=== PATIENT | female | born 1960 | race Caucasian/White ===

== ENCOUNTER 2020-07-17 10:53 | Outpatient (REF) | payer MEDICARE, SELFPAY ==
--- NOTE | 2020-07-17 10:56 | MR_ITS ---
MR LUMBAR SPINE WITHOUT IV CONTRAST CLINICAL INFORMATION: Spinal stenosis, lumbar region with neurogenic claudication. COMPARISON: Lumbar spine radiographs 06/05/2018. TECHNIQUE: MRI of the lumbar spine was obtained using routine sequences without contrast. FINDINGS: Straightening of the lumbar lordosis. Slight grade 1 anterolisthesis of L3 on L4. There are 5 nonrib-bearing lumbar-type vertebral bodies. The vertebral body heights are maintained. There is mild disc volume loss at L5-S1. There is disc desiccation at L3-L4, L4-L5, and L5-S1. There is no bone marrow edema. There are no acute fractures. Multilevel endplate osteophytes. Conus terminates at the L2 level. There are bilateral renal cysts. L1-L2: Small annular disc bulge and mild bilateral facet arthropathy. No central canal stenosis and no foraminal stenosis. L2-L3: Small annular disc bulge and mild bilateral facet arthropathy. No central canal stenosis and no foraminal stenosis. L3-L4: Slight grade 1 anterolisthesis. Moderate bilateral facet arthropathy and ligamentum flavum thickening. Mild narrowing of the central canal and mild bilateral foraminal encroachment. L4-L5: There is a diffuse annular disc bulge and there is moderate bilateral facet arthropathy. No central canal stenosis. Mild foraminal encroachment bilaterally. L5-S1: There is an inferiorly migrating right paracentral disc extrusion that contacts the traversing right S1 nerve root within the right S1 lateral recess and there are right greater than left lateral disc osteophyte protrusions, on the right side contacting the extraforaminal right L5 nerve root. Mild foraminal encroachment bilaterally. MR/MR lumbar spine wo con IMPRESSION: - At L5-S1, there is an inferiorly migrating right paracentral disc extrusion that contacts the traversing right S1 nerve root within the right S1 lateral recess and there are right greater than left lateral disc osteophyte protrusions, on the right side contacting the extraforaminal right L5 nerve root. - Additional degenerative findings as discussed above. There is no severe central canal stenosis and there is no severe foraminal stenosis within the lumbar spine. Slight grade 1 degenerative anterolisthesis of L3 on L4.
== END 2020-07-17 10:54 | disposition home or self-care (01) ==
LOC: HO.MRI 10:53
PROVIDERS: PCP Physician Assistant; Visit Provider Physician Assistant
DX: M48.062 Spinal stenosis, lumbar region with neurogenic claudication (principal)
CPT/HCPCS: 72148

== ENCOUNTER 2020-08-25 12:24 | Outpatient (REF) | payer MEDICARE, SELFPAY ==
--- NOTE | ~2020-08-25 | US_ITS ---
EXAMINATION: UPPER EXTREMITY DUPLEX DOPPLER ARTERIAL STUDY OF THE LEFT UPPER EXTREMITY. CLINICAL INFORMATION: Atherosclerotic disease COMPARISON: None TECHNIQUE: Real-time ultrasound and Doppler techniques (integrating B-mode 2D vascular images, Doppler spectral analysis and color flow Doppler imaging) were utilized to interrogate the left upper extremity arteries. FINDINGS: Left subclavian artery demonstrates a biphasic waveform with peak systolic velocity of 135 cm/s. The axillary artery has a biphasic waveform with peak systolic velocity of 118 cm/s. The brachial artery has a triphasic waveform with peak systolic velocity of 129 cm/s. The radial artery has a monophasic waveform with peak systolic velocity of 115 cm/s. The ulnar artery has a monophasic waveform with peak systolic velocity of 47 cm/s. US/US arterial duplex UE LT IMPRESSION: No hemodynamically significant stenosis down to the elbow but with monophasic waveforms distal to the brachial artery in both radial and ulnar arteries.
--- NOTE | ~2020-08-25 | XR_ITS ---
EXAMINATION: LEFT HAND CLINICAL INFORMATION: Pain COMPARISON: Left wrist study of December 13, 2017 TECHNIQUE: Three-view left hand FINDINGS: There is osteopenia visualized bones. No acute fracture or dislocation is evident. No erosive changes. Joint spaces are generally maintained. A tack is seen within the distal ulnar. XR/XR hand wrist LT IMPRESSION: Diffuse osteopenia. No acute fracture or dislocation.
--- NOTE | ~2020-08-25 | US_ITS ---
EXAMINATION: US VENOUS WITH DOPPLER UPPER EXTREMITY, LEFT CLINICAL INFORMATION: M79.89 - Other specified soft tissue disorders COMPARISON: None TECHNIQUE: Ultrasound of the upper extremity is performed using compression sonography and color and pulse Doppler flow with assessment of augmentation of flow. There is also imaging and Doppler assessment of the jugular and subclavian veins. Spectral analysis with color-flow imaging is performed. FINDINGS: Respiratory variation, normal compression, and augmented flow are noted throughout the upper extremity including the axillary, brachial, cubital, and radial and ulnar veins. There is normal flow in the internal jugular and subclavian veins. There is no visible deep or superficial thrombophlebitis. If the patient's symptoms progress, a followup ultrasound in 5 -7 days might be of value to exclude proximal propagation from a nonvisualized distal arm vein. US/US venous duplex UE LT IMPRESSION: No DVT demonstrated in the left upper extremity.
== END 2020-08-25 12:25 | disposition home or self-care (01) ==
LOC: HO.US 12:24
PROVIDERS: Visit Provider Physician Assistant
DX: M25.532 Pain in left wrist (principal); M79.89 Other specified soft tissue disorders
CPT/HCPCS: 73110; 73130; 93931; 93971

== ENCOUNTER 2021-01-23 19:14 | Emergency (ER) | payer MEDICARE, SELFPAY ==
--- NOTE | ~2021-01-23 | XR_ITS ---
EXAMINATION: XR LUMBAR SPINE XR HIP, LEFT CLINICAL INFORMATION: Back and left buttock pain. COMPARISON: Most recent lumbar spine MRI dated 07/17/2020. TECHNIQUE: AP, lateral, and cone-down views of the lumbar spine. AP and frog-leg lateral views of the left hip. FINDINGS: LUMBAR SPINE: Levocurvature of the lower lumbar spine. No acute fracture or subluxation. No loss of vertebral body height. Mild multilevel loss of intervertebral disc height with tiny anterior endplate osteophytes. Bilateral facet arthropathy at L5-S1. No lytic or blastic osseous lesion. Atherosclerotic calcifications. LEFT HIP: Mild joint space narrowing with tiny marginal osteophytes. No osseous erosion. No abnormal soft tissue calcification. XR/XR lumbar spine 2-3V IMPRESSION: Lumbar Spine: Mild multilevel degenerative disc disease, not significantly changed. Bilateral facet arthropathy at L5-S1. Left Hip: Minimal osteoarthritis.
--- NOTE | ~2021-01-23 | XR_ITS ---
EXAMINATION: XR LUMBAR SPINE XR HIP, LEFT CLINICAL INFORMATION: Back and left buttock pain. COMPARISON: Most recent lumbar spine MRI dated 07/17/2020. TECHNIQUE: AP, lateral, and cone-down views of the lumbar spine. AP and frog-leg lateral views of the left hip. FINDINGS: LUMBAR SPINE: Levocurvature of the lower lumbar spine. No acute fracture or subluxation. No loss of vertebral body height. Mild multilevel loss of intervertebral disc height with tiny anterior endplate osteophytes. Bilateral facet arthropathy at L5-S1. No lytic or blastic osseous lesion. Atherosclerotic calcifications. LEFT HIP: Mild joint space narrowing with tiny marginal osteophytes. No osseous erosion. No abnormal soft tissue calcification. XR/XR hip LT min 2V IMPRESSION: Lumbar Spine: Mild multilevel degenerative disc disease, not significantly changed. Bilateral facet arthropathy at L5-S1. Left Hip: Minimal osteoarthritis.
[2021-01-23 19:24] VITALS: BP 196/78; PULSE 92; RESP 16; TEMP 37.2; O2SAT 94; BMI 27.3
--- NOTE | 2021-01-23 19:39 | ED_ITS ---
HPI - Back Pain/Injury General Chief Complaint: Back Pain/Injury Stated Complaint: back pain Source: patient and EMS Mode of arrival: EMS Limitations: no limitations History of Present Illness HPI Narrative: Presents via EMS for lower back and left hip pain. Stated the pain started several days ago however she does have chronic pain and known arthritis. She states that has been difficult to walk for the past several days because to not report any fevers or chills, symptoms indicating cauda equina, chest pain or pressure, palpitations, shortness breath, abdominal pain, abdominal distention, dysuria, hematuria, nausea, vomiting, diarrhea, constipation, or any other concerning symptoms. She does not report any falls or trauma. She did not take any medications for pain management, she does not have Tylenol or Motrin at her home. MD elicited complaint: back pain Pertinent past history: prior back pain and arthritis Onset (ago): day(s) Timing: constant and progressively worsening Severity: severe Pain scale (0-10): 10 Similar Symptoms Previously: Yes Quality: aching and throbbing Location: lumbar spine Radiation: other (Left hip) Exacerbating factors: movement and walking Relieving factors: none Associated symptoms: denies other symptoms Work related injury: No Related Data Home Medications Medication Instructions Recorded Confirmed alcohol swabs pad TOPICAL 04/09/20 12/16/20 fluticasone propionate 50 1 inh INHALATION ONCE ea 04/09/20 12/16/20 mcg/actuation blister powder for inhalation lorazepam 1 mg tablet 1 mg PO TID PRN 04/09/20 12/16/20 venlafaxine 75 mg capsule,extended 75 mg PO DAILY cap 04/09/20 12/16/20 release 24 hr metformin 1,000 mg tablet 1,000 mg PO BID 06/03/20 12/16/20 Previous Rx's Medication Instructions Recorded walker #1 ea 04/28/20 lisinopril 40 mg tablet 40 mg PO DAILY #90 tab 07/07/20 diclofenac sodium 75 mg 75 mg PO BID PRN 30 Days #60 tab 08/25/20 tablet,delayed release atorvastatin 20 mg tablet 20 mg PO DAILY #90 tab 08/31/20 propranolol 20 mg tablet 20 mg PO BID #180 tab 10/29/20 levothyroxine 25 mcg tablet 25 mcg PO DAILY 90 Days #90 tab 11/25/20 omeprazole 20 mg capsule,delayed 20 mg PO DAILY 90 Days #90 cap 11/25/20 release lactulose 20 gram/30 mL oral 20 g PO ONCE PRN 15 Days #450 ml 12/14/20 solution magnesium citrate 150 ml PO DAILY 1 Days #296 ml 12/16/20 tramadol 50 mg tablet 50 mg PO DAILY 12 Days #12 tab 12/16/20 dulaglutide 0.75 mg/0.5 mL 0.75 mg SUBCUT QWEEK #2.5 ml 12/26/20 subcutaneous pen injector blood sugar diagnostic 1 strip MISCELLANEOUS BID 30 Days 01/11/21 #50 strip lancets 28 gauge 1 gauge MISCELLANEOUS BID 50 Days 01/11/21 #100 ea gabapentin 600 mg tablet 600 mg PO TID #90 tab 01/20/21 amoxicillin 875 mg-potassium 1 tab PO BID 7 Days #14 tab 01/21/21 clavulanate 125 mg tablet ibuprofen 600 mg PO Q6H PRN #60 tab 01/23/21 Allergies Allergy/AdvReac Type Severity Reaction Status Date / Time adhesive tape [ADHESIVE TAPE] Allergy Intermediate BLISTERS Verified 12/16/20 16:01 meloxicam AdvReac Unknown hallucinati Verified 12/16/20 16:01 ons talwin Allergy Unknown ineffective Uncoded 03/03/20 00:00 Review of Systems Review of Systems: Constitutional: No Fever, No Chills ENT/Mouth: No Ear Pain, No Hoarseness, No sore throat Eyes: No Eye Pain, No Swelling, No Redness, No Foreign Body Cardiovascular: No Chest Pain, No SOB Respiratory: No Cough, No Dyspnea Gastrointestinal: No Nausea, No Vomiting, No Diarrhea, No abdominal Pain Genitourinary: No Dysuria, No Hematuria Musculoskeletal: positive lower back and left pain, No Myalgias, No Joint Swelling Skin: No Skin lacerations, No rash Neuro: No Weakness, No Numbness, No Paresthesias, No Loss of Consciousness, No Dizziness, No Headache Psych: No Anxiety/Panic, No Depression Heme/Lymph: no easy bruising, no Lymphadenopathy Endocrine: No Polyuria, No Polydipsia Yes all other systems are reviewed and are negative [facility] Past Medical History Attestation statement: The following information was validated with the patient. Source: old records reviewed Surgical History History of cataract surgery History of ear surgery History of surgery on arm History of surgery on left wrist Family History Family History Father Hypertension CVD (cardiovascular disease) Mother Stroke Social History Social History Alcohol intake: former Patient Tobacco Use Status: Current everyday Tobacco user Cigarettes Per Day: 10 Second Hand Smoke Exposure: Yes Advance Directives: No Advance Directives Information Provided: Yes Patient : No Physical Exam Vital Signs: Vital Signs: Last Vital Signs Temp 98.9 F 01/23/21 19:24 Pulse 92 01/23/21 19:24 Resp 16 01/23/21 21:13 BP 196/78 H 01/23/21 19:24 Pulse Ox 94 01/23/21 19:24 Body Mass Index 27.3 Appearance: Alert. Oriented X3. No acute distress. Eyes: Pupils equal, round and reactive to light. ENT: Pharynx normal. Neck: Normal inspection. Neck supple. No vertebral tenderness. No step-offs. CVS: Normal heart rate and rhythm. Pulses normal. Respiratory: No respiratory distress. Breath sounds normal. Abdomen: Soft and nontender. No suprapubic tenderness. Skin: Skin warm and dry. Normal skin color. Normal skin turgor. Extremities: No lower extremity edema. Moves all extremities against resistance. Neuro: No motor deficit. No sensory deficit. Cranial nerves 2-12 intact. Course Course Course Narrative: 60-year-old female presents via EMS for chronic lower back pain and left hip pain. She has a significant history of degenerative disc disease and osteoarthritis. She does have full range of motion to all extremities, currently laying on her right side because of left-sided hip pain. Not report any trauma, has no bruising or abrasions noted to her body. Will order x-rays of the lumbar spine and left hip. No complaints of dysuria, negative CVA tenderness and abdominal pain to palpation. Nontoxic, afebrile. X-rays are negative for acute findings, shows degeneration and osteophytes. Will refer to pain management and to primary care. Patient verbalized understanding of and agrees to plan of care discharge home. MDM - Back Pain/Injury Differential Diagnosis Differential diagnosis: Likely lumbar radiculopathy and sciatica Medical Records Attestation: I reviewed the patient's medical records. Imaging Data Lumbar spine and hip x-ray: Attestation: I personally reviewed and interpreted this imaging study as follows: Radiologist's impression: COMPARISON: Most recent lumbar spine MRI dated 07/17/2020. TECHNIQUE: AP, lateral, and cone-down views of the lumbar spine. AP and frog-leg lateral views of the left hip. FINDINGS: LUMBAR SPINE: Levocurvature of the lower lumbar spine. No acute fracture or subluxation. No loss of vertebral body height. Mild multilevel loss of intervertebral disc height with tiny anterior endplate osteophytes. Bilateral facet arthropathy at L5-S1. No lytic or blastic osseous lesion. Atherosclerotic calcifications. LEFT HIP: Mild joint space narrowing with tiny marginal osteophytes. No osseous erosion. No abnormal soft tissue calcification. XR/XR lumbar spine 2-3V IMPRESSION: Lumbar Spine: Mild multilevel degenerative disc disease, not significantly changed. Bilateral facet arthropathy at L5-S1. Left Hip: Minimal osteoarthritis. Discharge Plan Discharge Clinical Impression: Arthritis, Degenerative disc disease Patient Disposition: Home, Self-Care Instructions: Degenerative Disc Disease (ED), Arthritis (ED) Additional Instructions: You were evaluated for lower back and hip pain. X-rays are negative for acute findings tension. She do have chronic findings of degenerative disc disease and arthritis. Please use Tylenol Motrin as needed for pain management. Follow-up with Dr. Austin for pain management. You may also consider follow-up primary care physician. Thank you for choosing this emergency department for evaluation. Please follow-up with primary care physician as needed. Return to the emergency department for any new, concerning, or worsening symptoms. Prescriptions: New ibuprofen 600 mg tablet 600 mg PO Q6H PRN (Reason: pain) Qty: 60 RF: 0 No Action (DME) Ultra-Light Rollator Misc See Rx Instructions .ROUTE .MEDSUPPLY Qty: 1 RF: 0 metformin 1,000 mg tablet 1,000 mg PO BID RF: 0 lisinopril 40 mg tablet 40 mg PO DAILY Qty: 90 RF: 2 atorvastatin 20 mg tablet 20 mg PO DAILY Qty: 90 RF: 2 propranolol 20 mg tablet 20 mg PO BID Qty: 180 RF: 2 omeprazole 20 mg capsule,delayed release(DR/EC) 20 mg PO DAILY 90 Days Qty: 90 RF: 1 levothyroxine 25 mcg tablet 25 mcg PO DAILY 90 Days Qty: 90 RF: 1 lactulose 20 gram/30 mL solution 20 g PO ONCE PRN (Reason: constipation) 15 Days Qty: 450 RF: 0 dulaglutide [Trulicity] 0.75 mg/0.5 mL pen injector 0.75 mg subcut QWEEK Qty: 2.5 RF: 3 FreeStyle Lite Strips Strip 1 strip miscellaneous BID 30 Days Qty: 50 RF: 6 lancets [Inject Ease Lancets] 28 gauge misc 1 gauge miscellaneous BID 50 Days Qty: 100 RF: 6 gabapentin 600 mg tablet 600 mg PO TID Qty: 90 RF: 1 amoxicillin-pot clavulanate [Augmentin] 875-125 mg tablet 1 tab PO BID 7 Days Qty: 14 RF: 0 alcohol swabs [Alcohol Prep Pads] Pads, Medicated topical RF: 0 lorazepam 1 mg tablet 1 mg PO TID PRNRF: 0 venlafaxine [Effexor XR] 75 mg capsule,extended release 24hr 75 mg PO DAILY RF: 0 fluticasone propionate 50 mcg/actuation blister with device 1 inh inhalation ONCE RF: 0 diclofenac sodium 75 mg tablet,delayed release (DR/EC) 75 mg PO BID PRN (Reason: pain) 30 Days Qty: 60 RF: 0 tramadol 50 mg tablet 50 mg PO DAILY 12 Days Qty: 12 RF: 0 magnesium citrate Solution 150 ml PO DAILY 1 Days Qty: 296 RF: 0 Referrals: William Austin MD [Physician] - 2 days (Arthritis, degenerative disc disease) Interventions: ED Discharge Assessment Last Done: 01/23/21 22:02 Discharge Date/Time: 01/23/21 21:45
[2021-01-23] MEDS: Ketorolac Tromethamine 15 MG/ML VIAL 30 MG IM (20:13)
[2021-01-23 21:13] VITALS: RESP 16
== END 2021-01-23 21:45 | disposition home or self-care (01) ==
PROVIDERS: Emergency Provider Internal Medicine
DX: M51.36 Other intervertebral disc degeneration, lumbar region (principal); M16.12 Unilateral primary osteoarthritis, left hip
CPT/HCPCS: 72100; 73502; 96372; 99284; J1885

== ENCOUNTER 2021-02-19 20:28 | Observation (INO) | payer MEDICARE, SELFPAY ==
--- NOTE | ~2021-02-19 | CT_ITS ---
EXAMINATION: CT HEAD WITHOUT CONTRAST CLINICAL INFORMATION: Multiple falls. COMPARISON: CT head April 29, 2018 TECHNIQUE: Contiguous axial imaging was performed from the skull base to vertex without intravenous administration of contrast. Coronal and sagittal reformatted images are performed at the CT scanner. [This CT examination was performed using dose optimization techniques as appropriate, variously including the following: *Automated exposure control *Adjustment of mA and/or kV according to patient size (this includes techniques or standardized protocols for targeted exams where dose is matched to indication/reason for exam; i.e. extremities or head) *Use of iterative reconstruction technique] DLP: 638 mGy-cm. FINDINGS: There is no evidence of acute intracranial hemorrhage or territorial infarction. No abnormal mass-effect or midline shift is seen. Guerra to white matter differentiation is well preserved. No extra-axial fluid collections are identified. The ventricles are normal in size. There is no abnormal attenuation within the brain parenchyma. There is no osseous abnormality. The mastoid air cells and visualized portions of the paranasal sinuses are well-aerated. CT/CT head/brain wo con IMPRESSION: No acute intracranial pathology.
--- NOTE | ~2021-02-19 | XR_ITS ---
EXAMINATION: XR LUMBOSACRAL SPINE CLINICAL INFORMATION: Low back pain status post multiple falls. COMPARISON: 01/23/2021 lumbar spine radiographs. MRI of the lumbar spine dated 07/17/2020 TECHNIQUE: Three views of the lumbosacral spine. FINDINGS: There is normal lumbar lordosis and spinal alignment. The vertebral bodies are intact. Mild mild to moderate multilevel disc space narrowing, most pronounced at L5-S1 is again seen without significant change. There is no acute fracture. The soft tissues are unremarkable. XR/XR lumbar spine 2-3V IMPRESSION: Mild to moderate multilevel degenerative disc disease most pronounced at L5-S1 without significant change. No definitive acute abnormality.
[2021-02-19 20:37] VITALS: BP 107/83; BP 136/62; PULSE 64; PULSE 71; RESP 15; TEMP 36.9; O2SAT 94; O2SAT 98; BMI 28.0
[2021-02-19 20:48] LABS: Glucose, Whole Blood > 600 mg/dL (60-115)
--- NOTE | 2021-02-19 21:47 | ECG_ITS ---
Test Reason : SYNCOPE Blood Pressure : / mmHG Vent. Rate : 063 BPM Atrial Rate : 063 BPM P-R Int : 154 ms QRS Dur : 084 ms QT Int : 436 ms P-R-T Axes : 054 039 079 degrees QTc Int : 446 ms Normal sinus rhythm Nonspecific ST and T wave abnormality Borderline ECG When compared with ECG of 29-APR-2018 10:26, No significant change was found Referred By: Allie Gonzales Electronically Signed By:SHY DILLON
[2021-02-19 21:48] VITALS: BP 132/58; PULSE 69; RESP 22; O2SAT 95
[2021-02-19 21:50] VITALS: PULSE 69; O2SAT 95
--- NOTE | 2021-02-19 21:56 | ED.GENADULT ---
HPI - General Adult General Chief complaint: Syncope Stated complaint: syncope high sugar Time Seen by Provider: 02/19/21 21:46 Source: patient and EMS Mode of arrival: EMS Limitations: no limitations History of Present Illness HPI narrative: Patient comes to the emergency room via EMS complaining of high blood sugar, multiple syncopal episodes within a week, she has had 3 syncopal episodes, the only thing that she remembers is waking up on the floor. Last syncopal episode was today. Patient went to take her trash out, ruled the trash into the end of the driveway, patient woke up in front of her house by the driveway. Patient states it took a lot of energy for her to get up but was able to do so. Patient states she checked her blood sugar, at home her glucometer read as ?high? patient takes Trulicity and metformin at home. Patient also complaining feeling very thirsty and drinking lots of fluids and increased urination in the last week. At this time patient denies chest pain, no shortness of breath, complaining of lumbar pain which started approximately 1 week ago. Patient states every time she has passed out, the pain keeps getting worse. Related Data Home Medications Medication Instructions Recorded Confirmed alcohol swabs (Alcohol Prep Pads) pad TOPICAL 04/09/20 02/09/21 fluticasone propionate 50 1 inh INHALATION ONCE ea 04/09/20 02/09/21 mcg/actuation blister powder for inhalation lorazepam 1 mg tablet 1 mg PO TID PRN 04/09/20 02/09/21 venlafaxine 75 mg capsule,extended 75 mg PO DAILY cap 04/09/20 02/09/21 release 24 hr (Effexor XR) metformin 1,000 mg tablet 1,000 mg PO BID 06/03/20 02/09/21 Previous Rx's Medication Instructions Recorded walker (Ultra-Light Rollator) #1 ea 04/28/20 lisinopril 40 mg tablet 40 mg PO DAILY #90 tab 07/07/20 diclofenac sodium 75 mg 75 mg PO BID PRN 30 Days #60 tab 08/25/20 tablet,delayed release atorvastatin 20 mg tablet 20 mg PO DAILY #90 tab 08/31/20 propranolol 20 mg tablet 20 mg PO BID #180 tab 10/29/20 levothyroxine 25 mcg tablet 25 mcg PO DAILY 90 Days #90 tab 11/25/20 omeprazole 20 mg capsule,delayed 20 mg PO DAILY 90 Days #90 cap 11/25/20 release lactulose 20 gram/30 mL oral 20 g PO ONCE PRN 15 Days #450 ml 12/14/20 solution magnesium citrate 150 ml PO DAILY 1 Days #296 ml 12/16/20 tramadol 50 mg tablet 50 mg PO DAILY 12 Days #12 tab 12/16/20 blood sugar diagnostic (FreeStyle 1 strip MISCELLANEOUS BID 30 Days 01/11/21 Lite Strips) #50 strip lancets 28 gauge (Inject Ease 1 gauge MISCELLANEOUS BID 50 Days 01/11/21 Lancets) #100 ea gabapentin 600 mg tablet 600 mg PO TID #90 tab 01/20/21 ibuprofen 600 mg tablet 600 mg PO Q6H PRN #60 tab 01/23/21 lidocaine 4 % topical patch 1 patch TOPICAL BID PRN 7 Days #15 01/25/21 ea blood-glucose meter (FreeStyle #1 ea 02/09/21 Lite Meter) oxybutynin chloride 10 mg 10 mg PO DAILY 30 Days #30 tab 02/09/21 tablet,extended release 24 hr Allergies Allergy/AdvReac Type Severity Reaction Status Date / Time adhesive tape [ADHESIVE TAPE] Allergy Intermediate BLISTERS Verified 02/09/21 10:55 meloxicam AdvReac Unknown hallucinati Verified 02/09/21 10:55 ons talwin Allergy Unknown ineffective Uncoded 03/03/20 00:00 Review of Systems Review of Systems: Constitutional : No Weight loss, No Fever, No Chills, No Night Sweats, No Fatigue, No Malaise ENT/Mouth : No Hearing loss, No Ear Pain, No Nasal Congestion, No Sinus Pain, No Hoarseness, No sore throat, No Rhinorrhea, No Swallowing Difficulty Eyes: No Eye Pain, No Swelling, No Redness, No Foreign Body, No Discharge, No Vision Changes Cardiovascular : No Chest Pain, No SOB, No Dyspnea on Exertion, No Orthopnea, No Edema, No Palpitations Respiratory : No Cough, No Sputum, No Wheezing, No Smoke Exposure, No Dyspnea Gastrointestinal : No Nausea, No Vomiting, No Diarrhea, No Constipation, No abdominal Pain, No Hematochezia, No Melena Genitourinary : no irregular bleeding, No Dysuria, No Urinary Frequency, No Hematuria, No Urinary Incontinence, No Urgency, No Flank Pain, No Urinary Flow Changes, No Hesitancy Musculoskeletal complaining of lumbar/sacral pain No Myalgias, No Joint Swelling Skin : No Skin Lesions, No rash Neuro : No Weakness, No Numbness, No Paresthesias, complaining of 3 episodes of loss of consciousness within the last week Psych : No Anxiety/Panic, No Depression, No SI/HI/AH/VH, No Social Issues, Heme/Lymph: No Bruising, No Bleeding,No Lymphadenopathy Endocrine : Complaining of polyuria polydipsia No Temperature Intolerance [facility] Past Medical History Surgical History History of cataract surgery History of ear surgery History of surgery on arm History of surgery on left wrist Family History Family History Father Hypertension CVD (cardiovascular disease) Mother Stroke Social History Social History Alcohol intake: never Patient Tobacco Use Status: Current everyday Tobacco user Cigarettes Per Day: 10 Smoked in Last 30 Days: Yes e-Cigarette/Vaping Use: Never Used Second Hand Smoke Exposure: Yes Use of substances other than those prescribed or required for medical reasons: No Advance Directives: No Advance Directives Information Provided: Yes Patient : No Physical Exam Vital Signs: Vital Signs: Last Vital Signs Temp 98.5 F 02/19/21 20:37 Pulse 63 02/20/21 00:22 Resp 16 02/20/21 00:22 BP 132/58 L 02/19/21 21:48 Pulse Ox 93 02/19/21 23:01 Body Mass Index 28.0 Const: Other: Appearance: Alert. Oriented X3. No acute distress. Eyes: Pupils equal, round and reactive to light. ENT: Pharynx normal. Neck: Normal inspection. Neck supple. No lymph nodes noted. No crepitus CVS: Normal heart rate and rhythm. Pulses normal. Normal S1 and S2 Respiratory: No respiratory distress. Breath sounds normal. No Wheezing. No rales Abdomen: Soft and nontender. No rigidity. No distention. Back: Pain to palpation over the lumbar area midline, negative straight leg raise test Skin: Skin warm and dry. Normal skin color. Normal skin turgor. No abrasions Extremities: No lower extremity edema. No lower extremity edema. No Lacerations. No Rash Neuro: Oriented X 3. No motor deficit. No sensory deficit. Moving all extermities. No slurred speech. Course Course Course Narrative: Patient's blood glucose dropped from 712 to gap is closed. Patient has acute kidney injury. I discussed with Dr. Thornton the patient has had 3 syncopal episodes in less than 1 week. Patient will be admitted for further evaluation and treatment. Medical Decision Making Lab Data Result diagrams: 02/19/21 22:04 02/19/21 22:04 Labs: Lab Results 02/19/21 02/19/21 02/19/21 Range/Units 20:44 22:04 22:04 WBC 9.3 (4.8-10.8) X10*3/uL RBC 4.26 (4.20-5.50) X10*6/uL Hgb 12.7 (12.0-16.0) g/dl Hct 35.1 L (37-47) % MCV 82.4 (80-98) fL MCH 29.8 (27.0-33.0) pg MCHC 36.2 H (31.0-35.0) g/dl RDW 12.3 (11.0-16.0) % Plt Count 212 (160-400) X10*3/uL MPV 11.1 (9.4-12.3) fL Immature Gran % (Auto) 0.4 (0.0-0.4) % Neut % (Auto) 76.5 H (45-73) % Lymph % (Auto) 15.6 L (20-40) % [place] % (Auto) 6.7 (2-11) % Eos % (Auto) 0.6 (0-4) % Baso % (Auto) 0.2 (0-2) % Lymph # (Auto) 1.4 (1.2-4.9) X10*3/uL [place] # (Auto) 0.6 (0.1-1.2) X10*3/uL Eos # (Auto) 0.1 (0.0-0.4) X10*3/uL Baso # (Auto) 0.0 (0.0-0.2) X10*3/uL Abs Immat Gran (auto) 0.04 H (0.00-0.03) X10*3/uL Absolute Neuts (auto) 7.1 (2.0-8.3) X10*3/uL Absolute Nucleated RBC 0.000 (0.0-0.012) X10*3/uL Nucleated RBC % (auto) 0.0 (0.0-0.2) /100WBC PT (9.9-13.0) SEC INR (0.9-1.1) D-Dimer NG/ML Sodium 121 L (135-145) mmol/L Potassium 5.3 H (3.3-5.1) mmol/L Chloride 88 L (96-108) mmol/L Carbon Dioxide 21 L (22-29) mmol/L Anion Gap 17 (12-20) BUN 44 H (9-16) mg/dL Creatinine 1.81 H (0.5-1.4) mg/dL Estim Creat Clear Calc 29.4 Estimated GFR 28 POC Glucose > 600 H* (60-115) mg/dL Random Glucose 712 H* (60-115) mg/dL Calcium 8.9 (8.4-10.2) mg/dL Magnesium 1.7 (1.6-2.6) mg/dL Total Bilirubin 0.8 (0.0-1.0) mg/dL Direct Bilirubin 0.3 (0.0-0.5) mg/dL AST 22 (5-31) U/L ALT 27 (0-31) U/L Alkaline Phosphatase 119 H (39-117) U/L Troponin I High Sens (<3.5-17.0) ng/L Total Protein 6.4 L (6.5-8.0) g/dL Albumin 3.7 (3.5-5.0) g/dL Urine Color Urine Appearance Urine pH (5.0-8.0) Ur Specific [place] (1.005-1.025) Urine Protein (NEG-TRACE) MG/DL Urine Glucose (UA) (NEG) MG/DL Urine Ketones (NEG) MG/DL Urine Blood (NEG) Urine Nitrite (NEG) Ur Leukocyte Esterase (NEG) Ethyl Alcohol mg/dL COVID-19 ([facility]) (Negative) COVID-19 Clin Com 02/19/21 02/19/21 02/19/21 Range/Units 22:04 22:04 22:04 WBC (4.8-10.8) X10*3/uL RBC (4.20-5.50) X10*6/uL Hgb (12.0-16.0) g/dl Hct (37-47) % MCV (80-98) fL MCH (27.0-33.0) pg MCHC (31.0-35.0) g/dl RDW (11.0-16.0) % Plt Count (160-400) X10*3/uL MPV (9.4-12.3) fL Immature Gran % (Auto) (0.0-0.4) % Neut % (Auto) (45-73) % Lymph % (Auto) (20-40) % [place] % (Auto) (2-11) % Eos % (Auto) (0-4) % Baso % (Auto) (0-2) % Lymph # (Auto) (1.2-4.9) X10*3/uL [place] # (Auto) (0.1-1.2) X10*3/uL Eos # (Auto) (0.0-0.4) X10*3/uL Baso # (Auto) (0.0-0.2) X10*3/uL Abs Immat Gran (auto) (0.00-0.03) X10*3/uL Absolute Neuts (auto) (2.0-8.3) X10*3/uL Absolute Nucleated RBC (0.0-0.012) X10*3/uL Nucleated RBC % (auto) (0.0-0.2) /100WBC PT 10.5 (9.9-13.0) SEC INR 0.9 (0.9-1.1) D-Dimer 211 NG/ML Sodium (135-145) mmol/L Potassium (3.3-5.1) mmol/L Chloride (96-108) mmol/L Carbon Dioxide (22-29) mmol/L Anion Gap (12-20) BUN (9-16) mg/dL Creatinine (0.5-1.4) mg/dL Estim Creat Clear Calc Estimated GFR POC Glucose (60-115) mg/dL Random Glucose (60-115) mg/dL Calcium (8.4-10.2) mg/dL Magnesium (1.6-2.6) mg/dL Total Bilirubin (0.0-1.0) mg/dL Direct Bilirubin (0.0-0.5) mg/dL AST (5-31) U/L ALT (0-31) U/L Alkaline Phosphatase (39-117) U/L Troponin I High Sens 11.0 (<3.5-17.0) ng/L Total Protein (6.5-8.0) g/dL Albumin (3.5-5.0) g/dL Urine Color Urine Appearance Urine pH (5.0-8.0) Ur Specific [place] (1.005-1.025) Urine Protein (NEG-TRACE) MG/DL Urine Glucose (UA) (NEG) MG/DL Urine Ketones (NEG) MG/DL Urine Blood (NEG) Urine Nitrite (NEG) Ur Leukocyte Esterase (NEG) Ethyl Alcohol < 10 mg/dL COVID-19 ([facility]) (Negative) COVID-19 Clin Com 02/19/21 02/19/21 02/20/21 Range/Units 22:04 22:49 00:22 WBC (4.8-10.8) X10*3/uL RBC (4.20-5.50) X10*6/uL Hgb (12.0-16.0) g/dl Hct (37-47) % MCV (80-98) fL MCH (27.0-33.0) pg MCHC (31.0-35.0) g/dl RDW (11.0-16.0) % Plt Count (160-400) X10*3/uL MPV (9.4-12.3) fL Immature Gran % (Auto) (0.0-0.4) % Neut % (Auto) (45-73) % Lymph % (Auto) (20-40) % [place] % (Auto) (2-11) % Eos % (Auto) (0-4) % Baso % (Auto) (0-2) % Lymph # (Auto) (1.2-4.9) X10*3/uL [place] # (Auto) (0.1-1.2) X10*3/uL Eos # (Auto) (0.0-0.4) X10*3/uL Baso # (Auto) (0.0-0.2) X10*3/uL Abs Immat Gran (auto) (0.00-0.03) X10*3/uL Absolute Neuts (auto) (2.0-8.3) X10*3/uL Absolute Nucleated RBC (0.0-0.012) X10*3/uL Nucleated RBC % (auto) (0.0-0.2) /100WBC PT (9.9-13.0) SEC INR (0.9-1.1) D-Dimer NG/ML Sodium (135-145) mmol/L Potassium (3.3-5.1) mmol/L Chloride (96-108) mmol/L Carbon Dioxide (22-29) mmol/L Anion Gap (12-20) BUN (9-16) mg/dL Creatinine (0.5-1.4) mg/dL Estim Creat Clear Calc Estimated GFR POC Glucose 479 H* 323 H (60-115) mg/dL Random Glucose (60-115) mg/dL Calcium (8.4-10.2) mg/dL Magnesium (1.6-2.6) mg/dL Total Bilirubin (0.0-1.0) mg/dL Direct Bilirubin (0.0-0.5) mg/dL AST (5-31) U/L ALT (0-31) U/L Alkaline Phosphatase (39-117) U/L Troponin I High Sens (<3.5-17.0) ng/L Total Protein (6.5-8.0) g/dL Albumin (3.5-5.0) g/dL Urine Color Urine Appearance Urine pH (5.0-8.0) Ur Specific [place] (1.005-1.025) Urine Protein (NEG-TRACE) MG/DL Urine Glucose (UA) (NEG) MG/DL Urine Ketones (NEG) MG/DL Urine Blood (NEG) Urine Nitrite (NEG) Ur Leukocyte Esterase (NEG) Ethyl Alcohol mg/dL COVID-19 ([facility]ARAH) Negative (Negative) COVID-19 Clin Com See Note 02/20/21 Range/Units 01:35 WBC (4.8-10.8) X10*3/uL RBC (4.20-5.50) X10*6/uL Hgb (12.0-16.0) g/dl Hct (37-47) % MCV (80-98) fL MCH (27.0-33.0) pg MCHC (31.0-35.0) g/dl RDW (11.0-16.0) % Plt Count (160-400) X10*3/uL MPV (9.4-12.3) fL Immature Gran % (Auto) (0.0-0.4) % Neut % (Auto) (45-73) % Lymph % (Auto) (20-40) % [place] % (Auto) (2-11) % Eos % (Auto) (0-4) % Baso % (Auto) (0-2) % Lymph # (Auto) (1.2-4.9) X10*3/uL [place] # (Auto) (0.1-1.2) X10*3/uL Eos # (Auto) (0.0-0.4) X10*3/uL Baso # (Auto) (0.0-0.2) X10*3/uL Abs Immat Gran (auto) (0.00-0.03) X10*3/uL Absolute Neuts (auto) (2.0-8.3) X10*3/uL Absolute Nucleated RBC (0.0-0.012) X10*3/uL Nucleated RBC % (auto) (0.0-0.2) /100WBC PT (9.9-13.0) SEC INR (0.9-1.1) D-Dimer NG/ML Sodium (135-145) mmol/L Potassium (3.3-5.1) mmol/L Chloride (96-108) mmol/L Carbon Dioxide (22-29) mmol/L Anion Gap (12-20) BUN (9-16) mg/dL Creatinine (0.5-1.4) mg/dL Estim Creat Clear Calc Estimated GFR POC Glucose (60-115) mg/dL Random Glucose (60-115) mg/dL Calcium (8.4-10.2) mg/dL Magnesium (1.6-2.6) mg/dL Total Bilirubin (0.0-1.0) mg/dL Direct Bilirubin (0.0-0.5) mg/dL AST (5-31) U/L ALT (0-31) U/L Alkaline Phosphatase (39-117) U/L Troponin I High Sens (<3.5-17.0) ng/L Total Protein (6.5-8.0) g/dL Albumin (3.5-5.0) g/dL Urine Color YELLOW Urine Appearance CLEAR Urine pH 5.5 (5.0-8.0) Ur Specific [place] 1.010 (1.005-1.025) Urine Protein NEG (NEG-TRACE) MG/DL Urine Glucose (UA) >=1000 H (NEG) MG/DL Urine Ketones NEG (NEG) MG/DL Urine Blood NEG (NEG) Urine Nitrite NEG (NEG) Ur Leukocyte Esterase 1+ H (NEG) Ethyl Alcohol mg/dL COVID-19 ([facility]) (Negative) COVID-19 Clin Com Imaging Data Lumbar x-ray: Radiologist's impression: There is normal lumbar lordosis and spinal alignment. The vertebral bodies are intact. Mild mild to moderate multilevel disc space narrowing, most pronounced at L5-S1 is again seen without significant change. There is no acute fracture. The soft tissues are unremarkable. XR/XR lumbar spine 2-3V IMPRESSION: Mild to moderate multilevel degenerative disc disease most pronounced at L5-S1 without significant change. No definitive acute abnormality. CT scan - head: Radiologist's impression: FINDINGS: There is no evidence of acute intracranial hemorrhage or territorial infarction. No abnormal mass-effect or midline shift is seen. Guerra to white matter differentiation is well preserved. No extra-axial fluid collections are identified. The ventricles are normal in size. There is no abnormal attenuation within the brain parenchyma. There is no osseous abnormality. The mastoid air cells and visualized portions of the paranasal sinuses are well-aerated. ? CT/CT head/brain wo con IMPRESSION: No acute intracranial pathology. Discharge Plan Discharge Clinical Impression: Syncope, Acute kidney injury, Acute hyperglycemia Patient Disposition: Admitted As Inpatient Prescriptions: No Action (DME) Ultra-Light Rollator Misc See Rx Instructions .ROUTE .MEDSUPPLY Qty: 1 RF: 0 metformin 1,000 mg tablet 1,000 mg PO BID RF: 0 lisinopril 40 mg tablet 40 mg PO DAILY Qty: 90 RF: 2 atorvastatin 20 mg tablet 20 mg PO DAILY Qty: 90 RF: 2 propranolol 20 mg tablet 20 mg PO BID Qty: 180 RF: 2 omeprazole 20 mg capsule,delayed release(DR/EC) 20 mg PO DAILY 90 Days Qty: 90 RF: 1 levothyroxine 25 mcg tablet 25 mcg PO DAILY 90 Days Qty: 90 RF: 1 lactulose 20 gram/30 mL solution 20 g PO ONCE PRN (Reason: constipation) 15 Days Qty: 450 RF: 0 FreeStyle Lite Strips Strip 1 strip miscellaneous BID 30 Days Qty: 50 RF: 6 lancets [Inject Ease Lancets] 28 gauge misc 1 gauge miscellaneous BID 50 Days Qty: 100 RF: 6 gabapentin 600 mg tablet 600 mg PO TID Qty: 90 RF: 1 lidocaine 4 % adhesive patch,medicated 1 patch topical BID PRN (Reason: pain) 7 Days Qty: 15 RF: 0 ibuprofen 600 mg tablet 600 mg PO Q6H PRN (Reason: pain) Qty: 60 RF: 0 alcohol swabs [Alcohol Prep Pads] Pads, Medicated topical RF: 0 lorazepam 1 mg tablet 1 mg PO TID PRNRF: 0 venlafaxine [Effexor XR] 75 mg capsule,extended release 24hr 75 mg PO DAILY RF: 0 fluticasone propionate 50 mcg/actuation blister with device 1 inh inhalation ONCE RF: 0 (DME) blood-glucose meter [FreeStyle Lite Meter] Kit See Rx Instructions .Route Qty: 1 RF: 0 oxybutynin chloride 10 mg tablet extended release 24hr 10 mg PO DAILY 30 Days Qty: 30 RF: 2 diclofenac sodium 75 mg tablet,delayed release (DR/EC) 75 mg PO BID PRN (Reason: pain) 30 Days Qty: 60 RF: 0 tramadol 50 mg tablet 50 mg PO DAILY 12 Days Qty: 12 RF: 0 magnesium citrate Solution 150 ml PO DAILY 1 Days Qty: 296 RF: 0
[2021-02-19] MEDS: Insulin Regular, Human 100 UNIT/ML 3 ML VIAL 10 UNIT IVPUSH (21:59)
[2021-02-19] MEDS: 0.9 % Sodium Chloride 1,000 ML 999 ML IVCONT (21:59)
[2021-02-19] MEDS: traMADoL HCL 50 MG TABLET PO (22:02)
[2021-02-19 22:11] LABS: MANUAL DIFF FLAG NO
[2021-02-19 22:12] LABS: Basophils Percent Auto 0.2 % (0-2); Eosinophils Absolute Auto 0.1 X10*3/uL (0.0-0.4); Eosinophils Percent Auto 0.6 % (0-4); Hematocrit 35.1 % (37-47); Hemoglobin 12.7 g/dl (12.0-16.0); Imm Gran Abs Auto 0.04 X10*3/uL (0.00-0.03); Imm Gran Pct Auto 0.4 % (0.0-0.4); Lymphocytes Absolute Auto 1.4 X10*3/uL (1.2-4.9); Lymphocytes Percent Auto 15.6 % (20-40); Mean Corpuscular HGB Conc 36.2 g/dl (31.0-35.0); Mean Corpuscular Hemoglobin 29.8 pg (27.0-33.0); Mean Corpuscular Volume 82.4 fL (80-98); Mean Platelet Volume 11.1 fL (9.4-12.3); Monocytes Absolute Auto 0.6 X10*3/uL (0.1-1.2); Monocytes Percent Auto 6.7 % (2-11); Neutrophils Absolute Auto 7.1 X10*3/uL (2.0-8.3); Neutrophils Percent Auto 76.5 % (45-73); Platelet Count 212 X10*3/uL (160-400); Red Blood Count 4.26 X10*6/uL (4.20-5.50); Red Cell Distribution Width 12.3 % (11.0-16.0); White Blood Count 9.3 X10*3/uL (4.8-10.8)
[2021-02-19 22:24] LABS: INTERNATIONAL NORM RATIO 0.9 (0.9-1.1); Prothrombin Time 10.5 SEC (9.9-13.0)
--- NOTE | 2021-02-19 22:24 | PC.NURSE ---
Pt daughter Ludwig
[2021-02-19 22:26] LABS: COVID-19 Test Negative (Negative)
[2021-02-19 22:27] LABS: D Dimer 211 NG/ML
[2021-02-19 22:41] LABS: Ethanol < 10 mg/dL
[2021-02-19 22:45] LABS: Alanine Aminotransferase 27 U/L (0-31); Albumin Level 3.7 g/dL (3.5-5.0); Alkaline Phosphatase 119 U/L (39-117); Aspartate Amino Transferase 22 U/L (5-31); Bilirubin Direct 0.3 mg/dL (0.0-0.5); Bilirubin Total 0.8 mg/dL (0.0-1.0); Blood Urea Nitrogen 44 mg/dL (9-16); Calcium 8.9 mg/dL (8.4-10.2); Creatinine Clr Calc Pharmacy 29.4; Estimated Glomerular Filt Rate 28; Magnesium 1.7 mg/dL (1.6-2.6); Total Protein 6.4 g/dL (6.5-8.0)
[2021-02-19 22:54] LABS: Glucose, Whole Blood 479 mg/dL (60-115)
[2021-02-19 22:55] LABS: Anion Gap 17 (12-20); Carbon Dioxide 21 mmol/L (22-29); Chloride 88 mmol/L (96-108); Potassium 5.3 mmol/L (3.3-5.1); Sodium 121 mmol/L (135-145)
[2021-02-19 23:01] VITALS: PULSE 67; RESP 17; O2SAT 93
[2021-02-19 23:05] LABS: Glucose Random 712 mg/dL (60-115)
[2021-02-20] VITALS (10 sets, daily range): BP systolic 89–159; BP diastolic 51–72; PULSE 57–82; RESP 15–20; TEMP 36.1–36.9; O2SAT 92–95; BMI 28.5
[2021-02-20 00:27] LABS: Glucose, Whole Blood 323 mg/dL (60-115)
[2021-02-20] MEDS: 0.9 % Sodium Chloride 1,000 ML 999 ML IVCONT (00:57)
[2021-02-20] MEDS: Insulin Regular, Human 100 UNIT/ML 3 ML VIAL 10 UNIT IVPUSH (01:14)
[2021-02-20 01:45] LABS: Glucose Urine UA >=1000 MG/DL (NEG); Leukocyte Esterase Urine 1+ (NEG); Nitrite Urine NEG (NEG); PH 5.5 (5.0-8.0); UACC Culture Trigger YES; Urine Blood NEG (NEG); Urine Ketones NEG (NEG); Urine Protein NEG (NEG-TRACE)
[2021-02-20 01:47] LABS: Appearance Urine CLEAR; Color Urine YELLOW
[2021-02-20 02:06] LABS: Bacteria Urine TRACE /LPF; Mucus Urine TRACE /LPF; RBC Urine 0 /HPF (0); Squamous Epithelial Cell Urine TRACE /LPF
[2021-02-20 02:44] LABS: Amphetamine Screen Urine Not Detected (Not Detect); Barbiturates, Urine Not Detected (Not Detect); Benzodiazepines Screen Urine Not Detected (Not Detect); Cannabinoid Screen Urine Not Detected (Not Detect); Cocaine Screen Urine Not Detected (Not Detect); Opiate Screen Urine Not Detected (Not Detect); Phencyclidine Screen Urine Not Detected (Not Detect)
[2021-02-20 02:48] LABS: Fentanyl, urine Not Detected (Not Detect)
[2021-02-20] MEDS: Gabapentin 600 MG TABLET PO ×4 (03:16→21:01)
[2021-02-20] MEDS: cefTRIAXone sodium 1 GM in 0.9 % Sodium Chloride 50 ML IV ×2 (03:18→21:01)
[2021-02-20] MEDS: 0.9 % Sodium Chloride 1,000 ML 80 ML IVCONT ×2 (04:17→17:32)
[2021-02-20] MEDS: Lactated Ringers 1,000 ML 999 ML IV (04:18)
--- NOTE | 2021-02-20 06:18 | P.HPHOSP_ITS ---
History of Present Illness Date of Service: 02/20/21 Chief Complaint: Syncope This is a 60-year-old female with past medical history of hypertension, GERD, hypothyroidism, diabetes who presents to the hospital with complaints of syncopal episodes. Patient reports that these episode occurred over the past last week. Every episode occurs spontaneously, she has no port removed postictal symptoms. Patient reports no dizziness prior, no chest pain, no shortness of breath. She reports that she is not confused when she came about. She does not know how long each episode lasts because she lives alone around her syncopal episodes are not witnessed. She is complaining of her tailbone pain as she fell on her butt on the last episode which occurred yesterday. She denies any abdominal pain, nausea or vomiting, no chest pain, no shortness of breath, no headache or change in vision, she does complain of urinary urgency, no frequency or dysuria, denies any lower extremity edema. On arrival vitals significant for temp of 98.5?, heart rate of 64, respiratory rate of 15, BP of 136/62, satting 90% on room air. Labs are significant WBC count of 9.3, sodium of 139 (corrected for hyperglycemia) potassium 5.3, BUN of 44, creatinine of 1.81, with a baseline around 0.78, glucose of 712, troponin of 11, UA that is positive for nitrites and WBC Orthostatic vitals ordered by me found to be positive specifically on standing her blood pressure drops from 131/65 to 89/51. Review of Systems Review of Systems: Yes all other systems are reviewed and are negative [facility] Medical History (Updated 02/20/21 @ 06:25 by Simone Thornton MD) Constipation DMII (diabetes mellitus, type 2) HTN (hypertension) Hypothyroidism Lumbar stenosis with neurogenic claudication Family History Father Hypertension CVD (cardiovascular disease) Mother Stroke Surgical History History of cataract surgery History of ear surgery History of surgery on arm History of surgery on left wrist Social History Alcohol intake: never Patient Tobacco Use Status: Current everyday Tobacco user Cigarettes Per Day: 10 Smoked in Last 30 Days: Yes e-Cigarette/Vaping Use: Never Used Second Hand Smoke Exposure: Yes Use of substances other than those prescribed or required for medical reasons: No Advance Directives: No Advance Directives Information Provided: Yes Patient : No Meds Allergies Allergy/AdvReac Type Severity Reaction Status Date / Time adhesive tape [ADHESIVE TAPE] Allergy Intermediate BLISTERS Verified 02/09/21 10:55 meloxicam AdvReac Unknown hallucinati Verified 02/09/21 10:55 ons talwin Allergy Unknown ineffective Uncoded 03/03/20 00:00 Active Medications: Current Medications Generic Name Dose Route Start Last Admin Trade Name Freq PRN Reason Stop Dose Admin Acetaminophen 650 mg 02/20/21 02:50 Acetaminophen 325 Mg Tablet PO Q6H PRN Pain, Mild (Pain Scale 1-3) Atorvastatin Calcium 20 mg 02/20/21 09:00 Atorvastatin Calcium 20 Mg Tablet PO DAILY [facility] Dextrose 25 gm 02/20/21 02:50 Dextrose 50 % 25 Gm/50 Ml Vial IVPUSH Q15M PRN per Hypoglycemia Standing Ord. Protocol Gabapentin 600 mg 02/20/21 02:50 02/20/21 03:16 Gabapentin 600 Mg Tablet PO 600 mg TID [facility]OLO Administration Glucose 15 gm 02/20/21 02:50 Glucose Gel 15 Gm Gel..Gram. PO Q15M PRN per Hypoglycemia Standing Ord. Protocol Sodium Chloride 1,000 mls @ 80 mls/hr 02/20/21 02:30 02/20/21 04:17 Ns IVCONT 80 mls/hr .[id number] [facility] Administration Ceftriaxone Sodium 1 gm/ 50 mls @ 100 mls/hr 02/20/21 22:00 Sodium Chloride IV Q24H [facility] Insulin Human Lispro 0 unit 02/20/21 07:30 Insulin Lispro 100 Unit/Ml 3 Ml Vial SUBCUT QIDACHS [facility] Protocol Levothyroxine Sodium 25 mcg 02/20/21 06:30 Levothyroxine Sodium 25 Mcg Tablet PO DAILY@0630 [facility] Lidocaine 1 patch 02/20/21 02:50 Lidocaine 4 % Patch Adh..Patch TRANSDERMA BID PRN pain Protocol Lisinopril 40 mg 02/20/21 09:00 Lisinopril 40 Mg Tablet PO DAILY [facility] Protocol Lorazepam 1 mg 02/20/21 02:50 Lorazepam 1 Mg Tablet PO TID PRN Anxiety Non-Formulary Medication 1 inhalation 02/20/21 02:50 Fluticasone Propionate INHALE ONCE [facility] Omeprazole 20 mg 02/20/21 06:30 Omeprazole 20 Mg Capsule. PO DAILY@0630 [facility] Ondansetron HCl 4 mg 02/20/21 02:50 Ondansetron Hcl 4 Mg/2 Ml Vial IVPUSH Q8H PRN Nausea and Vomiting Oxybutynin Chloride 10 mg 02/20/21 09:00 Oxybutynin Chloride Er 5 Mg Tab.Er.24 PO DAILY [facility] Propranolol HCl 20 mg 02/20/21 09:00 Propranolol Hcl 20 Mg Tablet PO BID [facility] Protocol Sodium Chloride 3 ml 02/20/21 08:00 0.9 % Sodium Chloride Flush 3 Ml Syringe IVFLUSH QSHIFT [facility] Venlafaxine HCl 75 mg 02/20/21 09:00 Venlafaxine Hcl Er 75 Mg Cap.Er.24h PO DAILY [facility] Home Medications Medication Instructions Recorded Confirmed Last Taken Type alcohol swabs (Alcohol Prep Pads) pad TOPICAL 04/09/20 02/09/21 Unknown History fluticasone propionate 50 1 inh INHALATION ONCE ea 04/09/20 02/20/21 Unknown History mcg/actuation blister powder for inhalation lorazepam 1 mg tablet 1 mg PO TID PRN 04/09/20 02/20/21 Unknown History venlafaxine 75 mg capsule,extended 75 mg PO DAILY cap 04/09/20 02/20/21 Unknown History release 24 hr (Effexor XR) metformin 1,000 mg tablet 1,000 mg PO BID 06/03/20 02/20/21 Unknown History Physical Exam Vital Signs and Narrative: Vital Signs: Last Vital Signs Temp 98.4 F 02/20/21 04:19 Pulse 70 02/20/21 04:19 Resp 15 02/20/21 04:19 BP 125/65 02/20/21 04:19 Pulse Ox 93 02/19/21 23:01 Body Mass Index 28.0 Const: General: cooperative and no acute distress Orientation/consciousness: patient oriented x3 Eyes: General: appearance normal, both eyes and all related structures Resp: Effort & Inspection: normal respiratory effort and able to speak in complete sentences Auscultation: clear to auscultation bilaterally Cardio: Rate: regular rate Rhythm: regular rhythm GI: Palpation (GI): Soft to palpation Auscultation: normal bowel sounds Skin: General skin exam: no rashes or lesions noted Neuro: Other: No Neurological deficits General: patient oriented x3 Cognition (Neuro): normal cognition Extrem: General: Yes normal to inspection and Yes no pedal edema Results Labs CBC and Chem 7: 02/19/21 22:04 02/19/21 22:04 Labs: Laboratory Results - last 24 hr 02/19/21 02/19/21 02/19/21 20:44 22:04 22:04 MCV 82.4 MCH 29.8 MCHC 36.2 H RDW 12.3 Plt Count 212 MPV 11.1 Immature Gran % (Auto) 0.4 Neut % (Auto) 76.5 H Lymph % (Auto) 15.6 L Woods % (Auto) 6.7 Eos % (Auto) 0.6 Baso % (Auto) 0.2 Lymph # (Auto) 1.4 Woods # (Auto) 0.6 Eos # (Auto) 0.1 Baso # (Auto) 0.0 Abs Immat Gran (auto) 0.04 H Absolute Neuts (auto) 7.1 Absolute Nucleated RBC 0.000 Nucleated RBC % (auto) 0.0 PT INR D-Dimer Anion Gap 17 Estim Creat Clear Calc 29.4 Estimated GFR 28 POC Glucose > 600 H* Random Glucose 712 H* Calcium 8.9 Magnesium 1.7 Total Bilirubin 0.8 Direct Bilirubin 0.3 AST 22 ALT 27 Alkaline Phosphatase 119 H Troponin I High Sens Total Protein 6.4 L Albumin 3.7 Urine Color Urine Appearance Urine pH Ur Specific [place] Urine Protein Urine Glucose (UA) Urine Ketones Urine Blood Urine Nitrite Ur Leukocyte Esterase Urine RBC Urine WBC Ur Squamous Epith Cells Urine Bacteria Urine Mucus Urine Opiates Screen Urine Fentanyl Screen Ur Barbiturates Screen Ur Phencyclidine Scrn Ur Amphetamines Screen U Benzodiazepines Scrn Urine Cocaine Screen U Marijuana (THC) Screen Ethyl Alcohol COVID-19 ([facility]) COVID-19 Clin Com 02/19/21 02/19/21 02/19/21 22:04 22:04 22:04 MCV MCH MCHC RDW Plt Count MPV Immature Gran % (Auto) Neut % (Auto) Lymph % (Auto) Woods % (Auto) Eos % (Auto) Baso % (Auto) Lymph # (Auto) Woods # (Auto) Eos # (Auto) Baso # (Auto) Abs Immat Gran (auto) Absolute Neuts (auto) Absolute Nucleated RBC Nucleated RBC % (auto) PT 10.5 INR 0.9 D-Dimer 211 Anion Gap Estim Creat Clear Calc Estimated GFR POC Glucose Random Glucose Calcium Magnesium Total Bilirubin Direct Bilirubin AST ALT Alkaline Phosphatase Troponin I High Sens 11.0 Total Protein Albumin Urine Color Urine Appearance Urine pH Ur Specific [place] Urine Protein Urine Glucose (UA) Urine Ketones Urine Blood Urine Nitrite Ur Leukocyte Esterase Urine RBC Urine WBC Ur Squamous Epith Cells Urine Bacteria Urine Mucus Urine Opiates Screen Urine Fentanyl Screen Ur Barbiturates Screen Ur Phencyclidine Scrn Ur Amphetamines Screen U Benzodiazepines Scrn Urine Cocaine Screen U Marijuana (THC) Screen Ethyl Alcohol < 10 COVID-19 ([facility]) COVID-19 Clin Com 02/19/21 02/19/21 02/20/21 22:04 22:49 00:22 MCV MCH MCHC RDW Plt Count MPV Immature Gran % (Auto) Neut % (Auto) Lymph % (Auto) Woods % (Auto) Eos % (Auto) Baso % (Auto) Lymph # (Auto) Woods # (Auto) Eos # (Auto) Baso # (Auto) Abs Immat Gran (auto) Absolute Neuts (auto) Absolute Nucleated RBC Nucleated RBC % (auto) PT INR D-Dimer Anion Gap Estim Creat Clear Calc Estimated GFR POC Glucose 479 H* 323 H Random Glucose Calcium Magnesium Total Bilirubin Direct Bilirubin AST ALT Alkaline Phosphatase Troponin I High Sens Total Protein Albumin Urine Color Urine Appearance Urine pH Ur Specific [place] Urine Protein Urine Glucose (UA) Urine Ketones Urine Blood Urine Nitrite Ur Leukocyte Esterase Urine RBC Urine WBC Ur Squamous Epith Cells Urine Bacteria Urine Mucus Urine Opiates Screen Urine Fentanyl Screen Ur Barbiturates Screen Ur Phencyclidine Scrn Ur Amphetamines Screen U Benzodiazepines Scrn Urine Cocaine Screen U Marijuana (THC) Screen Ethyl Alcohol COVID-19 ([facility]) Negative COVID-19 Clin Com See Note 02/20/21 02/20/21 01:35 01:35 MCV MCH MCHC RDW Plt Count MPV Immature Gran % (Auto) Neut % (Auto) Lymph % (Auto) Woods % (Auto) Eos % (Auto) Baso % (Auto) Lymph # (Auto) Woods # (Auto) Eos # (Auto) Baso # (Auto) Abs Immat Gran (auto) Absolute Neuts (auto) Absolute Nucleated RBC Nucleated RBC % (auto) PT INR D-Dimer Anion Gap Estim Creat Clear Calc Estimated GFR POC Glucose Random Glucose Calcium Magnesium Total Bilirubin Direct Bilirubin AST ALT Alkaline Phosphatase Troponin I High Sens Total Protein Albumin Urine Color YELLOW Urine Appearance CLEAR Urine pH 5.5 Ur Specific [place] 1.010 Urine Protein NEG Urine Glucose (UA) >=1000 H Urine Ketones NEG Urine Blood NEG Urine Nitrite NEG Ur Leukocyte Esterase 1+ H Urine RBC 0 Urine WBC 10-14 H Ur Squamous Epith Cells TRACE Urine Bacteria TRACE Urine Mucus TRACE Urine Opiates Screen Not Detected Urine Fentanyl Screen Not Detected Ur Barbiturates Screen Not Detected Ur Phencyclidine Scrn Not Detected Ur Amphetamines Screen Not Detected U Benzodiazepines Scrn Not Detected Urine Cocaine Screen Not Detected U Marijuana (THC) Screen Not Detected Ethyl Alcohol COVID-19 ([facility]) COVID-19 Clin Com Imaging Radiologist's Impressions: Impressions Lumbar Spine X-Ray 02/19/21 21:46 IMPRESSION: Mild to moderate multilevel degenerative disc disease most pronounced at L5-S1 without significant change. No definitive acute abnormality. Head CT 02/19/21 21:47 IMPRESSION: No acute intracranial pathology. Assessment and Plan (1) Syncope: Status: Acute (2) Acute kidney injury: Status: Acute (3) Acute hyperglycemia: Status: Acute (4) Orthostatic hypotension: Status: Acute This 60-year-old female with past medical history as mentioned above who presents the hospital with syncopal episode. # syncope - most likely secondary to orthostatic hypotension - but cannot rule out cardiac causes given her lack of prodromal symptoms - at this time patient repleted with 2 units of IV fluids, maintenance fluid - admit to telemetry - repeat orthostatic vitals today - echocardiogram # MARICARMEN - most likely secondary to dehydration/UGI - IV fluid - follow BMP # UTI - has urinary urgency - positive UA - started on IV antibiotics - follow cultures # hyperglycemia secondary to diabetes - not in DKA or HHS - treated with insulin - hold metformin - other this time will start her on low-dose sliding scale insulin - diabetic diet # hypothyroidism - continue levothyroxine # hypertension - stable - will hold lisinopril in the setting of MARICARMEN as well as orthostatic hypotension DVT prophylaxis: [employer] Quality Stroke Does the patient have a stroke diagnosis?: No VTE Prior VTE?: No VTE Risk Level:: Medical - low VTE Device Contraindication: Treatment Not Indicated VTE Drug Contraindication: Treatment Not Indicated
[2021-02-20 07:37] LABS: Glucose, Whole Blood 311 mg/dL (60-115)
[2021-02-20 07:39] LABS: MANUAL DIFF FLAG NO
[2021-02-20 07:43] LABS: Basophils Percent Auto 0.2 % (0-2); Eosinophils Absolute Auto 0.1 X10*3/uL (0.0-0.4); Eosinophils Percent Auto 1.1 % (0-4); Hematocrit 35.5 % (37-47); Hemoglobin 12.7 g/dl (12.0-16.0); Imm Gran Abs Auto 0.04 X10*3/uL (0.00-0.03); Imm Gran Pct Auto 0.4 % (0.0-0.4); Lymphocytes Absolute Auto 1.6 X10*3/uL (1.2-4.9); Lymphocytes Percent Auto 15.8 % (20-40); Mean Corpuscular HGB Conc 35.8 g/dl (31.0-35.0); Mean Corpuscular Hemoglobin 30.1 pg (27.0-33.0); Mean Corpuscular Volume 84.1 fL (80-98); Monocytes Absolute Auto 0.5 X10*3/uL (0.1-1.2); Monocytes Percent Auto 5.1 % (2-11); Neutrophils Absolute Auto 7.8 X10*3/uL (2.0-8.3); Neutrophils Percent Auto 77.4 % (45-73); Platelet Count 216 X10*3/uL (160-400); Red Blood Count 4.22 X10*6/uL (4.20-5.50); Red Cell Distribution Width 12.6 % (11.0-16.0)
[2021-02-20] MEDS: Insulin Lispro 100 UNIT/ML 3 ML VIAL SUBCUT ×4 (08:10→20:59)
[2021-02-20] MEDS: ondansetron HCL 4 MG/2 ML VIAL IVPUSH (08:10)
[2021-02-20] MEDS: Levothyroxine Sodium 25 MCG TABLET PO (08:11)
[2021-02-20] MEDS: 0.9 % Sodium Chloride Flush 3 ML SYRINGE IVFLUSH ×2 (08:11→17:33)
[2021-02-20] MEDS: Omeprazole 20 MG CAPSULE.DR PO (08:11)
[2021-02-20] MEDS: Enoxaparin Sodium 30 MG/0.3 ML SYRINGE SUBCUT (08:11)
[2021-02-20 08:15] LABS: Osmolality, Serum 292 mosm/kg (281-305)
--- NOTE | 2021-02-20 09:45 | MHC.CM.PN ---
CM met with Patient at bedside and addressed ETIENNE with her, providing her with the original and placing a copy on the chart. Patient lives alone in an apartment but her Daughter/HCP/Niecy visits daily. Patient is active with [facility] 3 hours/week and [facility] RN visits 5 times/week and her goal is to return home and resume these services. CM has initiated and will follow for dc planning. PCP is Dr. Vicente Tang. Patient states that she uses no DME around the apartment bur was recently approved for a scooter.
[2021-02-20 09:46] LABS: Anion Gap 14 (12-20); Blood Urea Nitrogen 34 mg/dL (9-16); Calcium 8.1 mg/dL (8.4-10.2); Carbon Dioxide 19 mmol/L (22-29); Chloride 101 mmol/L (96-108); Creatinine Clr Calc Pharmacy 47.9; Estimated Glomerular Filt Rate 50; Glucose Random 297 mg/dL (60-115); Potassium 4.4 mmol/L (3.3-5.1); Sodium 130 mmol/L (135-145)
[2021-02-20 11:02] LABS: Estimated Average Glucose 349 mg/dL; Hemoglobin A1c % 13.8 %
[2021-02-20] MEDS: Metoclopramide HCl 10 MG/2 ML VIAL 5 MG IVPUSH (11:25)
[2021-02-20 11:42] LABS: Glucose, Whole Blood 255 mg/dL (60-115)
[2021-02-20] MEDS: Atorvastatin Calcium 20 MG TABLET PO (12:46)
[2021-02-20] MEDS: Insulin Glargine,Hum.rec.anlog 100 UNIT/ML 10 ML VIAL SUBCUT (12:47)
[2021-02-20] MEDS: Venlafaxine HCl ER 75 MG CAP.ER.24H PO ×2 (12:47→21:01)
[2021-02-20] MEDS: Propranolol HCL 20 MG TABLET PO (12:47)
--- NOTE | 2021-02-20 14:37 | HO.PM.IMPN ---
Subjective Subjective Date of Service: 02/20/21 Interval History: No further lightheadness/dizziness. Telemetry no arrhythmias. Pt states she was diagnosed with DM2 a few years ago and is on MTF + Trulicity. She says her BGs over the last few months have generally been in the 100s, never above 300, though A1c of 13.8 argues against this. Review of Systems Review of Systems: Yes all other systems are reviewed and are negative Physical Exam Vital Signs: Vital Signs: Last Vital Signs Temp 98.2 F 02/20/21 12:00 Pulse 79 02/20/21 12:47 Resp 20 02/20/21 12:00 BP 133/63 02/20/21 12:47 Pulse Ox 93 02/20/21 12:00 Body Mass Index 28.5 Gen: in no acute distress HEENT: sclera anicteric, moist mucus membranes Neck: supple Lungs: clear to auscultation bilaterally Heart: regular rate and rhythm, no murmurs Abd: soft, non-tender, non-distended Ext: no edema Skin: warm/well-perfused Neuro: alert and oriented x3, no focal findings Psych: appropriate affect Objective Data Current Medications Generic Name Dose Route Start Last Admin Trade Name Freq PRN Reason Stop Dose Admin Acetaminophen 650 mg 02/20/21 02:50 Acetaminophen 325 Mg Tablet PO Q6H PRN Pain, Mild (Pain Scale 1-3) Atorvastatin Calcium 20 mg 02/20/21 09:00 02/20/21 12:46 Atorvastatin Calcium 20 Mg Tablet PO 20 mg DAILY [facility] Administration Dextrose 25 gm 02/20/21 02:50 Dextrose 50 % 25 Gm/50 Ml Vial IVPUSH Q15M PRN per Hypoglycemia Standing Ord. Protocol Enoxaparin Sodium 30 mg 02/20/21 07:00 02/20/21 08:11 Enoxaparin Sodium 30 Mg/0.3 Ml Syringe SUBCUT 30 mg Q24H [facility] Administration Fluticasone Propionate 1 spray 02/20/21 09:00 02/20/21 13:22 Fluticasone Propionate Nasal 16 Gm [place] NOSTRIL-B Not Given DAILY [facility] Gabapentin 600 mg 02/20/21 02:50 02/20/21 12:47 Gabapentin 600 Mg Tablet PO 600 mg TID [facility] Administration Glucose 15 gm 02/20/21 02:50 Glucose Gel 15 Gm Gel..Gram. PO Q15M PRN per Hypoglycemia Standing Ord. Protocol Sodium Chloride 1,000 mls @ 80 mls/hr 02/20/21 02:30 02/20/21 04:17 Ns IVCONT 80 mls/hr .[id number] [facility] Administration Ceftriaxone Sodium 1 gm/ 50 mls @ 100 mls/hr 02/20/21 22:00 Sodium Chloride IV Q24H [facility] Insulin Glargine 5 unit 02/20/21 09:30 02/20/21 12:47 Insulin Glargine,Hum.Rec.Anlog 100 Unit/Ml 10 Ml Vial SUBCUT 5 unit DAILY [facility] Administration Insulin Human Lispro 0 unit 02/20/21 07:30 02/20/21 12:47 Insulin Lispro 100 Unit/Ml 3 Ml Vial SUBCUT 6 unit QIDACHS [facility] Administration Protocol Levothyroxine Sodium 25 mcg 02/20/21 06:30 02/20/21 08:11 Levothyroxine Sodium 25 Mcg Tablet PO 25 mcg DAILY@0630 [facility] Administration Lidocaine 1 patch 02/20/21 02:50 Lidocaine 4 % Patch Adh..Patch TRANSDERMA BID PRN pain Protocol Lorazepam 1 mg 02/20/21 02:50 Lorazepam 1 Mg Tablet PO TID PRN Anxiety Metoclopramide HCl 5 mg 02/20/21 10:26 02/20/21 11:25 Metoclopramide Hcl 10 Mg/2 Ml Vial IVPUSH 5 mg Q6H PRN Administration nausea unrelived by Zofran Omeprazole 20 mg 02/20/21 06:30 02/20/21 08:11 Omeprazole 20 Mg Capsule.Dr PO 20 mg DAILY@0630 [facility] Administration Ondansetron HCl 4 mg 02/20/21 02:50 02/20/21 08:10 Ondansetron Hcl 4 Mg/2 Ml Vial IVPUSH 4 mg Q8H PRN Administration Nausea and Vomiting Oxybutynin Chloride 10 mg 02/20/21 09:00 02/20/21 12:48 Oxybutynin Chloride Er 5 Mg Tab.Er.24 PO 10 mg DAILY [facility] Administration Propranolol HCl 20 mg 02/20/21 09:00 02/20/21 12:47 Propranolol Hcl 20 Mg Tablet PO 20 mg BID [facility] Administration Protocol Sodium Chloride 3 ml 02/20/21 08:00 02/20/21 08:11 0.9 % Sodium Chloride Flush 3 Ml Syringe IVFLUSH 3 ml QSHIFT [facility] Administration Venlafaxine HCl 75 mg 02/20/21 09:00 02/20/21 12:47 Venlafaxine Hcl Er 75 Mg Cap.Er.24h PO 75 mg BID [facility] Administration Labs CBC & Chem 7: 02/20/21 07:23 02/20/21 07:23 Labs: Laboratory Results - last 24 hr 02/19/21 02/19/21 02/19/21 20:44 22:04 22:04 MCV 82.4 MCH 29.8 MCHC 36.2 H RDW 12.3 Plt Count 212 MPV 11.1 Immature Gran % (Auto) 0.4 Neut % (Auto) 76.5 H Lymph % (Auto) 15.6 L [place] % (Auto) 6.7 Eos % (Auto) 0.6 Baso % (Auto) 0.2 Lymph # (Auto) 1.4 [place] # (Auto) 0.6 Eos # (Auto) 0.1 Baso # (Auto) 0.0 Abs Immat Gran (auto) 0.04 H Absolute Neuts (auto) 7.1 Absolute Nucleated RBC 0.000 Nucleated RBC % (auto) 0.0 PT INR D-Dimer Anion Gap 17 Estim Creat Clear Calc 29.4 Estimated GFR 28 POC Glucose > 600 H* Random Glucose 712 H* Estimat Average Glucose Hemoglobin A1c % Osmolality Calcium 8.9 Magnesium 1.7 Total Bilirubin 0.8 Direct Bilirubin 0.3 AST 22 ALT 27 Alkaline Phosphatase 119 H Troponin I High Sens Total Protein 6.4 L Albumin 3.7 Urine Color Urine Appearance Urine pH Ur Specific [place] Urine Protein Urine Glucose (UA) Urine Ketones Urine Blood Urine Nitrite Ur Leukocyte Esterase Urine RBC Urine WBC Ur Squamous Epith Cells Urine Bacteria Urine Mucus Urine Opiates Screen Urine Fentanyl Screen Ur Barbiturates Screen Ur Phencyclidine Scrn Ur Amphetamines Screen U Benzodiazepines Scrn Urine Cocaine Screen U Marijuana (THC) Screen Ethyl Alcohol COVID-19 ([facility]) COVID-19 Clin Com 02/19/21 02/19/21 02/19/21 22:04 22:04 22:04 MCV MCH MCHC RDW Plt Count MPV Immature Gran % (Auto) Neut % (Auto) Lymph % (Auto) [place] % (Auto) Eos % (Auto) Baso % (Auto) Lymph # (Auto) [place] # (Auto) Eos # (Auto) Baso # (Auto) Abs Immat Gran (auto) Absolute Neuts (auto) Absolute Nucleated RBC Nucleated RBC % (auto) PT 10.5 INR 0.9 D-Dimer 211 Anion Gap Estim Creat Clear Calc Estimated GFR POC Glucose Random Glucose Estimat Average Glucose Hemoglobin A1c % Osmolality Calcium Magnesium Total Bilirubin Direct Bilirubin AST ALT Alkaline Phosphatase Troponin I High Sens 11.0 Total Protein Albumin Urine Color Urine Appearance Urine pH Ur Specific [place] Urine Protein Urine Glucose (UA) Urine Ketones Urine Blood Urine Nitrite Ur Leukocyte Esterase Urine RBC Urine WBC Ur Squamous Epith Cells Urine Bacteria Urine Mucus Urine Opiates Screen Urine Fentanyl Screen Ur Barbiturates Screen Ur Phencyclidine Scrn Ur Amphetamines Screen U Benzodiazepines Scrn Urine Cocaine Screen U Marijuana (THC) Screen Ethyl Alcohol < 10 COVID-19 ([facility]) COVID-19 Cyprotex Com 02/19/21 02/19/21 02/20/21 22:04 22:49 00:22 MCV MCH MCHC RDW Plt Count MPV Immature Gran % (Auto) Neut % (Auto) Lymph % (Auto) [place] % (Auto) Eos % (Auto) Baso % (Auto) Lymph # (Auto) [place] # (Auto) Eos # (Auto) Baso # (Auto) Abs Immat Gran (auto) Absolute Neuts (auto) Absolute Nucleated RBC Nucleated RBC % (auto) PT INR D-Dimer Anion Gap Estim Creat Clear Calc Estimated GFR POC Glucose 479 H* 323 H Random Glucose Estimat Average Glucose Hemoglobin A1c % Osmolality Calcium Magnesium Total Bilirubin Direct Bilirubin AST ALT Alkaline Phosphatase Troponin I High Sens Total Protein Albumin Urine Color Urine Appearance Urine pH Ur Specific [place] Urine Protein Urine Glucose (UA) Urine Ketones Urine Blood Urine Nitrite Ur Leukocyte Esterase Urine RBC Urine WBC Ur Squamous Epith Cells Urine Bacteria Urine Mucus Urine Opiates Screen Urine Fentanyl Screen Ur Barbiturates Screen Ur Phencyclidine Scrn Ur Amphetamines Screen U Benzodiazepines Scrn Urine Cocaine Screen U Marijuana (THC) Screen Ethyl Alcohol COVID-19 ([facility]) Negative COVID-19 Cyprotex Com See Note 02/20/21 02/20/21 02/20/21 01:35 01:35 07:23 MCV MCH MCHC RDW Plt Count MPV Immature Gran % (Auto) Neut % (Auto) Lymph % (Auto) [place] % (Auto) Eos % (Auto) Baso % (Auto) Lymph # (Auto) [place] # (Auto) Eos # (Auto) Baso # (Auto) Abs Immat Gran (auto) Absolute Neuts (auto) Absolute Nucleated RBC Nucleated RBC % (auto) PT INR D-Dimer Anion Gap Estim Creat Clear Calc Estimated GFR POC Glucose Random Glucose Estimat Average Glucose Hemoglobin A1c % Osmolality 292 Calcium Magnesium Total Bilirubin Direct Bilirubin AST ALT Alkaline Phosphatase Troponin I High Sens Total Protein Albumin Urine Color YELLOW Urine Appearance CLEAR Urine pH 5.5 Ur Specific [place] 1.010 Urine Protein NEG Urine Glucose (UA) >=1000 H Urine Ketones NEG Urine Blood NEG Urine Nitrite NEG Ur Leukocyte Esterase 1+ H Urine RBC 0 Urine WBC 10-14 H Ur Squamous Epith Cells TRACE Urine Bacteria TRACE Urine Mucus TRACE Urine Opiates Screen Not Detected Urine Fentanyl Screen Not Detected Ur Barbiturates Screen Not Detected Ur Phencyclidine Scrn Not Detected Ur Amphetamines Screen Not Detected U Benzodiazepines Scrn Not Detected Urine Cocaine Screen Not Detected U Marijuana (THC) Screen Not Detected Ethyl Alcohol COVID-19 ([facility]) COVID-19 Clin Com 02/20/21 02/20/21 02/20/21 07:23 07:23 07:23 MCV 84.1 MCH 30.1 MCHC 35.8 H RDW 12.6 Plt Count 216 MPV 11.0 Immature Gran % (Auto) 0.4 Neut % (Auto) 77.4 H Lymph % (Auto) 15.8 L [place] % (Auto) 5.1 Eos % (Auto) 1.1 Baso % (Auto) 0.2 Lymph # (Auto) 1.6 [place] # (Auto) 0.5 Eos # (Auto) 0.1 Baso # (Auto) 0.0 Abs Immat Gran (auto) 0.04 H Absolute Neuts (auto) 7.8 Absolute Nucleated RBC 0.000 Nucleated RBC % (auto) 0.0 PT INR D-Dimer Anion Gap 14 Estim Creat Clear Calc 47.9 Estimated GFR 50 POC Glucose Random Glucose 297 H D Estimat Average Glucose 349 Hemoglobin A1c % 13.8 Osmolality Calcium 8.1 L D Magnesium Total Bilirubin Direct Bilirubin AST ALT Alkaline Phosphatase Troponin I High Sens Total Protein Albumin Urine Color Urine Appearance Urine pH Ur Specific [place] Urine Protein Urine Glucose (UA) Urine Ketones Urine Blood Urine Nitrite Ur Leukocyte Esterase Urine RBC Urine WBC Ur Squamous Epith Cells Urine Bacteria Urine Mucus Urine Opiates Screen Urine Fentanyl Screen Ur Barbiturates Screen Ur Phencyclidine Scrn Ur Amphetamines Screen U Benzodiazepines Scrn Urine Cocaine Screen U Marijuana (THC) Screen Ethyl Alcohol COVID-19 ([facility]) COVID-19 Cyprotex Com 02/20/21 02/20/21 07:33 11:38 MCV MCH MCHC RDW Plt Count MPV Immature Gran % (Auto) Neut % (Auto) Lymph % (Auto) [place] % (Auto) Eos % (Auto) Baso % (Auto) Lymph # (Auto) [place] # (Auto) Eos # (Auto) Baso # (Auto) Abs Immat Gran (auto) Absolute Neuts (auto) Absolute Nucleated RBC Nucleated RBC % (auto) PT INR D-Dimer Anion Gap Estim Creat Clear Calc Estimated GFR POC Glucose 311 H 255 H Random Glucose Estimat Average Glucose Hemoglobin A1c % Osmolality Calcium Magnesium Total Bilirubin Direct Bilirubin AST ALT Alkaline Phosphatase Troponin I High Sens Total Protein Albumin Urine Color Urine Appearance Urine pH Ur Specific [place] Urine Protein Urine Glucose (UA) Urine Ketones Urine Blood Urine Nitrite Ur Leukocyte Esterase Urine RBC Urine WBC Ur Squamous Epith Cells Urine Bacteria Urine Mucus Urine Opiates Screen Urine Fentanyl Screen Ur Barbiturates Screen Ur Phencyclidine Scrn Ur Amphetamines Screen U Benzodiazepines Scrn Urine Cocaine Screen U Marijuana (THC) Screen Ethyl Alcohol COVID-19 ([facility]) COVID-19 Clin Com Assessment and Plan (1) Orthostatic hypotension: Status: Acute (2) Syncope: Status: Acute (3) Uncontrolled type 2 diabetes mellitus: Status: Acute Assessment and Plan: hospital d#1 60yo F with uncontrolled DM2 admitted for recurrent syncope with orthostatic hypotension # syncope - likely orthostatic hypotension, exacerbated by uncontrolled hyperglycemia resulting in glycosuria and MARICARMEN but monitor on telemetry and checking TTE - replete IV fluid and recheck orthostatics # MARICARMEN - likely prerenal, hydrate IV and recheck BMP- improving - hold lisinopril # DM2, A1c 13.8 - uncontrolled. start low-dose basal insulin in addition to correction-dose lispro # UTI - on ceftriaxone d#1, follow UCx # hypothyroidism - continue levothyroxine # HTN - holding lisinopril as above, continue propranolol # VTE ppx - LMWH Quality Stroke Does the patient have a stroke diagnosis?: No VTE Prior VTE?: No VTE Risk Level:: Medical - low VTE Device Contraindication: Treatment Not Indicated VTE Drug Contraindication: Treatment Not Indicated
[2021-02-20 16:40] LABS: Glucose, Whole Blood 347 mg/dL (60-115)
[2021-02-20] MEDS: Nicotine 14 MG PATCH.TD24 TRANSDERMA (17:59)
[2021-02-20] MEDS: Acetaminophen 325 MG TABLET 650 MG PO (17:59)
[2021-02-20 20:30] LABS: Glucose, Whole Blood 272 mg/dL (60-115)
[2021-02-20 22:22] LABS: Osmolality Urine 349 mosm/kg (373-1093)
[2021-02-21] VITALS (10 sets, daily range): BP systolic 113–151; BP diastolic 56–96; PULSE 64–73; RESP 15–20; TEMP 36.4–36.6; O2SAT 94–96
[2021-02-21 06:25] LABS: Anion Gap 12 (12-20); Blood Urea Nitrogen 19 mg/dL (9-16); Calcium 7.6 mg/dL (8.4-10.2); Carbon Dioxide 20 mmol/L (22-29); Chloride 108 mmol/L (96-108); Creatinine Clr Calc Pharmacy 65.5; Estimated Glomerular Filt Rate > 60; Glucose Random 396 mg/dL (60-115); Potassium 4.3 mmol/L (3.3-5.1); Sodium 136 mmol/L (135-145)
[2021-02-21] MEDS: 0.9 % Sodium Chloride 1,000 ML 80 ML IVCONT ×2 (06:29→21:16)
[2021-02-21] MEDS: Levothyroxine Sodium 25 MCG TABLET PO (06:29)
[2021-02-21] MEDS: Omeprazole 20 MG CAPSULE.DR PO (06:29)
[2021-02-21] MEDS: Insulin Lispro 100 UNIT/ML 3 ML VIAL SUBCUT ×5 (06:29→21:19)
[2021-02-21 07:39] LABS: Glucose, Whole Blood 383 mg/dL (60-115)
--- NOTE | 2021-02-21 08:35 | P.PNIM_ITS ---
Subjective Subjective Date of Service: 02/21/21 Interval History: F/u on dizziness, hyperglycemia, No further lightheadness/dizziness. Blood surgars remain high, 396 this morning. iagnosed with DM2 a few years ago and is on MTF + Trulicity.? She says her BGs over the last few months have generally been in the 100s, never above 300, though A1c of 13.8 argues against this. Review of Systems No fever no dizziness no chest pain/sob Physical Exam Vital Signs: Vital Signs: Last Vital Signs Temp 97.9 F 02/21/21 07:42 Pulse 70 02/21/21 07:42 Resp 20 02/21/21 07:42 BP 151/70 H 02/21/21 07:42 Pulse Ox 94 02/21/21 07:42 Body Mass Index 28.5 Gen: in no acute distress HEENT: sclera anicteric, moist mucus membranes Neck: supple Lungs: clear to auscultation bilaterally Heart: regular rate and rhythm, no murmurs Abd: soft, non-tender, non-distended Ext: no edema Skin: warm/well-perfused Neuro: alert and oriented x3, no focal findings Psych: appropriate affect Objective Data Current Medications Generic Name Dose Route Start Last Admin Trade Name Freq PRN Reason Stop Dose Admin Acetaminophen 650 mg 02/20/21 02:50 02/20/21 17:59 Acetaminophen 325 Mg Tablet PO 650 mg Q6H PRN Administration Pain, Mild (Pain Scale 1-3) Atorvastatin Calcium 20 mg 02/20/21 09:00 02/20/21 12:46 Atorvastatin Calcium 20 Mg Tablet PO 20 mg DAILY [facility] Administration Dextrose 25 gm 02/20/21 02:50 Dextrose 50 % 25 Gm/50 Ml Vial IVPUSH Q15M PRN per Hypoglycemia Standing Ord. Protocol Enoxaparin Sodium 30 mg 02/20/21 07:00 02/20/21 08:11 Enoxaparin Sodium 30 Mg/0.3 Ml Syringe SUBCUT 30 mg Q24H [facility] Administration Fluticasone Propionate 1 spray 02/20/21 09:00 02/20/21 13:22 Fluticasone Propionate Nasal 16 Gm [place] NOSTRIL-B Not Given DAILY [facility] Gabapentin 600 mg 02/20/21 02:50 02/20/21 21:01 Gabapentin 600 Mg Tablet PO 600 mg TID [facility] Administration Glucose 15 gm 02/20/21 02:50 Glucose Gel 15 Gm Gel..Gram. PO Q15M PRN per Hypoglycemia Standing Ord. Protocol Sodium Chloride 1,000 mls @ 80 mls/hr 02/20/21 02:30 02/21/21 06:29 Ns IVCONT 80 mls/hr .[id number] [facility] Administration Ceftriaxone Sodium 1 gm/ 50 mls @ 100 mls/hr 02/20/21 22:00 02/20/21 21:38 Sodium Chloride IV Infused Q24H [facility] Infusion Insulin Glargine 15 unit 02/21/21 09:00 Insulin Glargine,Hum.Rec.Anlog 100 Unit/Ml 10 Ml Vial SUBCUT DAILY [facility] Insulin Human Lispro 0 unit 02/20/21 07:30 02/21/21 06:29 Insulin Lispro 100 Unit/Ml 3 Ml Vial SUBCUT 10 unit QIDACHS [facility] Administration Protocol Levothyroxine Sodium 25 mcg 02/20/21 06:30 02/21/21 06:29 Levothyroxine Sodium 25 Mcg Tablet PO 25 mcg DAILY@0630 [facility] Administration Lidocaine 1 patch 02/20/21 02:50 Lidocaine 4 % Patch Adh..Patch TRANSDERMA BID PRN pain Protocol Lorazepam 1 mg 02/20/21 02:50 Lorazepam 1 Mg Tablet PO TID PRN Anxiety Metoclopramide HCl 5 mg 02/20/21 10:26 02/20/21 11:25 Metoclopramide Hcl 10 Mg/2 Ml Vial IVPUSH 5 mg Q6H PRN Administration nausea unrelived by Zofran Nicotine 14 mg 02/20/21 17:45 02/20/21 17:59 Nicotine 14 Mg Patch.Td24 TRANSDERMA 14 mg DAILY [facility] Administration Omeprazole 20 mg 02/20/21 06:30 02/21/21 06:29 Omeprazole 20 Mg Capsule.Dr PO 20 mg DAILY@0630 [facility] Administration Ondansetron HCl 4 mg 02/20/21 02:50 02/20/21 08:10 Ondansetron Hcl 4 Mg/2 Ml Vial IVPUSH 4 mg Q8H PRN Administration Nausea and Vomiting Oxybutynin Chloride 10 mg 02/20/21 09:00 02/20/21 12:48 Oxybutynin Chloride Er 5 Mg Tab.Er.24 PO 10 mg DAILY [facility] Administration Propranolol HCl 20 mg 02/20/21 09:00 02/20/21 21:02 Propranolol Hcl 20 Mg Tablet PO Not Given BID [facility] Protocol Sodium Chloride 3 ml 02/20/21 08:00 02/20/21 23:50 0.9 % Sodium Chloride Flush 3 Ml Syringe IVFLUSH Not Given QSHIFT [facility] Venlafaxine HCl 75 mg 02/20/21 09:00 02/20/21 21:01 Venlafaxine Hcl Er 75 Mg Cap.Er.24h PO 75 mg BID [facility] Administration Labs CBC & Chem 7: 02/20/21 07:23 02/21/21 04:53 Labs: Laboratory Results - last 24 hr 02/20/21 02/20/21 02/20/21 07:23 07:23 11:38 Anion Gap 14 Estim Creat Clear Calc 47.9 Estimated GFR 50 POC Glucose 255 H Random Glucose 297 H D Estimat Average Glucose 349 Hemoglobin A1c % 13.8 Calcium 8.1 L D Urine Osmolality Ur Random Sodium 02/20/21 02/20/21 02/20/21 16:35 20:23 21:21 Anion Gap Estim Creat Clear Calc Estimated GFR POC Glucose 347 H 272 H Random Glucose Estimat Average Glucose Hemoglobin A1c % Calcium Urine Osmolality 349 L Ur Random Sodium 02/20/21 02/21/21 02/21/21 21:21 04:53 07:22 Anion Gap 12 Estim Creat Clear Calc 65.5 Estimated GFR > 60 POC Glucose 383 H* Random Glucose 396 H* Estimat Average Glucose Hemoglobin A1c % Calcium 7.6 L D Urine Osmolality Ur Random Sodium 38.0 Assessment and Plan (1) Orthostatic hypotension: Status: Acute (2) Syncope: Status: Acute (3) Uncontrolled type 2 diabetes mellitus: Status: Acute Assessment and Plan: hospital d#2 60yo F with uncontrolled DM2 admitted for recurrent syncope with orthostatic hypotension # syncope - likely orthostatic hypotension, exacerbated by uncontrolled hyperglycemia resulting in glycosuria and MARICARMEN, no arrythmia on telemetry -TTE tomorrow - repleted with IVF, recheck orthos # MARICARMEN, pre- renal resolved. Lisinopril has been on hold but restart # DM2, A1c 13.8 - uncontrolled. -Increase Lantus to 12 -restart Metformin at 500 bid # UTI - on ceftriaxone d#2, follow UCx # hypothyroidism - continue levothyroxine # HTN - resume lisinopril at 1/2 dose 20s, continue propranolol # VTE ppx - LMWH Quality Stroke Does the patient have a stroke diagnosis?: No VTE Prior VTE?: No VTE Risk Level:: Medical - low VTE Device Contraindication: Treatment Not Indicated VTE Drug Contraindication: Treatment Not Indicated
[2021-02-21] MEDS: Insulin Glargine,Hum.rec.anlog 100 UNIT/ML 10 ML VIAL 12 UNIT SUBCUT (09:12)
[2021-02-21] MEDS: Nicotine 14 MG PATCH.TD24 TRANSDERMA (09:12)
[2021-02-21] MEDS: Enoxaparin Sodium 30 MG/0.3 ML SYRINGE SUBCUT (09:13)
[2021-02-21] MEDS: metFORMIN HCl 500 MG TABLET PO ×2 (09:13→17:44)
[2021-02-21] MEDS: Venlafaxine HCl ER 75 MG CAP.ER.24H PO ×2 (09:13→21:20)
[2021-02-21] MEDS: Propranolol HCL 20 MG TABLET PO ×2 (09:13→21:20)
[2021-02-21] MEDS: 0.9 % Sodium Chloride Flush 3 ML SYRINGE IVFLUSH ×2 (09:13→23:16)
[2021-02-21] MEDS: Gabapentin 600 MG TABLET PO ×3 (09:13→21:20)
[2021-02-21] MEDS: Atorvastatin Calcium 20 MG TABLET PO (09:14)
[2021-02-21] MEDS: lisinopriL 20 MG TABLET PO (09:15)
[2021-02-21] MEDS: Fluticasone Propionate Nasal 16 GM SPRAY 1 SPRAY NOSTRIL-B (09:21)
[2021-02-21 11:24] LABS: Glucose, Whole Blood 199 mg/dL (60-115)
[2021-02-21] MEDS: LORazepam 1 MG TABLET PO ×2 (13:53→21:25)
--- NOTE | 2021-02-21 16:15 | PC.NURSE ---
Pt reported occasional flashing lights in her vision, mild headache, and brain fog. This nurse reported these symptoms to Dr. England, since the patient also reported hitting her head during a fall at home, which may be related to her current s/s. Dr. England recommended to monitor for now.
[2021-02-21 16:20] LABS: Glucose, Whole Blood 265 mg/dL (60-115)
[2021-02-21 20:42] LABS: Glucose, Whole Blood 282 mg/dL (60-115)
[2021-02-21] MEDS: cefTRIAXone sodium 1 GM in 0.9 % Sodium Chloride 50 ML IV (21:15)
[2021-02-22] VITALS (9 sets, daily range): BP systolic 141–201; BP diastolic 60–94; PULSE 65–74; RESP 15–20; TEMP 36.3–36.7; O2SAT 69–98
--- NOTE | 2021-02-22 02:50 | CA_ITS ---
Transthoracic Echocardiogram Patient (Last, First, Middle): Gloria Garland A Gender: Female Date of : 1960 Age: 60 Procedure Date: 02/22/2021 Procedure Type: Transthoracic Echocardiogram Location: [facility] Height: 157.48 cm Weight: 70.76 kg BSA: 1.72 m2 Heart Rate: bpm BP: 175 / 81 mmHg Bundles Hanger: Referring MD: Simone Thornton MD Symptoms: syncope Study Quality: Fair ECG Rhythm: Sinus Conclusions: - The left ventricular systolic function is normal. The visually estimated ejection fraction is between 65-70%. - The basal inferior, basal inferoseptal, and basal inferolateral segments are akinetic. - No obvious valvular pathology seen on this study. Findings Left Ventricle Normal left ventricular cavity size. There is normal left ventricular wall thickness. The left ventricular systolic function is normal. The visually estimated ejection fraction is between 65-70%. There is no evidence of regional wall motion abnormalities. E/E prime ratio is between 8 and 15 consistent with indeterminate filling pressures. Evidence suggests grade I (mild) diastolic dysfunction. Wall Motion Rest Echo Findings The basal inferior, basal inferoseptal, and basal inferolateral segments are akinetic. Right Ventricle Normal right ventricular cavity size. Low normal RV systolic function. Atria Both atria are normal in size. Aortic Valve There is a normal trileaflet aortic valve. There is no aortic valve stenosis. There is no aortic valve regurgitation. Mitral Valve The mitral valve appears normal. There is mild mitral valve regurgitation. There is no mitral valve stenosis. Pulmonic Valve The pulmonic valve was not well visualized. Tricuspid Valve Normal tricuspid valve structure. There is trace tricuspid valve regurgitation. The pulmonary artery systolic pressure is normal. Great Vessels The aortic annulus, sinuses of valsalva, and asc aorta are normal in size. Venous The inferior vena cava is normal in size and collapses greater than 50% with inspiration. Pericardium/Pleural There is no evidence of pericardial effusion. Prior Study Comparison Changes noted compared to prior study dated: 11/15/2013. Wall motion abnormalities not previously described. Recommendations, Care & Conclusions No obvious valvular pathology seen on this study. Measurements 2D Linear Measurements RVIDd: 2.83 RVIDd Index: 1.65 IVSd: 0.93 0.6-0.9/0.6-1.0 cm LVIDd: 4.43 3.9-5.3/4.2-5.9 cm LVIDd Index: 2.58 2.4-3.2/2.2-3.1 cm/m2 LVIDs: 2.95 2.0-3.6 cm LVPWd: 1.15 0.7-1.1 cm Ao Root: 3.20 2.1-3.5 cm LA Diam: 3.50 2.7-3.8/3.0-4.0 cm LAIDs Index: 2.03 1.5-2.3 cm/m2 LV Mass: 196.65 67-162/88-224 g LV Mass Index: 114.33 43-95/49-115 g/m2 LVOT Diam: 2.10 3.0+(-)1.3 cm 2D Systolic Function EF 4C: 52.20 >55% EF 2C: 63.70 >55% EF BiP: 57.90 >55% Mitral Valve MV Pk E: 0.66 MV PK A: 0.86 MV Decel Time: 337.00 E/A: 0.80 E'Lateral: 5.87 E'Medial: 6.31 E/E' Med: 10.50 E/E' Lat: 11.20 MR Vol - PW Dopp: 14.84 MR VTI: 2.12 MR ERO: 7.00 MR Alias Onofre: 0.37 MR RAD: 0.40 Aortic Valve AoV Pk Onofre: 1.32 AoV Mn Onofre: 0.96 AoV VTI: 0.26 AoV Pk Grad: 7.00 Aov Mn Grad: 4.00 KONSTANTIN Cont.VTI: 2.74 LVOT LVOT Pk Onofre: 0.96 LVOT Mn Onofre: 0.55 LVOT VTI: 0.21 LVOT Pk Grad: 4.00 LVOT Mn Grad: 1.00 LVOT Diam: 2.10 LVOT Area: 3.46 Diastolic Function MV Pk E: 0.66 MV Pk A: 0.86 E/A: 0.80 E'Medial: 6.31 E/E' Med: 10.50 E' Laterial: 5.87 E/E' Lat: 11.20 Right Ventricle TAPSE (mm): 18.00 TVS' Onofre: 12.30 Tricuspid Valve TR Pk Onofre: 2.35 TR Pk Grad: 22.00 RA Press: 3.00 RVSP: 25.00 Great Vessels Aorta Ao Root-2D: 3.20 2.0-3.7 cm Ao Asc: 3.50 2.1-3.4 cm Ao Arch: 2.40 Updated in Other Vendor System with Status of Final Jose Corado MD electronically signed on 02/22/2021 3:45:23 PM with status of Final
--- NOTE | 2021-02-22 04:31 | PC.NURSE ---
Assumed care of pt at 1900. Pt A&O x3. Denies pain or complaints. vital signs stable. No syncope noted. Receiving continuous IV of NS at 80 ml/hr. OOb to bathroom with 1 stand by assist. gait is steady. Received HS snack. POC at HS was 282. INsulin given per sliding scale. taking po well.
[2021-02-22] MEDS: Levothyroxine Sodium 25 MCG TABLET PO (05:37)
[2021-02-22] MEDS: Omeprazole 20 MG CAPSULE.DR PO (05:37)
[2021-02-22 07:27] LABS: Glucose, Whole Blood 274 mg/dL (60-115)
[2021-02-22] MEDS: Enoxaparin Sodium 30 MG/0.3 ML SYRINGE SUBCUT (08:12)
[2021-02-22] MEDS: Insulin Lispro 100 UNIT/ML 3 ML VIAL SUBCUT ×2 (08:13→12:50)
[2021-02-22] MEDS: lisinopriL 20 MG TABLET PO (08:14)
[2021-02-22] MEDS: Insulin Glargine,Hum.rec.anlog 100 UNIT/ML 10 ML VIAL 12 UNIT SUBCUT (08:14)
[2021-02-22] MEDS: Atorvastatin Calcium 20 MG TABLET PO (08:15)
[2021-02-22] MEDS: Venlafaxine HCl ER 75 MG CAP.ER.24H PO (08:15)
[2021-02-22] MEDS: metFORMIN HCl 500 MG TABLET PO (08:15)
[2021-02-22] MEDS: Propranolol HCL 20 MG TABLET PO (08:16)
[2021-02-22] MEDS: Gabapentin 600 MG TABLET PO ×2 (08:16→14:00)
[2021-02-22] MEDS: Nicotine 14 MG PATCH.TD24 TRANSDERMA ×2 (08:18→08:28)
[2021-02-22] MEDS: 0.9 % Sodium Chloride Flush 3 ML SYRINGE IVFLUSH (08:18)
[2021-02-22] MEDS: Fluticasone Propionate Nasal 16 GM SPRAY 1 SPRAY NOSTRIL-B ×2 (08:25→08:27)
[2021-02-22] MEDS: LORazepam 1 MG TABLET PO (11:25)
[2021-02-22 11:26] LABS: Glucose, Whole Blood 237 mg/dL (60-115)
--- NOTE | 2021-02-22 11:49 | PC.NURSE ---
Patient was calm and cooperative this morning. 1115 very abruptly stated that if she does not get her psych meds and Ativan her other personality will come out and she is not nice! Within 10 minutes, patient was yelling ans swearing. Dr. Back at bedside. Ativan ordered. Within minutes of giving patient Ativan, she was very apologetic and teary. Put camera in room for safety
--- NOTE | 2021-02-22 11:52 | PC.NURSE ---
Patient calm and cooperative at this time. Patient sent to cardiology for an ECHO
--- NOTE | 2021-02-22 15:34 | PC.NURSE ---
Patient adamant about leaving to catch the shuttle. The doctor told me that I was going home today. I am leaving. I attempted to convince patient to wait for discharge paperwork, etc and she refused. I wanted to confirm that patient was competent to draw up insulin and inject properly prior to leaving. She did indeed draw up the 10units accurately of saline in the insulin syringe and inject in her abdomen using sterile technique. She gave me her phone number and address if needed in addition to her pharmacy to have her scripts sent. Dr jeter made aware. was not pleased with patients decision to leave before discharge order was placed. considered AMA per .
--- NOTE | 2021-02-22 15:37 | MHC.CM.PN ---
pt left ama
[2021-02-22 16:41] LABS: Urea, Random Urine 426 mg/dL
--- NOTE | 2021-02-22 17:43 | P.DS_ITS ---
DS: Providers Provider Date of Service: 02/22/21 Date of admission: 02/20/21 01:46 Primary care physician: Vicente Tang PA-C DS: Diagnosis Discharge Diagnosis (1) Orthostatic hypotension: Status: Acute (2) Syncope: Status: Acute (3) Uncontrolled type 2 diabetes mellitus: Status: Acute DS: Medications Discharge Medications Home Medications: Home Medications Medication Instructions Recorded Confirmed alcohol swabs (Alcohol Prep Pads) pad TOPICAL 04/09/20 02/09/21 fluticasone propionate 50 1 inh INHALATION ONCE ea 04/09/20 02/20/21 mcg/actuation blister powder for inhalation lorazepam 1 mg tablet 1 mg PO TID PRN 04/09/20 02/20/21 venlafaxine 75 mg capsule,extended 75 mg PO BID cap 04/09/20 02/20/21 release 24 hr (Effexor XR) metformin 1,000 mg tablet 1,000 mg PO BID 06/03/20 02/20/21 Previous Rx's Medication Instructions Recorded walker (Ultra-Light Rollator) #1 ea 04/28/20 lisinopril 40 mg tablet 40 mg PO DAILY #90 tab 07/07/20 atorvastatin 20 mg tablet 20 mg PO DAILY #90 tab 08/31/20 propranolol 20 mg tablet 20 mg PO BID #180 tab 10/29/20 levothyroxine 25 mcg tablet 25 mcg PO DAILY 90 Days #90 tab 11/25/20 omeprazole 20 mg capsule,delayed 20 mg PO DAILY 90 Days #90 cap 11/25/20 release blood sugar diagnostic (FreeStyle 1 strip MISCELLANEOUS BID 30 Days 01/11/21 Lite Strips) #50 strip lancets 28 gauge (Inject Ease 1 gauge MISCELLANEOUS BID 50 Days 01/11/21 Lancets) #100 ea gabapentin 600 mg tablet 600 mg PO TID #90 tab 01/20/21 lidocaine 4 % topical patch 1 patch TOPICAL BID PRN 7 Days #15 01/25/21 ea blood-glucose meter (FreeStyle #1 ea 02/09/21 Lite Meter) oxybutynin chloride 10 mg 10 mg PO DAILY 30 Days #30 tab 02/09/21 tablet,extended release 24 hr pen needle, diabetic 32 gauge x #100 ea 02/22/21 5/32 (BD Natali 2nd Gen Pen Needle) DS: Summary Hospital Course Hospital Course: Chief Complaint: Syncope This is a 60-year-old female with past medical history of hypertension, GERD, hypothyroidism, diabetes who presents to the hospital with complaints of syncopal episodes.? Patient reports that these episode occurred over the past last week.? Every episode occurs spontaneously, she has no port removed postictal symptoms.? Patient reports no dizziness prior, no chest pain, no shortness of breath.? She reports that she is not confused when she came about.? She does not know how long each episode lasts because she lives alone around her syncopal episodes are not witnessed.? She is complaining of her tailbone pain as she fell on her butt on the last episode which occurred yesterday. She denies any abdominal pain, nausea or vomiting, no chest pain, no shortness of breath, no headache or change in vision, she does complain of urinary urgency, no frequency or dysuria, denies any lower extremity edema. On arrival vitals significant for temp of 98.5?, heart rate of 64, respiratory rate of 15, BP of 136/62, satting 90% on room air. Labs are significant WBC count of 9.3, sodium of 139 (corrected for hyperglycemia) potassium 5.3, BUN of 44, creatinine of 1.81, with a baseline around 0.78, glucose of 712, troponin of 11, UA that is positive for nitrites and WBC Orthostatic vitals ordered by me found to be positive specifically on standing her blood pressure drops from 131/65 to 89/51. Hospital course: # syncope - likely orthostatic hypotension, exacerbated by uncontrolled hyperglycemia resulting in glycosuria and MARICARMEN, no arrythmia on? telemetry. [facility] on 02/22 showed ormal left ventricular cavity size.? There is normal left ventricular wall thickness.? The left ventricular systolic function is normal.? The visually estimated ejection fraction is between 65-70%.? There is no evidence of regional wall motion abnormalities.? E/E prime ratio is between 8 and 15 consistent with indeterminate filling pressures.? Evidence suggests grade I (mild) diastolic dysfunction. Pt was aggresively hydrated. She was to have orthostatic repeated but left against advise # MARICARMEN, pre- renal likely due to Hypotension, and resolved with iVF # DM2, A1c 13.8--She says that she was compliant with Metformin, however given such high A1C, she needed insulin as well. Once renal failure resolved, I r estarted Metformin. Also we have started her on Lantus in the hospital and she is familiar with insulin, correct dosing and was able demonstrate how to inject and administer. She also says that she's is family with pen type of insulin, and will to take that. I told her she will need to see her PCP and have insulin adjusted further # UTI - on ceftriaxone d#3, culture negative and assymptomatic so no further Abx # hypothyroidism - continue levothyroxine # HTN--BP has come up and therefore advised to continue meds. Please Note that I had plan to go and talk to patient to unsure that she und erstood all instruction and what to do after discharge, and was suppose to have repeat ortostatic before leaving I was informed that patient has dressed and left stating that she didn't want to go miss the shuttle and that the nurse can mail her instruction when done. I called the patient later and went over instruction and she assured me of being familiar with insulin use, including pen. I made her know that I will send insulin to the pharmacy, and that she needs to make a follow up appointment with her Doctor for further medical adjustment and she understand she left against medical advise. Time Spent with Patient Time attestation: Total time spent providing and/or coordinating discharge services: Discharge coordination time: Greater than 30 minutes Quality: Stroke Does the patient have a stroke diagnosis?: No Physical Exam Vital Signs: Vital Signs: Last Vital Signs Temp 98 F 02/22/21 15:01 Pulse 72 02/22/21 15:05 Resp 15 02/22/21 15:01 BP 148/60 H 02/22/21 15:05 Pulse Ox 97 02/22/21 15:01 Body Mass Index 28.5 DS: Data Data Completed and Pending Labs on day of discharge: Laboratory Results - last 24 hr 02/20/21 02/21/21 02/22/21 21:21 20:34 07:14 POC Glucose 282 H 274 H Ur Random Urea 426 02/22/21 11:01 POC Glucose 237 H Ur Random Urea Discharge Plan Discharge Anticipated Discharge Date/Time: 02/22/21 17:06 Patient Disposition: Left Against Medical Advice Discharge Diagnosis: Orthostatic hypOtension, uncontrolled diabetes Referrals: Vicente Tang PA-C [Primary Care Provider] - 1 Week Discharge Medications: New (DME) pen needle, diabetic [BD Natali 2nd Gen Pen Needle] 32 gauge x 5/32 needle See Rx Instructions .ROUTE .MEDSUPPLY Qty: 100 RF: 0 Lantus Solostar U-100 Insulin 100 unit/mL (3 mL) insulin pen 10 unit subcut QAM MDD 15 30 Days Qty: 3 RF: 0 insulin lispro [Humalog KwikPen Insulin] 100 unit/mL insulin pen See Protocol unit subcut TID MDD 30 Qty: 15 RF: 0 Continued (DME) Ultra-Light Rollator Misc See Rx Instructions .ROUTE .MEDSUPPLY Qty: 1 RF: 0 metformin 1,000 mg tablet 1,000 mg PO BID RF: 0 lisinopril 40 mg tablet 40 mg PO DAILY Qty: 90 RF: 2 atorvastatin 20 mg tablet 20 mg PO DAILY Qty: 90 RF: 2 propranolol 20 mg tablet 20 mg PO BID Qty: 180 RF: 2 omeprazole 20 mg capsule,delayed release(DR/EC) 20 mg PO DAILY 90 Days Qty: 90 RF: 1 levothyroxine 25 mcg tablet 25 mcg PO DAILY 90 Days Qty: 90 RF: 1 FreeStyle Lite Strips Strip 1 strip miscellaneous BID 30 Days Qty: 50 RF: 6 lancets [Inject Ease Lancets] 28 gauge misc 1 gauge miscellaneous BID 50 Days Qty: 100 RF: 6 gabapentin 600 mg tablet 600 mg PO TID Qty: 90 RF: 1 lidocaine 4 % adhesive patch,medicated 1 patch topical BID PRN (Reason: pain) 7 Days Qty: 15 RF: 0 alcohol swabs [Alcohol Prep Pads] Pads, Medicated topical RF: 0 lorazepam 1 mg tablet 1 mg PO TID PRN (Reason: Anxiety) RF: 0 venlafaxine [Effexor XR] 75 mg capsule,extended release 24hr 75 mg PO BID RF: 0 fluticasone propionate 50 mcg/actuation blister with device 1 inh inhalation ONCE RF: 0 (DME) blood-glucose meter [FreeStyle Lite Meter] Kit See Rx Instructions .Route Qty: 1 RF: 0 oxybutynin chloride 10 mg tablet extended release 24hr 10 mg PO DAILY 30 Days Qty: 30 RF: 2 Discharge Orders: Discharge Order (Routine); Ordered 02/22/21 Ordered By: Alvarado England Diet: advance to usual diet and diabetic diet Activity on Discharge: As tolerated Care Plan Goals: To controll diabetes Health Concerns: uncontrolled diabetes Plan of Treatment: Take insuluin as recommended and call your Doctor and arrange for follow up nikki ointment You understand that you left without instructions Assessment: uncontrolled diabetes
== END 2021-02-22 15:35 | disposition left against medical advice (07) ==
LOC: HO.ED 02-20 01:52 → HO.EDOVER 02-20 04:22 → HO.IMC 02-20 04:56
PROVIDERS: Family Medicine; Admitting Provider Internal Medicine; Emergency Provider Emergency Medicine; PCP Physician Assistant; Visit Provider Internal Medicine
DX: R55 Syncope and collapse (principal); E11.65 Type 2 diabetes mellitus with hyperglycemia; N17.9 Acute kidney failure, unspecified; R81 Glycosuria; K21.9 Gastro-esophageal reflux disease without esophagitis; E03.9 Hypothyroidism, unspecified; Z91.81 History of falling; Z79.84 Long term (current) use of oral hypoglycemic drugs; Z79.899 Other long term (current) drug therapy; Z53.29 Procedure and treatment not carried out because of patient's decision for other reasons
CPT/HCPCS: 36415; 70450; 72100; 80048; 80076; 80307; 81001; 82077; 82947; 83036; 83735; 83930; 83935; 84300; 84484; 84540; 85025; 85027; 85379; 85610; 87086; 87635; 93005; 93306; 96361; 96365; 96366; 96372; 96375; 96376; 99219; 99285; J0696; J1650; J2405; J2765

== ENCOUNTER → 2021-04-13 08:37 | Outpatient (BNVA) | payer MEDICARE, SELFPAY | PROVIDERS: PCP Physician Assistant; Referring Provider Physician Assistant; Visit Provider Internal Medicine | DX: I21.09 ST elevation (STEMI) myocardial infarction involving other coronary artery of anterior wall (principal); I10 Essential (primary) hypertension; E11.8 Type 2 diabetes mellitus with unspecified complications | CPT/HCPCS: 99202 ==

== ENCOUNTER 2021-04-23 09:18 | Outpatient (REF) | payer MEDICARE, SELFPAY ==
[2021-04-23 10:03] LABS: Hematocrit 34.1 % (37-47); Hemoglobin 11.3 g/dl (12.0-16.0); Mean Corpuscular HGB Conc 33.1 g/dl (31.0-35.0); Mean Corpuscular Hemoglobin 30.2 pg (27.0-33.0); Mean Corpuscular Volume 91.2 fL (80-98); Mean Platelet Volume 10.9 fL (9.4-12.3); Platelet Count 254 X10*3/uL (160-400); Red Blood Count 3.74 X10*6/uL (4.20-5.50); White Blood Count 8.4 X10*3/uL (4.8-10.8)
[2021-04-23 10:25] LABS: Estimated Average Glucose 171 mg/dL; Hemoglobin A1c % 7.6 %
[2021-04-23 10:36] LABS: Alanine Aminotransferase 56 U/L (0-31); Albumin Level 4.1 g/dL (3.5-5.0); Alkaline Phosphatase 91 U/L (39-117); Aspartate Amino Transferase 53 U/L (5-31); Bilirubin Direct 0.2 mg/dL (0.0-0.5); Bilirubin Total 0.5 mg/dL (0.0-1.0); Blood Urea Nitrogen 34 mg/dL (9-16); Calcium 9.6 mg/dL (8.4-10.2); Cholesterol 131 mg/dL; Estimated Glomerular Filt Rate > 60; Glucose Fasting 172 mg/dL (60-99); HDL Cholesterol 43 mg/dL; LDL Cholesterol Calculated 70 mg/dl; Total Protein 7.2 g/dL (6.5-8.0); Triglycerides 92 mg/dL
[2021-04-23 10:51] LABS: Anion Gap 13 (12-20); Carbon Dioxide 22 mmol/L (22-29); Chloride 109 mmol/L (96-108); Potassium 5.6 mmol/L (3.3-5.1); Sodium 138 mmol/L (135-145)
[2021-04-23 11:15] LABS: TSH reflex Free T4 1.95 uIU/mL (0.32-4.0)
[2021-04-23 12:27] LABS: Creatinine Urine 89.58 mg/dL; Microalbum/Creatinine Ratio Ur 11.1 ug/mg cr
== END 2021-04-23 09:19 | disposition home or self-care (01) ==
LOC: HO.LAB 09:18
PROVIDERS: PCP Physician Assistant; Visit Provider Internal Medicine
DX: I10 Essential (primary) hypertension (principal); E11.9 Type 2 diabetes mellitus without complications; I21.09 ST elevation (STEMI) myocardial infarction involving other coronary artery of anterior wall; I25.10 Atherosclerotic heart disease of native coronary artery without angina pectoris
CPT/HCPCS: 36415; 80053; 80061; 80076; 82043; 82248; 83036; 84443; 85027

== ENCOUNTER → 2021-05-13 12:58 | Outpatient (REF) | payer MEDICARE, SELFPAY ==
--- NOTE | 2021-05-13 13:01 | CA_ITS ---
Transthoracic Echocardiogram Patient (Last, First, Middle): Gloria Garland A Gender: Female Date of : 1960 Age: 61 Procedure Date: 05/13/2021 Procedure Type: Transthoracic Echocardiogram Location: OP Height: 157.48 cm Weight: 67.13 kg BSA: 1.68 m2 Heart Rate: bpm BP: 160 / 72 mmHg Paid Internship: [facility] Referring MD: Jose Corado MD Regional Coordinator: Manish Jensen MD Symptoms: I21.09 - ST elevation (STEMI) myocardial infarction invol... Study Quality: Fair ECG Rhythm: Sinus Conclusions: - 1. Normal LV systolic function with mild LVH with grade 1 diastolic dysfunction 2. Normal cardiac valvular Doppler 3. Normal RV systolic pressure 4. No pericardial effusion Findings Left Ventricle Normal left ventricular size and systolic function. There is mildly increased left ventricular wall thickness. The visually estimated ejection fraction is between 60-65%. Spectral Doppler is indicative of an impaired relaxation filling pattern. E/E prime ratio is <8, consistent with normal filling pressures. Evidence suggests grade I (mild) diastolic dysfunction. Wall Motion Rest Echo Findings The basal inferior segment is akinetic. All other scored wall segments showed normal motion. Right Ventricle Normal right ventricular cavity size and systolic function. Atria Both atria are normal in size. Interatrial shunt cannot be excluded. Aortic Valve The aortic valve was not well visualized. There is no aortic valve stenosis. There is no aortic valve regurgitation. Mitral Valve There is mild anterior and posterior mitral leaflet thickening. There is trace mitral valve regurgitation. There is no mitral valve stenosis. Pulmonic Valve The pulmonic valve was not well visualized. Tricuspid Valve Likely normal tricuspid valve structure and function. There is trace tricuspid valve regurgitation. The right ventricular systolic pressure is normal. The right ventricular systolic pressure is 20 mmHg. Normal right atrial pressure. There is no evidence of pulmonary hypertension. Great Vessels All visible segments of the aorta are normal in size. The pulmonary artery was not well visualized. Venous The inferior vena cava is normal in size and collapses greater than 50% with inspiration. Pericardium/Pleural There is no evidence of pericardial effusion. Prior Study Comparison No significant change compared to prior study dated: 02/12/2021. Measurements 2D Linear Measurements IVSd: 1.30 0.6-0.9/0.6-1.0 cm LVIDd: 3.30 3.9-5.3/4.2-5.9 cm LVIDd Index: 1.96 2.4-3.2/2.2-3.1 cm/m2 LVIDs: 2.21 2.0-3.6 cm LVPWd: 1.28 0.7-1.1 cm Ao Root: 3.00 2.1-3.5 cm LA Diam: 2.80 2.7-3.8/3.0-4.0 cm LAIDs Index: 1.67 1.5-2.3 cm/m2 LV Mass: 174.05 67-162/88-224 g LV Mass Index: 103.60 43-95/49-115 g/m2 LVOT Diam: 1.90 3.0+(-)1.3 cm 2D Systolic Function EF 4C: 64.30 >55% EF 2C: 69.30 >55% EF BiP: 66.70 >55% Mitral Valve MV Pk E: 0.63 MV PK A: 0.81 MV Decel Time: 253.00 E/A: 0.80 E'Lateral: 7.51 E'Medial: 7.51 E/E' Med: 8.40 E/E' Lat: 8.40 PHT: 74.00 MVA PHT: 2.97 Decel Erath: 2.49 Aortic Valve AoV Pk Onofre: 1.32 AoV Pk Grad: 7.00 LVOT LVOT Pk Onofre: 1.31 LVOT Mn Onofre: 0.85 LVOT VTI: 0.21 LVOT Pk Grad: 7.00 LVOT Mn Grad: 3.00 LVOT Diam: 1.90 LVOT Area: 2.84 Diastolic Function MV Pk E: 0.63 MV Pk A: 0.81 E/A: 0.80 E'Medial: 7.51 E/E' Med: 8.40 E' Laterial: 7.51 E/E' Lat: 8.40 Right Ventricle TAPSE (mm): 1.81 Tricuspid Valve TR Pk Onofre: 2.04 TR Pk Grad: 17.00 RA Press: 3.00 RVSP: 20.00 Great Vessels Aorta Ao Root-2D: 3.00 2.0-3.7 cm Updated in Other Vendor System with Status of Final Manish Jensen MD electronically signed on 05/14/2021 3:47:53 PM with status of Final
== END ==
LOC: HO.CARD 12:58
PROVIDERS: Visit Provider Internal Medicine
DX: I21.09 ST elevation (STEMI) myocardial infarction involving other coronary artery of anterior wall (principal)
CPT/HCPCS: 93306

== ENCOUNTER → 2021-07-14 10:57 | Outpatient (BNVA) | payer MEDICARE, SELFPAY | PROVIDERS: PCP Physician Assistant; Referring Provider Physician Assistant; Visit Provider Internal Medicine | DX: I21.09 ST elevation (STEMI) myocardial infarction involving other coronary artery of anterior wall (principal); I10 Essential (primary) hypertension; E11.8 Type 2 diabetes mellitus with unspecified complications; F17.210 Nicotine dependence, cigarettes, uncomplicated | CPT/HCPCS: 99212 ==

== ENCOUNTER 2021-11-16 12:14 | Outpatient (REF) | payer OTHER, SELFPAY ==
[2021-11-16 12:40] LABS: MANUAL DIFF FLAG NO
[2021-11-16 12:59] LABS: Basophils Percent Auto 0.3 % (0-2); Eosinophils Absolute Auto 0.2 X10*3/uL (0.0-0.4); Hematocrit 29.2 % (37.0-47.0); Hemoglobin 8.9 g/dl (12.0-16.0); Imm Gran Abs Auto 0.08 X10*3/uL (0.00-0.03); Imm Gran Pct Auto 0.8 % (0.0-0.4); Lymphocytes Absolute Auto 1.6 X10*3/uL (1.2-4.9); Lymphocytes Percent Auto 16.4 % (20-40); Mean Corpuscular HGB Conc 30.5 g/dl (31.0-35.0); Mean Corpuscular Hemoglobin 22.4 pg (27.0-33.0); Mean Corpuscular Volume 73.4 fL (80.0-98.0); Mean Platelet Volume 10.5 fL (9.4-12.3); Monocytes Absolute Auto 0.8 X10*3/uL (0.1-1.2); Neutrophils Absolute Auto 7.1 x10*3/uL (2.0-8.3); Neutrophils Percent Auto 72.5 % (45-73); Platelet Count 303 X10*3/uL (160-400); Red Blood Count 3.98 X10*6/uL (4.20-5.50); Red Cell Distribution Width 26.9 % (11.0-16.0); White Blood Count 9.7 X10*3/uL (4.8-10.8)
[2021-11-16 13:37] LABS: Alanine Aminotransferase 31 U/L (0-31); Albumin Level 3.6 g/dL (3.5-5.0); Alkaline Phosphatase 142 U/L (39-117); Anion Gap 16 (12-20); Aspartate Amino Transferase 35 U/L (5-31); Bilirubin Total 0.2 mg/dL (0.0-1.0); Blood Urea Nitrogen 19 mg/dL (9-16); Calcium 9.2 mg/dL (8.4-10.2); Carbon Dioxide 23 mmol/L (22-29); Chloride 103 mmol/L (96-108); Cholesterol 132 mg/dL; Estimated Glomerular Filt Rate > 60; Glucose Fasting 197 mg/dL (60-99); HDL Cholesterol 56 mg/dL; LDL Cholesterol Calculated 64 mg/dl; Potassium 5.6 mmol/L (3.3-5.1); Sodium 136 mmol/L (135-145); Total Protein 6.6 g/dL (6.5-8.0); Triglycerides 60 mg/dL
[2021-11-16 13:58] LABS: TSH reflex Free T4 1.98 uIU/mL (0.32-4.0)
[2021-11-21 03:51] LABS: Lamotrigine Lamictal 4.6 mcg/mL (4.0-18.0)
== END 2021-11-16 12:15 | disposition home or self-care (01) ==
LOC: HO.LAB 12:14
PROVIDERS: PCP Nurse Practitioner Family; Visit Provider Nurse Practitioner Family
DX: E11.8 Type 2 diabetes mellitus with unspecified complications (principal); E78.00 Pure hypercholesterolemia, unspecified; F31.9 Bipolar disorder, unspecified; I10 Essential (primary) hypertension; E03.9 Hypothyroidism, unspecified; Z79.899 Other long term (current) drug therapy
CPT/HCPCS: 36415; 80053; 80061; 80175; 82043; 84443; 85025

== ENCOUNTER 2021-11-26 10:07 | Day surgery (SDC) | payer OTHER, SELFPAY ==
[2021-11-22 13:14] VITALS: BMI 27.0
--- NOTE | 2021-11-25 08:53 | HO.ANESPROP2 ---
Documented by User: Norma Moreno NP 11/25/21 09:34 HPI - Anesthesia Eval Consult details Narrative: 61yo F for Colonoscopy 03/2021 STEMI and LAD stenting (LON) Per cardiology Patient needs colonoscopy for ongoing anemia and identify any GI sources. Hence, can hold Brilinta for 5 days prior to procedure and resume when safe post procedure. Do not interrupt aspirin. Elevated K 5.6 11/16/21. Repeat DOS PMFSH Active Problems Active Problems: All Active Problems (Updated 11/16/21 @ 11:51 by YONIS España) Stool guaiac positive (Acute) Anemia (Acute) Allergic rhinitis (Acute) Bipolar disorder (Acute) Physical exam (Acute ~06/07/21) Hyperkalemia (Acute) CAD (coronary artery disease) (Acute) Essential hypertension (Acute) Type 2 diabetes mellitus with unspecified complications (Acute) ST elevation myocardial infarction (STEMI) of anterior wall (Acute) COPD (chronic obstructive pulmonary disease) (Acute) Cardiac akinesia (Acute) Spondylolisthesis at L5-S1 level (Acute) Left arm swelling (Acute) Left wrist pain (Acute) GERD (gastroesophageal reflux disease) (Acute) Coccyx pain (Acute) Otitis media (Acute) Neurogenic bladder (Acute) Smoker (Acute) Uncontrolled type 2 diabetes mellitus (Acute) Lumbar stenosis with neurogenic claudication (Acute) HTN (hypertension) (Acute) Constipation (Acute) Hypothyroidism (Acute) DMII (diabetes mellitus, type 2) (Acute) Past Medical History Medical History (Updated 11/16/21 @ 11:51 by YONIS España) Cardiac akinesia Constipation COPD (chronic obstructive pulmonary disease) Depression DMII (diabetes mellitus, type 2) GERD (gastroesophageal reflux disease) History of gastrostomy tube placement History of laryngeal cancer HTN (hypertension) Hx of substance abuse Hypothyroidism Lumbar stenosis with neurogenic claudication Sleep apnea Family History Family History Father Hypertension CVD (cardiovascular disease) Mother Stroke Surgical History Surgical History (Updated 11/16/21 @ 11:36 by DARLENE Luna) H/O colonoscopy History of cardiac catheterization (~03/16/21) History of cataract surgery History of ear surgery History of endoscopy History of esophagogastroduodenoscopy (EGD) History of removal of Port-a-Cath History of surgery on arm History of surgery on left wrist Social History Social History Housing: Apartment Alcohol intake: never Patient Tobacco Use Status: Current everyday Tobacco user Tobacco use type: Cigarette Cigarette Packs Per Day: 1 Cigarettes Per Day: 20 Years Smoked: 48 e-Cigarette/Vaping Use: Never Used Second Hand Smoke Exposure: Yes Advance Directives: No Advance Directives Information Provided: Yes service: No Current occupational status: disabled Cognitive needs: Yes (scooter) Hearing needs: No Vision needs: No Meds Allergies Allergy/AdvReac Type Severity Reaction Status Date / Time adhesive tape [ADHESIVE TAPE] Allergy Intermediate BLISTERS Verified 11/16/21 11:28 meloxicam AdvReac Unknown hallucinati Verified 11/16/21 11:28 ons talwin Allergy Unknown ineffective Uncoded 11/16/21 11:28 Home Medications Medication Instructions Recorded Confirmed Last Taken Type alcohol swabs (Alcohol Prep Pads) pad TOPICAL 04/09/20 09/07/21 Unknown History venlafaxine 75 mg capsule,extended 75 mg PO BID cap 04/09/20 11/22/21 Unknown History release 24 hr (Effexor XR) lamotrigine 25 mg tablet 100 mg PO BEDTIME tab 09/07/21 11/22/21 Unknown History lorazepam 1 mg tablet 4 mg PO TID PRN tab 09/07/21 11/22/21 Unknown History Exam Exam Date and Time: November 25, 2021 0853 Height,Weight and Vital Signs: Height 5 ft 1 in Weight 64.864 kg Narrative Narrative: ECHO 05/2021 Conclusions: - 1. Normal LV systolic function with mild LVH with grade 1? ? ? diastolic dysfunction? 2. Normal cardiac valvular Doppler ? 3. Normal RV systolic pressure ? 4. No pericardial effusion ? ? EKG 10/2021 (Per [facility]) NSR @ 73 Assessment and Plan Assessment Anesthesia Assessment: Chart Reviewed Documented by User: Yajaira Watts MD 11/26/21 10:43 [facility] Past Medical History Medical History (Updated 11/16/21 @ 11:51 by YONIS España) Cardiac akinesia Constipation COPD (chronic obstructive pulmonary disease) Depression DMII (diabetes mellitus, type 2) GERD (gastroesophageal reflux disease) History of gastrostomy tube placement History of laryngeal cancer HTN (hypertension) Hx of substance abuse Hypothyroidism Lumbar stenosis with neurogenic claudication Sleep apnea Family History Family History Father Hypertension CVD (cardiovascular disease) Mother Stroke Family history of problems with anesthesia: No Surgical History Surgical History (Updated 11/16/21 @ 11:36 by DARLENE Luna) H/O colonoscopy History of cardiac catheterization (~03/16/21) History of cataract surgery History of ear surgery History of endoscopy History of esophagogastroduodenoscopy (EGD) History of removal of Port-a-Cath History of surgery on arm History of surgery on left wrist History of Problems with Anesthesia: No Social History Social History Housing: Apartment Alcohol intake: never Patient Tobacco Use Status: Current everyday Tobacco user Tobacco use type: Cigarette Cigarette Packs Per Day: 1 Cigarettes Per Day: 20 Years Smoked: 48 e-Cigarette/Vaping Use: Never Used Second Hand Smoke Exposure: Yes Advance Directives: No Advance Directives Information Provided: Yes service: No Current occupational status: disabled Cognitive needs: Yes (scooter) Hearing needs: No Vision needs: No Meds Allergies Allergy/AdvReac Type Severity Reaction Status Date / Time adhesive tape [ADHESIVE TAPE] Allergy Intermediate BLISTERS Verified 11/16/21 11:28 meloxicam AdvReac Unknown hallucinati Verified 11/16/21 11:28 ons talwin Allergy Unknown ineffective Uncoded 11/16/21 11:28 Home Medications Medication Instructions Recorded Confirmed Last Taken Type alcohol swabs (Alcohol Prep Pads) pad TOPICAL 04/09/20 09/07/21 Unknown History venlafaxine 75 mg capsule,extended 75 mg PO BID cap 04/09/20 11/22/21 Unknown History release 24 hr (Effexor XR) lamotrigine 25 mg tablet 100 mg PO BEDTIME tab 09/07/21 11/22/21 Unknown History lorazepam 1 mg tablet 4 mg PO TID PRN tab 09/07/21 11/22/21 Unknown History Exam Airway Mallampati Class: II (Edentulous) TM Dist: >3cm Neck ROM: Full Heart: rrr Lungs: cta Assessment and Plan Assessment Anesthesia Assessment: Anesthesia Plan Discussed and Chart Reviewed Final Anesthetic Review Family History of Problems with Anesthesia: No History of Problems with Anesthesia: No NPO: Yes ASA Class: III Final Preanesthetic Review: No Changes in Pt Med Stat, Meds/Allgs Chart Reviewed and Consent Obtained/Reviewed Patient Risk: Intermediate Procedure Risk: Intermediate Anesthetic Plan Anesthetic Plan: MAC: Disposition: Standard PACU
[2021-11-26 10:39] VITALS: BP 112/58; PULSE 80; RESP 18; TEMP 36.5; O2SAT 96
[2021-11-26 10:55] LABS: Anion Gap 17 (12-20); Carbon Dioxide 23 mmol/L (22-29); Chloride 106 mmol/L (96-108); Potassium 4.5 mmol/L (3.3-5.1); Sodium 141 mmol/L (135-145)
[2021-11-26] MEDS: Lactated Ringers 1,000 ML 100 ML IVCONT (10:58)
--- NOTE | 2021-11-26 11:21 | MHC.SHP ---
Pre-Procedural Eval Section A Date of Service: 11/26/21 Section B Chief Complaint: Anemia, unspecified Details of Present Illness: see h&p no changes Relevant Family History (Specify if Yes): No Relevant Social History: None Present Medications: see Short Stay Collaborative assessment Medical History: No relevant PMH History of Previous Operations: No relevant previous surgery Allergies: Allergies Allergy/AdvReac Type Severity Reaction Status Date / Time adhesive tape [ADHESIVE TAPE] Allergy Intermediate BLISTERS Verified 11/26/21 10:47 meloxicam AdvReac Unknown hallucinati Verified 11/26/21 10:47 ons talwin Allergy Unknown ineffective Uncoded 11/16/21 11:28 Review of Systems Sugical H&P ROS: Negative: Constitution, Cardiovascular, Respiratory, Neurological, Psychiatric, Hem-Onc, Allergic/Immunologic, Gastrointestinal, Genitourinary, Musculoskeletal, Integumentary, Endocrine and Eyes/Ears/Nose/Throat Exam Surgical H&P Exam: Normal: HEENT, Normal: Heart, Normal: Lungs, Normal: Extremities, Normal: Abdomen, Normal: Skin and Normal: Neurological Plan Diagnosis/Plan: Unchanged I have reviewed the history and physical and performed a pertinent physical examination on my patient. No changes have occurred unless specified.
[2021-11-26 11:27] LABS: Glucose, Whole Blood 199 mg/dL (60-115)
[2021-11-26 12:12] VITALS: BP 85/41; PULSE 57; RESP 16; TEMP 36.7; O2SAT 98
--- NOTE | 2021-11-26 12:21 | PM.OP ---
Brief Operative Note Date of Service: 11/26/21 Pre-op diagnosis: anemia,change in bowels Post-op diagnosis: same Procedure: colonoscopy Surgeon: Quintin Barlow Anesthesia: MAC Was an Socially Responsible Investment Adviser used for this Procedure?: No Estimated blood loss (mL): 5 Pathology: other Condition: stable Disposition: PACU
[2021-11-26 12:26] VITALS: BP 122/52; PULSE 65; RESP 18; TEMP 36.9; O2SAT 98
[2021-11-26 12:31] VITALS: BP 123/51; PULSE 66; RESP 18; O2SAT 97
--- NOTE | 2021-11-26 12:58 | OP_ITS ---
SURGEON: Quintin Barlow MD INDICATIONS: Change in bowel habits and anemia. PREOPERATIVE DIAGNOSIS: POSTOPERATIVE DIAGNOSIS: PROCEDURE PERFORMED: Colonoscopy to the cecum with snare polypectomy. ESTIMATED BLOOD LOSS: COMPLICATIONS: ANESTHESIA: ASSISTANTS: SPECIMENS: MEDICATIONS: Monitored anesthesia care. DESCRIPTION OF PROCEDURE: History and physical were performed. The risks and benefits of the procedure were explained to the patient. Informed consent was obtained. The patient was placed in the left lateral decubitus position. A digital rectal exam was performed and was found to be normal. The Olympus pediatric video colonoscope was introduced into the rectum and advanced to the cecum without difficulty. The cecum was identified by transillumination, palpation, and identification of ileocecal valve. Examination was performed and the scope was removed. She tolerated the procedure well and was taken to recovery area in stable condition. FINDINGS: The terminal ileum was not examined. The visualized colonic mucosa was normal. There was some liquid stool coating the mucosa mainly in the splenic flexure and sigmoid. This was washed and suctioned as best possible. At the ileocecal valve was an 8 mm polyp, which was removed with a hot snare. At 20 cm were 2 polyps measuring less than 10 mm, which were removed with a cold snare. There was sigmoid diverticulosis. Retroflexed examination showed small internal hemorrhoids. IMPRESSION: Colon polyps. RECOMMENDATION: Follow up the biopsy results. MD JOSE M Chino/GIDEON / [id number]
== END 2021-11-26 13:00 | disposition home or self-care (01) ==
PROVIDERS: Nurse Practitioner; PCP Nurse Practitioner Family; Visit Provider Internal Medicine Gastroenterology
PROC: 0DJD8ZZ Inspection of Lower Intestinal Tract, Via Natural or Artificial Opening Endoscopic (ICD-10-PCS; CPT 45378; principal; 2021-11-26 12:20)
DX: D64.9 Anemia, unspecified (principal); R19.4 Change in bowel habit; Z86.010 Personal history of colon polyps; D12.0 Benign neoplasm of cecum; K63.5 Polyp of colon; K57.30 Diverticulosis of large intestine without perforation or abscess without bleeding; K64.8 Other hemorrhoids; K21.9 Gastro-esophageal reflux disease without esophagitis; I10 Essential (primary) hypertension; G47.33 Obstructive sleep apnea (adult) (pediatric); J44.9 Chronic obstructive pulmonary disease, unspecified; E11.9 Type 2 diabetes mellitus without complications; Z79.82 Long term (current) use of aspirin; Z79.51 Long term (current) use of inhaled steroids; Z79.899 Other long term (current) drug therapy; Z88.8 Allergy status to other drugs, medicaments and biological substances; Z85.21 Personal history of malignant neoplasm of larynx; Z92.21 Personal history of antineoplastic chemotherapy; Z92.3 Personal history of irradiation; F19.11 Other psychoactive substance abuse, in remission; F17.210 Nicotine dependence, cigarettes, uncomplicated; Z20.5 Contact with and (suspected) exposure to viral hepatitis
CPT/HCPCS: 45385; 36415; 80051; 82947; 88305

== ENCOUNTER → 2021-12-01 09:50 | Outpatient (BNVA) | payer OTHER, SELFPAY | PROVIDERS: PCP Nurse Practitioner Family; Visit Provider Internal Medicine | DX: E11.9 Type 2 diabetes mellitus without complications (principal); E55.9 Vitamin D deficiency, unspecified; E78.5 Hyperlipidemia, unspecified; I10 Essential (primary) hypertension | CPT/HCPCS: Q3014 ==

== ENCOUNTER → 2022-03-01 13:58 | Outpatient (BNVA) | payer OTHER, SELFPAY | PROVIDERS: PCP Physician Assistant; Referring Provider Physician Assistant; Visit Provider Internal Medicine | DX: I25.2 Old myocardial infarction (principal); I10 Essential (primary) hypertension; E11.8 Type 2 diabetes mellitus with unspecified complications; F17.210 Nicotine dependence, cigarettes, uncomplicated | CPT/HCPCS: 93005; 99212 ==

== ENCOUNTER 2022-03-10 10:24 | Outpatient (REF) | payer OTHER, SELFPAY ==
--- NOTE | ~2022-03-10 | US_ITS ---
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 COMPARISON: CT soft tissue neck 03/14/2018. TECHNIQUE: Linear transducer grayscale and color Doppler examination with attention to the region of the thyroid. FINDINGS: SIZE: Measurements of the thyroid lobes and nodules are given in sagittal, anteroposterior and transverse dimensions respectively. Right Thyroid Lobe: 4.7 x 1.1 x 1.1 cm, volume 3.1 mL. Parenchyma: The gland echotexture is homogeneous. Thyroid vascularity is increased. Left Thyroid Lobe: 3.7 x 1.2 x 0.9 cm, volume 2.1 mL. Parenchyma: The gland echotexture is homogeneous. Thyroid vascularity is increased. Isthmus: 0.16 cm in maximum AP dimension. No focal thyroid nodule is seen. NODES: No lymphadenopathy is seen in the tissue surrounding the thyroid gland. US/US thyroid IMPRESSION: No thyroid nodules identified. No abnormal lymphadenopathy about the thyroid is identified. ACR TI-RADS RECOMMENDATION REFERENCE: Ultrasound-guided fine-needle aspiration, followup ultrasound, no further follow up. * TR1 (0 point) and TR 2 (2 points): No FNA or follow up * TR3 (3 points): FNA if more than or equal to 2.5 cm in maximum dimension, followup ultrasound in 1, 3 and 5 years if 1.5 to 2.4 cm in maximum dimension. * TR4 (4-6 points): FNA if more than or equal to 1.5 cm in maximum dimension, followup ultrasound in 1, 2, 3 and 5 years if 1 to 1.4 cm in maximum dimension. * TR5 (more than or equal to 7 points): FNA if more than or equal to 1 cm in maximum dimension, followup ultrasound every year for 5 years if 0.5 to 0.9 cm in maximum dimension. * TR3, TR4 or TR5 nodules that are below the size threshold for follow up receive no follow up.
--- NOTE | ~2022-03-10 | US_ITS ---
EXAMINATION: US EXTRACRANIAL CAROTID DUPLEX, BILATERAL CLINICAL INFORMATION: Carotid stenosis COMPARISON: None TECHNIQUE: Real-time ultrasound and Doppler techniques (integrating B-mode 2-D vascular images, Doppler spectral analysis and color-flow Doppler imaging) were utilized to interrogate the extracranial carotid arteries, the vertebral arteries and proximal subclavian arteries bilaterally. The degree of stenosis is determined by criteria similar to NASCET. FINDINGS: Right Side: 1. There is mild atherosclerotic plaque seen in the bifurcation/proximal ICA region. 2. The common carotid artery PSV proximally is 59 cm/s and distally 55 cm/s. 3. The proximal internal carotid artery velocities are 73 cm/s systolic and 24 cm/s diastolic. 4. The proximal external carotid artery PSV is 170 cm/s. 5. The vertebral artery shows antegrade flow. 6. The subclavian artery velocity is elevated at 244 cm/s. Left Side: 1. There is mild atherosclerotic plaque seen in the bifurcation/proximal ICA region. 2. The common carotid artery PSV proximally is 74 cm/s and distally 61 cm/s. 3. The proximal internal carotid artery velocities are 64 cm/s systolic and 15 cm/s diastolic. 4. The proximal external carotid artery PSV is 130 cm/s. 5. The vertebral artery shows antegrade flow. 6. The subclavian artery velocity is not significantly elevated at 165 cm/s. US/US carotid duplex BI IMPRESSION: 1. RIGHT: Minimal, non-hemodynamically significant stenosis of the proximal right internal carotid artery corresponding to a 0-49% stenosis by velocity criteria. 2. LEFT: Minimal, non-hemodynamically significant stenosis of the proximal left internal carotid artery corresponding to a 0-49% stenosis by velocity criteria.
== END 2022-03-10 10:25 | disposition home or self-care (01) ==
LOC: HO.US 10:24
PROVIDERS: Visit Provider Internal Medicine
DX: I65.23 Occlusion and stenosis of bilateral carotid arteries (principal); E04.9 Nontoxic goiter, unspecified
CPT/HCPCS: 76536; 93880

== ENCOUNTER 2022-07-19 23:59 | Emergency (ER) | payer OTHER, SELFPAY ==
--- NOTE | ~2022-07-19 | CT_ITS ---
EXAMINATION: CT HEAD WITHOUT CONTRAST CLINICAL INFORMATION: Acute mental status change COMPARISON: Head CT 02/19/2021 TECHNIQUE: Imaging was performed from the skull base to vertex without intravenous administration of contrast. This CT examination was performed using dose optimization techniques as appropriate, variously including the following: *Automated exposure control *Adjustment of mA and/or kV according to patient size (this includes techniques or standardized protocols for targeted exams where dose is matched to indication/reason for exam; i.e. extremities or head) *Use of iterative reconstruction technique Total exam dose length product: 992 mGy-cm FINDINGS: No intra or extra-axial fluid collection, hemorrhage, or mass. No ventriculomegaly. No midline shift or herniation. Basal cisterns are patent. Guerra-white matter differentiation is maintained. No territorial encephalomalacia. No significant volume loss. There is no abnormal attenuation within the brain parenchyma. No calvarial fracture or soft tissue abnormality. Status post right mastoidectomy. Paranasal sinuses and left mastoid air cells normally aerated. CT/CT head/brain wo IV con IMPRESSION: No acute intracranial pathology.
--- NOTE | 2022-07-20 | ECG_ITS ---
Test Reason : OVERDOSE Blood Pressure : / mmHG Vent. Rate : 077 BPM Atrial Rate : 077 BPM P-R Int : 176 ms QRS Dur : 088 ms QT Int : 424 ms P-R-T Axes : 052 015 065 degrees QTc Int : 479 ms Normal sinus rhythm Possible Left atrial enlargement Borderline ECG When compared with ECG of 19-FEB-2021 20:55, No significant change was found Referred By: Generic ED Physician Electronically Signed By:Masood Martinez
[2022-07-20 00:05] VITALS: BP 155/80; BP 184/78; PULSE 90; RESP 22; TEMP 36.6; O2SAT 93; O2SAT 94; BMI 22.6
--- NOTE | 2022-07-20 00:40 | PC.NURSE ---
PT A&Ox3, states taking eight Lamotrigine pills because my daughter does not help, I just want her to help me . PT denies SI/HI. PT tearful. Changed over to hospital attire, valuables secured. 1:1 observer at bedside.
--- NOTE | 2022-07-20 00:51 | PC.NURSE ---
[facility] Anjelica [phone].
--- OUTSIDE RECORDS SUMMARY | 2022-07-20 00:54 | XMS_ITS | Continuity of Care Document ---
:1960 Author Organization [facility] Address [address] [place] [address]- Care Team Providers Name Role Phone Vicente Navarrete Primary Care Physician [place] [facility] [place]16/21 - 03/18/[address] [address]- Encounter Diagnosis ACS (acute coronary syndrome) (Final) - 03/16/21 Discharge Disposition: A-Transfer A/Home Health Attending Physician: Thuan Esteves MD Admitting Physician: Ehsan Griggs MD Referring Physician: Not on Staff, Referring MD Allergies, Adverse Reactions, Alerts Substance Reaction Severity Status NKA Active Medications aspirin 81 mg oral delayed release tablet = 81 mg, By Mouth, Daily, # 90 tablet, 0 Refills, Maintenance, 03/18/21 15:14:00 EDT, EC Tablet, [facility], Partial fill upon patient request if the prescription is for a schedule II opioid drug., 158, cm, 03/18/21 13:39:00 EDT, Height,... Start Date: 03/18/21 Status: Orderedatorvastatin 80 mg oral tablet 1 tablet = 80 mg, By Mouth, Daily in AM, # 30 tablet, 0 Refills, Maintenance, 03/18/21 17:27:00 EDT,Tablet, [facility], Partial fill upon patient request if the prescription is for a schedule II opioid drug., 158, cm, 03/18/21 17:01:00... Start Date: 03/18/21 Status: Orderedgabapentin 300 mg oral capsule 600 mg, Capsule, By Mouth, 03/18/21 9:00:00 EDT Start Date: 03/18/21 Stop Date: 03/18/21 Status: Completedgabapentin 300 mg oral capsule 600 mg, Capsule, By Mouth, 03/18/21 15:00:00 EDT Start Date: 03/18/21 Stop Date: 03/18/21 Status: Completedgabapentin 600 mg oral tablet 1 tablet = 600 mg, By Mouth, 3 times a day, # 270 tablet, 0 Refills, Maintenance, 03/16/21 23:35:00 EDT, Tablet, Partial fill upon patient request if the prescription is for a schedule II opioid drug. Start Date: 03/16/21 Status: Orderedlamotrigine 25 mg oral tablet 75 mg, 3, tablet, By Mouth, Daily at bedtime, Refills 0, Maintenance, 03/16/21 23:35:00 EDT, Partialfill upon patient request if the prescription is for a schedule II opioid drug. Start Date: 03/16/21 Status: OrderedLantus Solostar Pen 100 units/mL subcutaneous solution = 10 units, Subcutaneous Injection, Daily in AM, # 10 mL, 0 Refills, Maintenance, 03/16/21 23:32:00 EDT, Solution, Partial fill upon patient request if the prescription is for a schedule II opioid drug. Start Date: 03/16/21 Status: Orderedlevothyroxine 0.025 mg oral tablet 1 tablet = 25 mcg, By Mouth, Daily, # 30 tablet, 0 Refills, Maintenance, 03/16/21 23:31:00 EDT, Tablet, Partial fill upon patient request if the prescription is for a schedule II opioid drug. Start Date: 03/16/21 Status: Orderedlisinopril 20 mg oral tablet 20 mg, 1, tablet, By Mouth, Daily in AM, # 30 tablet, Refills 0, Tot. Refills 0, Maintenance, 03/18/21 15:56:00 EDT, Route to Pharmacy Electronically, [facility], Partial fill upon patient request if the prescription is for a schedule II... Start Date: 03/18/21 Status: OrderedLORazepam 1 mg oral tablet 1 tablet = 1 mg, By Mouth, 4 times a day, 0 Refills, Maintenance, 04/30/18 23:43:40 EDT, Tablet Start Date: 04/30/18 Status: OrderedMelatonin 5 mg oral tablet 1 tablet = 5 mg, By Mouth, Daily at bedtime, PRN for insomnia, # 60 tablet, 0 Refills, Maintenance, 03/16/21 23:30:00 EDT, Tablet, Partial fill upon patient request if the prescription is for a schedule II opioid drug. Start Date: 03/16/21 Status: OrderedmetFORMIN 1000 mg oral tablet 1 tablet = 1,000 mg, By Mouth, 2 times a day, # 180 tablet, 0 Refills, Maintenance, 03/16/21 23:38:00 EDT, Tablet, Partial fill upon patient request if the prescription is for a schedule II opioid drug. Start Date: 03/16/21 Status: Orderedmetoprolol 25 mg oral tablet, extended release 12.5 mg, 0.5, tablet, By Mouth, Daily, # 90 tablet, Refills 0, Tot. Refills 0, Maintenance, 03/18/2115:14:00 EDT, Route to Pharmacy Electronically, [facility], Partial fill upon patient request if the prescription is for a schedule II o... Start Date: 03/18/21 Status: OrderedNovoLOG FlexPen 100 units/mL injectable solution INJECT SUBCUTANEOUSLY 3 (THREE) TIMES A DAY VIA SLIDING SCALE (<150 0U; 151-200 2U; 201-250 4U; 251-300 6U; 301-350 8U; >350 10U AND CALL MD) Start Date: 03/16/21 Status: Orderedomeprazole 20 mg oral enteric coated capsule 1 capsule = 20 mg, By Mouth, Daily, # 30 capsule, 0 Refills, Maintenance, 03/16/21 23:31:00 EDT, EC Capsule, Partial fill upon patient request if the prescription is for a schedule II opioid drug. Start Date: 03/16/21 Status: Orderedoxybutynin 10 mg/24 hr oral tablet, extended release 1 tablet = 10 mg, By Mouth, Daily, # 30 tablet, 0 Refills, Maintenance, 03/16/21 23:30:00 EDT, ER Tablet, Partial fill upon patient request if the prescription is for a schedule II opioid drug. Start Date: 03/16/21 Status: Orderedticagrelor 90 mg oral tablet 1 tablet = 90 mg, By Mouth, 2 times a day, # 60 tablet, 0 Refills, Maintenance, 03/18/21 15:15:00 EDT, Tablet, [facility], Partial fill upon patient request if the prescription is for a schedule II opioid drug., 158, cm, 03/18/21 13:39:0... 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 LUNGS AND PLEURA: Clear lungs. Normal pulmonary vascularity. No pleural effusion. No pneumothorax. HEART, MEDIASTINUM AND OMID: Heart is normal in size. Aorta is mildly calcified. BONES AND SOFT TISSUES: No acute abnormality. IMPRESSION: No evidence of acute abnormality. WSN: [id number] Ordering Physician: Shayla Walters Dictated By: Kirill Maddox MD Dictated Date/Time: 03/17/21 2:06 pm Reviewed By: Kirill Maddox MD Signed By: Kirill Maddox MD Signed Date/Time: 03/17/21 2:06 pm Transcribed By: SOL Transcribed Date/Time: 03/17/21 2:05 pm Exam Date Time Procedure Performing Provider Status 03/16/21 11:18 PM Chest Portable Chelsie Joseph; Auth (Verified) Notes:(Chest Portable) Reason For Exam: Chest Pain;Other:RESULT: Chest Portable Chest Portable, AP upright at 11:05 PM. Reason: Other:; Chest Pain; Clinical Question(s): CHF COMPARISON: 04/30/2018 and 11/27/2013. FINDINGS: LINES AND TUBES: None. LUNGS AND PLEURA: Clear lungs. Normal pulmonary vascularity. No pleural effusion. No pneumothorax. HEART, MEDIASTINUM AND OMID: Heart is normal in size. Atherosclerosis of the thoracic aorta. BONES AND SOFT TISSUES: No acute abnormality. IMPRESSION: No acute abnormality. I have personally reviewed the images and I agree with this report. WSN: [id number] Ordering Physician: Kendrick Luke Dictated By: Bethel Dennis DO Dictated Date/Time: 03/16/21 11:29 p Reviewed By: Adarsh Tobar MD Signed By: Adarsh Tobar MD Signed Date/Time: 03/16/21 11:34 pm Transcribed By: SOL Transcribed Date/Time: 03/16/21 11:27 pm Vital Signs Most recent to oldest [Reference 1 2 3 Range]: Height 158 cm 158 cm 158 cm (03/18/21 5:01 PM) (03/18/21 1:39 PM) (03/18/21 8:28 A M) Weight 69.3 kg 68.7 kg (03/18/21 3:00 AM) (03/16/21 9:42 PM) Oxygen Saturation [94-100 %] 98 % 99 % 94 % (03/18/21 1:39 PM) (03/18/21 8:25 AM) (03/18/21 3:00 A M) Pulse Rate [55-90 bpm] 79 bpm 84 bpm 76 bpm (03/18/21 5:01 PM) (03/18/21 1:39 PM) (03/18/21 8:25 A M) Body Mass Index [18.5-24.99] 27.52 *H* (03/16/21 9:42 PM) Blood Pressure [90-138/55-84 mm 105/55 mm Hg 95/44 mm Hg 88/45 mm Hg Hg] (03/18/21 5:01 PM) (03/18/21 1:39 PM) *L* (03/18/21 8:28 AM) Respiratory Rate [16-30 br/min] 18 br/min 18 br/min 18 br/min (03/18/21 5:01 PM) (03/18/21 1:39 PM) (03/18/21 9:46 A M) Temperature [96.8-100.4 DegF] 97.6 DegF 97.0 DegF 97 .3 DegF (03/18/21 1:39 PM) (03/18/21 8:25 AM) (03/18/21 3:00 A M) Liters per Minute 2 L/min 2 L/min 2 L/min (03/17/21 11:00 AM) (03/17/21 10:00 AM) (03/17/21 9:00 AM) Mode of Delivery (Oxygen) Room air Room air Room a ir (03/18/21 1:39 PM) (03/18/21 8:25 AM) (03/18/21 3:00 A M) Blood pressure sites Arm, right Arm, left Arm, right (03/18/21 1:39 PM) (03/18/21 8:28 AM) (03/18/21 8:25 A M) Temperature Route Temporal Temporal Temporal (03/18/21 1:39 PM) (03/18/21 8:25 AM) (03/18/21 3:00 A M) Dry Weight 68.7 kg (03/16/21 9:42 PM) Weight Obtained Via Bed scale (03/18/21 3:00 AM) Social History Social History Type Response Smoking Status 10 or more cigarettes (1/2 p ack or more)/day in last 30 days; Patient wants NRT during admission Yes; Type: Cigarettes entered on: 03/16/21 Sex
--- OUTSIDE RECORDS SUMMARY | 2022-07-20 00:54 | XMS_ITS ---
:1960 Author Organization [facility] Address [address] [place] [address] Care Team Providers Name Role Phone Quintin Barlow Jr Unavailable Unavailable PROBLEMS Type Condition ICD9-CM [id number] Onset Condition SNOMED Cod e Code Code Dates Status Problem Colon cancer Z12.11 Active 5079082 04 screening Problem Change in bowel R19.4 Active 8811 1009 habit Problem Gastroesophageal K21.9 Active 266 950710 reflux disease without esophagitis ALLERGIES Substance Reaction Event Type Date Status Talwin Unknown Non Drug Allergy Feb, Active ENCOUNTERS Encounter Location Date Diagnosis [place] [address] November, [facility] [address] [place] [address] [facility] [address] [place] [address] November, Anemia D64.9 an d Colon polyp [place] [id number] K63.[address] [place] [address] November, [facility] [address] [place] [address] [place] [address] November, [facility] [address] [place] [address] [place] [address] Oct, [facility] [address] [place] [address] [facility] [address] Oct, [facility] [address] [place] [address] [facility] [address] Aug, [facility] [address] [place] [address] [facility] [address] Feb, [facility] [address] [place] [address] [facility] [address] Feb, Change i n bowel habit R19.4 [facility] [address] [place] and Gastro esophageal reflux [address] disease without esophagitis K21.9 [facility] [address] Dec, [facility] [address] [place] [address] [facility] [address] Feb, [place] [phone] [facility] [address] Jan, [facility] [address] [place] [address] [facility] [address] November, Gastroes ophageal reflux [facility] [address] [place] disease wi thout esophagitis [address] K21.9 and Colon cancer screening Z12.11 [facility] [address] Aug, [place] [id number] [facility] [address] Aug, Dysphagi a [address] [facility] [address] [place] [address] [facility] [address] Aug, [facility] [address] [place] [address] [facility] [address] Oct, Dysphagi a 787[address] [facility] [address] [place] [address] [facility] [address] Jan, [place] [id number] [facility] [address] Oct, [place] [id number] IMMUNIZATIONS No Known Immunizations SOCIAL HISTORY Qualifiers Date Current Smoker REASON FOR REFERRAL FUNCTIONAL STATUS PLAN OF CARE Activity Details Pending Test XR BARIUM SWALLOW-ESOPHAGUS Future/Pending Procedure COLONOSCOPY 20210211 Future/Pending Procedure COLONOSCOPY 20161207 Future/Pending Procedure UPPER GI ENDOSCOPY 20130905 VITAL SIGNS Weight 153 lbs 2021-02-11 Weight 174 lbs 2016-12-07 Weight 192 lbs 2013-09-04 Height 62 in 2021-02-11 Height 62 in 2016-12-07 Height 62 in 2013-09-04 BMI 27.98 kg/m2 2021-02-11 BMI 31.82 kg/m2 2016-12-07 BMI 35.11 kg/m2 2013-09-04 Heart Rate 62 /min 2013-09-04 Temperature 96.9 degrees Fahrenheit 2021-02-11 Blood pressure systolic 000 mm Hg 2021-02-11 Blood pressure diastolic 00 mm Hg 2021-02-11 MEDICATIONS Medication Instructions Dosage Frequency Start End Duration Statu s Date Date MiraLax (colon orally begin at mixed with Feb, 1 day Active prep) 8.3 ounce 5:00 p.m. the Gatorade or 2020 ((238) grams day before the Crystal procedure Light metFORMIN HCl Orally twice a 1/2 tablet 12h November, day(s ) Active 1000 MG day 2021 Venlafaxine HCl Active ER amLODIPine Orally Once a 1 tablet 24h November, day(s) Acti ve Besylate 5 MG day 2021 Metoprolol Orally Once a 1 capsule 24h November, day(s) Act arun Succinate 25 MG day 2021 Levothyroxine Active Sodium Lisinopril 5 MG Orally Once a 1 tablet 24h A ctive day lamoTRIgine ER 25 1 tablet November, day(s) Act arun MG 2021 Propranolol HCl Orally Twice a 1 tablet 12h Active 10 MG day Aspirin 81 81 MG Orally Once a 1 tablet 24h November, day(s ) Active day 2021 Fluoxetine 20 MG Orally Once a 1 capsule 24h Active day in the morning MiraLax (colon Orally as mixed with Oct, 1 day Acti ve prep) 17 GM/SCOOP diirected Gatorade or 2021 Crystal Light Omeprazole 20 MG Orally Once a 1 capsule 24h November, day( s) Active day 30 minutes 2021 before morning meal Metformin & Diet Orally twice a 1 tablet 12h Active Manage Prod 500 day MG Gabapentin 900 Orally 900 mg 1 capsule A ctive at hs and 100 mg in am Omeprazole 20 MG Orally Once a 1 capsule 24h Active day Ticagrelor 90 MG Orally Twice a 1 tablet 12h November, day( s) Active day 2021 Lisinopril 40 MG Orally Once a 1 tablet 24h November, day(s ) Active day 2021 Dulcolax (colon Orally two take at Oct, 1 day Activ e prep) 5 MG tablets twice a 3:00 p.m 2021 day for one day and 7:00p.m. Venlafaxine HCl Orally Twice a 1 tablet 12h November, day(s ) Active 75 MG day with food 2021 Ativan 4 MG/ML Orally four as directed A ctive times a day Atorvastatin Orally Once a 1 tablet 24h November, day(s) Ac tive Calcium 80 MG day 2021 LORazepam 1 MG Orally Once a 1 tablet at 24h 23 November, day bedtime as 2021 needed PROCEDURES Procedure Date Ordered Result Body Site BMI >=30 CALCUATE W/FOLLOWUP December 07, 2016 DOC MEDS VERIFIED W/PT OR RE Feb 11, 2021 Pt recv tbco cess interv Feb 11, 2021 COLORECTAL CA SCREEN DOC REV December 07, 2016 FLU IMMUNIZE ORDER/ADMIN December 07, 2016 COLORECTAL CA SCREEN DOC REV Feb 11, 2021 BP SCR PRFRM RCMDD DEFIND SCR INTVL December 07, 2016 PATIENT NOT ELIG D/T ACTIVE DX HTN Feb 11, 2021 PT TOBACCO SCREEN RCVD TLK December 07, 2016 LESION REMOVAL COLONOSCOPY November 26, 2021 Pt scrn tbco and id as user Feb 11, 2021 RESULTS Name Result Date Reference Range Electrolytes 2021-11-26 Sodium 141 135-145 Potassium 4.5 3.3-5.1 Chloride 106 96-108 Carbon Dioxide 23 22-29 Anion Gap 17 12-20 Glucose, Whole Blood 2021-11-26 Glucose, Whole Blood 199 60-115 Pathology 2021-11-26 GI BIOPSY 2017-02-24 G.I. BIOPSY CBC with MANUAL DIFFERENTIAL 2013-11-15 RBC 3.57 4.20-5.50 HEMOGLOBIN 10.2 12.0-16.0 HEMATOCRIT 28.8 37-47 MCV 80.6 80-98 MCH 28.6 27.0-33.0 MCHC 35.5 31.0-35.0 RDW 13.3 11.0-16.0 SEGS 6 45-73 LYMPHOCYTES 72 20-40 MONOCYTES 22 2-11 PLATELET ESTIMATE DECREASED NORMAL PLATELET MORPHOLOGY NORMAL NORMAL RBC MORPHOLOGY 1+ HYPO NORMAL RBC MORPHOLOGY [place]AUX NORMAL WBC 0.2 4.8-10.8 ABSOLUTE NEUTROPHIL COUNT 0.0 2.2-7. 9 PLATELET COUNT 18 160-400 PROTHROMBIN TIME (PT, INR) 2013-11-15 INTERNATIONAL NORM. RATIO 3.0 SEE NO TE PROTHROMBIN TIME 34.4 10.1-13.1 GLUCOSE,WHOLE BLOOD 2013-09-06 GLUCOSE,WHOLE BLOOD 140 60-115 CREATININE 2013-09-06 CREATININE 0.63 0.5-1.4 ESTIMATED GFR > 60 ESTIMATED CrCl Test not performed REASON FOR VISIT screening colonoscopy, pathology, anemia, patient , colonoscopy, colonoscopy, r/s 01/26/22, future cardiac clearance, change in bowels, FYI, Patent presents today for being unable to move bowels, not able to move bowels, screening colonoscopy, Change procedure time, PATIENT PRESENTS TODAY FOR consultation, dysphagia, dysphagia, ca of epiglottis , soon appt. Insurance Providers [facility], [facility] Member Patient Patient Patient Patient Patient Subscriber Subscriber Subscriber Group Insurance Plan Plan Plan Plan ID Relationship Address Phone Name Date of ID Name Date of No Type Insurance Insurance Insurance Coverage to Subscriber Address Phone Name Dates MEDICAID [phone] MEDICAID self [place] [id number] [facility] [id number] [facility] [place] [address] MEDICARE [phone] MEDICARE self [place] [id number] [place] [address] [address] [place] [facility] [address] COMMONWEAL [address] [id number] COMMONWEAL self [place] [id number] [facility] [address] [facility] [place] [facility] E [address]
--- OUTSIDE RECORDS SUMMARY | 2022-07-20 00:54 | XMS_ITS | Continuity of Care Document ---
:1960 Author Organization [facility] Address [address] [place] [address]- Care Team Providers Name Role Phone Vicente Navarrete Primary Care Physician [place] [facility] [place] [facility] [address] [place] [address]- Allergies, Adverse Reactions, Alerts No Known Allergies Medications aspirin 81 mg oral delayed release tablet = 81 mg, By Mouth, Daily, # 90 tablet, 0 Refills, Maintenance, 03/18/21 15:14:00 EDT, EC Tablet, [facility], Partial fill upon patient request if the prescription is for a schedule II opioid drug., 158, cm, 03/18/21 13:39:00 EDT, Height,... Start Date: 03/18/21 Status: Orderedatorvastatin 80 mg oral tablet 1 tablet = 80 mg, By Mouth, Daily in AM, # 30 tablet, 0 Refills, Maintenance, 03/18/21 17:27:00 EDT,Tablet, [facility], Partial fill upon patient request if the prescription is for a schedule II opioid drug., 158, cm, 03/18/21 17:01:00... Start Date: 03/18/21 Status: Orderedgabapentin 800 mg oral tablet 1 tablet = 800 mg, By Mouth, 3 times a day, # 270 tablet, 0 Refills, Maintenance, 10/25/21 22:19:00 EDT, Tablet, Partial fill upon patient request if the prescription is for a schedule II opioid drug. Start Date: 10/25/21 Status: Orderedlamotrigine 25 mg oral tablet 100 mg, 4, tablet, By Mouth, Daily at bedtime, Refills 0, Maintenance, 03/16/21 23:35:00 EDT, Partial fill upon patient request if the [...] 03/18/21 15:56:00 EDT, Route to Pharmacy Electronically, [facility], Partial fill upon patient request if [...] Maintenance, 03/18/2115:14:00 EDT, Route to Pharmacy Electronically, [facility], Partial fill upon patient [...] 0 Refills, Maintenance, 03/18/21 15:15:00 EDT, Tablet, [facility], Partial fill upon patient request if the prescription is for a schedule II opioid drug., 158, cm, 03/18/21 13:39:0... 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
--- OUTSIDE RECORDS SUMMARY | 2022-07-20 00:54 | XMS_ITS | Continuity of Care Document ---
:1960 Author Organization [facility] Address [address] [place] [id number] Care Team Providers Name Role Phone Vicente Navarrete Primary Care Physician Encounter [facility] [place] [facility] Date(s): 10/25/21 - 10/30/[address] [address]- Encounter Diagnosis Anemia requiring transfusions (Final) - 10/25/21 Chest pain (Final) - 10/25/21 Discharge Disposition: A-Transfer A/Home Health Attending Physician: Kenny Soto MD, Quan Abdul Admitting Physician: Rachel Norman MD Referring Physician: Not on Staff, Referring MD Allergies, Adverse Reactions, Alerts No Known Allergies Medications aspirin 81 mg oral delayed release tablet = 81 mg, By Mouth, Daily, # 90 tablet, 0 Refills, Maintenance, 03/18/21 15:14:00 EDT, EC Tablet, [facility], Partial fill upon patient request if the prescription is for a schedule II opioid drug., 158, cm, 03/18/21 13:39:00 EDT, Height,... Start Date: 03/18/21 Status: Orderedatorvastatin 80 mg oral tablet 1 tablet = 80 mg, By Mouth, Daily in AM, # 30 tablet, 0 Refills, Maintenance, 03/18/21 17:27:00 EDT,Tablet, [facility], Partial fill upon patient request if the prescription is for a schedule II opioid drug., 158, cm, 03/18/21 17:01:00... Start Date: 03/18/21 Status: Orderedgabapentin 400 mg oral capsule 600 mg, Capsule, By Mouth, 10/30/21 9:00:00 EDT Start Date: 10/30/21 Stop Date: 10/30/21 Status: Completedgabapentin 400 mg oral capsule 600 mg, Capsule, By Mouth, 10/30/21 15:00:00 EDT Start Date: 10/30/21 Stop Date: 10/30/21 Status: Completedgabapentin 800 mg oral tablet 1 tablet = [...] 03/18/21 15:56:00 EDT, Route to Pharmacy Electronically, [facility], Partial fill upon patient [...] Maintenance, 03/18/2115:14:00 EDT, [facility] fill upon patient request if [...] 0 Refills, Maintenance, 03/18/21 15:15:00 EDT, Tablet, [facility], Partial fill upon patient [...] Exam Date Time Procedure Performing Provider Status 10/25/21 6:15 PM Chest 2 Views Frontal and Lat Manjit Cohen [facility] (Verified) Notes:(Chest 2 Views Frontal and Lat) Reason For Exam: Shortness of Breath RESULT: Chest 2 Views Frontal and Lat PROCEDURE: Chest 2 Views Frontal and Lat INDICATION: 61 years old Female with Hx of Present Illness: Pt states she has been having and off again chest pain for approx. 3 days.; Reason: Shortness of Breath; Clinical Question(s): CHF. COMPARISON: Chest radiographs 2013 through March 17, 2021. FINDINGS: PA and lateral upright views of the chest obtained. Lines and tubes:None. Lungs and pleura: Moderate hyperinflation of the lungs again seen consistent with emphysema. Mild linear scarring lateral RIGHT midlung. Lungs otherwise clear.. No pleural effusions.No evidence of pneumothorax. Heart, mediastinum and calixto: Mild unchanged tortuosity and calcification of the thoracic aorta noted. No cardiomegaly or pulmonary venous hypertension. Bones and soft tissues: Moderate osteopenia. Mild degenerative changes in the thoracic spine and mild dextroscoliosis unchanged. Mild unchanged degenerative changes LEFT AC joint. IMPRESSION: 1. Hyperinflation of the lungs consistent with emphysema. No evidence of acute cardiopulmonary disease. Thank you for allowing me to participate in the care of this patient. WSN: [id number] Ordering Physician: Kieran Koehler Dictated By: Ramón Bear MD Dictated Date/Time: 10/25/21 6:23 pm Reviewed By: Ramón Bear MD Signed By: Ramón Bear MD Signed Date/Time: 10/25/21 6:23 pm Transcribed By: SOL Transcribed Date/Time: 10/25/21 6:22 pm Vital Signs Most recent to oldest 1 2 3 [Reference Range]: Height 157.4 cm 157.4 cm 157.4 cm (10/30/21 8:12 AM) (10/30/21 12:30 AM) (10/29/21 8: 21 PM) Weight 66.8 kg 66.8 kg 66.8 kg (10/29/21 7:10 AM) (10/26/21 5:16 AM) (10/26/21 5:0 7 AM) Oxygen Saturation [94-100 %] 93 % 95 % 98 % *L* (10/30/21 12:30 AM) (10/29/21 8:21 PM) (10/30/21 8:12 AM) Pulse Rate [55-90 bpm] 86 bpm 61 bpm 83 bpm (10/30/21 8:12 AM) (10/30/21 12:30 AM) (10/29/21 8: 21 PM) Body Mass Index [18.5-24.99] 26.96 26.96 *H* *H* (10/29/21 7:10 AM) (10/26/21 5:16 AM) Blood Pressure [90-138/55-84 139/63 mm Hg 113/55 mm Hg 130 /56 mm Hg mm Hg] *H* (10/30/21 12:30 AM) (10/29/21 8:21 PM) (10/30/21 8:12 AM) Respiratory Rate [16-30 18 br/min 18 br/min 18 br/mi n br/min] (10/30/21 2:19 PM) (10/30/21 9:32 AM) (10/30/21 8:3 2 AM) Temperature [96.8-100.4 DegF] 97.5 DegF 98.1 DegF 98 .1 DegF (10/30/21 12:30 AM) (10/29/21 8:21 PM) (10/29/21 3: 12 PM) Mode of Delivery (Oxygen) Room air Room air Room a ir (10/30/21 12:30 AM) (10/29/21 8:21 PM) (10/29/21 3: 12 PM) Blood pressure sites Arm, right Arm, right Arm, right (10/30/21 12:30 AM) (10/29/21 8:21 PM) (10/29/21 3: 12 PM) Temperature Route Oral Oral Oral (10/30/21 12:30 AM) (10/29/21 8:21 PM) (10/29/21 3: 12 PM) Dry Weight 66.8 kg (10/26/21 5:16 AM) Social History Social History Type Response Smoking Status 10 or more cigarettes (1/2 p ack or more)/day in last 30 days; Patient wants NRT during admission Yes; Type: Cigarettes entered on: 03/16/21 Sex
--- NOTE | 2022-07-20 01:13 | ED.PSYCH ---
HPI - Psych General Chief Complaint: Psychiatric Symptoms Stated Complaint: overdose SI Time Seen by Provider: 07/20/22 00:59 Source: patient and EMS Mode of arrival: EMS Limitations: other (No teeth, difficult to speak and understand) History of Present Illness HPI Narrative: Patient comes to the emergency room after taking 8 tablets of lamotrigine. Patient states that she did not intend committing suicide. Patient states that the only thing she wanted to do is get her daughter's attention. Patient denies homicidal ideation. Patient denies nausea vomiting diarrhea. Patient states that she needs psychiatric help. Related Data Home Medications Medication Instructions Recorded Confirmed amlodipine 5 mg tablet 1 tab PO DAILY 07/20/22 07/20/22 aspirin 81 mg tablet,delayed 1 tab PO DAILY 07/20/22 07/20/22 release atorvastatin 80 mg tablet 1 tab PO DAILY 07/20/22 07/20/22 insulin glargine 100 unit/mL (3 10 unit subcut DAILY 07/20/22 07/20/22 mL) subcutaneous pen (Lantus Solostar U-100 Insulin) lamotrigine 200 mg tablet 1 tab PO DAILY 07/20/22 07/20/22 levothyroxine 25 mcg tablet 1 tab PO DAILY 07/20/22 07/20/22 lisinopril 20 mg tablet 1 tab PO BID 07/20/22 07/20/22 lorazepam 1 mg tablet 1 tab PO QID 07/20/22 07/20/22 melatonin 5 mg tablet 1 tab PO QPM 07/20/22 07/20/22 metformin 1,000 mg tablet 1 tab PO BID 07/20/22 07/20/22 metoprolol succinate 25 mg 0.5 tab PO DAILY 07/20/22 07/20/22 tablet,extended release 24 hr mirtazapine 7.5 mg tablet 1 tab PO BEDTIME 07/20/22 07/20/22 omeprazole 20 mg capsule,delayed 1 cap PO DAILY 07/20/22 07/20/22 release venlafaxine 150 mg 1 cap PO BID 07/20/22 07/20/22 capsule,extended release 24 hr Previous Rx's Medication Instructions Recorded fluticasone propionate 50 1 inh inhalation DAILY #60 ea 06/07/21 mcg/actuation blister powder for inhalation albuterol sulfate 90 mcg/actuation 1 puff inhalation QID #8.5 grams 12/10/21 aerosol inhaler pyridoxine (vitamin B6) 50 mg 50 mg PO DAILY #90 tabs 04/19/22 tablet insulin aspart U-100 100 unit/mL 10 unit (0.1 mL) subcut TID 30 04/23/22 (3 mL) subcutaneous pen (Novo days #15 mL FlexPen U-100 Insulin aspart) gabapentin 800 mg tablet 800 mg PO TID 30 days #90 tabs 05/19/22 Allergies Allergy/AdvReac Type Severity Reaction Status Date / Time adhesive tape [ADHESIVE TAPE] Allergy Intermediate BLISTERS Verified 03/01/22 14:02 meloxicam AdvReac Unknown hallucinati Verified 03/01/22 14:02 ons talwin Allergy Unknown ineffective Uncoded 03/01/22 14:02 Review of Systems Review of Systems: Constitutional : No Weight loss, No Fever, No Chills, No Night Sweats, No Fatigue, No Malaise ENT/Mouth : No Hearing loss, No Ear Pain, No Nasal Congestion, No Sinus Pain, No Hoarseness, No sore throat, No Rhinorrhea, No Swallowing Difficulty Eyes: No Eye Pain, No Swelling, No Redness, No Foreign Body, No Discharge, No Vision Changes Cardiovascular : No Chest Pain, No SOB, No Dyspnea on Exertion, No Orthopnea, No Edema, No Palpitations Respiratory : No Cough, No Sputum, No Wheezing, No Smoke Exposure, No Dyspnea Gastrointestinal : No Nausea, No Vomiting, No Diarrhea, No Constipation, No abdominal Pain, No Hematochezia, No Melena Genitourinary : no irregular bleeding, No Dysuria, No Urinary Frequency, No Hematuria, No Urinary Incontinence, No Urgency, No Flank Pain, No Urinary Flow Changes, No Hesitancy Musculoskeletal : No joint pain, No Myalgias, No Joint Swelling Skin : No Skin Lesions, No rash Neuro : No Weakness, No Numbness, No Paresthesias, No Loss of Consciousness, No Dizziness, No Headache Psych : Complaining of anxiety, depression, denies SI or HI Heme/Lymph: No Bruising, No Bleeding,No Lymphadenopathy Endocrine : No Polyuria, No Polydipsia, No Temperature Intolerance PMFSH Past Medical History Medical History Cardiac akinesia Constipation COPD (chronic obstructive pulmonary disease) Depression DMII (diabetes mellitus, type 2) GERD (gastroesophageal reflux disease) Goiter History of gastrostomy tube placement History of laryngeal cancer HTN (hypertension) Hx of substance abuse Hyperlipidemia Hypothyroidism Lumbar stenosis with neurogenic claudication Sleep apnea T2DM (type 2 diabetes mellitus) Vitamin D deficiency Surgical History H/O colonoscopy History of cardiac catheterization (~03/16/21) History of cataract surgery History of ear surgery History of endoscopy History of esophagogastroduodenoscopy (EGD) History of removal of Port-a-Cath History of surgery on arm History of surgery on left wrist Family History Family History Father Hypertension CVD (cardiovascular disease) Mother Stroke Social History Social History Housing: Apartment Alcohol intake: never Patient Tobacco Use Status: Current everyday Tobacco user Tobacco use type: Cigarette Cigarette Packs Per Day: 1 Cigarettes Per Day: 10 Years Smoked: 48 Smoked in Last 30 Days: Yes e-Cigarette/Vaping Use: Never Used Second Hand Smoke Exposure: Yes Use of substances other than those prescribed or required for medical reasons: No Advance Directives: No Advance Directives Information Provided: Yes Patient : No service: No Current occupational status: disabled Cognitive needs: Yes (scooter) Hearing needs: No Vision needs: Yes (reading glasses ) Physical Exam Vital Signs: Vital Signs: Last Vital Signs Temp 97.9 F 07/20/22 00:05 Pulse 90 07/20/22 00:05 Resp 22 H 07/20/22 00:05 BP 184/78 H 07/20/22 00:05 Pulse Ox 94 07/20/22 00:05 O2 Del Method 07/20/22 00:05 BMI result Body Mass Index 22.6 Const: Other: Appearance: Alert. Oriented X3. Crying Eyes: Pupils equal, round and reactive to light. ENT: Pharynx normal. Neck: Normal inspection. Neck supple. No lymph nodes noted. No crepitus CVS: Normal heart rate and rhythm. Pulses normal. Normal S1 and S2 Respiratory: No respiratory distress. Breath sounds normal. No Wheezing. No rales Abdomen: Soft and nontender. No rigidity. No distention. Skin: Skin warm and dry. Normal skin color. Normal skin turgor. Extremities: No lower extremity edema. No Lacerations. No Rash Neuro: Oriented X 3. No motor deficit. No sensory deficit. Moving all extremities. No slurred speech. CN 2 through 12 grossly intact Psych: calm, cooperative, crying Course Course Course Narrative: All of patient's labs are pending. Care team consult pending. Patient states that in the morning she will call her therapist as well Poison Control has been contacted, recommendations: Labs that we already ordered an EKG q.2 hours for 3 times Patient keeps yelling that she wants to go home and finish things, states she has no one in her life except her therapist. However, patient states she has an appointment in the morning, but she does not know what day is today. Patient making passive SI statements but denies being suicidal but the same time states that she wants to go home and finish things. At this time, it would be unsafe to discharge the patient. Patient just consumed 8 tablets of lamotrigine. Patient is not alert and oriented x3 at the moment Patient told her nurse that patient is the bigest bullshiter I will say what she has to to get out. Patient screaming i want my mommy Patient is on a Section 12. Care team consult pending for the morning Physician observation started at 02:20 After 2 EKGs and reviewing the labs, poison Control advised that the patient no longer needs any further labs, treatment or EKGs. Medications Administered Discontinued Medications Generic Name Dose Route Start Last Admin Trade Name Kenney PRN Reason Stop Dose Admin Lorazepam 2 mg 07/20/22 02:22 07/20/22 02:27 Lorazepam 1 Mg Tablet PO 07/20/22 02:23 2 mg ONCE ONE Administration Olanzapine 10 mg 07/20/22 02:22 07/20/22 02:26 Olanzapine 10 Mg Tablet PO 07/20/22 02:23 10 mg ONCE ONE Administration Medical Decision Making Medical Decision Making MDM Narrative: Patient making vague suicidal statements, patient on a Section 12. Patient combative. Patient being given p.o. lorazepam and olanzapine Differential Diagnosis Differential Diagnoses: The differential diagnosis associated with the presentation includes (Anxiety, depression, suicidal ideation) Admission/Observation Consideration of admission/observation: Escalation of care including admission/observation considered (Patient is not alert and oriented x3, patient very agitated, belligerent. Patient making vague SI statements. Patient on a Section 12, waiting to receive a [facility]/care team) Lab Data 07/20/22 01:27 07/20/22 01:27 Labs: Lab Results 07/20/22 07/20/22 07/20/22 Range/Units 01: 01:27 01:27 WBC 9.4 (4.8-10.8) X10*3/uL RBC 4.42 (4.20-5.50) X10*6/uL Hgb 13.2 D (12.0-16.0) g/dl Hct 39.1 D (37.0-47.0) % MCV 88.5 (80.0-98.0) fL MCH 29.9 (27.0-33.0) pg MCHC 33.8 (31.0-35.0) g/dl RDW 13.5 (11.0-16.0) % Plt Count 200 D (160-400) X10*3/uL MPV 9.8 (9.4-12.3) fL Immature Gran % (Auto) 0.4 (0.0-0.4) % Neut % (Auto) 87.5 H (45-73) % Lymph % (Auto) 7.4 L (20-40) % [place] % (Auto) 4.1 (2-11) % Eos % (Auto) 0.3 (0-4) % Baso % (Auto) 0.3 (0-2) % Lymph # (Auto) 0.7 L (1.2-4.9) X10*3/uL [place] # (Auto) 0.4 (0.1-1.2) X10*3/uL Eos # (Auto) 0.0 (0.0-0.4) X10*3/uL Baso # (Auto) 0.0 (0.0-0.2) X10*3/uL Abs Immat Gran (auto) 0.04 H (0.00-0.03) X10*3/uL Absolute Neuts (auto) 8.2 (2.0-8.3) x10*3/uL Absolute Nucleated RBC 0.000 (0.0-0.012) X10*3/uL Nucleated RBC % (auto) 0.0 (0.0-0.2) /100WBC PT 10.5 (10.0-13.1) SEC INR 0.9 (0.9-1.1) Sodium 141 (135-145) mmol/L Potassium 4.7 (3.3-5.1) mmol/L Chloride 105 (96-108) mmol/L Carbon Dioxide 26 (22-29) mmol/L Anion Gap 15 (12-20) BUN 18 H (9-16) mg/dL Creatinine 0.85 (0.5-1.4) mg/dL Estim Creat Clear Calc 50.4 Estimated GFR > 60 Random Glucose 233 H (60-115) mg/dL Calcium 9.5 (8.4-10.2) mg/dL Magnesium 1.7 (1.6-2.6) mg/dL Total Bilirubin 0.5 (0.0-1.0) mg/dL Direct Bilirubin 0.2 (0.0-0.5) mg/dL AST 30 (5-31) U/L ALT 27 (0-31) U/L Alkaline Phosphatase 100 (39-117) U/L Troponin I High Sens (<3.5-17.0) ng/L Total Protein 7.1 (6.5-8.0) g/dL Albumin 4.0 (3.5-5.0) g/dL Urine Color Urine Appearance Urine pH (5.0-9.0) Ur Specific [place] (1.005-1.025) Urine Protein (Neg-Trace) mg/dL Urine Glucose (UA) (Negative) mg/dL Urine Ketones (Negative) mg/dL Urine Blood (Negative) Urine Nitrite (Negative) Ur Leukocyte Esterase (Negative) Urine RBC (0-2) /HPF Urine WBC (0-5) /HPF Ur Squamous Epith Cells (0-2) /HPF Urine Bacteria (None Seen) Hyaline Casts (0-2) /LPF Salicylates < 5.0 L (15-30) mg/dL Urine Opiates Screen (Not Detect) Urine Fentanyl Screen (Not Detect) Acetaminophen < 17 (<30) mcg/mL Ur Barbiturates Screen (Not Detect) Ur Phencyclidine Scrn (Not Detect) Ur Amphetamines Screen (Not Detect) U Benzodiazepines Scrn (Not Detect) Urine Cocaine Screen (Not Detect) U Marijuana (THC) Screen (Not Detect) Ethyl Alcohol < 10 mg/dL COVID-19 ([facility]) (Negative) COVID-19 Clin Com 07/20/22 07/20/22 07/20/22 Range/Units 01:27 01:27 04:18 WBC (4.8-10.8) X10*3/uL RBC (4.20-5.50) X10*6/uL Hgb (12.0-16.0) g/dl Hct (37.0-47.0) % MCV (80.0-98.0) fL MCH (27.0-33.0) pg MCHC (31.0-35.0) g/dl RDW (11.0-16.0) % Plt Count (160-400) X10*3/uL MPV (9.4-12.3) fL Immature Gran % (Auto) (0.0-0.4) % Neut % (Auto) (45-73) % Lymph % (Auto) (20-40) % [place] % (Auto) (2-11) % Eos % (Auto) (0-4) % Baso % (Auto) (0-2) % Lymph # (Auto) (1.2-4.9) X10*3/uL [place] # (Auto) (0.1-1.2) X10*3/uL Eos # (Auto) (0.0-0.4) X10*3/uL Baso # (Auto) (0.0-0.2) X10*3/uL Abs Immat Gran (auto) (0.00-0.03) X10*3/uL Absolute Neuts (auto) (2.0-8.3) x10*3/uL Absolute Nucleated RBC (0.0-0.012) X10*3/uL Nucleated RBC % (auto) (0.0-0.2) /100WBC PT (10.0-13.1) SEC INR (0.9-1.1) Sodium (135-145) mmol/L Potassium (3.3-5.1) mmol/L Chloride (96-108) mmol/L Carbon Dioxide (22-29) mmol/L Anion Gap (12-20) BUN (9-16) mg/dL Creatinine (0.5-1.4) mg/dL Estim Creat Clear Calc Estimated GFR Random Glucose (60-115) mg/dL Calcium (8.4-10.2) mg/dL Magnesium (1.6-2.6) mg/dL Total Bilirubin (0.0-1.0) mg/dL Direct Bilirubin (0.0-0.5) mg/dL AST (5-31) U/L ALT (0-31) U/L Alkaline Phosphatase (39-117) U/L Troponin I High Sens 6.1 (<3.5-17.0) ng/L Total Protein (6.5-8.0) g/dL Albumin (3.5-5.0) g/dL Urine Color Yellow Urine Appearance Clear Urine pH 7.0 (5.0-9.0) Ur Specific [place] 1.020 (1.005-1.025) Urine Protein Trace (Neg-Trace) mg/dL Urine Glucose (UA) Negative (Negative) mg/dL Urine Ketones Negative (Negative) mg/dL Urine Blood Negative (Negative) Urine Nitrite Negative (Negative) Ur Leukocyte Esterase Small (1+) H (Negative) Urine RBC 0-2 (0-2) /HPF Urine WBC 0-5 (0-5) /HPF Ur Squamous Epith Cells 0-2 (0-2) /HPF Urine Bacteria None Seen (None Seen) Hyaline Casts 0-2 (0-2) /LPF Salicylates (15-30) mg/dL Urine Opiates Screen (Not Detect) Urine Fentanyl Screen (Not Detect) Acetaminophen (<30) mcg/mL Ur Barbiturates Screen (Not Detect) Ur Phencyclidine Scrn (Not Detect) Ur Amphetamines Screen (Not Detect) U Benzodiazepines Scrn (Not Detect) Urine Cocaine Screen (Not Detect) U Marijuana (THC) Screen (Not Detect) Ethyl Alcohol mg/dL COVID-19 ([facility]) Negative (Negative) COVID-19 Clin Com See Note 07/20/22 Range/Units 04:18 WBC (4.8-10.8) X10*3/uL RBC (4.20-5.50) X10*6/uL Hgb (12.0-16.0) g/dl Hct (37.0-47.0) % MCV (80.0-98.0) fL MCH (27.0-33.0) pg MCHC (31.0-35.0) g/dl RDW (11.0-16.0) % Plt Count (160-400) X10*3/uL MPV (9.4-12.3) fL Immature Gran % (Auto) (0.0-0.4) % Neut % (Auto) (45-73) % Lymph % (Auto) (20-40) % [place] % (Auto) (2-11) % Eos % (Auto) (0-4) % Baso % (Auto) (0-2) % Lymph # (Auto) (1.2-4.9) X10*3/uL [place] # (Auto) (0.1-1.2) X10*3/uL Eos # (Auto) (0.0-0.4) X10*3/uL Baso # (Auto) (0.0-0.2) X10*3/uL Abs Immat Gran (auto) (0.00-0.03) X10*3/uL Absolute Neuts (auto) (2.0-8.3) x10*3/uL Absolute Nucleated RBC (0.0-0.012) X10*3/uL Nucleated RBC % (auto) (0.0-0.2) /100WBC PT (10.0-13.1) SEC INR (0.9-1.1) Sodium (135-145) mmol/L Potassium (3.3-5.1) mmol/L Chloride (96-108) mmol/L Carbon Dioxide (22-29) mmol/L Anion Gap (12-20) BUN (9-16) mg/dL Creatinine (0.5-1.4) mg/dL Estim Creat Clear Calc Estimated GFR Random Glucose (60-115) mg/dL Calcium (8.4-10.2) mg/dL Magnesium (1.6-2.6) mg/dL Total Bilirubin (0.0-1.0) mg/dL Direct Bilirubin (0.0-0.5) mg/dL AST (5-31) U/L ALT (0-31) U/L Alkaline Phosphatase (39-117) U/L Troponin I High Sens (<3.5-17.0) ng/L Total Protein (6.5-8.0) g/dL Albumin (3.5-5.0) g/dL Urine Color Urine Appearance Urine pH (5.0-9.0) Ur Specific [place] (1.005-1.025) Urine Protein (Neg-Trace) mg/dL Urine Glucose (UA) (Negative) mg/dL Urine Ketones (Negative) mg/dL Urine Blood (Negative) Urine Nitrite (Negative) Ur Leukocyte Esterase (Negative) Urine RBC (0-2) /HPF Urine WBC (0-5) /HPF Ur Squamous Epith Cells (0-2) /HPF Urine Bacteria (None Seen) Hyaline Casts (0-2) /LPF Salicylates (15-30) mg/dL Urine Opiates Screen Not Detected (Not Detect) Urine Fentanyl Screen Not Detected (Not Detect) Acetaminophen (<30) mcg/mL Ur Barbiturates Screen Not Detected (Not Detect) Ur Phencyclidine Scrn Not Detected (Not Detect) Ur Amphetamines Screen Not Detected (Not Detect) U Benzodiazepines Scrn Not Detected (Not Detect) Urine Cocaine Screen Not Detected (Not Detect) U Marijuana (THC) Screen Not Detected (Not Detect) Ethyl Alcohol mg/dL COVID-19 ([facility]) (Negative) COVID-19 Clin Com Discharge Plan Discharge Clinical Impression: Intentional overdose Patient Disposition: Still a Patient Prescriptions: No Action albuterol sulfate 90 mcg/actuation HFA aerosol inhaler 1 puff inhalation QID Qty: 8.5 3RF pyridoxine (vitamin B6) 50 mg tablet 50 mg PO DAILY Qty: 90 2RF insulin aspart U-100 [Novolog FlexPen U-100 Insulin] 100 unit/mL (3 mL) insulin pen 10 unit subcut TID 30 Days Qty: 15 1RF Rx Instructions: *Less than or equal to 110 --- Give (units):0 *111 to 150 --- Give (units):0 *151 to 200 --- Give (units): 2 *201 to 250 -------Give (units):4 *251 to 300 --Give (units):6 *301 to 350 --- Give (units): 8 *Greater than 350 ---Give (units):10 *Call MD if Blood Glucose > :350 gabapentin 800 mg tablet 800 mg PO TID 30 Days Qty: 90 1RF atorvastatin 80 mg tablet 1 tab PO DAILY lamotrigine 200 mg tablet 1 tab PO DAILY lisinopril 20 mg tablet 1 tab PO BID venlafaxine 150 mg capsule,extended release 24hr 1 cap PO BID amlodipine 5 mg tablet 1 tab PO DAILY aspirin 81 mg tablet,delayed release (DR/EC) 1 tab PO DAILY levothyroxine 25 mcg tablet 1 tab PO DAILY metformin 1,000 mg tablet 1 tab PO BID omeprazole 20 mg capsule,delayed release(DR/EC) 1 cap PO DAILY metoprolol succinate 25 mg tablet extended release 24 hr 0.5 tab PO DAILY lorazepam 1 mg tablet 1 tab PO QID mirtazapine 7.5 mg tablet 1 tab PO BEDTIME insulin glargine [Lantus Solostar U-100 Insulin] 100 unit/mL (3 mL) insulin pen 10 unit subcut DAILY melatonin 5 mg tablet 1 tab PO QPM fluticasone propionate 50 mcg/actuation blister with device 1 inh inhalation DAILY Qty: 60 0RF Interventions: [place]-Suicide Risk Severity Scale Last Done: 07/20/22 00:30
--- NOTE | 2022-07-20 01:24 | PC.NURSE ---
Poison control contacted. Provider notified. New orders in. EKG q2h x 3.
[2022-07-20 01:32] LABS: MANUAL DIFF FLAG NO
[2022-07-20 01:36] LABS: Basophils Percent Auto 0.3 % (0-2); Eosinophils Percent Auto 0.3 % (0-4); Hematocrit 39.1 % (37.0-47.0); Hemoglobin 13.2 g/dl (12.0-16.0); Imm Gran Abs Auto 0.04 X10*3/uL (0.00-0.03); Imm Gran Pct Auto 0.4 % (0.0-0.4); Lymphocytes Absolute Auto 0.7 X10*3/uL (1.2-4.9); Lymphocytes Percent Auto 7.4 % (20-40); Mean Corpuscular HGB Conc 33.8 g/dl (31.0-35.0); Mean Corpuscular Hemoglobin 29.9 pg (27.0-33.0); Mean Corpuscular Volume 88.5 fL (80.0-98.0); Mean Platelet Volume 9.8 fL (9.4-12.3); Monocytes Absolute Auto 0.4 X10*3/uL (0.1-1.2); Monocytes Percent Auto 4.1 % (2-11); Neutrophils Absolute Auto 8.2 x10*3/uL (2.0-8.3); Neutrophils Percent Auto 87.5 % (45-73); Platelet Count 200 X10*3/uL (160-400); Red Blood Count 4.42 X10*6/uL (4.20-5.50); Red Cell Distribution Width 13.5 % (11.0-16.0); White Blood Count 9.4 X10*3/uL (4.8-10.8)
[2022-07-20 01:51] LABS: COVID-19 Test Negative (Negative); IDNOW Serial# 6674DD1D
[2022-07-20 02:04] LABS: Acetaminophen LAB < 17 mcg/mL (<30); Alanine Aminotransferase 27 U/L (0-31); Alkaline Phosphatase 100 U/L (39-117); Anion Gap 15 (12-20); Aspartate Amino Transferase 30 U/L (5-31); Bilirubin Direct 0.2 mg/dL (0.0-0.5); Bilirubin Total 0.5 mg/dL (0.0-1.0); Blood Urea Nitrogen 18 mg/dL (9-16); Calcium 9.5 mg/dL (8.4-10.2); Carbon Dioxide 26 mmol/L (22-29); Chloride 105 mmol/L (96-108); Creatinine Clr Calc Pharmacy 50.4; Estimated Glomerular Filt Rate > 60; Ethanol < 10 mg/dL; Glucose Random 233 mg/dL (60-115); Magnesium 1.7 mg/dL (1.6-2.6); Potassium 4.7 mmol/L (3.3-5.1); Salicylate < 5.0 mg/dL (15-30); Sodium 141 mmol/L (135-145); Total Protein 7.1 g/dL (6.5-8.0)
[2022-07-20 02:07] LABS: Troponin-I High Sensitivity 6.1 ng/L (<3.5-17.0)
[2022-07-20 02:14] LABS: INTERNATIONAL NORM RATIO 0.9 (0.9-1.1); Prothrombin Time 10.5 SEC (10.0-13.1)
[2022-07-20] MEDS: OLANZapine 10 MG TABLET PO (02:26)
[2022-07-20] MEDS: LORazepam 1 MG TABLET 2 MG PO (02:27)
--- NOTE | 2022-07-20 02:30 | ECG_ITS ---
Test Reason : MED CLEARANCE Blood Pressure : / mmHG Vent. Rate : 074 BPM Atrial Rate : 074 BPM P-R Int : 170 ms QRS Dur : 088 ms QT Int : 440 ms P-R-T Axes : 068 012 065 degrees QTc Int : 488 ms Normal sinus rhythm Normal ECG When compared with ECG of 20-JUL-2022 00:34, No significant change was found Referred By: Allie Gonzales Electronically Signed By:Masood Martinez
--- NOTE | 2022-07-20 02:51 | PC.NURSE ---
Patient just got transferred from main ED, gait unsteady/high fall risk, patient is agitated/verbally abusive towards staff member, provider notified/ordered Ativan 2 mg PO and Olanzapine 10 mg PO administered as ordered/pending effect, EKG done/patient compliant/unremarkable, Med rec completed/pending provider's approval, VSS, will continue to monitor.
--- NOTE | 2022-07-20 03:43 | PC.NURSE ---
Poison control called, labs and EKG updated, poison control cleared the patient, provider made aware. will continue to monitor.
--- NOTE | 2022-07-20 03:49 | PC.NURSE ---
Patient is unsteady, restless risk of falling off the bed, provider notified/ordered 1:1 observation, staff made aware, will continue to monitor,
--- NOTE | 2022-07-20 04:00 | PC.NURSE ---
POC of 233; provider notified
--- NOTE | 2022-07-20 04:11 | PC.NURSE ---
pt high fall risk and brought back to the main ed. pt is cleared by poison controll via sarah jay.
[2022-07-20 04:24] LABS: Appearance Urine Clear; Color Urine Yellow; Glucose Urine UA Negative (Negative); Leukocyte Esterase Urine Small (1+) (Negative); Nitrite Urine Negative (Negative); UMIC TRIGGER UACC YES; Urine Blood Negative (Negative); Urine Ketones Negative (Negative); Urine Protein Trace mg/dL (Neg-Trace)
[2022-07-20 04:34] LABS: Amphetamine Screen Urine Not Detected (Not Detect); Barbiturates, Urine Not Detected (Not Detect); Benzodiazepines Screen Urine Not Detected (Not Detect); Cannabinoid Screen Urine Not Detected (Not Detect); Cocaine Screen Urine Not Detected (Not Detect); Fentanyl, urine Not Detected (Not Detect); Opiate Screen Urine Not Detected (Not Detect); Phencyclidine Screen Urine Not Detected (Not Detect)
[2022-07-20 04:43] LABS: Bacteria Urine None Seen (None Seen); Hyaline Casts Urine 0-2 /LPF (0-2); RBC Urine 0-2 /HPF (0-2); Squamous Epithelial Cell Urine 0-2 /HPF (0-2); UACC Culture Trigger YES; WBC Urine 0-5 /HPF (0-5)
[2022-07-20 07:41] VITALS: BP 176/69; PULSE 69; RESP 12; TEMP 36.5; O2SAT 93
[2022-07-20] MEDS: Nicotine 21 MG PATCH.TD24 TRANSDERMA (10:02)
[2022-07-20 13:19] LABS: Glucose, Whole Blood 208 mg/dL (60-115)
[2022-07-20 14:04] VITALS: BP 198/73; PULSE 74; RESP 18; O2SAT 95
--- NOTE | 2022-07-20 14:40 | PC.NURSE ---
Pt seen for individual intervention on this date. Pt participated in [facility] screen, scored 10/30, indicative of moderate cognitive impairment. SIGNAL TOWER DIRECTOR and care team aware.
--- NOTE | 2022-07-20 15:03 | PHA.MEDREC ---
Pharmacy Consult ? Medication Reconciliation Pharmacy has completed the medication reconciliation. Called patient's daughter and pharmacy to confirm medications.
[2022-07-20] MEDS: LORazepam 1 MG TABLET PO (15:34)
--- NOTE | 2022-07-20 15:34 | MHC.CM.ED ---
Received case management consult from Danette GOMEZ. Patient came to the ER due to overdose of medication. Patient found not to be inpatient psych appropriate. Physical therapy eval completed. Short term rehab or increased supervision is recommended. Patient is active with [facility] [place]. Per Katia at [facility], patient is active with [facility]. T/W spoke with patient's daughter, Niecy, in regards to discharge planning. Niecy would prefer patient returned home. Niecy will attempt to administer patient her medication and will reach out to patient's [facility] healthcare administrator for additional resources at home. Franki UGALDE booked. Med [facility] with chart. Patient, Kathryn FAYE and Danette GOMEZ aware. Continue to monitor for d/c needs.
--- NOTE | 2022-07-20 16:28 | PC.NURSE ---
Pt declined all medication besides her ativan. EMS given report. Pts daughter denied Short term Rehab and agreed to more supervision at home.
--- NOTE | 2022-07-25 16:14 | MHC.CARE ---
[facility] reaches out regarding pt's d/c plan. Pt's therapist is Bakari Vegas from [facility] ext. [phone]
== END 2022-07-20 16:32 | disposition home or self-care (01) ==
PROVIDERS: Emergency Provider Emergency Medicine
DX: T42.6X2A Poisoning by other antiepileptic and sedative-hypnotic drugs, intentional self-harm, initial encounter (principal); Y92.9 Unspecified place or not applicable; R45.851 Suicidal ideations; R51.9 Headache, unspecified; R26.81 Unsteadiness on feet; F17.210 Nicotine dependence, cigarettes, uncomplicated; Z20.822 Contact with and (suspected) exposure to COVID-19; Z20.828 Contact with and (suspected) exposure to other viral communicable diseases; Z79.899 Other long term (current) drug therapy; Z71.9 Counseling, unspecified
CPT/HCPCS: 70450; 80048; 80076; 80143; 80179; 80307; 81001; 82077; 82947; 83735; 84484; 85025; 85610; 87086; 87635; 93005; 97162; 99285; S9485

== ENCOUNTER 2022-09-19 11:26 | Inpatient (IN) | payer OTHER, SELFPAY ==
[2022-09-19] VITALS (10 sets, daily range): BP systolic 80–190; BP diastolic 28–97; PULSE 57–95; RESP 8–22; TEMP 36.6; O2SAT 90–96; BMI 30.4
--- NOTE | ~2022-09-19 | CT_ITS ---
EXAMINATION: CT HEAD WITHOUT CONTRAST (STROKE PROTOCOL) CLINICAL INFORMATION: Stroke protocol. Altered mental status. COMPARISON: CT had noncontrast 07/20/2022 TECHNIQUE: Contiguous axial imaging was performed from the skull base to vertex without intravenous administration of contrast. Additional 2-D coronal and sagittal reformatted images are generated on the CT workstation and uploaded to PACS. This CT examination was performed using dose optimization techniques as appropriate, variously including the following: *Automated exposure control *Adjustment of mA and/or kV according to patient size (this includes techniques or standardized protocols for targeted exams where dose is matched to indication/reason for exam; i.e. extremities or head) *Use of iterative reconstruction technique DLP: 630 mGy-cm FINDINGS: There is no intracranial hemorrhage, hematoma, or extra-axial fluid collection. The ventricles are normal in size. There is no hydrocephalus, edema, or mass effect. The obando-white matter differentiation appears well preserved . There is some scattered periventricular white matter gliosis similar to previous exam. Orbits stable, likely prior postsurgical change. There is no visible acute territorial infarct or mass lesion. No acute bony abnormality. Prior right mastoidectomy. Sinuses and middle ears and left mastoid appear clear. No air-fluid levels. Results called to JASON Rankin in the emergency department at [address]/CT head for stroke IMPRESSION: No acute intracranial abnormality.
--- NOTE | ~2022-09-19 | XR_ITS ---
EXAMINATION: XR CHEST CLINICAL INFORMATION: Question pneumonia COMPARISON: 04/29/2018 TECHNIQUE: Frontal view of the chest was obtained. FINDINGS: The lungs are well expanded. There is no focal consolidation, edema, or effusion. No pneumothorax. The cardiomediastinal silhouette is within normal limits of size with a calcified aorta. No acute osseous abnormality. XR/XR chest 1V IMPRESSION: No acute pulmonary disease.
--- NOTE | ~2022-09-19 | CT_ITS ---
EXAMINATION: CT angio head neck stroke CLINICAL INFORMATION: Altered mental status. COMPARISON: CT head 09/19/2022. TECHNIQUE: Clinical Dietician images were obtained. A CT angiogram of the head and neck was performed in the arterial phase after the intravenous administration of 50 mL Omnipaque 350. Delayed postcontrast images of the head were also obtained. MIP reconstructions were generated in multiple orientations at the acquisition workstation. Multiple three-dimensional surface rendered images and maximum intensity projection images were generated on a dedicated 3-D lab workstation. Arterial stenoses are measured in accordance with NASCET criteria or similar method if applicable. This CT examination was performed using dose optimization techniques as appropriate, including one or more of the following: Automated exposure control, iterative reconstruction, and adjustment of technique factors (mA and/or kVp) according to patient size (this includes techniques or standardized protocols for targeted exams where dose is matched to indication/reason for exam). Fleischner Society criteria for the followup of incidental pulmonary nodules was implemented if appropriate. Total exam dose-length product 1390 mGy-cm FINDINGS: Head: There are a few tiny age indeterminant infarcts within the right cerebellar hemisphere. Guerra-white matter differentiation is otherwise preserved and there is no evidence of acute territorial infarct. Postcontrast images reveal no abnormal intradural mass or enhancement. There is no intracranial mass effect midline shift. No hydrocephalus. The calvarium and skull base are intact. There chronic changes of a right canal wall down mastoidectomy. No active paranasal sinus disease. CT angiogram neck: Heavily calcified atheromatous plaque involves the aortic arch apex and there is 50% stenosis at the origin of the left subclavian artery. The brachiocephalic artery and left common carotid arteries are widely patent. Common carotid arteries are patent. Eccentric partially calcified atheromatous plaque involves both carotid bifurcations. No stenosis of the extracranial internal carotid arteries. The left vertebral artery is occluded at its origin. Atheromatous plaque causes possible focal narrowing at the origin of the dominant right vertebral artery which otherwise opacifies normally. Image quality of the thoracic outlet is limited by patient motion and streak artifact due to high density material within the right subclavian vein. CT angiogram head: Atheromatous calcification involves the cavernous segments of both internal carotid arteries. Intracranial internal carotid arteries are otherwise unremarkable. Intradural vertebral artery segments and basilar artery are normal. Anterior, middle, and posterior cerebral complexes are normal. No intracranial large vessel occlusion. The timing of the contrast injection provides adequate opacification of the dural venous sinuses which are patent. Other: Soft tissues of the neck are unremarkable. No pathologically enlarged cervical lymph nodes. No mediastinal or axillary adenopathy is visualized within the [id number] of this examination. Centrilobular emphysema and mild pleural-parenchymal scarring is visualized at the apices of both lungs. CT/CT angio head neck stroke IMPRESSION: There are a few tiny age indeterminant infarcts within the right cerebellar hemisphere. Otherwise no evidence of acute territorial infarct or hemorrhage. No abnormal intracranial mass or enhancement. Heavily calcified atheromatous plaque involves the aortic arch apex and there is 50% stenosis at the origin of the left subclavian artery. The left vertebral artery is occluded at its origin and there is reconstitution of contrast filling the left vertebral artery at its V3 segment. Atheromatous plaque causes possible focal narrowing at the origin of the dominant right vertebral artery which otherwise opacifies normally. No intracranial large vessel occlusion. This critical result was discussed with Nick Conklin MD at 12:03 PM on 09/19/2022 and it was ascertained that the content and urgency of the report was understood at the time of direct communication.
--- NOTE | 2022-09-19 11:35 | ECG_ITS ---
Test Reason : AMS Blood Pressure : / mmHG Vent. Rate : 079 BPM Atrial Rate : 079 BPM P-R Int : 164 ms QRS Dur : 078 ms QT Int : 420 ms P-R-T Axes : 080 062 078 degrees QTc Int : 481 ms Normal sinus rhythm Normal ECG When compared with ECG of 20-JUL-2022 02:54, No significant change was found Referred By: Nick Conklin Electronically Signed By:Masood Martinez
--- NOTE | 2022-09-19 11:39 | ED_ITS ---
HPI - General Adult General Chief complaint: Stroke <ALVERTO Hutchins - Last Filed: 09/19/22 18:13> Stated complaint: STROKE ALERT,LKWT 630PM,FOUND UNRESP INBED, <ALVERTO Hutchins - Last Filed: 09/19/22 18:13> Time Seen by Provider: 09/19/22 11:30 <ALVERTO Hutchins - Last Filed: 09/19/22 18:13> Source: patient <ALVERTO Hutchins - Last Filed: 09/19/22 18:13> Mode of arrival: ambulatory <ALVERTO Hutchins - Last Filed: 09/19/22 18:13> Limitations: no limitations <ALVERTO Hutchins - Last Filed: 09/19/22 18:13> History of Present Illness HPI narrative: 62-year-old female history of stroke in the past ischemic with no deficits last seen well at 18:30 yesterday brought in for altered mental status. As per EMS daughter found patient on bed altered. As per EMS patient states to shift to the right. Right assessed patient and patient was altered not making sense. Patient sent immediately to CT scan rule out stroke although out the window for tPA. <ALVERTO Hutchins - Last Filed: 09/19/22 18:13> Related Data Home medications: Home Medications Medication Instructions Recorded Confirmed aspirin 81 mg tablet,delayed 1 tab PO DAILY 07/20/22 09/20/22 release insulin glargine 100 unit/mL (3 10 unit subcut DAILY 07/20/22 09/20/22 mL) subcutaneous pen (Lantus Solostar U-100 Insulin) lamotrigine 200 mg tablet 1 tab PO DAILY 07/20/22 09/20/22 levothyroxine 25 mcg tablet 1 tab PO DAILY 07/20/22 09/20/22 lorazepam 1 mg tablet 1 tab PO QID 07/20/22 09/20/22 melatonin 5 mg tablet 1 tab PO QPM 07/20/22 09/20/22 metformin 1,000 mg tablet 1 tab PO BID 07/20/22 09/20/22 metoprolol succinate 25 mg 0.5 tab PO DAILY 07/20/22 09/20/22 tablet,extended release 24 hr mirtazapine 7.5 mg tablet 1 tab PO BEDTIME 07/20/22 09/20/22 omeprazole 20 mg capsule,delayed 1 cap PO DAILY 07/20/22 09/20/22 release venlafaxine 150 mg 1 cap PO BID 07/20/22 09/20/22 capsule,extended release 24 hr albuterol sulfate 90 mcg/actuation 1 puff inhalation QID PRN Wheezing 09/20/22 09/20/22 aerosol inhaler insulin aspart U-100 100 unit/mL See Rx Instructions .Route .COMPLEX 09/20/22 09/20/22 (3 mL) subcutaneous pen (Novolog FlexPen U-100 Insulin aspart) Previous Rx's Medication Instructions Recorded pyridoxine (vitamin B6) 50 mg 50 mg PO DAILY #90 tabs 04/19/22 tablet gabapentin 800 mg tablet 800 mg PO TID 30 days #90 tabs 07/24/22 diclofenac sodium 1 % topical gel 2 g topical QID PRN pain #100 grams 08/25/22 (Arthritis Pain (diclofenac)) lisinopril 20 mg tablet 40 mg PO DAILY #180 tabs 09/07/22 amlodipine 5 mg tablet 5 mg PO DAILY #90 tabs 09/14/22 atorvastatin 80 mg tablet 80 mg PO DAILY #90 tabs 09/15/22 <ALVERTO Hutchins - Last Filed: 09/19/22 18:13> Allergies/adverse reactions: Allergies Allergy/AdvReac Type Severity Reaction Status Date / Time adhesive tape [ADHESIVE TAPE] Allergy Intermediate BLISTERS Verified 08/25/22 11:27 meloxicam AdvReac Unknown hallucinati Verified 08/25/22 11:27 ons talwin Allergy Unknown ineffective Uncoded 08/25/22 11:27 <ALVERTO Hutchins - Last Filed: 09/19/22 18:13> Review of Systems Neurologic: Reports confusion <ALVERTO Hutchins - Last Filed: 09/19/22 18:13> Psychiatric: Psychiatric: Reports confusion <ALVERTO Hutchins - Last Filed: 09/19/22 18:13> [facility] Past Medical History Medical History: Medical History Cardiac akinesia Constipation COPD (chronic obstructive pulmonary disease) Depression DMII (diabetes mellitus, type 2) GERD (gastroesophageal reflux disease) Goiter History of gastrostomy tube placement History of laryngeal cancer HTN (hypertension) Hx of substance abuse Hyperlipidemia Hypothyroidism Lumbar stenosis with neurogenic claudication Sleep apnea T2DM (type 2 diabetes mellitus) Vitamin D deficiency <ALVERTO Hutchins - Last Filed: 09/19/22 18:13> Surgical History: Surgical History H/O colonoscopy History of cardiac catheterization (~03/16/21) History of cataract surgery History of ear surgery History of endoscopy History of esophagogastroduodenoscopy (EGD) History of removal of Port-a-Cath History of surgery on arm History of surgery on left wrist <ALVERTO Hutchins - Last Filed: 09/19/22 18:13> Family History Family History: Family History Father Hypertension CVD (cardiovascular disease) Mother Stroke <ALVERTO Hutchins - Last Filed: 09/19/22 18:13> Social History Social History: Social History Housing: Apartment Alcohol intake: never Patient Tobacco Use Status: Current everyday Tobacco user Tobacco use type: Cigarette Cigarette Packs Per Day: 1 Cigarettes Per Day: 10 Years Smoked: 48 Smoked in Last 30 Days: No e-Cigarette/Vaping Use: Never Used Second Hand Smoke Exposure: Yes Use of substances other than those prescribed or required for medical reasons: No Advance Directives: Yes Advance Directives on File: Yes Advance Directives Date on File: 07/20/22 Healthcare Proxy: Yes Guardian: No service: No Current occupational status: disabled Cognitive needs: Yes (scooter) Hearing needs: No Vision needs: Yes (reading glasses ) <ALVETRO Hutchins - Last Filed: 09/19/22 18:13> Physical Exam ED Vital Signs: Vital Signs - 24 hr 09/21/22 08:59 09/21/22 10:20 09/21/22 10:33 Temperature Pulse Rate 78 68 73 Respiratory Rate 18 12 21 H Blood Pressure 116/92 H 93/61 56/27 L Pulse Oximetry 92 92 93 Oxygen Delivery Method Room Air Nasal Cannula Room Air Nasal Cannula Room Air Nasal Cannula Oxygen Flow Rate 2 2 2 09/21/22 10:42 09/21/22 11:02 09/21/22 11:21 Temperature Pulse Rate 68 59 59 Respiratory Rate 21 H 24 H 22 H Blood Pressure 80/29 L 99/45 L 135/59 L Pulse Oximetry 96 96 98 Oxygen Delivery Method Room Air Nasal Cannula Room Air Room Air Nasal Cannula Oxygen Flow Rate 2 2 2 09/21/22 11:40 09/21/22 10:54 09/21/22 10:58 Temperature Pulse Rate 59 66 60 Respiratory Rate 22 H 16 17 Blood Pressure 146/67 H 102/50 L 106/40 L Pulse Oximetry 98 91 L 96 Oxygen Delivery Method Room Air Nasal Cannula Room Air Nasal Cannula Oxygen Flow Rate 2 3 09/21/22 09:24 09/21/22 09:49 09/21/22 10:09 Temperature Pulse Rate 77 66 68 Respiratory Rate 17 16 20 Blood Pressure 125/62 96/35 L 93/61 Pulse Oximetry 96 97 94 Oxygen Delivery Method Room Air Room Air Oxygen Flow Rate 09/21/22 15:19 09/21/22 19:37 09/21/22 23:21 Temperature 97.9 F Pulse Rate 66 61 57 Respiratory Rate 18 23 H 20 Blood Pressure 141/55 H 118/42 L 111/42 L Pulse Oximetry 96 95 Oxygen Delivery Method Nasal Cannula Room Air Oxygen Flow Rate 2 09/22/22 01:39 09/22/22 06:08 Temperature 97.8 F Pulse Rate 67 63 Respiratory Rate 20 15 Blood Pressure 118/43 L 174/83 H Pulse Oximetry 95 91 L Oxygen Delivery Method Room Air Room Air Oxygen Flow Rate BMI result Body Mass Index 30.4 <ALVERTO Hutchins - Last Filed: 09/19/22 18:13> Vital Signs - 24 hr 09/21/22 08:59 09/21/22 10:20 09/21/22 10:33 Temperature Pulse Rate 78 68 73 Respiratory Rate 18 12 21 H Blood Pressure 116/92 H 93/61 56/27 L Pulse Oximetry 92 92 93 Oxygen Delivery Method Room Air Nasal Cannula Room Air Nasal Cannula Room Air Nasal Cannula Oxygen Flow Rate 2 2 2 09/21/22 10:42 09/21/22 11:02 09/21/22 11:21 Temperature Pulse Rate 68 59 59 Respiratory Rate 21 H 24 H 22 H Blood Pressure 80/29 L 99/45 L 135/59 L Pulse Oximetry 96 96 98 Oxygen Delivery Method Room Air Nasal Cannula Room Air Room Air Nasal Cannula Oxygen Flow Rate 2 2 2 09/21/22 11:40 09/21/22 10:54 09/21/22 10:58 Temperature Pulse Rate 59 66 60 Respiratory Rate 22 H 16 17 Blood Pressure 146/67 H 102/50 L 106/40 L Pulse Oximetry 98 91 L 96 Oxygen Delivery Method Room Air Nasal Cannula Room Air Nasal Cannula Oxygen Flow Rate 2 3 09/21/22 09:24 09/21/22 09:49 09/21/22 10:09 Temperature Pulse Rate 77 66 68 Respiratory Rate 17 16 20 Blood Pressure 125/62 96/35 L 93/61 Pulse Oximetry 96 97 94 Oxygen Delivery Method Room Air Room Air Oxygen Flow Rate 09/21/22 15:19 09/21/22 19:37 09/21/22 23:21 Temperature 97.9 F Pulse Rate 66 61 57 Respiratory Rate 18 23 H 20 Blood Pressure 141/55 H 118/42 L 111/42 L Pulse Oximetry 96 95 Oxygen Delivery Method Nasal Cannula Room Air Oxygen Flow Rate 2 09/22/22 01:39 09/22/22 06:08 Temperature 97.8 F Pulse Rate 67 63 Respiratory Rate 20 15 Blood Pressure 118/43 L 174/83 H Pulse Oximetry 95 91 L Oxygen Delivery Method Room Air Room Air Oxygen Flow Rate BMI result Body Mass Index 30.4 <ALVERTO Villalta - Last Filed: 09/20/22 00:48> Vital Signs - 24 hr 09/21/22 08:59 09/21/22 10:20 09/21/22 10:33 Temperature Pulse Rate 78 68 73 Respiratory Rate 18 12 21 H Blood Pressure 116/92 H 93/61 56/27 L Pulse Oximetry 92 92 93 Oxygen Delivery Method Room Air Nasal Cannula Room Air Nasal Cannula Room Air Nasal Cannula Oxygen Flow Rate 2 2 2 09/21/22 10:42 09/21/22 11:02 09/21/22 11:21 Temperature Pulse Rate 68 59 59 Respiratory Rate 21 H 24 H 22 H Blood Pressure 80/29 L 99/45 L 135/59 L Pulse Oximetry 96 96 98 Oxygen Delivery Method Room Air Nasal Cannula Room Air Room Air Nasal Cannula Oxygen Flow Rate 2 2 2 09/21/22 11:40 09/21/22 10:54 09/21/22 10:58 Temperature Pulse Rate 59 66 60 Respiratory Rate 22 H 16 17 Blood Pressure 146/67 H 102/50 L 106/40 L Pulse Oximetry 98 91 L 96 Oxygen Delivery Method Room Air Nasal Cannula Room Air Nasal Cannula Oxygen Flow Rate 2 3 09/21/22 09:24 09/21/22 09:49 09/21/22 10:09 Temperature Pulse Rate 77 66 68 Respiratory Rate 17 16 20 Blood Pressure 125/62 96/35 L 93/61 Pulse Oximetry 96 97 94 Oxygen Delivery Method Room Air Room Air Oxygen Flow Rate 09/21/22 15:19 09/21/22 19:37 09/21/22 23:21 Temperature 97.9 F Pulse Rate 66 61 57 Respiratory Rate 18 23 H 20 Blood Pressure 141/55 H 118/42 L 111/42 L Pulse Oximetry 96 95 Oxygen Delivery Method Nasal Cannula Room Air Oxygen Flow Rate 2 09/22/22 01:39 09/22/22 06:08 Temperature 97.8 F Pulse Rate 67 63 Respiratory Rate 20 15 Blood Pressure 118/43 L 174/83 H Pulse Oximetry 95 91 L Oxygen Delivery Method Room Air Room Air Oxygen Flow Rate BMI result Body Mass Index 30.4 <ALVERTO Mcginnis Last Filed: 09/21/22 08:46> Const Other: Patient significantly altered <ALVERTO Hutchins Last Filed: 09/19/22 18 :13> General: confusion <ALVERTO Hutchins Last Filed: 09/19/22 18:13> Orientation/consciousness: confusion <ALVERTO Hutchins Last Filed: 09/19/22 18:13> HENMA Head: Yes normal to inspection, Yes No palpable skull fracture present, Yes normocephalic and Yes atraumatic <ALVERTO Hutchins Last Filed: 09/19/22 18:13> Eyes General: appearance normal, both eyes and all related structures <ALVERTO Hutchins Last Filed: 09/19/22 18:13> Neck Neck: Yes normal visual inspection, Yes full ROM, Yes no lymphadenopathy, Yes no meningeal signs, Yes trachea midline, Yes supple, No anterior neck swelling and No tender <ALVERTO Hutchins Last Filed: 09/19/22 18:13> Chest Chest palpation & inspection: normal inspection of the chest and normal palpation of entire chest wall <ALVERTO Hutchins Last Filed: 09/19/22 18:13> Resp Other: Altered <Nick Rubin, PA - Last Filed: 09/19/22 18:13> Effort & Inspection: normal respiratory effort <ALVERTO Hutchins - Last Filed: 09/19/22 18:13> Auscultation: clear to auscultation bilaterally <ALVERTO Hutchins - Last Filed: 09/19/22 18:13> GI Inspection: Yes normal to inspection and No abdominal wall ecchymosis <ALVERTO Hutchins - Last Filed: 09/19/22 18:13> Palpation (GI): Soft to palpation, not firm, nontender, no guarding and not rigid <ALVERTO Hutchins - Last Filed: 09/19/22 18:13> General: No CVA tenderness and Yes no CVA tenderness <ALVERTO Hutchins - Last Filed: 09/19/22 18:13> Back/Spine/Pelvis Back: no CVA tenderness, No CVA tenderness and No back tenderness <ALVERTO Hutchins - Last Filed: 09/19/22 18:13> Skin General skin exam: no rashes or lesions noted and elasticity normal <ALVERTO Hutchins - Last Filed: 09/19/22 18:13> Neuro Other: not able to assess neuro exam. Patient totally altered and making noises is incoherent. <ALVERTO Hutchins - Last Filed: 09/19/22 18:13> General: no meningeal signs and confusion <ALVERTO Hutchins - Last Filed: 09/19/22 18:13> Extrem General: Yes normal to inspection <ALVERTO Hutchins - Last Filed: 09/19/22 18:13> Psych Other: Altered mentla status <ALVERTO Hutchins - Last Filed: 09/19/22 18:13> Course Reevaluation(s) Reevaluation #1: radiologist called informed patient does not have a stroke on dry head CT. no bleed. <ALVERTO Hutchins - Last Filed: 09/19/22 18:13> Time: 11:49 <ALVERTO Hutchins - Last Filed: 09/19/22 18:13> Reevaluation #2: Radiologsit called and states Head/neck CTA is negative. <ALVERTO Hutchins - Last Filed: 09/19/22 18:13> Time: 12:00 <ALVERTO Hutchins - Last Filed: 09/19/22 18:13> Reevaluation #3: patient now back to baseline. Patient knows her name, place, and year. Patient A0x3 Patient now has complete range of motion of extremities. patient able to follow commands. Head CT head CTA negative. Chest x-ray negative for pneumonia. Patient has history of COPD. <ALVERTO Hutchins - Last Filed: 09/19/22 18:13> Time: 12:55 <ALVERTO Hutchins - Last Filed: 09/19/22 18:13> Additional Reevaluation(s): At 14:00 patient admitted that she overdosed on 9 pills of 200 mg of Lamictal and 4 pills of Ativan 1 mg each. She states overdose was intentional. Will order Tylenol facility late level and alcohol level. Will call poison Control. at 3:16pm Spoke with poison Control she was informed of patient's history, physical exam, vitals and diagnostics. Recommend observing patient for least 6 hours and given them fluids. Recommend he repeat EKG 4 hours. 5:47pm: Blood pressure on monitor is 125/50 AND 120/48. rEPEAT LABS ORDERED. sIGN OUT TO alverto García. PATIENT ALERT ORIENTED X3. NEGATIVE NEURO DEFICITS. NIH SCORE 0 Nasim Brar [phone]. PENDING CARE TEAM <ALVERTO Hutchins - Last Filed: 09/19/22 18:13> At 14:00 patient admitted that she overdosed on 9 pills of 200 mg of Lamictal and 4 pills of Ativan 1 mg each. She states overdose was intentional. Will order Tylenol facility late level and alcohol level. Will call poison Control. at 3:16pm Spoke with poison Control she was informed of patient's history, physical exam, vitals and diagnostics. Recommend observing patient for least 6 hours and given them fluids. Recommend he repeat EKG 4 hours. 5:47pm: Blood pressure on monitor is 125/50 AND 120/48. rEPEAT LABS ORDERED. sIGN OUT TO alverto García. PATIENT ALERT ORIENTED X3. NEGATIVE NEURO DEFICITS. NIH SCORE 0 Nasim Brar [phone]. PENDING CARE TEAM I received report from ALVERTO Conklin, 163 his current pressure, nursing has not updated patient's vitals in the computer. Patient hemodynamically stable. Pending repeat labs in care Team evaluation. Also waiting for call back from poison Control. Patient extremely agitated, ordered Haldol, Benadryl, patient's pressure is stable. I tending at the bedside as well. Placed on a Section 12 for intentional overdose with suicidal ideation. 2299 Patient did have a brief episode where her O2 sat went down to mid 70s, patient was placed on nasal cannula by this PAKekeC with Dr. Gonzales at the bedside. patient's CBC likely with anemia secondary to hemodilution. No new updates from poison Control no new recommendations. Patient on a Section 12. Chemistry with hyperglycemia insulin ordered. Salicilates, acetaminophen negative and ethanol negative. Patient stable. No further recommendations from poison control per nusing, patient will be placed in observation for evaluation by care team. VSS hemodynamically stable. Will continue to monitor . <ALVERTO Villalta - Last Filed: 09/20/22 00:48> At 14:00 patient admitted that she overdosed on 9 pills of 200 mg of Lamictal and 4 pills of Ativan 1 mg each. She states overdose was intentional. Will order Tylenol facility late level and alcohol level. Will call poison Control. at 3:16pm Spoke with poison Control she was informed of patient's history, physical exam, vitals and diagnostics. Recommend observing patient for least 6 hours and given them fluids. Recommend he repeat EKG 4 hours. 5:47pm: Blood pressure on monitor is 125/50 AND 120/48. rEPEAT LABS ORDERED. sIGN OUT TO alverto García. PATIENT ALERT ORIENTED X3. NEGATIVE NEURO DEFICITS. NIH SCORE 0 dAUGHTER Jenny Brar [phone]. PENDING CARE TEAM I received report from ALVERTO Conklin, 163 his current pressure, nursing has not updated patient's vitals in the computer. Patient hemodynamically stable. Pending repeat labs in care Team evaluation. Also waiting for call back from poison Control. Patient extremely agitated, ordered Haldol, Benadryl, patient's pressure is stable. I tending at the bedside as well. Placed on a Section 12 for intentional overdose with suicidal ideation. 2300 Patient did have a brief episode where her O2 sat went down to mid 70s, patient was placed on nasal cannula by this PA-C with Dr. Gonzales at the bedside. patient's CBC likely with anemia secondary to hemodilution. No new updates from poison Control no new recommendations. Patient on a Section 12. Chemistry with hyperglycemia insulin ordered. Salicilates, acetaminophen negative and ethanol negative. Patient stable. No further recommendations from poison control per dedra, patient will be placed in observation for evaluation by care team. VSS hemodynamically stable. Will continue to monitor 09/20/22 10 am - overnight patient required intramuscular Haldol, Ativan. this morning she is awake, alert, oriented and calm. pending CARE team evaluation. VS remain stable. passed for PO diet. Pharmacy consulted for home med rec. will continue to monitor. 09/20/22 12 pm - care team evaluated the patient and is recommending inpatient level of care <ALVERTO Mcginnis - Last Filed: 09/21/22 08:46> Medications Administered Generic Name Dose Route Start Last Admin Trade Name Freq PRN Reason Stop Dose Admin Amlodipine Besylate 5 mg 09/21/22 09:00 09/21/22 10:28 Amlodipine Besylate 5 Mg Tablet PO Not Given DAILY [facility] Protocol Aspirin 81 mg 09/21/22 09:00 09/21/22 10:29 Aspirin Enteric Coated 81 Mg Tablet.Dr PO Not Given DAILY [facility] Atorvastatin Calcium 80 mg 09/21/22 09:00 09/21/22 10:29 Atorvastatin Calcium 80 Mg Tablet PO Not Given DAILY [facility] Gabapentin 800 mg 09/20/22 21:00 09/21/22 20:57 Gabapentin 400 Mg Capsule PO 800 mg TID [facility] Administration Insulin Glargine 10 unit 09/21/22 09:00 09/21/22 10:29 Insulin Glargine,Hum.Rec.Anlog 100 Unit/Ml 10 Ml Vial SUBCUT Not Given DAILY [facility] Insulin Human Lispro 0 unit 09/20/22 21:00 09/21/22 21:05 Insulin Lispro 100 Unit/Ml 3 Ml Vial SUBCUT 2 unit QIDACHS [facility] Administration Protocol Lamotrigine 200 mg 09/21/22 09:00 09/21/22 10:29 Lamotrigine 100 Mg Tablet PO Not Given DAILY [facility] Levothyroxine Sodium 25 mcg 09/21/22 06:00 09/22/22 05:55 Levothyroxine Sodium 25 Mcg Tablet PO 25 mcg DAILY@0600 [facility] Administration Lisinopril 40 mg 09/21/22 09:00 09/21/22 10:29 Lisinopril 40 Mg Tablet PO Not Given DAILY [facility] Protocol Lorazepam 1 mg 09/20/22 21:00 09/21/22 20:56 Lorazepam 1 Mg Tablet PO 1 mg QID [facility] Administration Melatonin 6 mg 09/20/22 21:00 09/21/22 20:56 Melatonin 3 Mg Tablet PO 6 mg BEDTIME [facility] Administration Metformin HCl 1,000 mg 09/21/22 08:00 09/21/22 18:13 Metformin Hcl 1,000 Mg Tablet PO 1,000 mg BIDWM [facility] Administration Metoprolol Succinate 12.5 mg 09/21/22 09:00 09/21/22 10:29 Metoprolol Succinate Er 12.5 Mg Halftab.Er.24h PO Not Given DAILY [facility] Protocol Mirtazapine 7.5 mg 09/20/22 21:00 09/21/22 20:56 Mirtazapine 7.5 Mg Tablet PO 7.5 mg BEDTIME [facility] Administration Omeprazole 20 mg 09/21/22 06:30 09/22/22 05:55 Omeprazole 20 Mg Capsule.Dr PO 20 mg DAILY@0630 [facility] Administration Pyridoxine HCl 50 mg 09/21/22 09:00 09/21/22 10:29 Pyridoxine Hcl (Vitamin B6) 50 Mg Tablet PO Not Given DAILY [facility] Venlafaxine HCl 150 mg 09/20/22 21:00 09/21/22 20:56 Venlafaxine Hcl Er 150 Mg Cap.Er.24h PO 150 mg BID [facility] Administration Discontinued Medications Generic Name Dose Route Start Last Admin Trade Name Freq PRN Reason Stop Dose Admin Diphenhydramine HCl 50 mg 09/19/22 19:44 09/19/22 19:48 Diphenhydramine Hcl 50 Mg/Ml Vial IM 09/19/22 19:45 50 mg ONCE ONE Administration Haloperidol Lactate 5 mg 09/19/22 19:44 09/19/22 19:48 Haloperidol Lactate 5 Mg/Ml Vial IM 09/19/22 19:45 5 mg ONCE ONE Administration Haloperidol Lactate 5 mg 09/19/22 20:06 09/19/22 20:09 Haloperidol Lactate 5 Mg/Ml Vial IM 09/19/22 20:07 5 mg ONCE ONE Administration Sodium Chloride 1,000 mls @ 999 mls/hr 09/19/22 14:00 09/19/22 16:36 Ns IV 09/19/22 15:00 Infused .Q1H1M STA Infusion Sodium Chloride 1,000 mls @ 999 mls/hr 09/19/22 14:01 09/19/22 16:37 Ns IV 09/19/22 15:01 Infused .Q1H1M STA Infusion Sodium Chloride 1,000 mls @ 999 mls/hr 09/19/22 15:07 09/19/22 16:37 Ns IV 09/19/22 16:07 Infused .Q1H1M STA Infusion Sodium Chloride 1,000 mls @ 999 mls/hr 09/20/22 00:45 09/20/22 01:15 Ns IV 09/20/22 01:45 Not Given .Q1H1M [facility] Sodium Chloride 1,000 mls @ 999 mls/hr 09/21/22 10:45 09/21/22 12:08 Ns IVCONT 09/21/22 11:45 Infused .Q1H1M [facility] Infusion Insulin Human Regular 10 unit 09/20/22 00:42 09/20/22 01:15 Insulin Regular, Human 100 Unit/Ml 3 Ml Vial IVPUSH 09/20/22 00:43 Not Given ONCE ONE Iohexol 100 ml 09/19/22 11:51 09/19/22 11:51 Iohexol 350 Mg/Ml 100 Ml Infus..Btl IV 09/19/22 11:52 70 ml ONCE ONE Administration Lorazepam 2 mg 09/19/22 19:44 09/19/22 19:51 Lorazepam 2 Mg/Ml Vial IM 09/19/22 19:45 2 mg STAT STA Administration Lorazepam 2 mg 09/21/22 08:43 09/21/22 08:54 Lorazepam 2 Mg/Ml Vial IM 09/21/22 08:44 2 mg ONCE ONE Administration Olanzapine 5 mg 09/21/22 08:30 09/21/22 10:26 Olanzapine Odt 10 Mg Tab.Rapdis TRANSLINGU 09/21/22 08:31 Not Given ONCE ONE Olanzapine 5 mg 09/21/22 08:43 09/21/22 08:54 Olanzapine 10 Mg Vial IM 09/21/22 08:44 5 mg ONCE ONE Administration Ondansetron HCl 4 mg 09/19/22 12:29 09/19/22 13:22 Ondansetron Hcl 4 Mg/2 Ml Vial IVPUSH 09/19/22 12:30 4 mg ONCE ONE Administration Ondansetron HCl 4 mg 09/20/22 11:35 09/20/22 11:43 Ondansetron Hcl 4 Mg/2 Ml Vial IVPUSH 09/20/22 11:36 Not Given ONCE ONE Ondansetron HCl 4 mg 09/20/22 11:44 09/20/22 11:47 Ondansetron Odt 4 Mg Tab.Rapdis TRANSLINGU 09/20/22 11:45 4 mg ONCE ONE Administration <ALVERTO Hutchins - Last Filed: 09/19/22 18:13> Medications Administered Generic Name Dose Route Start Last Admin Trade Name Freq PRN Reason Stop Dose Admin Amlodipine Besylate 5 mg 09/21/22 09:00 09/21/22 10:28 Amlodipine Besylate 5 Mg Tablet PO Not Given DAILY [facility] Protocol Aspirin 81 mg 09/21/22 09:00 09/21/22 10:29 Aspirin Enteric Coated 81 Mg Tablet.Dr PO Not Given DAILY [facility] Atorvastatin Calcium 80 mg 09/21/22 09:00 09/21/22 10:29 Atorvastatin Calcium 80 Mg Tablet PO Not Given DAILY [facility] Gabapentin 800 mg 09/20/22 21:00 09/21/22 20:57 Gabapentin 400 Mg Capsule PO 800 mg TID [facility] Administration Insulin Glargine 10 unit 09/21/22 09:00 09/21/22 10:29 Insulin Glargine,Hum.Rec.Anlog 100 Unit/Ml 10 Ml Vial SUBCUT Not Given DAILY [facility] Insulin Human Lispro 0 unit 09/20/22 21:00 09/21/22 21:05 Insulin Lispro 100 Unit/Ml 3 Ml Vial SUBCUT 2 unit QIDACHS [facility] Administration Protocol Lamotrigine 200 mg 09/21/22 09:00 09/21/22 10:29 Lamotrigine 100 Mg Tablet PO Not Given DAILY [facility] Levothyroxine Sodium 25 mcg 09/21/22 06:00 09/22/22 05:55 Levothyroxine Sodium 25 Mcg Tablet PO 25 mcg DAILY@0600 [facility] Administration Lisinopril 40 mg 09/21/22 09:00 09/21/22 10:29 Lisinopril 40 Mg Tablet PO Not Given DAILY [facility] Protocol Lorazepam 1 mg 09/20/22 21:00 09/21/22 20:56 Lorazepam 1 Mg Tablet PO 1 mg QID [facility] Administration Melatonin 6 mg 09/20/22 21:00 09/21/22 20:56 Melatonin 3 Mg Tablet PO 6 mg BEDTIME [facility] Administration Metformin HCl 1,000 mg 09/21/22 08:00 09/21/22 18:13 Metformin Hcl 1,000 Mg Tablet PO 1,000 mg BIDWM [facility] Administration Metoprolol Succinate 12.5 mg 09/21/22 09:00 09/21/22 10:29 Metoprolol Succinate Er 12.5 Mg Halftab.Er.24h PO Not Given DAILY [facility] Protocol Mirtazapine 7.5 mg 09/20/22 21:00 09/21/22 20:56 Mirtazapine 7.5 Mg Tablet PO 7.5 mg BEDTIME [facility] Administration Omeprazole 20 mg 09/21/22 06:30 09/22/22 05:55 Omeprazole 20 Mg Capsule.Dr PO 20 mg DAILY@0630 [facility] Administration Pyridoxine HCl 50 mg 09/21/22 09:00 09/21/22 10:29 Pyridoxine Hcl (Vitamin B6) 50 Mg Tablet PO Not Given DAILY [facility] Venlafaxine HCl 150 mg 09/20/22 21:00 09/21/22 20:56 Venlafaxine Hcl Er 150 Mg Cap.Er.24h PO 150 mg BID [facility] Administration Discontinued Medications Generic Name Dose Route Start Last Admin Trade Name Shaunq PRN Reason Stop Dose Admin Diphenhydramine HCl 50 mg 09/19/22 19:44 09/19/22 19:48 Diphenhydramine Hcl 50 Mg/Ml Vial IM 09/19/22 19:45 50 mg ONCE ONE Administration Haloperidol Lactate 5 mg 09/19/22 19:44 09/19/22 19:48 Haloperidol Lactate 5 Mg/Ml Vial IM 09/19/22 19:45 5 mg ONCE ONE Administration Haloperidol Lactate 5 mg 09/19/22 20:06 09/19/22 20:09 Haloperidol Lactate 5 Mg/Ml Vial IM 09/19/22 20:07 5 mg ONCE ONE Administration Sodium Chloride 1,000 mls @ 999 mls/hr 09/19/22 14:00 09/19/22 16:36 Ns IV 09/19/22 15:00 Infused .Q1H1M STA Infusion Sodium Chloride 1,000 mls @ 999 mls/hr 09/19/22 14:01 09/19/22 16:37 Ns IV 09/19/22 15:01 Infused .Q1H1M STA Infusion Sodium Chloride 1,000 mls @ 999 mls/hr 09/19/22 15:07 09/19/22 16:37 Ns IV 09/19/22 16:07 Infused .Q1H1M STA Infusion Sodium Chloride 1,000 mls @ 999 mls/hr 09/20/22 00:45 09/20/22 01:15 Ns IV 09/20/22 01:45 Not Given .Q1H1M [facility] Sodium Chloride 1,000 mls @ 999 mls/hr 09/21/22 10:45 09/21/22 12:08 Ns IVCONT 09/21/22 11:45 Infused .Q1H1M [facility] Infusion Insulin Human Regular 10 unit 09/20/22 00:42 09/20/22 01:15 Insulin Regular, Human 100 Unit/Ml 3 Ml Vial IVPUSH 09/20/22 00:43 Not Given ONCE ONE Iohexol 100 ml 09/19/22 11:51 09/19/22 11:51 Iohexol 350 Mg/Ml 100 Ml Infus..Btl IV 09/19/22 11:52 70 ml ONCE ONE Administration Lorazepam 2 mg 09/19/22 19:44 09/19/22 19:51 Lorazepam 2 Mg/Ml Vial IM 09/19/22 19:45 2 mg STAT STA Administration Lorazepam 2 mg 09/21/22 08:43 09/21/22 08:54 Lorazepam 2 Mg/Ml Vial IM 09/21/22 08:44 2 mg ONCE ONE Administration Olanzapine 5 mg 09/21/22 08:30 09/21/22 10:26 Olanzapine Odt 10 Mg Tab.Rapdis TRANSLINGU 09/21/22 08:31 Not Given ONCE ONE Olanzapine 5 mg 09/21/22 08:43 09/21/22 08:54 Olanzapine 10 Mg Vial IM 09/21/22 08:44 5 mg ONCE ONE Administration Ondansetron HCl 4 mg 09/19/22 12:29 09/19/22 13:22 Ondansetron Hcl 4 Mg/2 Ml Vial IVPUSH 09/19/22 12:30 4 mg ONCE ONE Administration Ondansetron HCl 4 mg 09/20/22 11:35 09/20/22 11:43 Ondansetron Hcl 4 Mg/2 Ml Vial IVPUSH 09/20/22 11:36 Not Given ONCE ONE Ondansetron HCl 4 mg 09/20/22 11:44 09/20/22 11:47 Ondansetron Odt 4 Mg Tab.Rapdis TRANSLINGU 09/20/22 11:45 4 mg ONCE ONE Administration <ALVERTO Villalta - Last Filed: 09/20/22 00:48> Medications Administered Generic Name Dose Route Start Last Admin Trade Name Freq PRN Reason Stop Dose Admin Amlodipine Besylate 5 mg 09/21/22 09:00 09/21/22 10:28 Amlodipine Besylate 5 Mg Tablet PO Not Given DAILY [facility] Protocol Aspirin 81 mg 09/21/22 09:00 09/21/22 10:29 Aspirin Enteric Coated 81 Mg Tablet.Dr PO Not Given DAILY [facility] Atorvastatin Calcium 80 mg 09/21/22 09:00 09/21/22 10:29 Atorvastatin Calcium 80 Mg Tablet PO Not Given DAILY [facility] Gabapentin 800 mg 09/20/22 21:00 09/21/22 20:57 Gabapentin 400 Mg Capsule PO 800 mg TID [facility] Administration Insulin Glargine 10 unit 09/21/22 09:00 09/21/22 10:29 Insulin Glargine,Hum.Rec.Anlog 100 Unit/Ml 10 Ml Vial SUBCUT Not Given DAILY [facility] Insulin Human Lispro 0 unit 09/20/22 21:00 09/21/22 21:05 Insulin Lispro 100 Unit/Ml 3 Ml Vial SUBCUT 2 unit QIDACHS [facility] Administration Protocol Lamotrigine 200 mg 09/21/22 09:00 09/21/22 10:29 Lamotrigine 100 Mg Tablet PO Not Given DAILY [facility] Levothyroxine Sodium 25 mcg 09/21/22 06:00 09/22/22 05:55 Levothyroxine Sodium 25 Mcg Tablet PO 25 mcg DAILY@0600 [facility] Administration Lisinopril 40 mg 09/21/22 09:00 09/21/22 10:29 Lisinopril 40 Mg Tablet PO Not Given DAILY [facility] Protocol Lorazepam 1 mg 09/20/22 21:00 09/21/22 20:56 Lorazepam 1 Mg Tablet PO 1 mg QID [facility] Administration Melatonin 6 mg 09/20/22 21:00 09/21/22 20:56 Melatonin 3 Mg Tablet PO 6 mg BEDTIME [facility] Administration Metformin HCl 1,000 mg 09/21/22 08:00 09/21/22 18:13 Metformin Hcl 1,000 Mg Tablet PO 1,000 mg BIDWM [facility] Administration Metoprolol Succinate 12.5 mg 09/21/22 09:00 09/21/22 10:29 Metoprolol Succinate Er 12.5 Mg Halftab.Er.24h PO Not Given DAILY [facility] Protocol Mirtazapine 7.5 mg 09/20/22 21:00 09/21/22 20:56 Mirtazapine 7.5 Mg Tablet PO 7.5 mg BEDTIME [facility] Administration Omeprazole 20 mg 09/21/22 06:30 09/22/22 05:55 Omeprazole 20 Mg Capsule.Dr PO 20 mg DAILY@0630 [facility] Administration Pyridoxine HCl 50 mg 09/21/22 09:00 09/21/22 10:29 Pyridoxine Hcl (Vitamin B6) 50 Mg Tablet PO Not Given DAILY [facility] Venlafaxine HCl 150 mg 09/20/22 21:00 09/21/22 20:56 Venlafaxine Hcl Er 150 Mg Cap.Er.24h PO 150 mg BID [facility] Administration Discontinued Medications Generic Name Dose Route Start Last Admin Trade Name Freq PRN Reason Stop Dose Admin Diphenhydramine HCl 50 mg 09/19/22 19:44 09/19/22 19:48 Diphenhydramine Hcl 50 Mg/Ml Vial IM 09/19/22 19:45 50 mg ONCE ONE Administration Haloperidol Lactate 5 mg 09/19/22 19:44 09/19/22 19:48 Haloperidol Lactate 5 Mg/Ml Vial IM 09/19/22 19:45 5 mg ONCE ONE Administration Haloperidol Lactate 5 mg 09/19/22 20:06 09/19/22 20:09 Haloperidol Lactate 5 Mg/Ml Vial IM 09/19/22 20:07 5 mg ONCE ONE Administration Sodium Chloride 1,000 mls @ 999 mls/hr 09/19/22 14:00 09/19/22 16:36 Ns IV 09/19/22 15:00 Infused .Q1H1M STA Infusion Sodium Chloride 1,000 mls @ 999 mls/hr 09/19/22 14:01 09/19/22 16:37 Ns IV 09/19/22 15:01 Infused .Q1H1M STA Infusion Sodium Chloride 1,000 mls @ 999 mls/hr 09/19/22 15:07 09/19/22 16:37 Ns IV 09/19/22 16:07 Infused .Q1H1M STA Infusion Sodium Chloride 1,000 mls @ 999 mls/hr 09/20/22 00:45 09/20/22 01:15 Ns IV 09/20/22 01:45 Not Given .Q1H1M [facility] Sodium Chloride 1,000 mls @ 999 mls/hr 09/21/22 10:45 09/21/22 12:08 Ns IVCONT 09/21/22 11:45 Infused .Q1H1M [facility] Infusion Insulin Human Regular 10 unit 09/20/22 00:42 09/20/22 01:15 Insulin Regular, Human 100 Unit/Ml 3 Ml Vial IVPUSH 09/20/22 00:43 Not Given ONCE ONE Iohexol 100 ml 09/19/22 11:51 09/19/22 11:51 Iohexol 350 Mg/Ml 100 Ml Infus..Btl IV 09/19/22 11:52 70 ml ONCE ONE Administration Lorazepam 2 mg 09/19/22 19:44 09/19/22 19:51 Lorazepam 2 Mg/Ml Vial IM 09/19/22 19:45 2 mg STAT STA Administration Lorazepam 2 mg 09/21/22 08:43 09/21/22 08:54 Lorazepam 2 Mg/Ml Vial IM 09/21/22 08:44 2 mg ONCE ONE Administration Olanzapine 5 mg 09/21/22 08:30 09/21/22 10:26 Olanzapine Odt 10 Mg Tab.Rapdis TRANSLINGU 09/21/22 08:31 Not Given ONCE ONE Olanzapine 5 mg 09/21/22 08:43 09/21/22 08:54 Olanzapine 10 Mg Vial IM 09/21/22 08:44 5 mg ONCE ONE Administration Ondansetron HCl 4 mg 09/19/22 12:29 09/19/22 13:22 Ondansetron Hcl 4 Mg/2 Ml Vial IVPUSH 09/19/22 12:30 4 mg ONCE ONE Administration Ondansetron HCl 4 mg 09/20/22 11:35 09/20/22 11:43 Ondansetron Hcl 4 Mg/2 Ml Vial IVPUSH 09/20/22 11:36 Not Given ONCE ONE Ondansetron HCl 4 mg 09/20/22 11:44 09/20/22 11:47 Ondansetron Odt 4 Mg Tab.Martha TRANSLINGU 09/20/22 11:45 4 mg ONCE ONE Administration <ALVERTO Mcginnis - Last Filed: 09/21/22 08:46> Medical Decision Making Medical Decision Making MDM Narrative: 62-YEAR-OLD FEMALE PRESENTS TO ED ALTERED MENTAL STATUS AND NOT RESPONDING TO COMMANDS. PATIENT RETURN TO HER BASELINE NORMAL ALERT ORIENTED X3. PATIENT ADMITS TO INTENTIONAL OVERDOSE OF LAMICTAL AND ATIVAN <ALVERTO Hutchins - Last Filed: 09/19/22 18:13> Differential Diagnosis Differential Diagnoses: The differential diagnosis associated with the presentation includes ( STROKE, MYOCARDIAL INFARCTION, UTI, CHEST X-RAY,) <ALVERTO Hutchins - Last Filed: 09/19/22 18:13> Admission/Observation Consideration of admission/observation: Escalation of care including admission/observation considered <ALVERTO Hutchins - Last Filed: 09/19/22 18:13> Consult Healthcare Provider Management of the patient was discussed with: [employer] (Chuy AMATO) <ALVERTO Hutchins - Last Filed: 09/19/22 18:13> Lab Data [facility] Lab Attestation statement: I reviewed the patient's lab results. <ALVERTO Hutchins - Last Filed: 09/19/22 18:13> Result Diagrams: 09/19/22 12:32 09/19/22 12:32 <ALVERTO Hutchins - Last Filed: 09/19/22 18:13> Labs: Lab Results 09/19/22 09/19/22 09/19/22 Range/Units 12:05 12:32 12:32 WBC 7.9 (4.8-10.8) X10*3/uL RBC 4.65 (4.20-5.50) X10*6/uL Hgb 13.9 (12.0-16.0) g/dl Hct 40.8 (37.0-47.0) % MCV 87.7 (80.0-98.0) fL MCH 29.9 (27.0-33.0) pg MCHC 34.1 (31.0-35.0) g/dl RDW 13.2 (11.0-16.0) % Plt Count 144 L D (160-400) X10*3/uL MPV Not Reportable Immature Gran % (Auto) 0.4 (0.0-0.4) % Neut % (Auto) 70.7 (45-73) % Lymph % (Auto) 19.8 L (20-40) % [place]gs % (Auto) 7.0 (2-11) % Eos % (Auto) 1.5 (0-4) % Baso % (Auto) 0.6 (0-2) % Lymph # (Auto) 1.6 (1.2-4.9) X10*3/uL [place] # (Auto) 0.6 (0.1-1.2) X10*3/uL Eos # (Auto) 0.1 (0.0-0.4) X10*3/uL Baso # (Auto) 0.1 (0.0-0.2) X10*3/uL Abs Immat Gran (auto) 0.03 (0.00-0.03) X10*3/uL Absolute Neuts (auto) 5.6 (2.0-8.3) x10*3/uL Absolute Nucleated RBC 0.020 H (0.0-0.012) X10*3/uL Nucleated RBC % (auto) 0.3 H (0.0-0.2) /100WBC Smear Tech's Comments VERIFIED PT 10.4 (10.0-13.1) SEC INR 0.9 (0.9-1.1) APTT 22.8 L (26.0-36.4) SEC Sodium (135-145) mmol/L Potassium (3.3-5.1) mmol/L Chloride (96-108) mmol/L Carbon Dioxide (22-29) mmol/L Anion Gap (12-20) BUN (9-16) mg/dL Creatinine (0.5-1.4) mg/dL Estim Creat Clear Calc Estimated GFR POC Glucose 241 H (60-115) mg/dL Random Glucose (60-115) mg/dL Lactic Acid (0.5-2.0) mmol/L Calcium (8.4-10.2) mg/dL Magnesium (1.6-2.6) mg/dL Total Bilirubin (0.0-1.0) mg/dL AST (5-31) U/L ALT (0-31) U/L Alkaline Phosphatase (39-117) U/L Ammonia (13-55) umol/L Troponin I High Sens (<3.5-17.0) ng/L B-Natriuretic Peptide (<100) pg/mL Total Protein (6.5-8.0) g/dL Albumin (3.5-5.0) g/dL Urine Color Urine Appearance Urine pH (5.0-9.0) Ur Specific [place] (1.005-1.025) Urine Protein (Neg-Trace) mg/dL Urine Glucose (UA) (Negative) mg/dL Urine Ketones (Negative) mg/dL Urine Blood (Negative) Urine Nitrite (Negative) Ur Leukocyte Esterase (Negative) Salicylates (15-30) mg/dL Urine Opiates Screen (Not Detect) Urine Fentanyl Screen (Not Detect) Acetaminophen (<30) mcg/mL Ur Barbiturates Screen (Not Detect) Ur Phencyclidine Scrn (Not Detect) Ur Amphetamines Screen (Not Detect) U Benzodiazepines Scrn (Not Detect) Urine Cocaine Screen (Not Detect) U Marijuana (THC) Screen (Not Detect) Ethyl Alcohol mg/dL Influenza Type A (PCR) (Negative) Influenza Type B (PCR) (Negative) RSV RNA Qual (PCR) (Negative) SARS-CoV-2 RNA (RT-PCR) (Negative) 09/19/22 09/19/22 09/19/22 Range/Units 12:32 12:32 12:32 WBC (4.8-10.8) X10*3/uL RBC (4.20-5.50) X10*6/uL Hgb (12.0-16.0) g/dl Hct (37.0-47.0) % MCV (80.0-98.0) fL MCH (27.0-33.0) pg MCHC (31.0-35.0) g/dl RDW (11.0-16.0) % Plt Count (160-400) X10*3/uL MPV Immature Gran % (Auto) (0.0-0.4) % Neut % (Auto) (45-73) % Lymph % (Auto) (20-40) % Griggs % (Auto) (2-11) % Eos % (Auto) (0-4) % Baso % (Auto) (0-2) % Lymph # (Auto) (1.2-4.9) X10*3/uL [place] # (Auto) (0.1-1.2) X10*3/uL Eos # (Auto) (0.0-0.4) X10*3/uL Baso # (Auto) (0.0-0.2) X10*3/uL Abs Immat Gran (auto) (0.00-0.03) X10*3/uL Absolute Neuts (auto) (2.0-8.3) x10*3/uL Absolute Nucleated RBC (0.0-0.012) X10*3/uL Nucleated RBC % (auto) (0.0-0.2) /100WBC Smear Tech's Comments PT (10.0-13.1) SEC INR (0.9-1.1) APTT (26.0-36.4) SEC Sodium 140 (135-145) mmol/L Potassium 3.9 (3.3-5.1) mmol/L Chloride 101 (96-108) mmol/L Carbon Dioxide 27 (22-29) mmol/L Anion Gap 16 (12-20) BUN 17 H (9-16) mg/dL Creatinine 0.78 (0.5-1.4) mg/dL Estim Creat Clear Calc 69.4 Estimated GFR > 60 POC Glucose (60-115) mg/dL Random Glucose 276 H (60-115) mg/dL Lactic Acid (0.5-2.0) mmol/L Calcium 8.9 D (8.4-10.2) mg/dL Magnesium (1.6-2.6) mg/dL Total Bilirubin 0.4 (0.0-1.0) mg/dL AST 44 H (5-31) U/L ALT 43 H (0-31) U/L Alkaline Phosphatase 129 H (39-117) U/L Ammonia 20 (13-55) umol/L Troponin I High Sens 7.2 (<3.5-17.0) ng/L B-Natriuretic Peptide (<100) pg/mL Total Protein 6.3 L (6.5-8.0) g/dL Albumin 3.6 (3.5-5.0) g/dL Urine Color Urine Appearance Urine pH (5.0-9.0) Ur Specific [place] (1.005-1.025) Urine Protein (Neg-Trace) mg/dL Urine Glucose (UA) (Negative) mg/dL Urine Ketones (Negative) mg/dL Urine Blood (Negative) Urine Nitrite (Negative) Ur Leukocyte Esterase (Negative) Salicylates (15-30) mg/dL Urine Opiates Screen (Not Detect) Urine Fentanyl Screen (Not Detect) Acetaminophen (<30) mcg/mL Ur Barbiturates Screen (Not Detect) Ur Phencyclidine Scrn (Not Detect) Ur Amphetamines Screen (Not Detect) U Benzodiazepines Scrn (Not Detect) Urine Cocaine Screen (Not Detect) U Marijuana (THC) Screen (Not Detect) Ethyl Alcohol mg/dL Influenza Type A (PCR) (Negative) Influenza Type B (PCR) (Negative) RSV RNA Qual (PCR) (Negative) SARS-CoV-2 RNA (RT-PCR) (Negative) 09/19/22 09/19/22 09/19/22 Range/Units 12:32 12:32 13:58 WBC (4.8-10.8) X10*3/uL RBC (4.20-5.50) X10*6/uL Hgb (12.0-16.0) g/dl Hct (37.0-47.0) % MCV (80.0-98.0) fL MCH (27.0-33.0) pg MCHC (31.0-35.0) g/dl RDW (11.0-16.0) % Plt Count (160-400) X10*3/uL MPV Immature Gran % (Auto) (0.0-0.4) % Neut % (Auto) (45-73) % Lymph % (Auto) (20-40) % [place]gs % (Auto) (2-11) % Eos % (Auto) (0-4) % Baso % (Auto) (0-2) % Lymph # (Auto) (1.2-4.9) X10*3/uL [place] # (Auto) (0.1-1.2) X10*3/uL Eos # (Auto) (0.0-0.4) X10*3/uL Baso # (Auto) (0.0-0.2) X10*3/uL Abs Immat Gran (auto) (0.00-0.03) X10*3/uL Absolute Neuts (auto) (2.0-8.3) x10*3/uL Absolute Nucleated RBC (0.0-0.012) X10*3/uL Nucleated RBC % (auto) (0.0-0.2) /100WBC Smear Tech's Comments PT (10.0-13.1) SEC INR (0.9-1.1) APTT (26.0-36.4) SEC Sodium (135-145) mmol/L Potassium (3.3-5.1) mmol/L Chloride (96-108) mmol/L Carbon Dioxide (22-29) mmol/L Anion Gap (12-20) BUN (9-16) mg/dL Creatinine (0.5-1.4) mg/dL Estim Creat Clear Calc Estimated GFR POC Glucose (60-115) mg/dL Random Glucose (60-115) mg/dL Lactic Acid 1.0 Cancelled (0.5-2.0) mmol/L Calcium (8.4-10.2) mg/dL Magnesium (1.6-2.6) mg/dL Total Bilirubin (0.0-1.0) mg/dL AST (5-31) U/L ALT (0-31) U/L Alkaline Phosphatase (39-117) U/L Ammonia (13-55) umol/L Troponin I High Sens (<3.5-17.0) ng/L B-Natriuretic Peptide (<100) pg/mL Total Protein (6.5-8.0) g/dL Albumin (3.5-5.0) g/dL Urine Color Urine Appearance Urine pH (5.0-9.0) Ur Specific [place] (1.005-1.025) Urine Protein (Neg-Trace) mg/dL Urine Glucose (UA) (Negative) mg/dL Urine Ketones (Negative) mg/dL Urine Blood (Negative) Urine Nitrite (Negative) Ur Leukocyte Esterase (Negative) Salicylates (15-30) mg/dL Urine Opiates Screen (Not Detect) Urine Fentanyl Screen (Not Detect) Acetaminophen (<30) mcg/mL Ur Barbiturates Screen (Not Detect) Ur Phencyclidine Scrn (Not Detect) Ur Amphetamines Screen (Not Detect) U Benzodiazepines Scrn (Not Detect) Urine Cocaine Screen (Not Detect) U Marijuana (THC) Screen (Not Detect) Ethyl Alcohol mg/dL Influenza Type A (PCR) NEGATIVE (Negative) Influenza Type B (PCR) NEGATIVE (Negative) RSV RNA Qual (PCR) NEGATIVE (Negative) SARS-CoV-2 RNA (RT-PCR) NEGATIVE (Negative) 09/19/22 09/19/22 09/19/22 Range/Units 14:18 14:18 14:29 WBC (4.8-10.8) X10*3/uL RBC (4.20-5.50) X10*6/uL Hgb (12.0-16.0) g/dl Hct (37.0-47.0) % MCV (80.0-98.0) fL MCH (27.0-33.0) pg MCHC (31.0-35.0) g/dl RDW (11.0-16.0) % Plt Count (160-400) X10*3/uL MPV Immature Gran % (Auto) (0.0-0.4) % Neut % (Auto) (45-73) % Lymph % (Auto) (20-40) % [place] % (Auto) (2-11) % Eos % (Auto) (0-4) % Baso % (Auto) (0-2) % Lymph # (Auto) (1.2-4.9) X10*3/uL [place] # (Auto) (0.1-1.2) X10*3/uL Eos # (Auto) (0.0-0.4) X10*3/uL Baso # (Auto) (0.0-0.2) X10*3/uL Abs Immat Gran (auto) (0.00-0.03) X10*3/uL Absolute Neuts (auto) (2.0-8.3) x10*3/uL Absolute Nucleated RBC (0.0-0.012) X10*3/uL Nucleated RBC % (auto) (0.0-0.2) /100WBC Smear Tech's Comments PT (10.0-13.1) SEC INR (0.9-1.1) APTT (26.0-36.4) SEC Sodium (135-145) mmol/L Potassium (3.3-5.1) mmol/L Chloride (96-108) mmol/L Carbon Dioxide (22-29) mmol/L Anion Gap (12-20) BUN (9-16) mg/dL Creatinine (0.5-1.4) mg/dL Estim Creat Clear Calc Estimated GFR POC Glucose (60-115) mg/dL Random Glucose (60-115) mg/dL Lactic Acid (0.5-2.0) mmol/L Calcium (8.4-10.2) mg/dL Magnesium 1.5 L (1.6-2.6) mg/dL Total Bilirubin (0.0-1.0) mg/dL AST (5-31) U/L ALT (0-31) U/L Alkaline Phosphatase (39-117) U/L Ammonia (13-55) umol/L Troponin I High Sens (<3.5-17.0) ng/L B-Natriuretic Peptide (<100) pg/mL Total Protein (6.5-8.0) g/dL Albumin (3.5-5.0) g/dL Urine Color Yellow Urine Appearance Clear Urine pH 7.5 (5.0-9.0) Ur Specific [place] >= 1.030 H (1.005-1.025) Urine Protein Negative (Neg-Trace) mg/dL Urine Glucose (UA) 500 H (Negative) mg/dL Urine Ketones Negative (Negative) mg/dL Urine Blood Negative (Negative) Urine Nitrite Negative (Negative) Ur Leukocyte Esterase Negative (Negative) Salicylates < 5.0 L (15-30) mg/dL Urine Opiates Screen Not Detected (Not Detect) Urine Fentanyl Screen Not Detected (Not Detect) Acetaminophen < 17 (<30) mcg/mL Ur Barbiturates Screen Not Detected (Not Detect) Ur Phencyclidine Scrn Not Detected (Not Detect) Ur Amphetamines Screen Not Detected (Not Detect) U Benzodiazepines Scrn Not Detected (Not Detect) Urine Cocaine Screen Not Detected (Not Detect) U Marijuana (THC) Screen Not Detected (Not Detect) Ethyl Alcohol < 10 mg/dL Influenza Type A (PCR) (Negative) Influenza Type B (PCR) (Negative) RSV RNA Qual (PCR) (Negative) SARS-CoV-2 RNA (RT-PCR) (Negative) 09/19/22 09/19/22 09/19/22 Range/Units 14:35 21:51 21:51 WBC 5.5 (4.8-10.8) X10*3/uL RBC 3.62 L D (4.20-5.50) X10*6/uL Hgb 10.8 L D (12.0-16.0) g/dl Hct 32.3 L D (37.0-47.0) % MCV 89.2 (80.0-98.0) fL MCH 29.8 (27.0-33.0) pg MCHC 33.4 (31.0-35.0) g/dl RDW 13.2 (11.0-16.0) % Plt Count 139 L (160-400) X10*3/uL MPV 10.3 Immature Gran % (Auto) 0.4 (0.0-0.4) % Neut % (Auto) 76.9 H (45-73) % Lymph % (Auto) 15.2 L (20-40) % [place] % (Auto) 7.1 (2-11) % Eos % (Auto) 0.2 (0-4) % Baso % (Auto) 0.2 (0-2) % Lymph # (Auto) 0.8 L (1.2-4.9) X10*3/uL [place] # (Auto) 0.4 (0.1-1.2) X10*3/uL Eos # (Auto) 0.0 (0.0-0.4) X10*3/uL Baso # (Auto) 0.0 (0.0-0.2) X10*3/uL Abs Immat Gran (auto) 0.02 (0.00-0.03) X10*3/uL Absolute Neuts (auto) 4.2 (2.0-8.3) x10*3/uL Absolute Nucleated RBC 0.000 (0.0-0.012) X10*3/uL Nucleated RBC % (auto) 0.0 (0.0-0.2) /100WBC Smear Tech's Comments PT 11.6 (10.0-13.1) SEC INR 1.0 (0.9-1.1) APTT 28.3 D (26.0-36.4) SEC Sodium (135-145) mmol/L Potassium (3.3-5.1) mmol/L Chloride (96-108) mmol/L Carbon Dioxide (22-29) mmol/L Anion Gap (12-20) BUN (9-16) mg/dL Creatinine (0.5-1.4) mg/dL Estim Creat Clear Calc Estimated GFR POC Glucose (60-115) mg/dL Random Glucose (60-115) mg/dL Lactic Acid (0.5-2.0) mmol/L Calcium (8.4-10.2) mg/dL Magnesium (1.6-2.6) mg/dL Total Bilirubin (0.0-1.0) mg/dL AST (5-31) U/L ALT (0-31) U/L Alkaline Phosphatase (39-117) U/L Ammonia (13-55) umol/L Troponin I High Sens (<3.5-17.0) ng/L B-Natriuretic Peptide 20 (<100) pg/mL Total Protein (6.5-8.0) g/dL Albumin (3.5-5.0) g/dL Urine Color Urine Appearance Urine pH (5.0-9.0) Ur Specific [place] (1.005-1.025) Urine Protein (Neg-Trace) mg/dL Urine Glucose (UA) (Negative) mg/dL Urine Ketones (Negative) mg/dL Urine Blood (Negative) Urine Nitrite (Negative) Ur Leukocyte Esterase (Negative) Salicylates (15-30) mg/dL Urine Opiates Screen (Not Detect) Urine Fentanyl Screen (Not Detect) Acetaminophen (<30) mcg/mL Ur Barbiturates Screen (Not Detect) Ur Phencyclidine Scrn (Not Detect) Ur Amphetamines Screen (Not Detect) U Benzodiazepines Scrn (Not Detect) Urine Cocaine Screen (Not Detect) U Marijuana (THC) Screen (Not Detect) Ethyl Alcohol mg/dL Influenza Type A (PCR) (Negative) Influenza Type B (PCR) (Negative) RSV RNA Qual (PCR) (Negative) SARS-CoV-2 RNA (RT-PCR) (Negative) 09/19/22 09/19/22 09/20/22 Range/Units 21:51 21:51 10:02 WBC (4.8-10.8) X10*3/uL RBC (4.20-5.50) X10*6/uL Hgb (12.0-16.0) g/dl Hct (37.0-47.0) % MCV (80.0-98.0) fL MCH (27.0-33.0) pg MCHC (31.0-35.0) g/dl RDW (11.0-16.0) % Plt Count (160-400) X10*3/uL MPV Immature Gran % (Auto) (0.0-0.4) % Neut % (Auto) (45-73) % Lymph % (Auto) (20-40) % [place] % (Auto) (2-11) % Eos % (Auto) (0-4) % Baso % (Auto) (0-2) % Lymph # (Auto) (1.2-4.9) X10*3/uL [place] # (Auto) (0.1-1.2) X10*3/uL Eos # (Auto) (0.0-0.4) X10*3/uL Baso # (Auto) (0.0-0.2) X10*3/uL Abs Immat Gran (auto) (0.00-0.03) X10*3/uL Absolute Neuts (auto) (2.0-8.3) x10*3/uL Absolute Nucleated RBC (0.0-0.012) X10*3/uL Nucleated RBC % (auto) (0.0-0.2) /100WBC Smear Tech's Comments PT (10.0-13.1) SEC INR (0.9-1.1) APTT (26.0-36.4) SEC Sodium 141 (135-145) mmol/L Potassium 4.5 (3.3-5.1) mmol/L Chloride 107 (96-108) mmol/L Carbon Dioxide 27 (22-29) mmol/L Anion Gap 12 (12-20) BUN 17 H (9-16) mg/dL Creatinine 1.06 (0.5-1.4) mg/dL Estim Creat Clear Calc 51.0 Estimated GFR 52 POC Glucose 192 H (60-115) mg/dL Random Glucose 383 H* (60-115) mg/dL Lactic Acid (0.5-2.0) mmol/L Calcium 8.2 L D (8.4-10.2) mg/dL Magnesium (1.6-2.6) mg/dL Total Bilirubin 0.3 (0.0-1.0) mg/dL AST 32 H (5-31) U/L ALT 35 H (0-31) U/L Alkaline Phosphatase 95 (39-117) U/L Ammonia (13-55) umol/L Troponin I High Sens 11.0 D (<3.5-17.0) ng/L B-Natriuretic Peptide (<100) pg/mL Total Protein 5.3 L (6.5-8.0) g/dL Albumin 3.0 L (3.5-5.0) g/dL Urine Color Urine Appearance Urine pH (5.0-9.0) Ur Specific [place] (1.005-1.025) Urine Protein (Neg-Trace) mg/dL Urine Glucose (UA) (Negative) mg/dL Urine Ketones (Negative) mg/dL Urine Blood (Negative) Urine Nitrite (Negative) Ur Leukocyte Esterase (Negative) Salicylates < 5.0 L (15-30) mg/dL Urine Opiates Screen (Not Detect) Urine Fentanyl Screen (Not Detect) Acetaminophen < 17 (<30) mcg/mL Ur Barbiturates Screen (Not Detect) Ur Phencyclidine Scrn (Not Detect) Ur Amphetamines Screen (Not Detect) U Benzodiazepines Scrn (Not Detect) Urine Cocaine Screen (Not Detect) U Marijuana (THC) Screen (Not Detect) Ethyl Alcohol < 10 mg/dL Influenza Type A (PCR) (Negative) Influenza Type B (PCR) (Negative) RSV RNA Qual (PCR) (Negative) SARS-CoV-2 RNA (RT-PCR) (Negative) 09/20/22 09/21/22 09/21/22 Range/Units 20:09 07:10 13:21 WBC (4.8-10.8) X10*3/uL RBC (4.20-5.50) X10*6/uL Hgb (12.0-16.0) g/dl Hct (37.0-47.0) % MCV (80.0-98.0) fL MCH (27.0-33.0) pg MCHC (31.0-35.0) g/dl RDW (11.0-16.0) % Plt Count (160-400) X10*3/uL MPV Immature Gran % (Auto) (0.0-0.4) % Neut % (Auto) (45-73) % Lymph % (Auto) (20-40) % [place] % (Auto) (2-11) % Eos % (Auto) (0-4) % Baso % (Auto) (0-2) % Lymph # (Auto) (1.2-4.9) X10*3/uL [place] # (Auto) (0.1-1.2) X10*3/uL Eos # (Auto) (0.0-0.4) X10*3/uL Baso # (Auto) (0.0-0.2) X10*3/uL Abs Immat Gran (auto) (0.00-0.03) X10*3/uL Absolute Neuts (auto) (2.0-8.3) x10*3/uL Absolute Nucleated RBC (0.0-0.012) X10*3/uL Nucleated RBC % (auto) (0.0-0.2) /100WBC Smear Tech's Comments PT (10.0-13.1) SEC INR (0.9-1.1) APTT (26.0-36.4) SEC Sodium (135-145) mmol/L Potassium (3.3-5.1) mmol/L Chloride (96-108) mmol/L Carbon Dioxide (22-29) mmol/L Anion Gap (12-20) BUN (9-16) mg/dL Creatinine (0.5-1.4) mg/dL Estim Creat Clear Calc Estimated GFR POC Glucose 299 H 184 H 183 H (60-115) mg/dL Random Glucose (60-115) mg/dL Lactic Acid (0.5-2.0) mmol/L Calcium (8.4-10.2) mg/dL Magnesium (1.6-2.6) mg/dL Total Bilirubin (0.0-1.0) mg/dL AST (5-31) U/L ALT (0-31) U/L Alkaline Phosphatase (39-117) U/L Ammonia (13-55) umol/L Troponin I High Sens (<3.5-17.0) ng/L B-Natriuretic Peptide (<100) pg/mL Total Protein (6.5-8.0) g/dL Albumin (3.5-5.0) g/dL Urine Color Urine Appearance Urine pH (5.0-9.0) Ur Specific [place] (1.005-1.025) Urine Protein (Neg-Trace) mg/dL Urine Glucose (UA) (Negative) mg/dL Urine Ketones (Negative) mg/dL Urine Blood (Negative) Urine Nitrite (Negative) Ur Leukocyte Esterase (Negative) Salicylates (15-30) mg/dL Urine Opiates Screen (Not Detect) Urine Fentanyl Screen (Not Detect) Acetaminophen (<30) mcg/mL Ur Barbiturates Screen (Not Detect) Ur Phencyclidine Scrn (Not Detect) Ur Amphetamines Screen (Not Detect) U Benzodiazepines Scrn (Not Detect) Urine Cocaine Screen (Not Detect) U Marijuana (THC) Screen (Not Detect) Ethyl Alcohol mg/dL Influenza Type A (PCR) (Negative) Influenza Type B (PCR) (Negative) RSV RNA Qual (PCR) (Negative) SARS-CoV-2 RNA (RT-PCR) (Negative) 09/21/22 09/21/22 Range/Units 18:04 21:01 WBC (4.8-10.8) X10*3/uL RBC (4.20-5.50) X10*6/uL Hgb (12.0-16.0) g/dl Hct (37.0-47.0) % MCV (80.0-98.0) fL MCH (27.0-33.0) pg MCHC (31.0-35.0) g/dl RDW (11.0-16.0) % Plt Count (160-400) X10*3/uL MPV Immature Gran % (Auto) (0.0-0.4) % Neut % (Auto) (45-73) % Lymph % (Auto) (20-40) % [place] % (Auto) (2-11) % Eos % (Auto) (0-4) % Baso % (Auto) (0-2) % Lymph # (Auto) (1.2-4.9) X10*3/uL [place] # (Auto) (0.1-1.2) X10*3/uL Eos # (Auto) (0.0-0.4) X10*3/uL Baso # (Auto) (0.0-0.2) X10*3/uL Abs Immat Gran (auto) (0.00-0.03) X10*3/uL Absolute Neuts (auto) (2.0-8.3) x10*3/uL Absolute Nucleated RBC (0.0-0.012) X10*3/uL Nucleated RBC % (auto) (0.0-0.2) /100WBC Smear Tech's Comments PT (10.0-13.1) SEC INR (0.9-1.1) APTT (26.0-36.4) SEC Sodium (135-145) mmol/L Potassium (3.3-5.1) mmol/L Chloride (96-108) mmol/L Carbon Dioxide (22-29) mmol/L Anion Gap (12-20) BUN (9-16) mg/dL Creatinine (0.5-1.4) mg/dL Estim Creat Clear Calc Estimated GFR POC Glucose 158 H 162 H (60-115) mg/dL Random Glucose (60-115) mg/dL Lactic Acid (0.5-2.0) mmol/L Calcium (8.4-10.2) mg/dL Magnesium (1.6-2.6) mg/dL Total Bilirubin (0.0-1.0) mg/dL AST (5-31) U/L ALT (0-31) U/L Alkaline Phosphatase (39-117) U/L Ammonia (13-55) umol/L Troponin I High Sens (<3.5-17.0) ng/L B-Natriuretic Peptide (<100) pg/mL Total Protein (6.5-8.0) g/dL Albumin (3.5-5.0) g/dL Urine Color Urine Appearance Urine pH (5.0-9.0) Ur Specific [place] (1.005-1.025) Urine Protein (Neg-Trace) mg/dL Urine Glucose (UA) (Negative) mg/dL Urine Ketones (Negative) mg/dL Urine Blood (Negative) Urine Nitrite (Negative) Ur Leukocyte Esterase (Negative) Salicylates (15-30) mg/dL Urine Opiates Screen (Not Detect) Urine Fentanyl Screen (Not Detect) Acetaminophen (<30) mcg/mL Ur Barbiturates Screen (Not Detect) Ur Phencyclidine Scrn (Not Detect) Ur Amphetamines Screen (Not Detect) U Benzodiazepines Scrn (Not Detect) Urine Cocaine Screen (Not Detect) U Marijuana (THC) Screen (Not Detect) Ethyl Alcohol mg/dL Influenza Type A (PCR) (Negative) Influenza Type B (PCR) (Negative) RSV RNA Qual (PCR) (Negative) SARS-CoV-2 RNA (RT-PCR) (Negative) <ALVERTO Hutchins - Last Filed: 09/19/22 18:13> Lab Results 09/19/22 09/19/22 09/19/22 Range/Units 12:05 12:32 12:32 WBC 7.9 (4.8-10.8) X10*3/uL RBC 4.65 (4.20-5.50) X10*6/uL Hgb 13.9 (12.0-16.0) g/dl Hct 40.8 (37.0-47.0) % MCV 87.7 (80.0-98.0) fL MCH 29.9 (27.0-33.0) pg MCHC 34.1 (31.0-35.0) g/dl RDW 13.2 (11.0-16.0) % Plt Count 144 L D (160-400) X10*3/uL MPV Not Reportable Immature Gran % (Auto) 0.4 (0.0-0.4) % Neut % (Auto) 70.7 (45-73) % Lymph % (Auto) 19.8 L (20-40) % [place] % (Auto) 7.0 (2-11) % Eos % (Auto) 1.5 (0-4) % Baso % (Auto) 0.6 (0-2) % Lymph # (Auto) 1.6 (1.2-4.9) X10*3/uL [place] # (Auto) 0.6 (0.1-1.2) X10*3/uL Eos # (Auto) 0.1 (0.0-0.4) X10*3/uL Baso # (Auto) 0.1 (0.0-0.2) X10*3/uL Abs Immat Gran (auto) 0.03 (0.00-0.03) X10*3/uL Absolute Neuts (auto) 5.6 (2.0-8.3) x10*3/uL Absolute Nucleated RBC 0.020 H (0.0-0.012) X10*3/uL Nucleated RBC % (auto) 0.3 H (0.0-0.2) /100WBC Smear Tech's Comments VERIFIED PT 10.4 (10.0-13.1) SEC INR 0.9 (0.9-1.1) APTT 22.8 L (26.0-36.4) SEC Sodium (135-145) mmol/L Potassium (3.3-5.1) mmol/L Chloride (96-108) mmol/L Carbon Dioxide (22-29) mmol/L Anion Gap (12-20) BUN (9-16) mg/dL Creatinine (0.5-1.4) mg/dL Estim Creat Clear Calc Estimated GFR POC Glucose 241 H (60-115) mg/dL Random Glucose (60-115) mg/dL Lactic Acid (0.5-2.0) mmol/L Calcium (8.4-10.2) mg/dL Magnesium (1.6-2.6) mg/dL Total Bilirubin (0.0-1.0) mg/dL AST (5-31) U/L ALT (0-31) U/L Alkaline Phosphatase (39-117) U/L Ammonia (13-55) umol/L Troponin I High Sens (<3.5-17.0) ng/L B-Natriuretic Peptide (<100) pg/mL Total Protein (6.5-8.0) g/dL Albumin (3.5-5.0) g/dL Urine Color Urine Appearance Urine pH (5.0-9.0) Ur Specific [place] (1.005-1.025) Urine Protein (Neg-Trace) mg/dL Urine Glucose (UA) (Negative) mg/dL Urine Ketones (Negative) mg/dL Urine Blood (Negative) Urine Nitrite (Negative) Ur Leukocyte Esterase (Negative) Salicylates (15-30) mg/dL Urine Opiates Screen (Not Detect) Urine Fentanyl Screen (Not Detect) Acetaminophen (<30) mcg/mL Ur Barbiturates Screen (Not Detect) Ur Phencyclidine Scrn (Not Detect) Ur Amphetamines Screen (Not Detect) U Benzodiazepines Scrn (Not Detect) Urine Cocaine Screen (Not Detect) U Marijuana (THC) Screen (Not Detect) Ethyl Alcohol mg/dL Influenza Type A (PCR) (Negative) Influenza Type B (PCR) (Negative) RSV RNA Qual (PCR) (Negative) SARS-CoV-2 RNA (RT-PCR) (Negative) 09/19/22 09/19/22 09/19/22 Range/Units 12:32 12:32 12:32 WBC (4.8-10.8) X10*3/uL RBC (4.20-5.50) X10*6/uL Hgb (12.0-16.0) g/dl Hct (37.0-47.0) % MCV (80.0-98.0) fL MCH (27.0-33.0) pg MCHC (31.0-35.0) g/dl RDW (11.0-16.0) % Plt Count (160-400) X10*3/uL MPV Immature Gran % (Auto) (0.0-0.4) % Neut % (Auto) (45-73) % Lymph % (Auto) (20-40) % [place] % (Auto) (2-11) % Eos % (Auto) (0-4) % Baso % (Auto) (0-2) % Lymph # (Auto) (1.2-4.9) X10*3/uL [place] # (Auto) (0.1-1.2) X10*3/uL Eos # (Auto) (0.0-0.4) X10*3/uL Baso # (Auto) (0.0-0.2) X10*3/uL Abs Immat Gran (auto) (0.00-0.03) X10*3/uL Absolute Neuts (auto) (2.0-8.3) x10*3/uL Absolute Nucleated RBC (0.0-0.012) X10*3/uL Nucleated RBC % (auto) (0.0-0.2) /100WBC Smear Tech's Comments PT (10.0-13.1) SEC INR (0.9-1.1) APTT (26.0-36.4) SEC Sodium 140 (135-145) mmol/L Potassium 3.9 (3.3-5.1) mmol/L Chloride 101 (96-108) mmol/L Carbon Dioxide 27 (22-29) mmol/L Anion Gap 16 (12-20) BUN 17 H (9-16) mg/dL Creatinine 0.78 (0.5-1.4) mg/dL Estim Creat Clear Calc 69.4 Estimated GFR > 60 POC Glucose (60-115) mg/dL Random Glucose 276 H (60-115) mg/dL Lactic Acid (0.5-2.0) mmol/L Calcium 8.9 D (8.4-10.2) mg/dL Magnesium (1.6-2.6) mg/dL Total Bilirubin 0.4 (0.0-1.0) mg/dL AST 44 H (5-31) U/L ALT 43 H (0-31) U/L Alkaline Phosphatase 129 H (39-117) U/L Ammonia 20 (13-55) umol/L Troponin I High Sens 7.2 (<3.5-17.0) ng/L B-Natriuretic Peptide (<100) pg/mL Total Protein 6.3 L (6.5-8.0) g/dL Albumin 3.6 (3.5-5.0) g/dL Urine Color Urine Appearance Urine pH (5.0-9.0) Ur Specific [place] (1.005-1.025) Urine Protein (Neg-Trace) mg/dL Urine Glucose (UA) (Negative) mg/dL Urine Ketones (Negative) mg/dL Urine Blood (Negative) Urine Nitrite (Negative) Ur Leukocyte Esterase (Negative) Salicylates (15-30) mg/dL Urine Opiates Screen (Not Detect) Urine Fentanyl Screen (Not Detect) Acetaminophen (<30) mcg/mL Ur Barbiturates Screen (Not Detect) Ur Phencyclidine Scrn (Not Detect) Ur Amphetamines Screen (Not Detect) U Benzodiazepines Scrn (Not Detect) Urine Cocaine Screen (Not Detect) U Marijuana (THC) Screen (Not Detect) Ethyl Alcohol mg/dL Influenza Type A (PCR) (Negative) Influenza Type B (PCR) (Negative) RSV RNA Qual (PCR) (Negative) SARS-CoV-2 RNA (RT-PCR) (Negative) 09/19/22 09/19/22 09/19/22 Range/Units 12:32 12:32 13:58 WBC (4.8-10.8) X10*3/uL RBC (4.20-5.50) X10*6/uL Hgb (12.0-16.0) g/dl Hct (37.0-47.0) % MCV (80.0-98.0) fL MCH (27.0-33.0) pg MCHC (31.0-35.0) g/dl RDW (11.0-16.0) % Plt Count (160-400) X10*3/uL MPV Immature Gran % (Auto) (0.0-0.4) % Neut % (Auto) (45-73) % Lymph % (Auto) (20-40) % [place] % (Auto) (2-11) % Eos % (Auto) (0-4) % Baso % (Auto) (0-2) % Lymph # (Auto) (1.2-4.9) X10*3/uL [place] # (Auto) (0.1-1.2) X10*3/uL Eos # (Auto) (0.0-0.4) X10*3/uL Baso # (Auto) (0.0-0.2) X10*3/uL Abs Immat Gran (auto) (0.00-0.03) X10*3/uL Absolute Neuts (auto) (2.0-8.3) x10*3/uL Absolute Nucleated RBC (0.0-0.012) X10*3/uL Nucleated RBC % (auto) (0.0-0.2) /100WBC Smear Tech's Comments PT (10.0-13.1) SEC INR (0.9-1.1) APTT (26.0-36.4) SEC Sodium (135-145) mmol/L Potassium (3.3-5.1) mmol/L Chloride (96-108) mmol/L Carbon Dioxide (22-29) mmol/L Anion Gap (12-20) BUN (9-16) mg/dL Creatinine (0.5-1.4) mg/dL Estim Creat Clear Calc Estimated GFR POC Glucose (60-115) mg/dL Random Glucose (60-115) mg/dL Lactic Acid 1.0 Cancelled (0.5-2.0) mmol/L Calcium (8.4-10.2) mg/dL Magnesium (1.6-2.6) mg/dL Total Bilirubin (0.0-1.0) mg/dL AST (5-31) U/L ALT (0-31) U/L Alkaline Phosphatase (39-117) U/L Ammonia (13-55) umol/L Troponin I High Sens (<3.5-17.0) ng/L B-Natriuretic Peptide (<100) pg/mL Total Protein (6.5-8.0) g/dL Albumin (3.5-5.0) g/dL Urine Color Urine Appearance Urine pH (5.0-9.0) Ur Specific [place] (1.005-1.025) Urine Protein (Neg-Trace) mg/dL Urine Glucose (UA) (Negative) mg/dL Urine Ketones (Negative) mg/dL Urine Blood (Negative) Urine Nitrite (Negative) Ur Leukocyte Esterase (Negative) Salicylates (15-30) mg/dL Urine Opiates Screen (Not Detect) Urine Fentanyl Screen (Not Detect) Acetaminophen (<30) mcg/mL Ur Barbiturates Screen (Not Detect) Ur Phencyclidine Scrn (Not Detect) Ur Amphetamines Screen (Not Detect) U Benzodiazepines Scrn (Not Detect) Urine Cocaine Screen (Not Detect) U Marijuana (THC) Screen (Not Detect) Ethyl Alcohol mg/dL Influenza Type A (PCR) NEGATIVE (Negative) Influenza Type B (PCR) NEGATIVE (Negative) RSV RNA Qual (PCR) NEGATIVE (Negative) SARS-CoV-2 RNA (RT-PCR) NEGATIVE (Negative) 09/19/22 09/19/22 09/19/22 Range/Units 14:18 14:18 14:29 WBC (4.8-10.8) X10*3/uL RBC (4.20-5.50) X10*6/uL Hgb (12.0-16.0) g/dl Hct (37.0-47.0) % MCV (80.0-98.0) fL MCH (27.0-33.0) pg MCHC (31.0-35.0) g/dl RDW (11.0-16.0) % Plt Count (160-400) X10*3/uL MPV Immature Gran % (Auto) (0.0-0.4) % Neut % (Auto) (45-73) % Lymph % (Auto) (20-40) % [place] % (Auto) (2-11) % Eos % (Auto) (0-4) % Baso % (Auto) (0-2) % Lymph # (Auto) (1.2-4.9) X10*3/uL [place] # (Auto) (0.1-1.2) X10*3/uL Eos # (Auto) (0.0-0.4) X10*3/uL Baso # (Auto) (0.0-0.2) X10*3/uL Abs Immat Gran (auto) (0.00-0.03) X10*3/uL Absolute Neuts (auto) (2.0-8.3) x10*3/uL Absolute Nucleated RBC (0.0-0.012) X10*3/uL Nucleated RBC % (auto) (0.0-0.2) /100WBC Smear Tech's Comments PT (10.0-13.1) SEC INR (0.9-1.1) APTT (26.0-36.4) SEC Sodium (135-145) mmol/L Potassium (3.3-5.1) mmol/L Chloride (96-108) mmol/L Carbon Dioxide (22-29) mmol/L Anion Gap (12-20) BUN (9-16) mg/dL Creatinine (0.5-1.4) mg/dL Estim Creat Clear Calc Estimated GFR POC Glucose (60-115) mg/dL Random Glucose (60-115) mg/dL Lactic Acid (0.5-2.0) mmol/L Calcium (8.4-10.2) mg/dL Magnesium 1.5 L (1.6-2.6) mg/dL Total Bilirubin (0.0-1.0) mg/dL AST (5-31) U/L ALT (0-31) U/L Alkaline Phosphatase (39-117) U/L Ammonia (13-55) umol/L Troponin I High Sens (<3.5-17.0) ng/L B-Natriuretic Peptide (<100) pg/mL Total Protein (6.5-8.0) g/dL Albumin (3.5-5.0) g/dL Urine Color Yellow Urine Appearance Clear Urine pH 7.5 (5.0-9.0) Ur Specific [place] >= 1.030 H (1.005-1.025) Urine Protein Negative (Neg-Trace) mg/dL Urine Glucose (UA) 500 H (Negative) mg/dL Urine Ketones Negative (Negative) mg/dL Urine Blood Negative (Negative) Urine Nitrite Negative (Negative) Ur Leukocyte Esterase Negative (Negative) Salicylates < 5.0 L (15-30) mg/dL Urine Opiates Screen Not Detected (Not Detect) Urine Fentanyl Screen Not Detected (Not Detect) Acetaminophen < 17 (<30) mcg/mL Ur Barbiturates Screen Not Detected (Not Detect) Ur Phencyclidine Scrn Not Detected (Not Detect) Ur Amphetamines Screen Not Detected (Not Detect) U Benzodiazepines Scrn Not Detected (Not Detect) Urine Cocaine Screen Not Detected (Not Detect) U Marijuana (THC) Screen Not Detected (Not Detect) Ethyl Alcohol < 10 mg/dL Influenza Type A (PCR) (Negative) Influenza Type B (PCR) (Negative) RSV RNA Qual (PCR) (Negative) SARS-CoV-2 RNA (RT-PCR) (Negative) 09/19/22 09/19/22 09/19/22 Range/Units 14:35 21:51 21:51 WBC 5.5 (4.8-10.8) X10*3/uL RBC 3.62 L D (4.20-5.50) X10*6/uL Hgb 10.8 L D (12.0-16.0) g/dl Hct 32.3 L D (37.0-47.0) % MCV 89.2 (80.0-98.0) fL MCH 29.8 (27.0-33.0) pg MCHC 33.4 (31.0-35.0) g/dl RDW 13.2 (11.0-16.0) % Plt Count 139 L (160-400) X10*3/uL MPV 10.3 Immature Gran % (Auto) 0.4 (0.0-0.4) % Neut % (Auto) 76.9 H (45-73) % Lymph % (Auto) 15.2 L (20-40) % [place] % (Auto) 7.1 (2-11) % Eos % (Auto) 0.2 (0-4) % Baso % (Auto) 0.2 (0-2) % Lymph # (Auto) 0.8 L (1.2-4.9) X10*3/uL [place] # (Auto) 0.4 (0.1-1.2) X10*3/uL Eos # (Auto) 0.0 (0.0-0.4) X10*3/uL Baso # (Auto) 0.0 (0.0-0.2) X10*3/uL Abs Immat Gran (auto) 0.02 (0.00-0.03) X10*3/uL Absolute Neuts (auto) 4.2 (2.0-8.3) x10*3/uL Absolute Nucleated RBC 0.000 (0.0-0.012) X10*3/uL Nucleated RBC % (auto) 0.0 (0.0-0.2) /100WBC Smear Tech's Comments PT 11.6 (10.0-13.1) SEC INR 1.0 (0.9-1.1) APTT 28.3 D (26.0-36.4) SEC Sodium (135-145) mmol/L Potassium (3.3-5.1) mmol/L Chloride (96-108) mmol/L Carbon Dioxide (22-29) mmol/L Anion Gap (12-20) BUN (9-16) mg/dL Creatinine (0.5-1.4) mg/dL Estim Creat Clear Calc Estimated GFR POC Glucose (60-115) mg/dL Random Glucose (60-115) mg/dL Lactic Acid (0.5-2.0) mmol/L Calcium (8.4-10.2) mg/dL Magnesium (1.6-2.6) mg/dL Total Bilirubin (0.0-1.0) mg/dL AST (5-31) U/L ALT (0-31) U/L Alkaline Phosphatase (39-117) U/L Ammonia (13-55) umol/L Troponin I High Sens (<3.5-17.0) ng/L B-Natriuretic Peptide 20 (<100) pg/mL Total Protein (6.5-8.0) g/dL Albumin (3.5-5.0) g/dL Urine Color Urine Appearance Urine pH (5.0-9.0) Ur Specific [place] (1.005-1.025) Urine Protein (Neg-Trace) mg/dL Urine Glucose (UA) (Negative) mg/dL Urine Ketones (Negative) mg/dL Urine Blood (Negative) Urine Nitrite (Negative) Ur Leukocyte Esterase (Negative) Salicylates (15-30) mg/dL Urine Opiates Screen (Not Detect) Urine Fentanyl Screen (Not Detect) Acetaminophen (<30) mcg/mL Ur Barbiturates Screen (Not Detect) Ur Phencyclidine Scrn (Not Detect) Ur Amphetamines Screen (Not Detect) U Benzodiazepines Scrn (Not Detect) Urine Cocaine Screen (Not Detect) U Marijuana (THC) Screen (Not Detect) Ethyl Alcohol mg/dL Influenza Type A (PCR) (Negative) Influenza Type B (PCR) (Negative) RSV RNA Qual (PCR) (Negative) SARS-CoV-2 RNA (RT-PCR) (Negative) 09/19/22 09/19/22 09/20/22 Range/Units 21:51 21:51 10:02 WBC (4.8-10.8) X10*3/uL RBC (4.20-5.50) X10*6/uL Hgb (12.0-16.0) g/dl Hct (37.0-47.0) % MCV (80.0-98.0) fL MCH (27.0-33.0) pg MCHC (31.0-35.0) g/dl RDW (11.0-16.0) % Plt Count (160-400) X10*3/uL MPV Immature Gran % (Auto) (0.0-0.4) % Neut % (Auto) (45-73) % Lymph % (Auto) (20-40) % [place] % (Auto) (2-11) % Eos % (Auto) (0-4) % Baso % (Auto) (0-2) % Lymph # (Auto) (1.2-4.9) X10*3/uL [place] # (Auto) (0.1-1.2) X10*3/uL Eos # (Auto) (0.0-0.4) X10*3/uL Baso # (Auto) (0.0-0.2) X10*3/uL Abs Immat Gran (auto) (0.00-0.03) X10*3/uL Absolute Neuts (auto) (2.0-8.3) x10*3/uL Absolute Nucleated RBC (0.0-0.012) X10*3/uL Nucleated RBC % (auto) (0.0-0.2) /100WBC Smear Tech's Comments PT (10.0-13.1) SEC INR (0.9-1.1) APTT (26.0-36.4) SEC Sodium 141 (135-145) mmol/L Potassium 4.5 (3.3-5.1) mmol/L Chloride 107 (96-108) mmol/L Carbon Dioxide 27 (22-29) mmol/L Anion Gap 12 (12-20) BUN 17 H (9-16) mg/dL Creatinine 1.06 (0.5-1.4) mg/dL Estim Creat Clear Calc 51.0 Estimated GFR 52 POC Glucose 192 H (60-115) mg/dL Random Glucose 383 H* (60-115) mg/dL Lactic Acid (0.5-2.0) mmol/L Calcium 8.2 L D (8.4-10.2) mg/dL Magnesium (1.6-2.6) mg/dL Total Bilirubin 0.3 (0.0-1.0) mg/dL AST 32 H (5-31) U/L ALT 35 H (0-31) U/L Alkaline Phosphatase 95 (39-117) U/L Ammonia (13-55) umol/L Troponin I High Sens 11.0 D (<3.5-17.0) ng/L B-Natriuretic Peptide (<100) pg/mL Total Protein 5.3 L (6.5-8.0) g/dL Albumin 3.0 L (3.5-5.0) g/dL Urine Color Urine Appearance Urine pH (5.0-9.0) Ur Specific [place] (1.005-1.025) Urine Protein (Neg-Trace) mg/dL Urine Glucose (UA) (Negative) mg/dL Urine Ketones (Negative) mg/dL Urine Blood (Negative) Urine Nitrite (Negative) Ur Leukocyte Esterase (Negative) Salicylates < 5.0 L (15-30) mg/dL Urine Opiates Screen (Not Detect) Urine Fentanyl Screen (Not Detect) Acetaminophen < 17 (<30) mcg/mL Ur Barbiturates Screen (Not Detect) Ur Phencyclidine Scrn (Not Detect) Ur Amphetamines Screen (Not Detect) U Benzodiazepines Scrn (Not Detect) Urine Cocaine Screen (Not Detect) U Marijuana (THC) Screen (Not Detect) Ethyl Alcohol < 10 mg/dL Influenza Type A (PCR) (Negative) Influenza Type B (PCR) (Negative) RSV RNA Qual (PCR) (Negative) SARS-CoV-2 RNA (RT-PCR) (Negative) 09/20/22 09/21/22 09/21/22 Range/Units 20:09 07:10 13:21 WBC (4.8-10.8) X10*3/uL RBC (4.20-5.50) X10*6/uL Hgb (12.0-16.0) g/dl Hct (37.0-47.0) % MCV (80.0-98.0) fL MCH (27.0-33.0) pg MCHC (31.0-35.0) g/dl RDW (11.0-16.0) % Plt Count (160-400) X10*3/uL MPV Immature Gran % (Auto) (0.0-0.4) % Neut % (Auto) (45-73) % Lymph % (Auto) (20-40) % [place] % (Auto) (2-11) % Eos % (Auto) (0-4) % Baso % (Auto) (0-2) % Lymph # (Auto) (1.2-4.9) X10*3/uL [place] # (Auto) (0.1-1.2) X10*3/uL Eos # (Auto) (0.0-0.4) X10*3/uL Baso # (Auto) (0.0-0.2) X10*3/uL Abs Immat Gran (auto) (0.00-0.03) X10*3/uL Absolute Neuts (auto) (2.0-8.3) x10*3/uL Absolute Nucleated RBC (0.0-0.012) X10*3/uL Nucleated RBC % (auto) (0.0-0.2) /100WBC Smear Tech's Comments PT (10.0-13.1) SEC INR (0.9-1.1) APTT (26.0-36.4) SEC Sodium (135-145) mmol/L Potassium (3.3-5.1) mmol/L Chloride (96-108) mmol/L Carbon Dioxide (22-29) mmol/L Anion Gap (12-20) BUN (9-16) mg/dL Creatinine (0.5-1.4) mg/dL Estim Creat Clear Calc Estimated GFR POC Glucose 299 H 184 H 183 H (60-115) mg/dL Random Glucose (60-115) mg/dL Lactic Acid (0.5-2.0) mmol/L Calcium (8.4-10.2) mg/dL Magnesium (1.6-2.6) mg/dL Total Bilirubin (0.0-1.0) mg/dL AST (5-31) U/L ALT (0-31) U/L Alkaline Phosphatase (39-117) U/L Ammonia (13-55) umol/L Troponin I High Sens (<3.5-17.0) ng/L B-Natriuretic Peptide (<100) pg/mL Total Protein (6.5-8.0) g/dL Albumin (3.5-5.0) g/dL Urine Color Urine Appearance Urine pH (5.0-9.0) Ur Specific [place] (1.005-1.025) Urine Protein (Neg-Trace) mg/dL Urine Glucose (UA) (Negative) mg/dL Urine Ketones (Negative) mg/dL Urine Blood (Negative) Urine Nitrite (Negative) Ur Leukocyte Esterase (Negative) Salicylates (15-30) mg/dL Urine Opiates Screen (Not Detect) Urine Fentanyl Screen (Not Detect) Acetaminophen (<30) mcg/mL Ur Barbiturates Screen (Not Detect) Ur Phencyclidine Scrn (Not Detect) Ur Amphetamines Screen (Not Detect) U Benzodiazepines Scrn (Not Detect) Urine Cocaine Screen (Not Detect) U Marijuana (THC) Screen (Not Detect) Ethyl Alcohol mg/dL Influenza Type A (PCR) (Negative) Influenza Type B (PCR) (Negative) RSV RNA Qual (PCR) (Negative) SARS-CoV-2 RNA (RT-PCR) (Negative) 09/21/22 09/21/22 Range/Units 18:04 21:01 WBC (4.8-10.8) X10*3/uL RBC (4.20-5.50) X10*6/uL Hgb (12.0-16.0) g/dl Hct (37.0-47.0) % MCV (80.0-98.0) fL MCH (27.0-33.0) pg MCHC (31.0-35.0) g/dl RDW (11.0-16.0) % Plt Count (160-400) X10*3/uL MPV Immature Gran % (Auto) (0.0-0.4) % Neut % (Auto) (45-73) % Lymph % (Auto) (20-40) % [place] % (Auto) (2-11) % Eos % (Auto) (0-4) % Baso % (Auto) (0-2) % Lymph # (Auto) (1.2-4.9) X10*3/uL [place] # (Auto) (0.1-1.2) X10*3/uL Eos # (Auto) (0.0-0.4) X10*3/uL Baso # (Auto) (0.0-0.2) X10*3/uL Abs Immat Gran (auto) (0.00-0.03) X10*3/uL Absolute Neuts (auto) (2.0-8.3) x10*3/uL Absolute Nucleated RBC (0.0-0.012) X10*3/uL Nucleated RBC % (auto) (0.0-0.2) /100WBC Smear Tech's Comments PT (10.0-13.1) SEC INR (0.9-1.1) APTT (26.0-36.4) SEC Sodium (135-145) mmol/L Potassium (3.3-5.1) mmol/L Chloride (96-108) mmol/L Carbon Dioxide (22-29) mmol/L Anion Gap (12-20) BUN (9-16) mg/dL Creatinine (0.5-1.4) mg/dL Estim Creat Clear Calc Estimated GFR POC Glucose 158 H 162 H (60-115) mg/dL Random Glucose (60-115) mg/dL Lactic Acid (0.5-2.0) mmol/L Calcium (8.4-10.2) mg/dL Magnesium (1.6-2.6) mg/dL Total Bilirubin (0.0-1.0) mg/dL AST (5-31) U/L ALT (0-31) U/L Alkaline Phosphatase (39-117) U/L Ammonia (13-55) umol/L Troponin I High Sens (<3.5-17.0) ng/L B-Natriuretic Peptide (<100) pg/mL Total Protein (6.5-8.0) g/dL Albumin (3.5-5.0) g/dL Urine Color Urine Appearance Urine pH (5.0-9.0) Ur Specific [place] (1.005-1.025) Urine Protein (Neg-Trace) mg/dL Urine Glucose (UA) (Negative) mg/dL Urine Ketones (Negative) mg/dL Urine Blood (Negative) Urine Nitrite (Negative) Ur Leukocyte Esterase (Negative) Salicylates (15-30) mg/dL Urine Opiates Screen (Not Detect) Urine Fentanyl Screen (Not Detect) Acetaminophen (<30) mcg/mL Ur Barbiturates Screen (Not Detect) Ur Phencyclidine Scrn (Not Detect) Ur Amphetamines Screen (Not Detect) U Benzodiazepines Scrn (Not Detect) Urine Cocaine Screen (Not Detect) U Marijuana (THC) Screen (Not Detect) Ethyl Alcohol mg/dL Influenza Type A (PCR) (Negative) Influenza Type B (PCR) (Negative) RSV RNA Qual (PCR) (Negative) SARS-CoV-2 RNA (RT-PCR) (Negative) <ALVERTO Villalta - Last Filed: 09/20/22 00:48> Lab Results 09/19/22 09/19/22 09/19/22 Range/Units 12:05 12:32 12:32 WBC 7.9 (4.8-10.8) X10*3/uL RBC 4.65 (4.20-5.50) X10*6/uL Hgb 13.9 (12.0-16.0) g/dl Hct 40.8 (37.0-47.0) % MCV 87.7 (80.0-98.0) fL MCH 29.9 (27.0-33.0) pg MCHC 34.1 (31.0-35.0) g/dl RDW 13.2 (11.0-16.0) % Plt Count 144 L D (160-400) X10*3/uL MPV Not Reportable Immature Gran % (Auto) 0.4 (0.0-0.4) % Neut % (Auto) 70.7 (45-73) % Lymph % (Auto) 19.8 L (20-40) % [place] % (Auto) 7.0 (2-11) % Eos % (Auto) 1.5 (0-4) % Baso % (Auto) 0.6 (0-2) % Lymph # (Auto) 1.6 (1.2-4.9) X10*3/uL [place] # (Auto) 0.6 (0.1-1.2) X10*3/uL Eos # (Auto) 0.1 (0.0-0.4) X10*3/uL Baso # (Auto) 0.1 (0.0-0.2) X10*3/uL Abs Immat Gran (auto) 0.03 (0.00-0.03) X10*3/uL Absolute Neuts (auto) 5.6 (2.0-8.3) x10*3/uL Absolute Nucleated RBC 0.020 H (0.0-0.012) X10*3/uL Nucleated RBC % (auto) 0.3 H (0.0-0.2) /100WBC Smear Tech's Comments VERIFIED PT 10.4 (10.0-13.1) SEC INR 0.9 (0.9-1.1) APTT 22.8 L (26.0-36.4) SEC Sodium (135-145) mmol/L Potassium (3.3-5.1) mmol/L Chloride (96-108) mmol/L Carbon Dioxide (22-29) mmol/L Anion Gap (12-20) BUN (9-16) mg/dL Creatinine (0.5-1.4) mg/dL Estim Creat Clear Calc Estimated GFR POC Glucose 241 H (60-115) mg/dL Random Glucose (60-115) mg/dL Lactic Acid (0.5-2.0) mmol/L Calcium (8.4-10.2) mg/dL Magnesium (1.6-2.6) mg/dL Total Bilirubin (0.0-1.0) mg/dL AST (5-31) U/L ALT (0-31) U/L Alkaline Phosphatase (39-117) U/L Ammonia (13-55) umol/L Troponin I High Sens (<3.5-17.0) ng/L B-Natriuretic Peptide (<100) pg/mL Total Protein (6.5-8.0) g/dL Albumin (3.5-5.0) g/dL Urine Color Urine Appearance Urine pH (5.0-9.0) Ur Specific [place] (1.005-1.025) Urine Protein (Neg-Trace) mg/dL Urine Glucose (UA) (Negative) mg/dL Urine Ketones (Negative) mg/dL Urine Blood (Negative) Urine Nitrite (Negative) Ur Leukocyte Esterase (Negative) Salicylates (15-30) mg/dL Urine Opiates Screen (Not Detect) Urine Fentanyl Screen (Not Detect) Acetaminophen (<30) mcg/mL Ur Barbiturates Screen (Not Detect) Ur Phencyclidine Scrn (Not Detect) Ur Amphetamines Screen (Not Detect) U Benzodiazepines Scrn (Not Detect) Urine Cocaine Screen (Not Detect) U Marijuana (THC) Screen (Not Detect) Ethyl Alcohol mg/dL Influenza Type A (PCR) (Negative) Influenza Type B (PCR) (Negative) RSV RNA Qual (PCR) (Negative) SARS-CoV-2 RNA (RT-PCR) (Negative) 09/19/22 09/19/22 09/19/22 Range/Units 12:32 12:32 12:32 WBC (4.8-10.8) X10*3/uL RBC (4.20-5.50) X10*6/uL Hgb (12.0-16.0) g/dl Hct (37.0-47.0) % MCV (80.0-98.0) fL MCH (27.0-33.0) pg MCHC (31.0-35.0) g/dl RDW (11.0-16.0) % Plt Count (160-400) X10*3/uL MPV Immature Gran % (Auto) (0.0-0.4) % Neut % (Auto) (45-73) % Lymph % (Auto) (20-40) % [place] % (Auto) (2-11) % Eos % (Auto) (0-4) % Baso % (Auto) (0-2) % Lymph # (Auto) (1.2-4.9) X10*3/uL [place] # (Auto) (0.1-1.2) X10*3/uL Eos # (Auto) (0.0-0.4) X10*3/uL Baso # (Auto) (0.0-0.2) X10*3/uL Abs Immat Gran (auto) (0.00-0.03) X10*3/uL Absolute Neuts (auto) (2.0-8.3) x10*3/uL Absolute Nucleated RBC (0.0-0.012) X10*3/uL Nucleated RBC % (auto) (0.0-0.2) /100WBC Smear Tech's Comments PT (10.0-13.1) SEC INR (0.9-1.1) APTT (26.0-36.4) SEC Sodium 140 (135-145) mmol/L Potassium 3.9 (3.3-5.1) mmol/L Chloride 101 (96-108) mmol/L Carbon Dioxide 27 (22-29) mmol/L Anion Gap 16 (12-20) BUN 17 H (9-16) mg/dL Creatinine 0.78 (0.5-1.4) mg/dL Estim Creat Clear Calc 69.4 Estimated GFR > 60 POC Glucose (60-115) mg/dL Random Glucose 276 H (60-115) mg/dL Lactic Acid (0.5-2.0) mmol/L Calcium 8.9 D (8.4-10.2) mg/dL Magnesium (1.6-2.6) mg/dL Total Bilirubin 0.4 (0.0-1.0) mg/dL AST 44 H (5-31) U/L ALT 43 H (0-31) U/L Alkaline Phosphatase 129 H (39-117) U/L Ammonia 20 (13-55) umol/L Troponin I High Sens 7.2 (<3.5-17.0) ng/L B-Natriuretic Peptide (<100) pg/mL Total Protein 6.3 L (6.5-8.0) g/dL Albumin 3.6 (3.5-5.0) g/dL Urine Color Urine Appearance Urine pH (5.0-9.0) Ur Specific [place] (1.005-1.025) Urine Protein (Neg-Trace) mg/dL Urine Glucose (UA) (Negative) mg/dL Urine Ketones (Negative) mg/dL Urine Blood (Negative) Urine Nitrite (Negative) Ur Leukocyte Esterase (Negative) Salicylates (15-30) mg/dL Urine Opiates Screen (Not Detect) Urine Fentanyl Screen (Not Detect) Acetaminophen (<30) mcg/mL Ur Barbiturates Screen (Not Detect) Ur Phencyclidine Scrn (Not Detect) Ur Amphetamines Screen (Not Detect) U Benzodiazepines Scrn (Not Detect) Urine Cocaine Screen (Not Detect) U Marijuana (THC) Screen (Not Detect) Ethyl Alcohol mg/dL Influenza Type A (PCR) (Negative) Influenza Type B (PCR) (Negative) RSV RNA Qual (PCR) (Negative) SARS-CoV-2 RNA (RT-PCR) (Negative) 09/19/22 09/19/22 09/19/22 Range/Units 12:32 12:32 13:58 WBC (4.8-10.8) X10*3/uL RBC (4.20-5.50) X10*6/uL Hgb (12.0-16.0) g/dl Hct (37.0-47.0) % MCV (80.0-98.0) fL MCH (27.0-33.0) pg MCHC (31.0-35.0) g/dl RDW (11.0-16.0) % Plt Count (160-400) X10*3/uL MPV Immature Gran % (Auto) (0.0-0.4) % Neut % (Auto) (45-73) % Lymph % (Auto) (20-40) % [place] % (Auto) (2-11) % Eos % (Auto) (0-4) % Baso % (Auto) (0-2) % Lymph # (Auto) (1.2-4.9) X10*3/uL [place] # (Auto) (0.1-1.2) X10*3/uL Eos # (Auto) (0.0-0.4) X10*3/uL Baso # (Auto) (0.0-0.2) X10*3/uL Abs Immat Gran (auto) (0.00-0.03) X10*3/uL Absolute Neuts (auto) (2.0-8.3) x10*3/uL Absolute Nucleated RBC (0.0-0.012) X10*3/uL Nucleated RBC % (auto) (0.0-0.2) /100WBC Smear Tech's Comments PT (10.0-13.1) SEC INR (0.9-1.1) APTT (26.0-36.4) SEC Sodium (135-145) mmol/L Potassium (3.3-5.1) mmol/L Chloride (96-108) mmol/L Carbon Dioxide (22-29) mmol/L Anion Gap (12-20) BUN (9-16) mg/dL Creatinine (0.5-1.4) mg/dL Estim Creat Clear Calc Estimated GFR POC Glucose (60-115) mg/dL Random Glucose (60-115) mg/dL Lactic Acid 1.0 Cancelled (0.5-2.0) mmol/L Calcium (8.4-10.2) mg/dL Magnesium (1.6-2.6) mg/dL Total Bilirubin (0.0-1.0) mg/dL AST (5-31) U/L ALT (0-31) U/L Alkaline Phosphatase (39-117) U/L Ammonia (13-55) umol/L Troponin I High Sens (<3.5-17.0) ng/L B-Natriuretic Peptide (<100) pg/mL Total Protein (6.5-8.0) g/dL Albumin (3.5-5.0) g/dL Urine Color Urine Appearance Urine pH (5.0-9.0) Ur Specific [place] (1.005-1.025) Urine Protein (Neg-Trace) mg/dL Urine Glucose (UA) (Negative) mg/dL Urine Ketones (Negative) mg/dL Urine Blood (Negative) Urine Nitrite (Negative) Ur Leukocyte Esterase (Negative) Salicylates (15-30) mg/dL Urine Opiates Screen (Not Detect) Urine Fentanyl Screen (Not Detect) Acetaminophen (<30) mcg/mL Ur Barbiturates Screen (Not Detect) Ur Phencyclidine Scrn (Not Detect) Ur Amphetamines Screen (Not Detect) U Benzodiazepines Scrn (Not Detect) Urine Cocaine Screen (Not Detect) U Marijuana (THC) Screen (Not Detect) Ethyl Alcohol mg/dL Influenza Type A (PCR) NEGATIVE (Negative) Influenza Type B (PCR) NEGATIVE (Negative) RSV RNA Qual (PCR) NEGATIVE (Negative) SARS-CoV-2 RNA (RT-PCR) NEGATIVE (Negative) 09/19/22 09/19/22 09/19/22 Range/Units 14:18 14:18 14:29 WBC (4.8-10.8) X10*3/uL RBC (4.20-5.50) X10*6/uL Hgb (12.0-16.0) g/dl Hct (37.0-47.0) % MCV (80.0-98.0) fL MCH (27.0-33.0) pg MCHC (31.0-35.0) g/dl RDW (11.0-16.0) % Plt Count (160-400) X10*3/uL MPV Immature Gran % (Auto) (0.0-0.4) % Neut % (Auto) (45-73) % Lymph % (Auto) (20-40) % [place] % (Auto) (2-11) % Eos % (Auto) (0-4) % Baso % (Auto) (0-2) % Lymph # (Auto) (1.2-4.9) X10*3/uL [place] # (Auto) (0.1-1.2) X10*3/uL Eos # (Auto) (0.0-0.4) X10*3/uL Baso # (Auto) (0.0-0.2) X10*3/uL Abs Immat Gran (auto) (0.00-0.03) X10*3/uL Absolute Neuts (auto) (2.0-8.3) x10*3/uL Absolute Nucleated RBC (0.0-0.012) X10*3/uL Nucleated RBC % (auto) (0.0-0.2) /100WBC Smear Tech's Comments PT (10.0-13.1) SEC INR (0.9-1.1) APTT (26.0-36.4) SEC Sodium (135-145) mmol/L Potassium (3.3-5.1) mmol/L Chloride (96-108) mmol/L Carbon Dioxide (22-29) mmol/L Anion Gap (12-20) BUN (9-16) mg/dL Creatinine (0.5-1.4) mg/dL Estim Creat Clear Calc Estimated GFR POC Glucose (60-115) mg/dL Random Glucose (60-115) mg/dL Lactic Acid (0.5-2.0) mmol/L Calcium (8.4-10.2) mg/dL Magnesium 1.5 L (1.6-2.6) mg/dL Total Bilirubin (0.0-1.0) mg/dL AST (5-31) U/L ALT (0-31) U/L Alkaline Phosphatase (39-117) U/L Ammonia (13-55) umol/L Troponin I High Sens (<3.5-17.0) ng/L B-Natriuretic Peptide (<100) pg/mL Total Protein (6.5-8.0) g/dL Albumin (3.5-5.0) g/dL Urine Color Yellow Urine Appearance Clear Urine pH 7.5 (5.0-9.0) Ur Specific [place] >= 1.030 H (1.005-1.025) Urine Protein Negative (Neg-Trace) mg/dL Urine Glucose (UA) 500 H (Negative) mg/dL Urine Ketones Negative (Negative) mg/dL Urine Blood Negative (Negative) Urine Nitrite Negative (Negative) Ur Leukocyte Esterase Negative (Negative) Salicylates < 5.0 L (15-30) mg/dL Urine Opiates Screen Not Detected (Not Detect) Urine Fentanyl Screen Not Detected (Not Detect) Acetaminophen < 17 (<30) mcg/mL Ur Barbiturates Screen Not Detected (Not Detect) Ur Phencyclidine Scrn Not Detected (Not Detect) Ur Amphetamines Screen Not Detected (Not Detect) U Benzodiazepines Scrn Not Detected (Not Detect) Urine Cocaine Screen Not Detected (Not Detect) U Marijuana (THC) Screen Not Detected (Not Detect) Ethyl Alcohol < 10 mg/dL Influenza Type A (PCR) (Negative) Influenza Type B (PCR) (Negative) RSV RNA Qual (PCR) (Negative) SARS-CoV-2 RNA (RT-PCR) (Negative) 09/19/22 09/19/22 09/19/22 Range/Units 14:35 21:51 21:51 WBC 5.5 (4.8-10.8) X10*3/uL RBC 3.62 L D (4.20-5.50) X10*6/uL Hgb 10.8 L D (12.0-16.0) g/dl Hct 32.3 L D (37.0-47.0) % MCV 89.2 (80.0-98.0) fL MCH 29.8 (27.0-33.0) pg MCHC 33.4 (31.0-35.0) g/dl RDW 13.2 (11.0-16.0) % Plt Count 139 L (160-400) X10*3/uL MPV 10.3 Immature Gran % (Auto) 0.4 (0.0-0.4) % Neut % (Auto) 76.9 H (45-73) % Lymph % (Auto) 15.2 L (20-40) % [place] % (Auto) 7.1 (2-11) % Eos % (Auto) 0.2 (0-4) % Baso % (Auto) 0.2 (0-2) % Lymph # (Auto) 0.8 L (1.2-4.9) X10*3/uL [place] # (Auto) 0.4 (0.1-1.2) X10*3/uL Eos # (Auto) 0.0 (0.0-0.4) X10*3/uL Baso # (Auto) 0.0 (0.0-0.2) X10*3/uL Abs Immat Gran (auto) 0.02 (0.00-0.03) X10*3/uL Absolute Neuts (auto) 4.2 (2.0-8.3) x10*3/uL Absolute Nucleated RBC 0.000 (0.0-0.012) X10*3/uL Nucleated RBC % (auto) 0.0 (0.0-0.2) /100WBC Smear Tech's Comments PT 11.6 (10.0-13.1) SEC INR 1.0 (0.9-1.1) APTT 28.3 D (26.0-36.4) SEC Sodium (135-145) mmol/L Potassium (3.3-5.1) mmol/L Chloride (96-108) mmol/L Carbon Dioxide (22-29) mmol/L Anion Gap (12-20) BUN (9-16) mg/dL Creatinine (0.5-1.4) mg/dL Estim Creat Clear Calc Estimated GFR POC Glucose (60-115) mg/dL Random Glucose (60-115) mg/dL Lactic Acid (0.5-2.0) mmol/L Calcium (8.4-10.2) mg/dL Magnesium (1.6-2.6) mg/dL Total Bilirubin (0.0-1.0) mg/dL AST (5-31) U/L ALT (0-31) U/L Alkaline Phosphatase (39-117) U/L Ammonia (13-55) umol/L Troponin I High Sens (<3.5-17.0) ng/L B-Natriuretic Peptide 20 (<100) pg/mL Total Protein (6.5-8.0) g/dL Albumin (3.5-5.0) g/dL Urine Color Urine Appearance Urine pH (5.0-9.0) Ur Specific [place] (1.005-1.025) Urine Protein (Neg-Trace) mg/dL Urine Glucose (UA) (Negative) mg/dL Urine Ketones (Negative) mg/dL Urine Blood (Negative) Urine Nitrite (Negative) Ur Leukocyte Esterase (Negative) Salicylates (15-30) mg/dL Urine Opiates Screen (Not Detect) Urine Fentanyl Screen (Not Detect) Acetaminophen (<30) mcg/mL Ur Barbiturates Screen (Not Detect) Ur Phencyclidine Scrn (Not Detect) Ur Amphetamines Screen (Not Detect) U Benzodiazepines Scrn (Not Detect) Urine Cocaine Screen (Not Detect) U Marijuana (THC) Screen (Not Detect) Ethyl Alcohol mg/dL Influenza Type A (PCR) (Negative) Influenza Type B (PCR) (Negative) RSV RNA Qual (PCR) (Negative) SARS-CoV-2 RNA (RT-PCR) (Negative) 09/19/22 09/19/22 09/20/22 Range/Units 21:51 21:51 10:02 WBC (4.8-10.8) X10*3/uL RBC (4.20-5.50) X10*6/uL Hgb (12.0-16.0) g/dl Hct (37.0-47.0) % MCV (80.0-98.0) fL MCH (27.0-33.0) pg MCHC (31.0-35.0) g/dl RDW (11.0-16.0) % Plt Count (160-400) X10*3/uL MPV Immature Gran % (Auto) (0.0-0.4) % Neut % (Auto) (45-73) % Lymph % (Auto) (20-40) % [place] % (Auto) (2-11) % Eos % (Auto) (0-4) % Baso % (Auto) (0-2) % Lymph # (Auto) (1.2-4.9) X10*3/uL [place] # (Auto) (0.1-1.2) X10*3/uL Eos # (Auto) (0.0-0.4) X10*3/uL Baso # (Auto) (0.0-0.2) X10*3/uL Abs Immat Gran (auto) (0.00-0.03) X10*3/uL Absolute Neuts (auto) (2.0-8.3) x10*3/uL Absolute Nucleated RBC (0.0-0.012) X10*3/uL Nucleated RBC % (auto) (0.0-0.2) /100WBC Smear Tech's Comments PT (10.0-13.1) SEC INR (0.9-1.1) APTT (26.0-36.4) SEC Sodium 141 (135-145) mmol/L Potassium 4.5 (3.3-5.1) mmol/L Chloride 107 (96-108) mmol/L Carbon Dioxide 27 (22-29) mmol/L Anion Gap 12 (12-20) BUN 17 H (9-16) mg/dL Creatinine 1.06 (0.5-1.4) mg/dL Estim Creat Clear Calc 51.0 Estimated GFR 52 POC Glucose 192 H (60-115) mg/dL Random Glucose 383 H* (60-115) mg/dL Lactic Acid (0.5-2.0) mmol/L Calcium 8.2 L D (8.4-10.2) mg/dL Magnesium (1.6-2.6) mg/dL Total Bilirubin 0.3 (0.0-1.0) mg/dL AST 32 H (5-31) U/L ALT 35 H (0-31) U/L Alkaline Phosphatase 95 (39-117) U/L Ammonia (13-55) umol/L Troponin I High Sens 11.0 D (<3.5-17.0) ng/L B-Natriuretic Peptide (<100) pg/mL Total Protein 5.3 L (6.5-8.0) g/dL Albumin 3.0 L (3.5-5.0) g/dL Urine Color Urine Appearance Urine pH (5.0-9.0) Ur Specific [place] (1.005-1.025) Urine Protein (Neg-Trace) mg/dL Urine Glucose (UA) (Negative) mg/dL Urine Ketones (Negative) mg/dL Urine Blood (Negative) Urine Nitrite (Negative) Ur Leukocyte Esterase (Negative) Salicylates < 5.0 L (15-30) mg/dL Urine Opiates Screen (Not Detect) Urine Fentanyl Screen (Not Detect) Acetaminophen < 17 (<30) mcg/mL Ur Barbiturates Screen (Not Detect) Ur Phencyclidine Scrn (Not Detect) Ur Amphetamines Screen (Not Detect) U Benzodiazepines Scrn (Not Detect) Urine Cocaine Screen (Not Detect) U Marijuana (THC) Screen (Not Detect) Ethyl Alcohol < 10 mg/dL Influenza Type A (PCR) (Negative) Influenza Type B (PCR) (Negative) RSV RNA Qual (PCR) (Negative) SARS-CoV-2 RNA (RT-PCR) (Negative) 09/20/22 09/21/22 09/21/22 Range/Units 20:09 07:10 13:21 WBC (4.8-10.8) X10*3/uL RBC (4.20-5.50) X10*6/uL Hgb (12.0-16.0) g/dl Hct (37.0-47.0) % MCV (80.0-98.0) fL MCH (27.0-33.0) pg MCHC (31.0-35.0) g/dl RDW (11.0-16.0) % Plt Count (160-400) X10*3/uL MPV Immature Gran % (Auto) (0.0-0.4) % Neut % (Auto) (45-73) % Lymph % (Auto) (20-40) % [place] % (Auto) (2-11) % Eos % (Auto) (0-4) % Baso % (Auto) (0-2) % Lymph # (Auto) (1.2-4.9) X10*3/uL [place] # (Auto) (0.1-1.2) X10*3/uL Eos # (Auto) (0.0-0.4) X10*3/uL Baso # (Auto) (0.0-0.2) X10*3/uL Abs Immat Gran (auto) (0.00-0.03) X10*3/uL Absolute Neuts (auto) (2.0-8.3) x10*3/uL Absolute Nucleated RBC (0.0-0.012) X10*3/uL Nucleated RBC % (auto) (0.0-0.2) /100WBC Smear Tech's Comments PT (10.0-13.1) SEC INR (0.9-1.1) APTT (26.0-36.4) SEC Sodium (135-145) mmol/L Potassium (3.3-5.1) mmol/L Chloride (96-108) mmol/L Carbon Dioxide (22-29) mmol/L Anion Gap (12-20) BUN (9-16) mg/dL Creatinine (0.5-1.4) mg/dL Estim Creat Clear Calc Estimated GFR POC Glucose 299 H 184 H 183 H (60-115) mg/dL Random Glucose (60-115) mg/dL Lactic Acid (0.5-2.0) mmol/L Calcium (8.4-10.2) mg/dL Magnesium (1.6-2.6) mg/dL Total Bilirubin (0.0-1.0) mg/dL AST (5-31) U/L ALT (0-31) U/L Alkaline Phosphatase (39-117) U/L Ammonia (13-55) umol/L Troponin I High Sens (<3.5-17.0) ng/L B-Natriuretic Peptide (<100) pg/mL Total Protein (6.5-8.0) g/dL Albumin (3.5-5.0) g/dL Urine Color Urine Appearance Urine pH (5.0-9.0) Ur Specific [place] (1.005-1.025) Urine Protein (Neg-Trace) mg/dL Urine Glucose (UA) (Negative) mg/dL Urine Ketones (Negative) mg/dL Urine Blood (Negative) Urine Nitrite (Negative) Ur Leukocyte Esterase (Negative) Salicylates (15-30) mg/dL Urine Opiates Screen (Not Detect) Urine Fentanyl Screen (Not Detect) Acetaminophen (<30) mcg/mL Ur Barbiturates Screen (Not Detect) Ur Phencyclidine Scrn (Not Detect) Ur Amphetamines Screen (Not Detect) U Benzodiazepines Scrn (Not Detect) Urine Cocaine Screen (Not Detect) U Marijuana (THC) Screen (Not Detect) Ethyl Alcohol mg/dL Influenza Type A (PCR) (Negative) Influenza Type B (PCR) (Negative) RSV RNA Qual (PCR) (Negative) SARS-CoV-2 RNA (RT-PCR) (Negative) 09/21/22 09/21/22 Range/Units 18:04 21:01 WBC (4.8-10.8) X10*3/uL RBC (4.20-5.50) X10*6/uL Hgb (12.0-16.0) g/dl Hct (37.0-47.0) % MCV (80.0-98.0) fL MCH (27.0-33.0) pg MCHC (31.0-35.0) g/dl RDW (11.0-16.0) % Plt Count (160-400) X10*3/uL MPV Immature Gran % (Auto) (0.0-0.4) % Neut % (Auto) (45-73) % Lymph % (Auto) (20-40) % [place] % (Auto) (2-11) % Eos % (Auto) (0-4) % Baso % (Auto) (0-2) % Lymph # (Auto) (1.2-4.9) X10*3/uL [place] # (Auto) (0.1-1.2) X10*3/uL Eos # (Auto) (0.0-0.4) X10*3/uL Baso # (Auto) (0.0-0.2) X10*3/uL Abs Immat Gran (auto) (0.00-0.03) X10*3/uL Absolute Neuts (auto) (2.0-8.3) x10*3/uL Absolute Nucleated RBC (0.0-0.012) X10*3/uL Nucleated RBC % (auto) (0.0-0.2) /100WBC Smear Tech's Comments PT (10.0-13.1) SEC INR (0.9-1.1) APTT (26.0-36.4) SEC Sodium (135-145) mmol/L Potassium (3.3-5.1) mmol/L Chloride (96-108) mmol/L Carbon Dioxide (22-29) mmol/L Anion Gap (12-20) BUN (9-16) mg/dL Creatinine (0.5-1.4) mg/dL Estim Creat Clear Calc Estimated GFR POC Glucose 158 H 162 H (60-115) mg/dL Random Glucose (60-115) mg/dL Lactic Acid (0.5-2.0) mmol/L Calcium (8.4-10.2) mg/dL Magnesium (1.6-2.6) mg/dL Total Bilirubin (0.0-1.0) mg/dL AST (5-31) U/L ALT (0-31) U/L Alkaline Phosphatase (39-117) U/L Ammonia (13-55) umol/L Troponin I High Sens (<3.5-17.0) ng/L B-Natriuretic Peptide (<100) pg/mL Total Protein (6.5-8.0) g/dL Albumin (3.5-5.0) g/dL Urine Color Urine Appearance Urine pH (5.0-9.0) Ur Specific [place] (1.005-1.025) Urine Protein (Neg-Trace) mg/dL Urine Glucose (UA) (Negative) mg/dL Urine Ketones (Negative) mg/dL Urine Blood (Negative) Urine Nitrite (Negative) Ur Leukocyte Esterase (Negative) Salicylates (15-30) mg/dL Urine Opiates Screen (Not Detect) Urine Fentanyl Screen (Not Detect) Acetaminophen (<30) mcg/mL Ur Barbiturates Screen (Not Detect) Ur Phencyclidine Scrn (Not Detect) Ur Amphetamines Screen (Not Detect) U Benzodiazepines Scrn (Not Detect) Urine Cocaine Screen (Not Detect) U Marijuana (THC) Screen (Not Detect) Ethyl Alcohol mg/dL Influenza Type A (PCR) (Negative) Influenza Type B (PCR) (Negative) RSV RNA Qual (PCR) (Negative) SARS-CoV-2 RNA (RT-PCR) (Negative) <ALVERTO Mcginnis - Last Filed: 09/21/22 08:46> Independent Interpretation I performed an independent interpretation of an: EKG ( NORMAL SINUS RHYTHM VENTRICULAR RATE 79. PEER INTERVAL 164. QRS 78. QTC 481. NEGATIVE STEMI) <ALVERTO Hutchins Last Filed: 09/19/22 18:13> Interpretation: EKG 2. NORMAL SINUS RHYTHM. VENTRICULAR RATE 62. OK INTERVAL 174. QRS 92. QTC 487. NEGATIVE STEMI <ALVERTO Hutchins Last Filed: 09/19/22 18:13> Radiology Impression Discussion of test interpretation with radiology: I have reviewed the radiologist's reading. <ALVERTO Hutchins Last Filed: 09/19/22 18:13> Critical Care Time Critical Care Time Critical Care Time: Yes <ALVERTO Villalta Last Filed: 09/20/22 00:48> Total Critical Care Time: 35 <ALVERTO Villalta Last Filed: 09/20/22 00:48> Attestation: I attest to this time spent taking care of the patient, obtaining history, physical, reviewing labs, imaging, speaking to my attending, speaking to specialist. <ALVERTO Villalta - Last Filed: 09/20/22 00:48> Discharge Plan Discharge Clinical Impression: Overdose <ALVERTO Hutchins - Last Filed: 09/19/22 18:13> Patient Disposition: Still a Patient <ALVERTO Hutchins Last Filed: 09/19/22 18:13> Instructions: Adult Overdose (ED) <ALVERTO Hutchins Last Filed: 09/19/22 18:13> Prescriptions: No Action pyridoxine (vitamin B6) 50 mg tablet 50 mg PO DAILY Qty: 90 2RF gabapentin 800 mg tablet 800 mg PO TID 30 Days Qty: 90 1RF lisinopril 20 mg tablet 40 mg PO DAILY Qty: 180 0RF amlodipine 5 mg tablet 5 mg PO DAILY Qty: 90 0RF atorvastatin 80 mg tablet 80 mg PO DAILY Qty: 90 1RF lamotrigine 200 mg tablet 1 tab PO DAILY venlafaxine 150 mg capsule,extended release 24hr 1 cap PO BID aspirin 81 mg tablet,delayed release (DR/EC) 1 tab PO DAILY levothyroxine 25 mcg tablet 1 tab PO DAILY metformin 1,000 mg tablet 1 tab PO BID omeprazole 20 mg capsule,delayed release(DR/EC) 1 cap PO DAILY metoprolol succinate 25 mg tablet extended release 24 hr 0.5 tab PO DAILY lorazepam 1 mg tablet 1 tab PO QID mirtazapine 7.5 mg tablet 1 tab PO BEDTIME insulin glargine [Lantus Solostar U-100 Insulin] 100 unit/mL (3 mL) insulin pen 10 unit subcut DAILY melatonin 5 mg tablet 1 tab PO QPM albuterol sulfate 90 mcg/actuation HFA aerosol inhaler 1 puff inhalation QID PRN (Reason: Wheezing) insulin aspart U-100 [Novolog FlexPen U-100 Insulin] 100 unit/mL (3 mL) insu wyatt pen See Rx Instructions .ROUTE .COMPLEX Rx Instructions: *Less than or equal to 110 --- Give (units):0 *111 to 150 --- Give (units):0 *151 to 200 --- Give (units): 2 *201 to 250 -------Give (units):4 *251 to 300 --Give (units):6 *301 to 350 --- Give (units): 8 *Greater than 350 ---Give (units):10 *Call MD if Blood Glucose > :350 diclofenac sodium [Arthritis Pain (diclofenac)] 1 % gel 2 g topical QID PRN (Reason: pain) Qty: 100 0RF <ALVERTO Hutchins - Last Filed: 09/19/22 18:13>
[2022-09-19] MEDS: iohexoL 350 MG/ML 100 ML INFUS..BTL IV (11:51)
[2022-09-19 12:08] LABS: Glucose, Whole Blood 241 mg/dL (60-115)
--- NOTE | 2022-09-19 12:26 | PC.NURSE ---
Pt. on phototypesetting equipment monitor at this time
[2022-09-19 12:52] LABS: Ammonia 20 umol/L (13-55)
[2022-09-19 12:54] LABS: INTERNATIONAL NORM RATIO 0.9 (0.9-1.1); Prothrombin Time 10.4 SEC (10.0-13.1)
[2022-09-19 12:56] LABS: Basophils Absolute Auto 0.1 X10*3/uL (0.0-0.2); Basophils Percent Auto 0.6 % (0-2); Eosinophils Absolute Auto 0.1 X10*3/uL (0.0-0.4); Eosinophils Percent Auto 1.5 % (0-4); Hematocrit 40.8 % (37.0-47.0); Hemoglobin 13.9 g/dl (12.0-16.0); Imm Gran Abs Auto 0.03 X10*3/uL (0.00-0.03); Imm Gran Pct Auto 0.4 % (0.0-0.4); Lymphocytes Absolute Auto 1.6 X10*3/uL (1.2-4.9); Lymphocytes Percent Auto 19.8 % (20-40); MANUAL DIFF FLAG SCAN; Mean Corpuscular HGB Conc 34.1 g/dl (31.0-35.0); Mean Corpuscular Hemoglobin 29.9 pg (27.0-33.0); Mean Corpuscular Volume 87.7 fL (80.0-98.0); Monocytes Absolute Auto 0.6 X10*3/uL (0.1-1.2); NRBC Pct Auto 0.3 /100WBC (0.0-0.2); Neutrophils Absolute Auto 5.6 x10*3/uL (2.0-8.3); Neutrophils Percent Auto 70.7 % (45-73); PLT CLUMP 1; Red Blood Count 4.65 X10*6/uL (4.20-5.50); Red Cell Distribution Width 13.2 % (11.0-16.0); SCAN SMEAR FLAG 1
[2022-09-19 12:58] LABS: White Blood Count 7.9 X10*3/uL (4.8-10.8)
[2022-09-19 13:07] LABS: Alanine Aminotransferase 43 U/L (0-31); Albumin Level 3.6 g/dL (3.5-5.0); Alkaline Phosphatase 129 U/L (39-117); Anion Gap 16 (12-20); Aspartate Amino Transferase 44 U/L (5-31); Bilirubin Total 0.4 mg/dL (0.0-1.0); Blood Urea Nitrogen 17 mg/dL (9-16); Calcium 8.9 mg/dL (8.4-10.2); Carbon Dioxide 27 mmol/L (22-29); Chloride 101 mmol/L (96-108); Creatinine Clr Calc Pharmacy 69.4; Estimated Glomerular Filt Rate > 60; Glucose Random 276 mg/dL (60-115); Potassium 3.9 mmol/L (3.3-5.1); Sodium 140 mmol/L (135-145); Total Protein 6.3 g/dL (6.5-8.0)
[2022-09-19 13:15] LABS: Troponin-I High Sensitivity 7.2 ng/L (<3.5-17.0)
[2022-09-19] MEDS: ondansetron HCL 4 MG/2 ML VIAL IVPUSH (13:22)
[2022-09-19 13:30] LABS: Platelet Count 144 X10*3/uL (160-400); SLIDE REVIEW VERIFIED
[2022-09-19 13:39] LABS: Partial Thromboplastin Time 22.8 SEC (26.0-36.4)
--- NOTE | 2022-09-19 14:00 | PC.NURSE ---
Pt. verbalized to this RN that she overdosed this morning on Lamictal and Ativan. Denies SI and said she was not trying to hurt herself. JASON Murray notified and aware.
[2022-09-19] MEDS: 0.9 % Sodium Chloride 1,000 ML 999 ML IV ×3 (14:32→15:30)
[2022-09-19 14:38] LABS: Appearance Urine Clear; Color Urine Yellow; Glucose Urine UA 500 mg/dL (Negative); Leukocyte Esterase Urine Negative (Negative); Nitrite Urine Negative (Negative); PH 7.5 (5.0-9.0); Specific Gravity - Urine >= 1.030 (1.005-1.025); Urine Blood Negative (Negative); Urine Ketones Negative (Negative); Urine Protein Negative (Neg-Trace)
[2022-09-19 14:41] LABS: Influenza A PCR NEGATIVE (Negative); Influenza B PCR NEGATIVE (Negative); Resp Syncy Virus RNA Qual PCR NEGATIVE (Negative); SARS COV2 PCR INHOUSE NEGATIVE (Negative)
[2022-09-19 14:46] LABS: Amphetamine Screen Urine Not Detected (Not Detect); Barbiturates, Urine Not Detected (Not Detect); Benzodiazepines Screen Urine Not Detected (Not Detect); Cannabinoid Screen Urine Not Detected (Not Detect); Cocaine Screen Urine Not Detected (Not Detect); Fentanyl, urine Not Detected (Not Detect); Opiate Screen Urine Not Detected (Not Detect); Phencyclidine Screen Urine Not Detected (Not Detect)
[2022-09-19 14:54] LABS: Acetaminophen LAB < 17 mcg/mL (<30); Ethanol < 10 mg/dL
[2022-09-19 15:05] LABS: B Type Natriuretic Peptide 20 pg/mL (<100)
[2022-09-19 15:07] LABS: Salicylate < 5.0 mg/dL (15-30)
[2022-09-19 15:29] LABS: Magnesium 1.5 mg/dL (1.6-2.6)
--- NOTE | 2022-09-19 17:43 | ECG_ITS ---
Test Reason : REPEAT Blood Pressure : / mmHG Vent. Rate : 062 BPM Atrial Rate : 062 BPM P-R Int : 174 ms QRS Dur : 092 ms QT Int : 480 ms P-R-T Axes : 072 054 076 degrees QTc Int : 487 ms Normal sinus rhythm Normal ECG When compared with ECG of 19-SEP-2022 12:10, No significant change was found Referred By: Nick Conklin Electronically Signed By:Masood Martinez
--- NOTE | 2022-09-19 18:07 | PC.NURSE ---
Pt. pulled out her IV and is refusing another IV placement. PA aware
--- NOTE | 2022-09-19 18:18 | MHC.EDTECH ---
pt took out IV, took off quality assurance monitor, and refused a new IV and repeat bloodwork. RN and provider aware.
--- NOTE | 2022-09-19 18:43 | PC.NURSE ---
Per poison control at [facility], pt. needed a repeat EKG, repeat labs, IV replaced. Repeat EKG completed, but pt. refusing all other care at this time. Provider aware
[2022-09-19] MEDS: Haloperidol Lactate 5 MG/ML VIAL IM ×2 (19:48→20:09)
[2022-09-19] MEDS: diphenhydrAMINE HCL 50 MG/ML VIAL IM (19:48)
[2022-09-19] MEDS: LORazepam 2 MG/ML VIAL IM (19:51)
--- NOTE | 2022-09-19 19:52 | PC.NURSE ---
Pt repeatedly trying to get out of bed, swinging at staff, yelling insults, and overall uncooperative. PA ordered IM medications. Security at the bedside with a four person hold to administer IM medications in the left thigh. Pt is still agitated and swinjging at staff. A sitter is at the bedside and restraint paperwork has been started.
[2022-09-19 21:57] LABS: MANUAL DIFF FLAG NO
[2022-09-19 21:58] LABS: Basophils Percent Auto 0.2 % (0-2); Eosinophils Percent Auto 0.2 % (0-4); Hematocrit 32.3 % (37.0-47.0); Hemoglobin 10.8 g/dl (12.0-16.0); Imm Gran Abs Auto 0.02 X10*3/uL (0.00-0.03); Imm Gran Pct Auto 0.4 % (0.0-0.4); Lymphocytes Absolute Auto 0.8 X10*3/uL (1.2-4.9); Lymphocytes Percent Auto 15.2 % (20-40); Mean Corpuscular HGB Conc 33.4 g/dl (31.0-35.0); Mean Corpuscular Hemoglobin 29.8 pg (27.0-33.0); Mean Corpuscular Volume 89.2 fL (80.0-98.0); Mean Platelet Volume 10.3 fL (9.4-12.3); Monocytes Absolute Auto 0.4 X10*3/uL (0.1-1.2); Monocytes Percent Auto 7.1 % (2-11); Neutrophils Absolute Auto 4.2 x10*3/uL (2.0-8.3); Neutrophils Percent Auto 76.9 % (45-73); Platelet Count 139 X10*3/uL (160-400); Red Blood Count 3.62 X10*6/uL (4.20-5.50); Red Cell Distribution Width 13.2 % (11.0-16.0); White Blood Count 5.5 X10*3/uL (4.8-10.8)
--- NOTE | 2022-09-19 22:00 | PC.NURSE ---
Spoke with posion control to give update on pt condition. Pt is currently still asleep comfortably. Pt O2 sat decreased into the 80's, Dr Gonzales at the bedside put pt on O2 @4LPM via NC. Pt sat is at 99% at this time. No new orders.
[2022-09-19 22:04] LABS: Prothrombin Time 11.6 SEC (10.0-13.1)
[2022-09-19 22:07] LABS: Partial Thromboplastin Time 28.3 SEC (26.0-36.4)
[2022-09-19 22:22] LABS: Acetaminophen LAB < 17 mcg/mL (<30); Alanine Aminotransferase 35 U/L (0-31); Alkaline Phosphatase 95 U/L (39-117); Anion Gap 12 (12-20); Aspartate Amino Transferase 32 U/L (5-31); Bilirubin Total 0.3 mg/dL (0.0-1.0); Blood Urea Nitrogen 17 mg/dL (9-16); Calcium 8.2 mg/dL (8.4-10.2); Carbon Dioxide 27 mmol/L (22-29); Chloride 107 mmol/L (96-108); Estimated Glomerular Filt Rate 52; Ethanol < 10 mg/dL; Glucose Random 383 mg/dL (60-115); Potassium 4.5 mmol/L (3.3-5.1); Sodium 141 mmol/L (135-145); Total Protein 5.3 g/dL (6.5-8.0)
[2022-09-19 22:40] LABS: Salicylate < 5.0 mg/dL (15-30)
[2022-09-20] VITALS (8 sets, daily range): BP systolic 95–153; BP diastolic 41–76; PULSE 52–64; RESP 14–20; TEMP 36.4–36.6; O2SAT 3–100
--- NOTE | 2022-09-20 01:15 | PC.NURSE ---
IV fluids and medication ordered. Pt pulled out her IVs throughout the day and became combative with staff earlier this evening. JASON London held medications and new IV placement. Pt is asleep comfortably, sitter is at the bedside.
--- NOTE | 2022-09-20 07:27 | PC.NURSE ---
Patient sleeping no distres ntoed remains watch 1:1 for safety will CTM
--- NOTE | 2022-09-20 08:26 | MHC.EDTECH ---
pt woke up stating she needed to pee. she was assisted on a bed joseph, output was unsuccessful. no signs of distress, pt is now sleeping comfortably.
--- NOTE | 2022-09-20 09:42 | PC.NURSE ---
Volitional cough can puff cheeks and tolerate small amounts of fluids and large amounts of fluids managing secretions with gagging or choking will CTM
--- NOTE | 2022-09-20 09:56 | MHC.EDTECH ---
pt was incontinent of urine. purewick placed with order from rn. clean sheets were given, warm blankets were given. pt is resting quietly and comfortably.
--- NOTE | 2022-09-20 10:00 | MHC.EDTECH ---
pt was placed back on heart monitor
[2022-09-20 10:07] LABS: Glucose, Whole Blood 192 mg/dL (60-115)
--- NOTE | 2022-09-20 10:39 | PC.NURSE ---
Patient back sleeping remains watch for safety 1:1 will CTM
--- NOTE | 2022-09-20 10:52 | PHA.MEDREC ---
Pharmacy Consult ? Medication Reconciliation Pharmacy has completed the medication reconciliation. Spoke to daughter shivani Prieto
[2022-09-20] MEDS: Ondansetron ODT 4 MG TAB.RAPDIS TRANSLINGU (11:47)
--- NOTE | 2022-09-20 13:41 | PC.NURSE ---
Patient sleeping remans watch for safety patietn to be admitted to inpatient psych will CTM
--- NOTE | 2022-09-20 14:47 | PM.PSYCN ---
History of Present Illness Date of Service: 09/20/22 Chief Complaint: suicidal attempt Sources of Information: patient interviewed, chart reviewed and crisis/core team assessment reviewed HPI Narrative: Patient is a 62-year-old woman with history of suicide attempt by overdose with presents following overdose on Lamictal. Patient was recently at [facility] this past July 2022 for similar presentation. At that time she denied intentional overdose; she was not admitted and plan at that time was for her to get outpt services however patient ultimately refused all services. Currently, Patient's daughter talked with care team who believes overdose was intentional. Patient again denies this being the case. She says she does not want to come to the inpatient unit; when brought up concerns for her safety she says im fine... Patient is difficult with which to engage further; her speech is a little garbled and disorganized. Past Psychiatric History: Refer to chart [facility] Medical History Cardiac akinesia Constipation COPD (chronic obstructive pulmonary disease) Depression DMII (diabetes mellitus, type 2) GERD (gastroesophageal reflux disease) Goiter History of gastrostomy tube placement History of laryngeal cancer HTN (hypertension) Hx of substance abuse Hyperlipidemia Hypothyroidism Lumbar stenosis with neurogenic claudication Sleep apnea T2DM (type 2 diabetes mellitus) Vitamin D deficiency Surgical History H/O colonoscopy History of cardiac catheterization (~03/16/21) History of cataract surgery History of ear surgery History of endoscopy History of esophagogastroduodenoscopy (EGD) History of removal of Port-a-Cath History of surgery on arm History of surgery on left wrist Diagnostics Vital Signs (24Hr): Vital Signs - 24 hr 09/19/22 15:30 09/20/22 00:17 09/19/22 19:50 Temperature Pulse Rate 57 52 Respiratory Rate 19 15 22 H Blood Pressure 80/28 L 95/61 Pulse Oximetry 93 100 Oxygen Delivery Method Room Air Room Air Oxygen Flow Rate 09/19/22 20:05 09/19/22 20:20 09/19/22 20:35 Temperature Pulse Rate 60 Respiratory Rate 22 H 20 8 L Blood Pressure Pulse Oximetry 91 L Oxygen Delivery Method Room Air Oxygen Flow Rate 09/19/22 20:50 09/19/22 21:05 09/20/22 06:10 Temperature Pulse Rate 62 64 53 Respiratory Rate 14 14 18 Blood Pressure 98/62 Pulse Oximetry 90 L 94 95 Oxygen Delivery Method Room Air Room Air Nasal Cannula Oxygen Flow Rate 2 09/20/22 08:10 09/20/22 09:34 09/20/22 10:01 Temperature 97.5 F Pulse Rate 64 60 57 Respiratory Rate 14 18 20 Blood Pressure 112/76 153/57 H 128/44 L Pulse Oximetry 95 96 97 Oxygen Delivery Method Nasal Cannula Room Air Nasal Cannula Oxygen Flow Rate 2 2.5 09/20/22 12:04 09/20/22 14:08 Temperature Pulse Rate 53 57 Respiratory Rate 19 17 Blood Pressure 107/41 L 148/52 H Pulse Oximetry 3 L 95 Oxygen Delivery Method Nasal Cannula Room Air Oxygen Flow Rate BMI result Body Mass Index 30.4 Labs 09/19/22 21:51 09/19/22 21:51 Labs: Laboratory Results - last 48 hr 09/19/22 09/19/22 09/19/22 12:05 12:32 12:32 WBC 7.9 RBC 4.65 Hgb 13.9 Hct 40.8 MCV 87.7 MCH 29.9 MCHC 34.1 RDW 13.2 Plt Count 144 L D MPV Not Reportable Immature Gran % (Auto) 0.4 Neut % (Auto) 70.7 Lymph % (Auto) 19.8 L [place] % (Auto) 7.0 Eos % (Auto) 1.5 Baso % (Auto) 0.6 Lymph # (Auto) 1.6 [place] # (Auto) 0.6 Eos # (Auto) 0.1 Baso # (Auto) 0.1 Abs Immat Gran (auto) 0.03 Absolute Neuts (auto) 5.6 Absolute Nucleated RBC 0.020 H Nucleated RBC % (auto) 0.3 H Smear Tech's Comments VERIFIED PT 10.4 INR 0.9 APTT 22.8 L Sodium Potassium Chloride Carbon Dioxide Anion Gap BUN Creatinine Estim Creat Clear Calc Estimated GFR POC Glucose 241 H Random Glucose Lactic Acid Calcium Magnesium Total Bilirubin AST ALT Alkaline Phosphatase Ammonia Troponin I High Sens B-Natriuretic Peptide Total Protein Albumin Urine Color Urine Appearance Urine pH Ur Specific [place] Urine Protein Urine Glucose (UA) Urine Ketones Urine Blood Urine Nitrite Ur Leukocyte Esterase Salicylates Urine Opiates Screen Urine Fentanyl Screen Acetaminophen Ur Barbiturates Screen Ur Phencyclidine Scrn Ur Amphetamines Screen U Benzodiazepines Scrn Urine Cocaine Screen U Marijuana (THC) Screen Ethyl Alcohol Influenza Type A (PCR) Influenza Type B (PCR) RSV RNA Qual (PCR) SARS-CoV-2 RNA (RT-PCR) 09/19/22 09/19/22 09/19/22 12:32 12:32 12:32 WBC RBC Hgb Hct MCV MCH MCHC RDW Plt Count MPV Immature Gran % (Auto) Neut % (Auto) Lymph % (Auto) [place] % (Auto) Eos % (Auto) Baso % (Auto) Lymph # (Auto) [place] # (Auto) Eos # (Auto) Baso # (Auto) Abs Immat Gran (auto) Absolute Neuts (auto) Absolute Nucleated RBC Nucleated RBC % (auto) Smear Tech's Comments PT INR APTT Sodium 140 Potassium 3.9 Chloride 101 Carbon Dioxide 27 Anion Gap 16 BUN 17 H Creatinine 0.78 Estim Creat Clear Calc 69.4 Estimated GFR > 60 POC Glucose Random Glucose 276 H Lactic Acid Calcium 8.9 D Magnesium Total Bilirubin 0.4 AST 44 H ALT 43 H Alkaline Phosphatase 129 H Ammonia 20 Troponin I High Sens 7.2 B-Natriuretic Peptide Total Protein 6.3 L Albumin 3.6 Urine Color Urine Appearance Urine pH Ur Specific [place] Urine Protein Urine Glucose (UA) Urine Ketones Urine Blood Urine Nitrite Ur Leukocyte Esterase Salicylates Urine Opiates Screen Urine Fentanyl Screen Acetaminophen Ur Barbiturates Screen Ur Phencyclidine Scrn Ur Amphetamines Screen U Benzodiazepines Scrn Urine Cocaine Screen U Marijuana (THC) Screen Ethyl Alcohol Influenza Type A (PCR) Influenza Type B (PCR) RSV RNA Qual (PCR) SARS-CoV-2 RNA (RT-PCR) 09/19/22 09/19/22 09/19/22 12:32 12:32 13:58 WBC RBC Hgb Hct MCV MCH MCHC RDW Plt Count MPV Immature Gran % (Auto) Neut % (Auto) Lymph % (Auto) [place] % (Auto) Eos % (Auto) Baso % (Auto) Lymph # (Auto) [place] # (Auto) Eos # (Auto) Baso # (Auto) Abs Immat Gran (auto) Absolute Neuts (auto) Absolute Nucleated RBC Nucleated RBC % (auto) Smear Tech's Comments PT INR APTT Sodium Potassium Chloride Carbon Dioxide Anion Gap BUN Creatinine Estim Creat Clear Calc Estimated GFR POC Glucose Random Glucose Lactic Acid 1.0 Cancelled Calcium Magnesium Total Bilirubin AST ALT Alkaline Phosphatase Ammonia Troponin I High Sens B-Natriuretic Peptide Total Protein Albumin Urine Color Urine Appearance Urine pH Ur Specific [place] Urine Protein Urine Glucose (UA) Urine Ketones Urine Blood Urine Nitrite Ur Leukocyte Esterase Salicylates Urine Opiates Screen Urine Fentanyl Screen Acetaminophen Ur Barbiturates Screen Ur Phencyclidine Scrn Ur Amphetamines Screen U Benzodiazepines Scrn Urine Cocaine Screen U Marijuana (THC) Screen Ethyl Alcohol Influenza Type A (PCR) NEGATIVE Influenza Type B (PCR) NEGATIVE RSV RNA Qual (PCR) NEGATIVE SARS-CoV-2 RNA (RT-PCR) NEGATIVE 09/19/22 09/19/22 09/19/22 14:18 14:18 14:29 WBC RBC Hgb Hct MCV MCH MCHC RDW Plt Count MPV Immature Gran % (Auto) Neut % (Auto) Lymph % (Auto) [place] % (Auto) Eos % (Auto) Baso % (Auto) Lymph # (Auto) [place] # (Auto) Eos # (Auto) Baso # (Auto) Abs Immat Gran (auto) Absolute Neuts (auto) Absolute Nucleated RBC Nucleated RBC % (auto) Smear Tech's Comments PT INR APTT Sodium Potassium Chloride Carbon Dioxide Anion Gap BUN Creatinine Estim Creat Clear Calc Estimated GFR POC Glucose Random Glucose Lactic Acid Calcium Magnesium 1.5 L Total Bilirubin AST ALT Alkaline Phosphatase Ammonia Troponin I High Sens B-Natriuretic Peptide Total Protein Albumin Urine Color Yellow Urine Appearance Clear Urine pH 7.5 Ur Specific [place] >= 1.030 H Urine Protein Negative Urine Glucose (UA) 500 H Urine Ketones Negative Urine Blood Negative Urine Nitrite Negative Ur Leukocyte Esterase Negative Salicylates < 5.0 L Urine Opiates Screen Not Detected Urine Fentanyl Screen Not Detected Acetaminophen < 17 Ur Barbiturates Screen Not Detected Ur Phencyclidine Scrn Not Detected Ur Amphetamines Screen Not Detected U Benzodiazepines Scrn Not Detected Urine Cocaine Screen Not Detected U Marijuana (THC) Screen Not Detected Ethyl Alcohol < 10 Influenza Type A (PCR) Influenza Type B (PCR) RSV RNA Qual (PCR) SARS-CoV-2 RNA (RT-PCR) 09/19/22 09/19/22 09/19/22 14:35 21:51 21:51 WBC 5.5 RBC 3.62 L D Hgb 10.8 L D Hct 32.3 L D MCV 89.2 MCH 29.8 MCHC 33.4 RDW 13.2 Plt Count 139 L MPV 10.3 Immature Gran % (Auto) 0.4 Neut % (Auto) 76.9 H Lymph % (Auto) 15.2 L [place] % (Auto) 7.1 Eos % (Auto) 0.2 Baso % (Auto) 0.2 Lymph # (Auto) 0.8 L [place] # (Auto) 0.4 Eos # (Auto) 0.0 Baso # (Auto) 0.0 Abs Immat Gran (auto) 0.02 Absolute Neuts (auto) 4.2 Absolute Nucleated RBC 0.000 Nucleated RBC % (auto) 0.0 Smear Tech's Comments PT 11.6 INR 1.0 APTT 28.3 D Sodium Potassium Chloride Carbon Dioxide Anion Gap BUN Creatinine Estim Creat Clear Calc Estimated GFR POC Glucose Random Glucose Lactic Acid Calcium Magnesium Total Bilirubin AST ALT Alkaline Phosphatase Ammonia Troponin I High Sens B-Natriuretic Peptide 20 Total Protein Albumin Urine Color Urine Appearance Urine pH Ur Specific [place] Urine Protein Urine Glucose (UA) Urine Ketones Urine Blood Urine Nitrite Ur Leukocyte Esterase Salicylates Urine Opiates Screen Urine Fentanyl Screen Acetaminophen Ur Barbiturates Screen Ur Phencyclidine Scrn Ur Amphetamines Screen U Benzodiazepines Scrn Urine Cocaine Screen U Marijuana (THC) Screen Ethyl Alcohol Influenza Type A (PCR) Influenza Type B (PCR) RSV RNA Qual (PCR) SARS-CoV-2 RNA (RT-PCR) 09/19/22 09/19/22 09/20/22 21:51 21:51 10:02 WBC RBC Hgb Hct MCV MCH MCHC RDW Plt Count MPV Immature Gran % (Auto) Neut % (Auto) Lymph % (Auto) [place] % (Auto) Eos % (Auto) Baso % (Auto) Lymph # (Auto) [place] # (Auto) Eos # (Auto) Baso # (Auto) Abs Immat Gran (auto) Absolute Neuts (auto) Absolute Nucleated RBC Nucleated RBC % (auto) Smear Tech's Comments PT INR APTT Sodium 141 Potassium 4.5 Chloride 107 Carbon Dioxide 27 Anion Gap 12 BUN 17 H Creatinine 1.06 Estim Creat Clear Calc 51.0 Estimated GFR 52 POC Glucose 192 H Random Glucose 383 H* Lactic Acid Calcium 8.2 L D Magnesium Total Bilirubin 0.3 AST 32 H ALT 35 H Alkaline Phosphatase 95 Ammonia Troponin I High Sens 11.0 D B-Natriuretic Peptide Total Protein 5.3 L Albumin 3.0 L Urine Color Urine Appearance Urine pH Ur Specific [place] Urine Protein Urine Glucose (UA) Urine Ketones Urine Blood Urine Nitrite Ur Leukocyte Esterase Salicylates < 5.0 L Urine Opiates Screen Urine Fentanyl Screen Acetaminophen < 17 Ur Barbiturates Screen Ur Phencyclidine Scrn Ur Amphetamines Screen U Benzodiazepines Scrn Urine Cocaine Screen U Marijuana (THC) Screen Ethyl Alcohol < 10 Influenza Type A (PCR) Influenza Type B (PCR) RSV RNA Qual (PCR) SARS-CoV-2 RNA (RT-PCR) Imaging Radiology Impressions: ITS Impressions Head CT 09/19/22 11:36 IMPRESSION: No acute intracranial abnormality. Head/Neck CTA 09/19/22 11:53 IMPRESSION: There are a few tiny age indeterminant infarcts within the right cerebellar hemisphere. Otherwise no evidence of acute territorial infarct or hemorrhage. No abnormal intracranial mass or enhancement. Heavily calcified atheromatous plaque involves the aortic arch apex and there is 50% stenosis at the origin of the left subclavian artery. The left vertebral artery is occluded at its origin and there is reconstitution of contrast filling the left vertebral artery at its V3 segment. Atheromatous plaque causes possible focal narrowing at the origin of the dominant right vertebral artery which otherwise opacifies normally. No intracranial large vessel occlusion. This critical result was discussed with Nick Conklin MD at 12:03 PM on 09/19/2022 and it was ascertained that the content and urgency of the report was understood at the time of direct communication. Chest X-Ray 09/19/22 12:05 IMPRESSION: No acute pulmonary disease. Mental Status Exam Mental Status Exam Narrative: Pt is alert to person, place and situation; behavior is distracted, little guarded; dressed in hospital attire, disheveled; mood is described as fine and affect constricted; limited eye contact; Speech is a bit garbled; not pressured; some psychomotor retardation present; thought process goal directed; Thought content is on discharge; no delusional thinking expressed; denies any SI/HI. There is no evidence of perceptual disturbance. Patients insight and judgment impaired. Medications Medications Current Medications Pharmacy Consult (Consult Rx Perform Med Rec) 1 each MISCELLANE ONCE PRN PRN Reason: Consult order Allergies Allergies Allergy/AdvReac Type Severity Reaction Status Date / Time adhesive tape [ADHESIVE TAPE] Allergy Intermediate BLISTERS Verified 08/25/22 11:27 meloxicam AdvReac Unknown hallucinati Verified 08/25/22 11:27 ons talwin Allergy Unknown ineffective Uncoded 08/25/22 11:27 Assessment & Plan Assessment & Plan (1) Mood disorder: Status: Acute Code(s): F39 - Unspecified mood [affective] disorder (2) Intentional overdose: Status: Acute Code(s): T50.902A - Poisoning by unspecified drugs, medicaments and biological substances, intentional self-harm, initial encounter Plan Patient is a 62-year-old woman with history of suicide attempt by overdose with presents following overdose on Lamictal. Patient was recently at [facility] this past July 2022 for similar presentation. At that time she denied intentional overdose; she was not admitted and plan at that time was for her to get outpt services however patient ultimately refused all services. Currently, Patient's daughter talked with care team who believes overdose was intentional. Patient again denies this being the case. She says she does not want to come to the inpatient unit; when brought up concerns for her safety she says im fine... Patient is difficult with which to engage further; her speech is a little garbled and disorganized. Impression/Plan: Patient has to overdoses in about 2 months; she denies both her intentional however at this time she is unconvincing. Patient currently does not have any outpatient services set up of which card writer hand is aware. Patient needs inpatient admission for stabilization, safety unlikely medication management Total time managing care of this patient today ____ minutes. Patient educated on: diagnosis Informed Consent: further education needed
--- NOTE | 2022-09-20 19:13 | PC.NURSE ---
assumed care of patient at 1900
--- NOTE | 2022-09-20 20:16 | PC.NURSE ---
patient sleeping comfortably on stretcher, respirations even and unlabored, no apparent distress. vital signs updated, patient has no current complaints. call fernando within reach. sitter in place. will CTM
[2022-09-20 20:18] LABS: Glucose, Whole Blood 299 mg/dL (60-115)
[2022-09-20] MEDS: Venlafaxine HCl ER 150 MG CAP.ER.24H PO (20:25)
[2022-09-20] MEDS: LORazepam 1 MG TABLET PO (20:25)
[2022-09-20] MEDS: Gabapentin 400 MG CAPSULE 800 MG PO (20:26)
[2022-09-20] MEDS: Melatonin 3 MG TABLET 6 MG PO (20:26)
[2022-09-20] MEDS: Mirtazapine 7.5 MG TABLET PO (20:26)
[2022-09-20] MEDS: Insulin Lispro 100 UNIT/ML 3 ML VIAL SUBCUT (20:26)
--- NOTE | 2022-09-20 20:31 | PC.NURSE ---
home meds ordered by MD Roland at this RN's request. verified by pharmacy and administered to patient. insulin given for poc 299 per mar orders. patient swallowed pills whole no issues with water. will CTM
[2022-09-21] VITALS (18 sets, daily range): BP systolic 56–146; BP diastolic 27–92; PULSE 56–78; RESP 12–24; TEMP 36.2–36.8; O2SAT 91–98
[2022-09-21] MEDS: Omeprazole 20 MG CAPSULE.DR PO (07:08)
[2022-09-21] MEDS: Levothyroxine Sodium 25 MCG TABLET PO (07:08)
[2022-09-21 07:13] LABS: Glucose, Whole Blood 184 mg/dL (60-115)
[2022-09-21] MEDS: metFORMIN HCl 1,000 MG TABLET 1000 MG PO ×2 (07:13→18:13)
[2022-09-21] MEDS: Insulin Lispro 100 UNIT/ML 3 ML VIAL SUBCUT ×4 (07:13→21:05)
[2022-09-21] MEDS: OLANZapine 10 MG VIAL 5 MG IM (08:54)
[2022-09-21] MEDS: LORazepam 2 MG/ML VIAL IM (08:54)
--- NOTE | 2022-09-21 09:05 | PC.NURSE ---
Patient becoming increasingly agitated and aggressive. Hitting multiple staff members multiple times, and throwing water at staff. Oral medications offered patient refusing spitting them out. IM zyprexa and ativan given per MAR. Patient remains on 1:1 for safety. Now resting in strecther.
--- NOTE | 2022-09-21 09:51 | MHC.CARE ---
Message left with CCA to return CARE Team's call. Re: Provide updated clinical.
--- NOTE | 2022-09-21 10:24 | PC.NURSE ---
Patient still remains restless, trying to climb out of bed. Continues to scream Bakari. Refusing daily medications, provider aware.
--- NOTE | 2022-09-21 11:02 | PC.NURSE ---
Patient becoming hypotensive, IV inserted and fluids infusing. BP now 106/40.
[2022-09-21] MEDS: 0.9 % Sodium Chloride 1,000 ML 999 ML IVCONT (11:07)
[2022-09-21 13:24] LABS: Glucose, Whole Blood 183 mg/dL (60-115)
--- NOTE | 2022-09-21 15:20 | MHC.EDTECH ---
Pt incontinent of urine, changed bed linens and cleaned pt up. new purewick in place, pt able to change own position. pt resting quietly in bed watching tv, call fernando within reach.
[2022-09-21 18:07] LABS: Glucose, Whole Blood 158 mg/dL (60-115)
--- NOTE | 2022-09-21 18:41 | PC.NURSE ---
Addendum entered by Mary Ellen Jean-Baptiste 09/21/22 18:41: Provider aware of held medications. Original Note: Patient now calm and cooperative with staff, intermittently resting. Easily arousable.
[2022-09-21] MEDS: Venlafaxine HCl ER 150 MG CAP.ER.24H PO (20:56)
[2022-09-21] MEDS: Mirtazapine 7.5 MG TABLET PO (20:56)
[2022-09-21] MEDS: Melatonin 3 MG TABLET 6 MG PO (20:56)
[2022-09-21] MEDS: LORazepam 1 MG TABLET PO (20:56)
[2022-09-21] MEDS: Gabapentin 400 MG CAPSULE 800 MG PO (20:57)
[2022-09-21 21:10] LABS: Glucose, Whole Blood 162 mg/dL (60-115)
--- NOTE | 2022-09-22 01:02 | PC.NURSE ---
Assumed care of pt. at 2300. At that time pt. sleeping in bed, respirations even and unlabored. No distress noted. 1:1 sitter remains at bedside. Will continue to monitor.
[2022-09-22 01:39] VITALS: BP 118/43; PULSE 67; RESP 20; O2SAT 95
--- NOTE | 2022-09-22 03:48 | PC.NURSE ---
Assumed care at 3:15am from NEYDA Angulo, pt is sleeping at this time with no sign of distress.
--- NOTE | 2022-09-22 05:26 | MHC.EDTECH ---
pt was wet from urine even with purewick. Pt changed and cleaned, new linens and gown. Pt requested water and given water.
--- NOTE | 2022-09-22 05:27 | PC.NURSE ---
Complete bed change and per care, purewick in place. Will continue to monitor. pt is calm and cooperative at this time.
[2022-09-22] MEDS: Levothyroxine Sodium 25 MCG TABLET PO (05:55)
[2022-09-22] MEDS: Omeprazole 20 MG CAPSULE.DR PO (05:55)
--- NOTE | 2022-09-22 05:56 | PC.NURSE ---
pt sitting up in bed watching Tv, medicated per Mar, Will continue to monitor.
[2022-09-22 06:08] VITALS: BP 174/83; PULSE 63; RESP 15; TEMP 36.6; O2SAT 91
[2022-09-22] MEDS: Metoprolol Succinate ER 12.5 MG HALFTAB.ER.24H PO (06:41)
[2022-09-22] MEDS: lisinopriL 40 MG TABLET PO (06:42)
[2022-09-22] MEDS: amLODIPine Besylate 5 MG TABLET PO (06:42)
--- NOTE | 2022-09-22 06:43 | PC.NURSE ---
pt hypertensive, per Dr. Sejal cade to give blood pressure medication early this morning.
--- NOTE | 2022-09-22 07:04 | PC.NURSE ---
report taken from liseth rn pt here for behavioral issues, seen by both care team and psych, to be admitted to psych. awake eating breakfast on own this morning, appears calm and cooperative in conversation w this rn on first contact. allowing this rn to check poc without issue. no new complaints per pt at this time. wctm.
[2022-09-22 07:08] LABS: Glucose, Whole Blood 137 mg/dL (60-115)
[2022-09-22] MEDS: Gabapentin 400 MG CAPSULE 800 MG PO ×3 (07:15→22:38)
[2022-09-22] MEDS: Venlafaxine HCl ER 150 MG CAP.ER.24H PO ×2 (07:15→22:38)
[2022-09-22] MEDS: lamoTRIgine 100 MG TABLET 200 MG PO (07:15)
[2022-09-22] MEDS: Atorvastatin Calcium 80 MG TABLET PO (07:15)
[2022-09-22] MEDS: LORazepam 1 MG TABLET PO ×4 (07:15→22:38)
[2022-09-22] MEDS: metFORMIN HCl 1,000 MG TABLET 1000 MG PO ×2 (07:15→18:45)
[2022-09-22] MEDS: Aspirin Enteric Coated 81 MG TABLET.DR PO (07:16)
[2022-09-22] MEDS: Insulin Glargine,Hum.rec.anlog 100 UNIT/ML 10 ML VIAL 10 UNIT SUBCUT (07:16)
[2022-09-22 09:19] VITALS: BP 168/88; PULSE 75; RESP 16; O2SAT 96
--- NOTE | 2022-09-22 13:18 | PM.PSYCN ---
History of Present Illness Date of Service: 09/22/2022 Chief Complaint: STROKE ALERT,LKWT 630PM,FOUND UNRESP INBED, Reason for Consult: f/u post OD Discussed with referring provider: Yes Sources of Information: patient interviewed, chart reviewed and crisis/core team assessment reviewed HPI Narrative: Mrs. Garland is a 62 year-old woman with hx of MDD, HTN DM, brought after daughter found her unresponsive. In the ED, pt initially non sensical, and disoriented. Head CT, CTA, chest XR ordered to rule out acute pathology- all negative. Pt later able to tell orientation to place, month and year. Pt admitted to OD on 9 tablets of 200mg of lamictal and total of 4mg of ativan. Utox was negative. Serial of EKGs did not show any cardiac changes. repeat CBC showed normocytic anemia, low platelet. CMP elevated LFTs. Interim Hx: Per nursing- yesterday pt presented as agitated, swinging at staff in ED, not responding to redirecting requiring IM Olanzapine. Today, pt in bed, calmer. She reports she took OD on lamictal and Ativan because she was upset with her adult children. Pt denies that intent was to end her life. However, minimizes severity of OD. OT completed a MOCA today- pt scored 11/30 with significant impairment in executive function, recall, language repetition and fluency and some impairment in orientation. Pt to this writer technical publications able to tell month, date, year and place correctly. Pt had similar incident about a month ago of impulsive OD but again shows no insight into severity of behavior and concern that family has. FORMERLY [facility], [facility] Medical History Cardiac akinesia Constipation COPD (chronic obstructive pulmonary disease) Depression DMII (diabetes mellitus, type 2) GERD (gastroesophageal reflux disease) Goiter History of gastrostomy tube placement History of laryngeal cancer HTN (hypertension) Hx of substance abuse Hyperlipidemia Hypothyroidism Lumbar stenosis with neurogenic claudication Sleep apnea T2DM (type 2 diabetes mellitus) Vitamin D deficiency Surgical History H/O colonoscopy History of cardiac catheterization (~03/16/21) History of cataract surgery History of ear surgery History of endoscopy History of esophagogastroduodenoscopy (EGD) History of removal of Port-a-Cath History of surgery on arm History of surgery on left wrist Diagnostics Vital Signs (24Hr): Vital Signs - 24 hr 09/21/22 19:37 09/21/22 23:21 09/22/22 01:39 Temperature 97.9 F Pulse Rate 61 57 67 Respiratory Rate 23 H 20 20 Blood Pressure 118/42 L 111/42 L 118/43 L Pulse Oximetry 95 95 Oxygen Delivery Method Room Air Room Air 09/22/22 06:08 09/22/22 09:19 09/22/22 14:10 Temperature 97.8 F 98.4 F Pulse Rate 63 75 65 Respiratory Rate 15 16 20 Blood Pressure 174/83 H 168/88 H 166/67 H Pulse Oximetry 91 L 96 93 Oxygen Delivery Method Room Air Room Air Room Air BMI result Body Mass Index 30.4 Labs 09/19/22 21:51 09/19/22 21:51 Labs: Laboratory Results - last 48 hr 09/20/22 09/21/22 09/21/22 20:09 07:10 13:21 POC Glucose 299 H 184 H 183 H 09/21/22 09/21/22 09/22/22 18:04 21:01 07:03 POC Glucose 158 H 162 H 137 H 09/22/22 13:23 POC Glucose 101 Imaging Radiology Impressions: ITS Impressions Head CT 09/19/22 11:36 IMPRESSION: No acute intracranial abnormality. Head/Neck CTA 09/19/22 11:53 IMPRESSION: There are a few tiny age indeterminant infarcts within the right cerebellar hemisphere. Otherwise no evidence of acute territorial infarct or hemorrhage. No abnormal intracranial mass or enhancement. Heavily calcified atheromatous plaque involves the aortic arch apex and there is 50% stenosis at the origin of the left subclavian artery. The left vertebral artery is occluded at its origin and there is reconstitution of contrast filling the left vertebral artery at its V3 segment. Atheromatous plaque causes possible focal narrowing at the origin of the dominant right vertebral artery which otherwise opacifies normally. No intracranial large vessel occlusion. This critical result was discussed with Nick Conklin MD at 12:03 PM on 09/19/2022 and it was ascertained that the content and urgency of the report was understood at the time of direct communication. Chest X-Ray 09/19/22 12:05 IMPRESSION: No acute pulmonary disease. Mental Status Exam Mental Status Exam Narrative: Appearance: wearing hospital gown, fair hygiene, in NAD Behavior: cooperative Psychomotor: no agitation or retardation noted Speech: clear, normal rate/rhythm/volume, spontaneous TP: tangential, slightly disorganized at times TC: no signs of psychosis or delusions, wanting to go home Mood: fine Affect: bright, non labile SI: denies HI: denies AH/VH: denies Delusions: none Insight/judgment: poor x 2. Memory/cog: alert, oriented to place, month, year, city. MOCA completed on 09/22/22 shows significant impairment in executive function/visuo spatial skills (0/5), language repetition (0/2), fluency (0/1), recall (0/5). Medications Medications Current Medications Albuterol Sulfate (Albuterol Sulfate 90 Mcg 8 Gm Inhaler) 1 puff INHALE QID PRN PRN Reason: Wheezing Amlodipine Besylate (Amlodipine Besylate 5 Mg Tablet) 5 mg PO DAILY [facility]; Protocol Last Admin: 09/22/22 06:42 Dose: 5 mg Aspirin (Aspirin Enteric Coated 81 Mg Tablet.Dr) 81 mg PO DAILY [facility] Last Admin: 09/22/22 07:16 Dose: 81 mg Atorvastatin Calcium (Atorvastatin Calcium 80 Mg Tablet) 80 mg PO DAILY [facility] Last Admin: 09/22/22 07:15 Dose: 80 mg Gabapentin (Gabapentin 400 Mg Capsule) 800 mg PO TID [facility] Last Admin: 09/22/22 14:15 Dose: 800 mg Insulin Glargine (Insulin Glargine,Hum.Rec.Anlog 100 Unit/Ml 10 Ml Vial) 10 unit SUBCUT DAILY [facility] Last Admin: 09/22/22 07:16 Dose: 10 unit Insulin Human Lispro (Insulin Lispro 100 Unit/Ml 3 Ml Vial) 0 unit SUBCUT QIDACHS [facility]; Protocol Last Admin: 09/22/22 13:34 Dose: Not Given Lamotrigine (Lamotrigine 100 Mg Tablet) 200 mg PO DAILY [facility] Last Admin: 09/22/22 07:15 Dose: 200 mg Levothyroxine Sodium (Levothyroxine Sodium 25 Mcg Tablet) 25 mcg PO DAILY@0600 [facility] Last Admin: 09/22/22 05:55 Dose: 25 mcg Lisinopril (Lisinopril 40 Mg Tablet) 40 mg PO DAILY [facility]; Protocol Last Admin: 09/22/22 06:42 Dose: 40 mg Lorazepam (Lorazepam 1 Mg Tablet) 1 mg PO QID [facility] Last Admin: 09/22/22 14:15 Dose: 1 mg Melatonin (Melatonin 3 Mg Tablet) 6 mg PO BEDTIME [facility] Last Admin: 09/21/22 20:56 Dose: 6 mg Metformin HCl (Metformin Hcl 1,000 Mg Tablet) 1,000 mg PO BIDWM [facility] Last Admin: 09/22/22 07:15 Dose: 1,000 mg Metoprolol Succinate (Metoprolol Succinate Er 12.5 Mg Halftab.Er.24h) 12.5 mg PO DAILY [facility]; Protocol Last Admin: 09/22/22 06:41 Dose: 12.5 mg Mirtazapine (Mirtazapine 7.5 Mg Tablet) 7.5 mg PO BEDTIME [facility] Last Admin: 09/21/22 20:56 Dose: 7.5 mg Omeprazole (Omeprazole 20 Mg Capsule.Dr) 20 mg PO DAILY@0630 [facility] Last Admin: 09/22/22 05:55 Dose: 20 mg Pharmacy Consult (Consult Rx Perform Med Rec) 1 each MISCELLANE ONCE PRN PRN Reason: Consult order Pyridoxine HCl (Pyridoxine Hcl (Vitamin B6) 50 Mg Tablet) 50 mg PO DAILY [facility] Last Admin: 09/22/22 07:17 Dose: Not Given Venlafaxine HCl (Venlafaxine Hcl Er 150 Mg Cap.Er.24h) 150 mg PO BID [facility] Last Admin: 09/22/22 07:15 Dose: 150 mg Allergies Allergies Allergy/AdvReac Type Severity Reaction Status Date / Time adhesive tape [ADHESIVE TAPE] Allergy Intermediate BLISTERS Verified 08/25/22 11:27 meloxicam AdvReac Unknown hallucinati Verified 08/25/22 11:27 ons talwin Allergy Unknown ineffective Uncoded 08/25/22 11:27 Assessment & Plan Assessment & Plan (1) Mood disorder: Status: Acute Code(s): F39 - Unspecified mood [affective] disorder Plan Mrs. Garland is a 62 year-old woman with hx of mood disorder brought by daughter after found unresponsive. Pt had work up to r/o CVA and other acute pathologies, including head CT, CTA, chest xray which did not show acute changes. Utox was negative. Pt disclosed intentional OD on 9 tablets of lamictal of 200mg, and 4mg of ativan. Pt denied intent was to end her life. However, significant concern about her impulsive behaviors as this is second time that pt OD on her medications. Pt also noted to have underlying neurcognitive impairments. MOCA completed today scored 11/30 which show severe impairment. Head CT does show microvascular changes. Pt does not appear delirious today as attention is fairly intact and orientation not grossly impaired. Do suspect MOCA is reflective of underlying neurocognitive disorder. Also note that there was another MOCA completed over a month ago when pt presented to ED and score was similar. PLAN 1. continue bedseach for further containment, stabilization and safety. 2. given that pt has been restraint- will recheck CMP, CBC Total time managing care of this patient today ____ minutes.
[2022-09-22 13:25] LABS: Glucose, Whole Blood 101 mg/dL (60-115)
[2022-09-22 14:10] VITALS: BP 166/67; PULSE 65; RESP 20; TEMP 36.9; O2SAT 93
--- NOTE | 2022-09-22 14:52 | PC.NURSE ---
MOCA cognitive assessment administered this date. Pts environment modified to decrease auditory and visual distraction for most objective outcome. Pts score 11/30 is indicative of moderate cognitive deficit. Attending OTR/L notified and aware of pt result. Pt presents pleasant and receptive with blunted yet cheerful affect on this date.
[2022-09-22 16:43] LABS: Glucose, Whole Blood 195 mg/dL (60-115)
[2022-09-22 16:58] LABS: Baso%MD 0.4 %; Eos%MD 2.6 %; Hematocrit 34.4 % (37.0-47.0); Hemoglobin 11.4 g/dl (12.0-16.0); IG%MD 0.2 %; Lymph%MD 20.7 %; Mean Corpuscular HGB Conc 33.1 g/dl (31.0-35.0); Mean Corpuscular Hemoglobin 29.7 pg (27.0-33.0); Mean Corpuscular Volume 89.6 fL (80.0-98.0); Mean Platelet Volume 10.5 fL (9.4-12.3); Mono%MD 7.9 %; Neut%MD 68.2 %; Platelet Count 165 X10*3/uL (160-400); Red Blood Count 3.84 X10*6/uL (4.20-5.50); Red Cell Distribution Width 13.2 % (11.0-16.0); White Blood Count 8.4 X10*3/uL (4.8-10.8)
[2022-09-22 16:59] LABS: Lamotrigine Lamictal 13.6 mcg/mL (2.5-15.0)
[2022-09-22 17:15] LABS: Alanine Aminotransferase 31 U/L (0-31); Albumin Level 3.4 g/dL (3.5-5.0); Alkaline Phosphatase 84 U/L (39-117); Anion Gap 17 (12-20); Aspartate Amino Transferase 37 U/L (5-31); Bilirubin Total 0.6 mg/dL (0.0-1.0); Blood Urea Nitrogen 21 mg/dL (9-16); Calcium 8.6 mg/dL (8.4-10.2); Carbon Dioxide 21 mmol/L (22-29); Chloride 105 mmol/L (96-108); Creatinine Clr Calc Pharmacy 45.1; Estimated Glomerular Filt Rate 45; Glucose Random 184 mg/dL (60-115); Potassium 4.8 mmol/L (3.3-5.1); Sodium 138 mmol/L (135-145); Total Protein 5.9 g/dL (6.5-8.0)
[2022-09-22 18:26] LABS: Glucose, Whole Blood 129 mg/dL (60-115)
[2022-09-22 18:27] LABS: Band Neutrophils Percent 2 % (3-5); Eosinophils Absolute Manual 0.1 X10*3/uL (0.0-0.4); Eosinophils Percent Manual 1 % (0-4); Lymphocytes Absolute Manual 2.1 X10*3/uL (1.2-4.9); Lymphocytes Percent Manual 25 % (20-40); Monocytes Absolute Manual 0.4 X10*3/uL (0.1-1.2); Monocytes Percent Manual 5 % (2-11); Neutrophils Absolute Manual 5.8 X10*3/uL (2.0-8.3); Neutrophils Percent Manual 67 % (45-73)
[2022-09-22 18:28] LABS: Platelet Estimate NORMAL (NORMAL); Platelet Morphology Comment NORMAL; RBC Morphology NORMAL
[2022-09-22 22:28] LABS: Glucose, Whole Blood 129 mg/dL (60-115)
[2022-09-22] MEDS: Melatonin 3 MG TABLET 6 MG PO (22:38)
[2022-09-22] MEDS: Mirtazapine 7.5 MG TABLET PO (22:38)
[2022-09-22 23:35] VITALS: BP 127/62; PULSE 61; RESP 17; TEMP 36.7; O2SAT 95
--- NOTE | 2022-09-22 23:47 | MHC.EDTECH ---
pt vitals were taken and she was given something to eat , tuna sandwich, pudding she had her own flavor water she preferred
--- NOTE | 2022-09-23 00:46 | PC.NURSE ---
Daughter brought cell phone and clothing for pt. Items placed with other belonging in the pod.
[2022-09-23] MEDS: Levothyroxine Sodium 25 MCG TABLET PO (06:11)
[2022-09-23] MEDS: Omeprazole 20 MG CAPSULE.DR PO (06:11)
--- NOTE | 2022-09-23 06:14 | PC.NURSE ---
Patient alert and oriented. Medications administered as per SEP. PT denies SI/HI at this time. Patient had uneventful night in which she slept all night. 1:1 observation continues. Call fernando within reach
[2022-09-23 07:09] LABS: Glucose, Whole Blood 168 mg/dL (60-115)
--- NOTE | 2022-09-23 07:20 | PC.NURSE ---
Patient resting comfortably no distress noted remains 1:1 for safety behavior appropriate will CTM
[2022-09-23 07:34] VITALS: BP 149/66; PULSE 60; RESP 20; O2SAT 94
[2022-09-23] MEDS: amLODIPine Besylate 5 MG TABLET PO (08:25)
[2022-09-23] MEDS: LORazepam 1 MG TABLET PO ×4 (08:25→20:48)
[2022-09-23] MEDS: Aspirin Enteric Coated 81 MG TABLET.DR PO (08:25)
[2022-09-23] MEDS: lamoTRIgine 100 MG TABLET 200 MG PO (08:26)
[2022-09-23] MEDS: Venlafaxine HCl ER 150 MG CAP.ER.24H PO (08:26)
[2022-09-23] MEDS: Metoprolol Succinate ER 12.5 MG HALFTAB.ER.24H PO (08:26)
[2022-09-23] MEDS: lisinopriL 40 MG TABLET PO (08:26)
[2022-09-23] MEDS: Gabapentin 400 MG CAPSULE 800 MG PO (08:26)
[2022-09-23] MEDS: Atorvastatin Calcium 80 MG TABLET PO (08:26)
[2022-09-23] MEDS: Insulin Glargine,Hum.rec.anlog 100 UNIT/ML 10 ML VIAL 10 UNIT SUBCUT (08:27)
--- NOTE | 2022-09-23 08:36 | PC.NURSE ---
Care team met with patient behavior appropriate no distress noted will CTM
--- NOTE | 2022-09-23 08:51 | PC.NURSE ---
Verified with MD will admin metformin and lantus, to cancel lispro orders will hold until MD cancels will CTM
[2022-09-23] MEDS: Pyridoxine HCl (Vitamin B6) 50 MG TABLET PO (09:38)
[2022-09-23 09:52] VITALS: BP 175/63; PULSE 62; RESP 16; TEMP 36.7; O2SAT 97
--- NOTE | 2022-09-23 12:10 | PC.NURSE ---
Inpatient clinical neuropsychologist at baseline patient remains watch for safety awaiting inpatient psych bed
[2022-09-23 12:34] LABS: Glucose, Whole Blood 160 mg/dL (60-115)
[2022-09-23 14:29] VITALS: BP 147/61; PULSE 62; RESP 16; O2SAT 96
--- NOTE | 2022-09-23 14:51 | PC.NURSE ---
Daughter at bedside patient needs redirection wants to go home remains watch for safety
[2022-09-23 15:13] LABS: Alanine Aminotransferase 31 U/L (0-31); Albumin Level 3.5 g/dL (3.5-5.0); Alkaline Phosphatase 88 U/L (39-117); Anion Gap 14 (12-20); Aspartate Amino Transferase 39 U/L (5-31); Bilirubin Total 0.6 mg/dL (0.0-1.0); Blood Urea Nitrogen 25 mg/dL (9-16); Calcium 8.6 mg/dL (8.4-10.2); Carbon Dioxide 25 mmol/L (22-29); Chloride 104 mmol/L (96-108); Creatinine Clr Calc Pharmacy 41.2; Estimated Glomerular Filt Rate 41; Glucose Random 212 mg/dL (60-115); Potassium 4.9 mmol/L (3.3-5.1); Sodium 138 mmol/L (135-145)
--- NOTE | 2022-09-23 15:40 | P.CNPS_ITS ---
History of Present Illness Date of Service: Chief Complaint: STROKE ALERT,LKWT 630PM,FOUND UNRESP INBED, Reason for Consult: f/u post OD Requesting physician: Kasandra Gale Discussed with referring provider: Yes Sources of Information: patient interviewed, chart reviewed and crisis/core team assessment reviewed HPI Narrative: Interim Hx: pt awaiting psych bed after intentional OD on lamictal and ativan. Pt in much behavioral control today. She denies SI/HI. She asks to go home but appears to minimize events leading to this admission. This is second intentional OD in past 2 months and pt shows not insight into severity. Pt taking medications as prescribed, labs done yesterday showed increase in Cr from 1.06 on 09/19 to 1.20 on 09/23 and 1.31 on 09/23; BUN 21 on 09/22 to 25 on 09/23. Review of Systems Reports confusion Psychiatric: Reports confusion ON LICENSE OF [facility] Medical History Cardiac akinesia Constipation COPD (chronic obstructive pulmonary disease) Depression DMII (diabetes mellitus, type 2) GERD (gastroesophageal reflux disease) Goiter History of gastrostomy tube placement History of laryngeal cancer HTN (hypertension) Hx of substance abuse Hyperlipidemia Hypothyroidism Lumbar stenosis with neurogenic claudication Sleep apnea T2DM (type 2 diabetes mellitus) Vitamin D deficiency Surgical History H/O colonoscopy History of cardiac catheterization (~03/16/21) History of cataract surgery History of ear surgery History of endoscopy History of esophagogastroduodenoscopy (EGD) History of removal of Port-a-Cath History of surgery on arm History of surgery on left wrist Diagnostics Vital Signs (24Hr): Vital Signs - 24 hr 09/22/22 23:35 09/23/22 07:34 09/23/22 09:52 Temperature 98.0 F 98.1 F Pulse Rate 61 60 62 Respiratory Rate 17 20 16 Blood Pressure 127/62 149/66 H 175/63 H Pulse Oximetry 95 94 97 Oxygen Delivery Method Room Air Room Air Room Air 09/23/22 14:29 Temperature Pulse Rate 62 Respiratory Rate 16 Blood Pressure 147/61 H Pulse Oximetry 96 Oxygen Delivery Method Room Air BMI result Body Mass Index 30.4 Labs 09/22/22 16:48 09/23/22 14:42 Labs: Laboratory Results - last 48 hr 09/19/22 09/21/22 09/21/22 14:35 18:04 21:01 WBC RBC Hgb Hct MCV MCH MCHC RDW Plt Count MPV Absolute Nucleated RBC Nucleated RBC % (auto) Neutrophils % (Manual) Band Neutrophils % Lymphocytes % (Manual) Monocytes % (Manual) Eosinophils % (Manual) Abs Neuts (Manual) Lymphocytes # (Manual) Monocytes # (Manual) Eosinophils # (Manual) Platelet Estimate Plt Morphology Comment RBC Morphology Sodium Potassium Chloride Carbon Dioxide Anion Gap BUN Creatinine Estim Creat Clear Calc Estimated GFR POC Glucose 158 H 162 H Random Glucose Calcium Total Bilirubin AST ALT Alkaline Phosphatase Total Protein Albumin Lamotrigine 13.6 09/22/22 09/22/22 09/22/22 07:03 13:23 16:39 WBC RBC Hgb Hct MCV MCH MCHC RDW Plt Count MPV Absolute Nucleated RBC Nucleated RBC % (auto) Neutrophils % (Manual) Band Neutrophils % Lymphocytes % (Manual) Monocytes % (Manual) Eosinophils % (Manual) Abs Neuts (Manual) Lymphocytes # (Manual) Monocytes # (Manual) Eosinophils # (Manual) Platelet Estimate Plt Morphology Comment RBC Morphology Sodium Potassium Chloride Carbon Dioxide Anion Gap BUN Creatinine Estim Creat Clear Calc Estimated GFR POC Glucose 137 H 101 195 H Random Glucose Calcium Total Bilirubin AST ALT Alkaline Phosphatase Total Protein Albumin Lamotrigine 09/22/22 09/22/22 09/22/22 16:48 16:48 18:22 WBC 8.4 RBC 3.84 L Hgb 11.4 L Hct 34.4 L MCV 89.6 MCH 29.7 MCHC 33.1 RDW 13.2 Plt Count 165 MPV 10.5 Absolute Nucleated RBC 0.000 Nucleated RBC % (auto) 0.0 Neutrophils % (Manual) 67 Band Neutrophils % 2 L Lymphocytes % (Manual) 25 Monocytes % (Manual) 5 Eosinophils % (Manual) 1 Abs Neuts (Manual) 5.8 Lymphocytes # (Manual) 2.1 Monocytes # (Manual) 0.4 Eosinophils # (Manual) 0.1 Platelet Estimate NORMAL Plt Morphology Comment NORMAL RBC Morphology NORMAL Sodium 138 Potassium 4.8 Chloride 105 Carbon Dioxide 21 L Anion Gap 17 BUN 21 H Creatinine 1.20 Estim Creat Clear Calc 45.1 Estimated GFR 45 POC Glucose 129 H Random Glucose 184 H Calcium 8.6 Total Bilirubin 0.6 AST 37 H ALT 31 Alkaline Phosphatase 84 Total Protein 5.9 L Albumin 3.4 L Lamotrigine 09/22/22 09/23/22 09/23/22 22:11 07:06 12:30 WBC RBC Hgb Hct MCV MCH MCHC RDW Plt Count MPV Absolute Nucleated RBC Nucleated RBC % (auto) Neutrophils % (Manual) Band Neutrophils % Lymphocytes % (Manual) Monocytes % (Manual) Eosinophils % (Manual) Abs Neuts (Manual) Lymphocytes # (Manual) Monocytes # (Manual) Eosinophils # (Manual) Platelet Estimate Plt Morphology Comment RBC Morphology Sodium Potassium Chloride Carbon Dioxide Anion Gap BUN Creatinine Estim Creat Clear Calc Estimated GFR POC Glucose 129 H 168 H 160 H Random Glucose Calcium Total Bilirubin AST ALT Alkaline Phosphatase Total Protein Albumin Lamotrigine 09/23/22 14:42 WBC RBC Hgb Hct MCV MCH MCHC RDW Plt Count MPV Absolute Nucleated RBC Nucleated RBC % (auto) Neutrophils % (Manual) Band Neutrophils % Lymphocytes % (Manual) Monocytes % (Manual) Eosinophils % (Manual) Abs Neuts (Manual) Lymphocytes # (Manual) Monocytes # (Manual) Eosinophils # (Manual) Platelet Estimate Plt Morphology Comment RBC Morphology Sodium 138 Potassium 4.9 Chloride 104 Carbon Dioxide 25 Anion Gap 14 BUN 25 H Creatinine 1.31 Estim Creat Clear Calc 41.2 Estimated GFR 41 POC Glucose Random Glucose 212 H Calcium 8.6 Total Bilirubin 0.6 AST 39 H ALT 31 Alkaline Phosphatase 88 Total Protein 6.0 L Albumin 3.5 Lamotrigine Imaging Radiology Impressions: ITS Impressions Head CT 09/19/22 11:36 IMPRESSION: No acute intracranial abnormality. Head/Neck CTA 09/19/22 11:53 IMPRESSION: There are a few tiny age indeterminant infarcts within the right cerebellar hemisphere. Otherwise no evidence of acute territorial infarct or hemorrhage. No abnormal intracranial mass or enhancement. Heavily calcified atheromatous plaque involves the aortic arch apex and there is 50% stenosis at the origin of the left subclavian artery. The left vertebral artery is occluded at its origin and there is reconstitution of contrast filling the left vertebral artery at its V3 segment. Atheromatous plaque causes possible focal narrowing at the origin of the dominant right vertebral artery which otherwise opacifies normally. No intracranial large vessel occlusion. This critical result was discussed with Nick Conklin MD at 12:03 PM on 09/19/2022 and it was ascertained that the content and urgency of the report was understood at the time of direct communication. Chest X-Ray 09/19/22 12:05 IMPRESSION: No acute pulmonary disease. Mental Status Exam Mental Status Exam Narrative: Appearance: wearing hospital gown, fair hygiene, in NAD Behavior: cooperative Psychomotor: no agitation or retardation noted Speech: clear, normal rate/rhythm/volume, spontaneous TP: tangential, slightly disorganized at times TC: no signs of psychosis or delusions, wanting to go home Mood: fine Affect: bright, non labile SI: denies HI: denies AH/VH: denies Delusions: none Insight/judgment: poor x 2. Memory/cog: alert, oriented to place, month, year, city. MOCA completed on shows significant impairment in executive function/visuo spatial skills (0/5), language repetition (0/2), fluency (0/1), recall (0/5). Medications Medications Current Medications Albuterol Sulfate (Albuterol Sulfate 90 Mcg 8 Gm Inhaler) 1 puff INHALE QID PRN PRN Reason: Wheezing Amlodipine Besylate (Amlodipine Besylate 5 Mg Tablet) 5 mg PO DAILY [facility]; Protocol Last Admin: 09/23/22 08:25 Dose: 5 mg Aspirin (Aspirin Enteric Coated 81 Mg Tablet.Dr) 81 mg PO DAILY [facility] Last Admin: 09/23/22 08:25 Dose: 81 mg Atorvastatin Calcium (Atorvastatin Calcium 80 Mg Tablet) 80 mg PO DAILY [facility] Last Admin: 09/23/22 08:26 Dose: 80 mg Gabapentin (Gabapentin 400 Mg Capsule) 400 mg PO TID [facility] Insulin Glargine (Insulin Glargine,Hum.Rec.Anlog 100 Unit/Ml 10 Ml Vial) 10 unit SUBCUT DAILY [facility] Last Admin: 09/23/22 08:27 Dose: 10 unit Lamotrigine (Lamotrigine 100 Mg Tablet) 200 mg PO DAILY [facility] Last Admin: 09/23/22 08:26 Dose: 200 mg Levothyroxine Sodium (Levothyroxine Sodium 25 Mcg Tablet) 25 mcg PO DAILY@0600 [facility] Last Admin: 09/23/22 06:11 Dose: 25 mcg Lisinopril (Lisinopril 40 Mg Tablet) 40 mg PO DAILY [facility]; Protocol Last Admin: 09/23/22 08:26 Dose: 40 mg Lorazepam (Lorazepam 1 Mg Tablet) 1 mg PO QID [facility] Last Admin: 09/23/22 13:07 Dose: 1 mg Melatonin (Melatonin 3 Mg Tablet) 6 mg PO BEDTIME [facility] Last Admin: 09/22/22 22:38 Dose: 6 mg Metoprolol Succinate (Metoprolol Succinate Er 12.5 Mg Halftab.Er.24h) 12.5 mg PO DAILY [facility]; Protocol Last Admin: 09/23/22 08:26 Dose: 12.5 mg Mirtazapine (Mirtazapine 7.5 Mg Tablet) 7.5 mg PO BEDTIME [facility] Last Admin: 09/22/22 22:38 Dose: 7.5 mg Omeprazole (Omeprazole 20 Mg Capsule.Dr) 20 mg PO DAILY@0630 [facility] Last Admin: 09/23/22 06:11 Dose: 20 mg Pharmacy Consult (Consult Rx Perform Med Rec) 1 each MISCELLANE ONCE PRN PRN Reason: Consult order Pyridoxine HCl (Pyridoxine Hcl (Vitamin B6) 50 Mg Tablet) 50 mg PO DAILY [facility] Last Admin: 09/23/22 09:38 Dose: 50 mg Venlafaxine HCl (Venlafaxine Hcl Er 150 Mg Cap.Er.24h) 150 mg PO DAILY [facility] Allergies Allergies Allergy/AdvReac Type Severity Reaction Status Date / Time adhesive tape [ADHESIVE TAPE] Allergy Intermediate BLISTERS Verified 08/25/22 11:27 meloxicam AdvReac Unknown hallucinati Verified 08/25/22 11:27 ons talwin Allergy Unknown ineffective Uncoded 08/25/22 11:27 Assessment & Plan Assessment & Plan (1) Mood disorder: Status: Acute Code(s): F39 - Unspecified mood [affective] disorder Plan Mrs. Garland is a 62 year-old woman with hx of mood disorder brought by daughter after found unresponsive. Pt had work up to r/o CVA and other acute pathologies, including head CT, CTA, chest xray which did not show acute changes. Utox was negative. Pt disclosed intentional OD on 9 tablets of lamictal of 200mg, and 4mg of ativan. Pt denied intent was to end her life. However, significant concern about her impulsive behaviors as this is second time that pt OD on her medications. Pt also noted to have underlying neurcognitive impairments. MOCA completed today scored 11/30 which show severe impairment. Head CT does show microvascular changes. Pt does not appear delirious today as attention is fairly intact and orientation not grossly impaired. Do suspect MOCA is reflective of underlying neurocognitive disorder. Also note that there was another MOCA completed over a month ago when pt presented to ED and score was similar. PLAN 1. continue bedseach for further containment, stabilization and safety. 09/23 worsening of renal function with elevation of Cr from 1.06 on 09/19, to 1.20 on 09/23, to 1.3 on 09/23. BUN increased today 25. May need IV fluids. Given that worsening of renal function and elevation in BP, recommend decreasing dose of effexor from 150mg po BID to 150mg po daily and decreasing dose of gabapentin from 800mg TID to 400mg po TID. Please stabilize renal function before transfer to psych unit. Total time managing care of this patient today ____ minutes.
--- NOTE | 2022-09-23 20:43 | PC.NURSE ---
This promotion writer assumed care of this Pt at 1900. Pt awake, calm and cooperative, sitting at the edge of bed, denies any pain. Medicated as documented, Pt requesting to take melatonin at 10pm. Pt denies SI/HI, denies visual/auditory hallucinations. 1:1 sitter remains at bedside.
[2022-09-23] MEDS: Gabapentin 400 MG CAPSULE PO (20:47)
[2022-09-23] MEDS: Mirtazapine 7.5 MG TABLET PO (20:48)
[2022-09-23] MEDS: Melatonin 3 MG TABLET 6 MG PO (21:48)
[2022-09-24 03:32] VITALS: BP 130/58; PULSE 66; RESP 18; O2SAT 94
--- NOTE | 2022-09-24 03:33 | PC.NURSE ---
Pt tearful, states 10/10 R leg pain, starting at the outer hip area and shooting down to knee. Reports not new but it has been increasing painful. Provider Dr. Roland notified, no new orders at this time.
--- NOTE | 2022-09-24 04:57 | PC.NURSE ---
Pt appears to be sleeping at this time, no apparent distress. 1:1 continuos monitor, sitter at bedside. Will CTM.
[2022-09-24 06:00] VITALS: BP 135/55; PULSE 80; RESP 20; O2SAT 98
[2022-09-24] MEDS: Levothyroxine Sodium 25 MCG TABLET PO (06:41)
[2022-09-24] MEDS: Omeprazole 20 MG CAPSULE.DR PO (06:41)
--- NOTE | 2022-09-24 07:00 | PC.NURSE ---
Resumed care of this Patient this AM, 1:1 present with patient, pt currently on bedside commode, continued to report hip pain, provider aware. Safety measures in place.
[2022-09-24] MEDS: Insulin Glargine,Hum.rec.anlog 100 UNIT/ML 10 ML VIAL 10 UNIT SUBCUT (07:52)
[2022-09-24] MEDS: Gabapentin 400 MG CAPSULE PO ×3 (07:53→21:42)
[2022-09-24] MEDS: LORazepam 1 MG TABLET PO ×3 (07:53→21:42)
[2022-09-24] MEDS: lamoTRIgine 100 MG TABLET 200 MG PO (07:53)
[2022-09-24] MEDS: Aspirin Enteric Coated 81 MG TABLET.DR PO (07:54)
[2022-09-24] MEDS: Venlafaxine HCl ER 150 MG CAP.ER.24H PO (07:54)
[2022-09-24] MEDS: Atorvastatin Calcium 80 MG TABLET PO (07:54)
[2022-09-24] MEDS: Metoprolol Succinate ER 12.5 MG HALFTAB.ER.24H PO (07:55)
[2022-09-24] MEDS: lisinopriL 40 MG TABLET PO (07:55)
[2022-09-24] MEDS: amLODIPine Besylate 5 MG TABLET PO (07:55)
[2022-09-24 08:17] LABS: MANUAL DIFF FLAG NO
[2022-09-24 08:20] LABS: Basophils Percent Auto 0.6 % (0-2); Eosinophils Absolute Auto 0.2 X10*3/uL (0.0-0.4); Eosinophils Percent Auto 2.5 % (0-4); Hematocrit 33.4 % (37.0-47.0); Hemoglobin 11.3 g/dl (12.0-16.0); Imm Gran Abs Auto 0.02 X10*3/uL (0.00-0.03); Imm Gran Pct Auto 0.3 % (0.0-0.4); Lymphocytes Absolute Auto 1.4 X10*3/uL (1.2-4.9); Mean Corpuscular HGB Conc 33.8 g/dl (31.0-35.0); Mean Corpuscular Hemoglobin 30.1 pg (27.0-33.0); Mean Corpuscular Volume 89.1 fL (80.0-98.0); Mean Platelet Volume 10.6 fL (9.4-12.3); Monocytes Absolute Auto 0.5 X10*3/uL (0.1-1.2); Monocytes Percent Auto 7.6 % (2-11); Neutrophils Absolute Auto 4.5 x10*3/uL (2.0-8.3); Platelet Count 159 X10*3/uL (160-400); Red Blood Count 3.75 X10*6/uL (4.20-5.50); Red Cell Distribution Width 13.4 % (11.0-16.0); White Blood Count 6.7 X10*3/uL (4.8-10.8)
[2022-09-24] MEDS: Pyridoxine HCl (Vitamin B6) 50 MG TABLET PO (08:23)
[2022-09-24 08:55] LABS: Anion Gap 12 (12-20); Blood Urea Nitrogen 31 mg/dL (9-16); Calcium 8.8 mg/dL (8.4-10.2); Carbon Dioxide 24 mmol/L (22-29); Chloride 107 mmol/L (96-108); Creatinine Clr Calc Pharmacy 44.7; Estimated Glomerular Filt Rate 45; Glucose Random 188 mg/dL (60-115); Potassium 4.4 mmol/L (3.3-5.1); Sodium 139 mmol/L (135-145)
--- NOTE | 2022-09-24 09:19 | PC.NURSE ---
Pt currently denying SI/HI at this time/ 1:1 sitting still present. Pt flighty with ideas at this time, but remains a/ox4.
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
[2022-09-24 15:02] VITALS: BP 120/61; PULSE 58; RESP 17; TEMP 36.7; O2SAT 93
[2022-09-24 16:55] LABS: COVID-19 Test Negative (Negative); IDNOW Serial# 6674DD1D
[2022-09-24 19:52] LABS: Glucose, Whole Blood 263 mg/dL (60-115)
[2022-09-24] MEDS: Melatonin 3 MG TABLET 6 MG PO (21:42)
[2022-09-24] MEDS: Mirtazapine 7.5 MG TABLET PO (21:43)
[2022-09-24] MEDS: Insulin Lispro 100 UNIT/ML 3 ML VIAL SUBCUT (22:08)
[2022-09-24 23:50] VITALS: BMI 29.5
[2022-09-24 23:51] VITALS: BP 136/63; PULSE 63; RESP 18; TEMP 36.4; O2SAT 94
--- NOTE | 2022-09-24 23:52 | PC.ADMIT ---
Admitted a 62 yrs old female patient from ED per wheelchair accompanied by the security system administrator . Pt.presented in the ED for possible stroke after her daughter found her in bed w/ garbled speech and altered mental status. While in the ED, Gloria admitted to staff that she overdosed on 9 pills of 200 mg. of Lamictal and 4 pills of Ativan 1 mg each. She stated the overdose was intentional. Patient signed the CV and arrived in the unit at 21:04h. Upon arrival, pt oriented to the unit,room, staff, and room mate. Pt. is pleasant on approached and cooperative w/ admission process. Pt. is alert and oriented x3, forgets the date. Pt. signed all the papers for release of infomation. Skin assessment done w/ multiple bruises on upper and lower extremities. Pt also has tattoes on her L neck and L. arm. Wears eyeglasses at baseline and wears upper and lower dentures but did not bring it w/ her. Pt. said, she ambulates using a scooter at home. Pt. given a walker here and ambulates w/ staff assist, unsteady at times and walks slowly. Pt. has no c/o SOB, Lungs sounds clear bilaterally. Abdomem soft non tender w/ + bowel sounds in all 4 quadrants and no edema noted. Pt. said she had BM ON .Pt. c/o pain on her lower back and rated it as 7/10 w/ schedules Gabapentin 400 mg. Pt. denies SI/AVH/ anxiety and feels safe in the unit. Pt. said she is still depressed.Pt has HX of cardiac akinesia, constipation, COPD, DM2, GERD, HX of gastrostomy tube placement, hx of Laryngeal cancer, HTN,HX of substance abuse, Hyperlipidemia, hypothyroidism, Lumbar stenosis w/ neurogenic claudication, sleep apnea and Vitamin D Deficiency. Pt bld sugar at HS-263, given 6 units of Insulin Lispro. Pt given all her scheduled meds and med compliant. Dr. Maier informed of admission and all orders in. We'll continue to monitor patient.
[2022-09-25 06:00] VITALS: BP 129/61; PULSE 67; RESP 18; TEMP 36.9; O2SAT 95
[2022-09-25] MEDS: Omeprazole 20 MG CAPSULE.DR PO (06:25)
[2022-09-25] MEDS: Levothyroxine Sodium 25 MCG TABLET PO (06:25)
[2022-09-25 07:52] LABS: Glucose, Whole Blood 169 mg/dL (60-115)
[2022-09-25 08:06] LABS: Alanine Aminotransferase 38 U/L (0-31); Albumin Level 3.5 g/dL (3.5-5.0); Alkaline Phosphatase 86 U/L (39-117); Anion Gap 15 (12-20); Aspartate Amino Transferase 58 U/L (5-31); Bilirubin Total 0.4 mg/dL (0.0-1.0); Blood Urea Nitrogen 39 mg/dL (9-16); Calcium 8.9 mg/dL (8.4-10.2); Carbon Dioxide 25 mmol/L (22-29); Chloride 107 mmol/L (96-108); Cholesterol 159 mg/dL; Creatinine Clr Calc Pharmacy 38.8; Estimated Glomerular Filt Rate 39; Glucose Fasting 167 mg/dL (60-99); HDL Cholesterol 61 mg/dL; LDL Cholesterol Calculated 85 mg/dl; Potassium 4.8 mmol/L (3.3-5.1); Sodium 142 mmol/L (135-145); Total Protein 6.1 g/dL (6.5-8.0); Triglycerides 69 mg/dL
[2022-09-25] MEDS: Insulin Glargine,Hum.rec.anlog 100 UNIT/ML 10 ML VIAL 10 UNIT SUBCUT (08:31)
[2022-09-25] MEDS: Gabapentin 400 MG CAPSULE PO ×3 (08:32→20:04)
[2022-09-25] MEDS: Atorvastatin Calcium 80 MG TABLET PO (08:33)
[2022-09-25] MEDS: Venlafaxine HCl ER 150 MG CAP.ER.24H PO (08:33)
[2022-09-25] MEDS: Metoprolol Succinate ER 12.5 MG HALFTAB.ER.24H PO (08:33)
[2022-09-25] MEDS: lisinopriL 40 MG TABLET PO (08:33)
[2022-09-25] MEDS: Pyridoxine HCl (Vitamin B6) 50 MG TABLET PO (08:33)
[2022-09-25] MEDS: amLODIPine Besylate 5 MG TABLET PO (08:33)
[2022-09-25] MEDS: lamoTRIgine 100 MG TABLET 200 MG PO (08:33)
[2022-09-25] MEDS: LORazepam 1 MG TABLET PO ×4 (08:33→20:05)
[2022-09-25] MEDS: Aspirin Enteric Coated 81 MG TABLET.DR PO (08:33)
[2022-09-25] MEDS: Insulin Lispro 100 UNIT/ML 3 ML VIAL SUBCUT ×2 (08:37→16:46)
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
[2022-09-25 11:46] LABS: Glucose, Whole Blood 77 mg/dL (60-115)
[2022-09-25 16:21] LABS: Glucose, Whole Blood 174 mg/dL (60-115)
[2022-09-25 18:46] VITALS: BP 132/64; PULSE 75; RESP 18; TEMP 36.3; O2SAT 96
[2022-09-25] MEDS: Melatonin 3 MG TABLET 6 MG PO (20:04)
[2022-09-25] MEDS: Mirtazapine 7.5 MG TABLET PO (20:04)
[2022-09-25] MEDS: Acetaminophen 325 MG TABLET 650 MG PO (20:05)
[2022-09-25 20:59] LABS: Glucose, Whole Blood 139 mg/dL (60-115)
[2022-09-26] MEDS: Omeprazole 20 MG CAPSULE.DR PO (06:06)
[2022-09-26] MEDS: Levothyroxine Sodium 25 MCG TABLET PO (06:06)
[2022-09-26] MEDS: Acetaminophen 325 MG TABLET 650 MG PO ×2 (06:27→13:03)
[2022-09-26 07:33] LABS: Glucose, Whole Blood 137 mg/dL (60-115)
[2022-09-26] MEDS: Insulin Glargine,Hum.rec.anlog 100 UNIT/ML 10 ML VIAL 10 UNIT SUBCUT (07:58)
[2022-09-26] MEDS: lamoTRIgine 100 MG TABLET 200 MG PO (07:59)
[2022-09-26] MEDS: lisinopriL 40 MG TABLET PO (07:59)
[2022-09-26] MEDS: Atorvastatin Calcium 80 MG TABLET PO (07:59)
[2022-09-26] MEDS: Pyridoxine HCl (Vitamin B6) 50 MG TABLET PO (07:59)
[2022-09-26] MEDS: Gabapentin 400 MG CAPSULE PO ×3 (07:59→20:22)
[2022-09-26] MEDS: Venlafaxine HCl ER 150 MG CAP.ER.24H PO (08:00)
[2022-09-26] MEDS: amLODIPine Besylate 5 MG TABLET PO (08:00)
[2022-09-26] MEDS: Aspirin Enteric Coated 81 MG TABLET.DR PO (08:00)
[2022-09-26] MEDS: Metoprolol Succinate ER 12.5 MG HALFTAB.ER.24H PO (08:00)
[2022-09-26 08:03] VITALS: BP 127/60; PULSE 61; RESP 18; TEMP 36.1; O2SAT 96
--- NOTE | 2022-09-26 10:36 | PC.NURSE ---
Pt. A & O X 4. Using walker appropriately. Good balance and steady gait. Bed alarm not indicated.
[2022-09-26 11:35] LABS: Glucose, Whole Blood 80 mg/dL (60-115)
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
[2022-09-26 16:38] LABS: Glucose, Whole Blood 113 mg/dL (60-115)
[2022-09-26 19:58] LABS: Glucose, Whole Blood 257 mg/dL (60-115)
[2022-09-26] MEDS: Insulin Lispro 100 UNIT/ML 3 ML VIAL SUBCUT (20:21)
[2022-09-26] MEDS: Mirtazapine 7.5 MG TABLET PO (20:22)
[2022-09-26] MEDS: Melatonin 3 MG TABLET 6 MG PO (20:22)
[2022-09-26 20:38] VITALS: BP 111/53; PULSE 57; RESP 16; TEMP 36.3; O2SAT 97
[2022-09-27] MEDS: Acetaminophen 325 MG TABLET 650 MG PO ×2 (01:49→15:53)
[2022-09-27] MEDS: traZODone HCL 50 MG TABLET PO (01:50)
[2022-09-27] MEDS: LORazepam 1 MG TABLET PO (02:26)
[2022-09-27] MEDS: Omeprazole 20 MG CAPSULE.DR PO (05:44)
[2022-09-27] MEDS: Levothyroxine Sodium 25 MCG TABLET PO (05:44)
[2022-09-27 07:50] LABS: Glucose, Whole Blood 146 mg/dL (60-115)
[2022-09-27 08:30] VITALS: BP 108/63; PULSE 60; RESP 18; TEMP 35.9; O2SAT 97
[2022-09-27] MEDS: Insulin Glargine,Hum.rec.anlog 100 UNIT/ML 10 ML VIAL 10 UNIT SUBCUT (08:31)
[2022-09-27] MEDS: Gabapentin 400 MG CAPSULE PO ×3 (08:32→21:10)
[2022-09-27] MEDS: lisinopriL 40 MG TABLET PO (08:32)
[2022-09-27] MEDS: Pyridoxine HCl (Vitamin B6) 50 MG TABLET PO (08:32)
[2022-09-27] MEDS: amLODIPine Besylate 5 MG TABLET PO (08:33)
[2022-09-27] MEDS: Metoprolol Succinate ER 12.5 MG HALFTAB.ER.24H PO (08:33)
[2022-09-27] MEDS: lamoTRIgine 100 MG TABLET 200 MG PO (08:33)
[2022-09-27] MEDS: Venlafaxine HCl ER 150 MG CAP.ER.24H PO (08:33)
[2022-09-27] MEDS: Atorvastatin Calcium 80 MG TABLET PO (08:33)
[2022-09-27] MEDS: Aspirin Enteric Coated 81 MG TABLET.DR PO (08:33)
[2022-09-27 11:20] LABS: Glucose, Whole Blood 168 mg/dL (60-115)
[2022-09-27] MEDS: Insulin Lispro 100 UNIT/ML 3 ML VIAL SUBCUT ×2 (11:28→21:08)
--- NOTE | 2022-09-27 12:22 | HO.PSYCHPN ---
Subjective Subjective Date of Service: 09/27/22 Reason For Visit: suicidal attempt Subjective Notes: Conditional Voluntary Interim History: The nursing staff reported the patient could not sleep well, 230 day contact the doctor keyboard action assembler and give him Ativan 1 time. The social media strategist reported that she spoke with the therapist and application to [employer] and [employer] was already done. It seems that the overdoses had been on clear correlation with psychosocial stressors with her adult children. The occupational therapist reported that she scored 11/30 and tree 0.6 on the John test. A review her medications and I decided to increase the melatonin up to 9 mg and increase Remeron up to 15 mg p.o. q.h.s. to target insomnia. Also we are adding trazodone 100 mg at night. The patient has chronic insomnia and I explained that we will need to combine different medications for sleep. Still dysphoric. She wants to be discharged [facility]. Mental Status Exam Mental Status Exam Patient Appearance: Well Grooomed Patient Orientation: Person and Situation Level of Consciousness: Awake and Appropriate Patient Behavior: Guarded and Passive Mood Description: Withdrawn Affect Description: Constricted Patient Cognition Impaired: Yes Ability to Follow Directions: Good Speech Pattern: Clear Hallucinations: None Delusions: Not Present Thought Process: Distracted Thought Content: positive for [place] and positive for Circumstantial Judgement: Fair Diagnostics Vital Signs (24Hr): Vital Signs - 24 hr 09/26/22 20:38 09/27/22 08:30 Temperature 97.4 F 96.6 F L Pulse Rate 57 60 Respiratory Rate 16 18 Blood Pressure 111/53 L 108/63 Pulse Oximetry 97 97 Oxygen Delivery Method Room Air Room Air BMI result Body Mass Index 29.5 Labs 09/24/22 08:13 09/25/22 06:52 Labs: Laboratory Results - last 48 hr 09/25/22 09/25/22 09/26/22 16:16 20:28 07:27 POC Glucose 174 H 139 H 137 H 09/26/22 09/26/22 09/26/22 11:31 16:32 19:54 POC Glucose 80 113 257 H 09/27/22 09/27/22 07:43 11:13 POC Glucose 146 H 168 H Imaging Radiology Impressions: ITS Impressions Head CT 09/19/22 11:36 IMPRESSION: No acute intracranial abnormality. Head/Neck CTA 09/19/22 11:53 IMPRESSION: There are a few tiny age indeterminant infarcts within the right cerebellar hemisphere. Otherwise no evidence of acute territorial infarct or hemorrhage. No abnormal intracranial mass or enhancement. Heavily calcified atheromatous plaque involves the aortic arch apex and there is 50% stenosis at the origin of the left subclavian artery. The left vertebral artery is occluded at its origin and there is reconstitution of contrast filling the left vertebral artery at its V3 segment. Atheromatous plaque causes possible focal narrowing at the origin of the dominant right vertebral artery which otherwise opacifies normally. No intracranial large vessel occlusion. This critical result was discussed with Nick Conklin MD at 12:03 PM on 09/19/2022 and it was ascertained that the content and urgency of the report was understood at the time of direct communication. Chest X-Ray 09/19/22 12:05 IMPRESSION: No acute pulmonary disease. Medications Medications Current Medications Acetaminophen (Acetaminophen 325 Mg Tablet) 650 mg PO Q6H PRN PRN Reason: Headache/Pain Mild Scale (1-3) Last Admin: 09/27/22 01:49 Dose: 650 mg Al Hydroxide/Mg Hydroxide (Magnesium Hydrox/Alum Hydrox 30 Ml Oral.Susp) 30 ml PO Q6H PRN PRN Reason: Heartburn/Nausea Albuterol Sulfate (Albuterol Sulfate 90 Mcg 8 Gm Inhaler) 1 puff INHALE QID PRN PRN Reason: Wheezing Amlodipine Besylate (Amlodipine Besylate 5 Mg Tablet) 5 mg PO DAILY [facility]; Protocol Last Admin: 09/27/22 08:33 Dose: 5 mg Aspirin (Aspirin Enteric Coated 81 Mg Tablet.) 81 mg PO DAILY [facility] Last Admin: 09/27/22 08:33 Dose: 81 mg Atorvastatin Calcium (Atorvastatin Calcium 80 Mg Tablet) 80 mg PO DAILY [facility] Last Admin: 09/27/22 08:33 Dose: 80 mg Gabapentin (Gabapentin 400 Mg Capsule) 400 mg PO TID [facility] Last Admin: 09/27/22 08:32 Dose: 400 mg Hydroxyzine HCl (Hydroxyzine Hcl 25 Mg Tablet) 25 mg PO Q6H PRN PRN Reason: Anxiety Insulin Glargine (Insulin Glargine,Hum.Rec.Anlog 100 Unit/Ml 10 Ml Vial) 10 unit SUBCUT DAILY [facility] Last Admin: 09/27/22 08:31 Dose: 10 unit Insulin Human Lispro (Insulin Lispro 100 Unit/Ml 3 Ml Vial) 0 unit SUBCUT QIDACHS [facility]; Protocol Last Admin: 09/27/22 11:28 Dose: 2 unit Lamotrigine (Lamotrigine 100 Mg Tablet) 200 mg PO DAILY [facility] Last Admin: 09/27/22 08:33 Dose: 200 mg Levothyroxine Sodium (Levothyroxine Sodium 25 Mcg Tablet) 25 mcg PO DAILY@0600 [facility] Last Admin: 09/27/22 05:44 Dose: 25 mcg Lisinopril (Lisinopril 40 Mg Tablet) 40 mg PO DAILY [facility]; Protocol Last Admin: 09/27/22 08:32 Dose: 40 mg Magnesium Hydroxide (Milk Of Magnesia 30 Ml Oral.Susp) 30 ml PO DAILY PRN PRN Reason: Constipation Melatonin (Melatonin 3 Mg Tablet) 9 mg PO BEDTIME [facility] Metoprolol Succinate (Metoprolol Succinate Er 12.5 Mg Halftab.Er.24h) 12.5 mg PO DAILY [facility]; Protocol Last Admin: 09/27/22 08:33 Dose: 12.5 mg Mirtazapine (Mirtazapine 15 Mg Tablet) 15 mg PO BEDTIME [facility] Omeprazole (Omeprazole 20 Mg Capsule.Dr) 20 mg PO DAILY@0630 [facility] Last Admin: 09/27/22 05:44 Dose: 20 mg Pharmacy Consult (Consult Rx Perform Med Rec) 1 each MISCELLANE ONCE PRN PRN Reason: Consult order Pyridoxine HCl (Pyridoxine Hcl (Vitamin B6) 50 Mg Tablet) 50 mg PO DAILY [facility] Last Admin: 09/27/22 08:32 Dose: 50 mg Trazodone HCl (Trazodone Hcl 50 Mg Tablet) 50 mg PO BEDTIME MRX1 PRN PRN Reason: Insomnia Last Admin: 09/27/22 01:50 Dose: 50 mg Trazodone HCl (Trazodone Hcl 100 Mg Tablet) 100 mg PO BEDTIME [facility] Venlafaxine HCl (Venlafaxine Hcl Er 150 Mg Cap.Er.24h) 150 mg PO DAILY [facility] Last Admin: 09/27/22 08:33 Dose: 150 mg Allergies Allergies Allergy/AdvReac Type Severity Reaction Status Date / Time adhesive tape [ADHESIVE TAPE] Allergy Intermediate BLISTERS Verified 08/25/22 11:27 meloxicam AdvReac Unknown hallucinati Verified 08/25/22 11:27 ons talwin Allergy Unknown ineffective Uncoded 08/25/22 11:27 Assessment & Plan Assessment & Plan (1) Mood disorder: Status: Acute Code(s): F39 - Unspecified mood [affective] disorder (2) Intentional overdose: Status: Acute Code(s): T50.902A - Poisoning by unspecified drugs, medicaments and biological substances, intentional self-harm, initial encounter Plan Patient is a 62-year-old woman with history of suicide attempt by overdose with presents following overdose on Lamictal. Patient was recently at [facility] this past July 2022 for similar presentation. At that time she denied intentional overdose; she was not admitted and plan at that time was for her to get outpt services however patient ultimately refused all services. Currently, Patient's daughter talked with care team who believes overdose was intentional. Patient again denies this being the case. She says she does not want to come to the inpatient unit; when brought up concerns for her safety she says im fine... Patient is difficult with which to engage further; her speech is a little garbled and disorganized. Impression/Plan: Patient has to overdoses in about 2 months; she denies both her intentional however at this time she is unconvincing. Patient currently does not have any outpatient services set up of which race and sports book writer is aware. Patient needs inpatient admission for stabilization, safety unlikely medication management Reason for contiued inpatient stay Substantial Risk for: inability to function, rapid decompensation and med/psych decompensation Time Spent With Patient Time: Total time managing care of this patient today ____ minutes.
--- NOTE | 2022-09-27 13:56 | P.PNPSI_ITS ---
Subjective Subjective Date of Service: 09/27/22 Reason For Visit: suicidal attempt Subjective Notes: Conditional Voluntary Review of Systems Review of Systems Yes all other systems are reviewed and are negative Reports confusion Psychiatric: Reports confusion Diagnostics Vital Signs (24Hr): Vital Signs - 24 hr 09/26/22 20:38 09/27/22 08:30 Temperature 97.4 F 96.6 F L Pulse Rate 57 60 Respiratory Rate 16 18 Blood Pressure 111/53 L 108/63 Pulse Oximetry 97 97 Oxygen Delivery Method Room Air Room Air BMI result Body Mass Index 29.5 Labs 09/24/22 08:13 09/25/22 06:52 Labs: Laboratory Results - last 48 hr 09/25/22 09/25/22 09/26/22 16:16 20:28 07:27 POC Glucose 174 H 139 H 137 H 09/26/22 09/26/22 09/26/22 11:31 16:32 19:54 POC Glucose 80 113 257 H 09/27/22 09/27/22 07:43 11:13 POC Glucose 146 H 168 H Imaging Radiology Impressions: ITS Impressions Head CT 09/19/22 11:36 IMPRESSION: No acute intracranial abnormality. Head/Neck CTA 09/19/22 11:53 IMPRESSION: There are a few tiny age indeterminant infarcts within the right cerebellar hemisphere. Otherwise no evidence of acute territorial infarct or hemorrhage. No abnormal intracranial mass or enhancement. Heavily calcified atheromatous plaque involves the aortic arch apex and there is 50% stenosis at the origin of the left subclavian artery. The left vertebral artery is occluded at its origin and there is reconstitution of contrast filling the left vertebral artery at its V3 segment. Atheromatous plaque causes possible focal narrowing at the origin of the dominant right vertebral artery which otherwise opacifies normally. No intracranial large vessel occlusion. This critical result was discussed with Nick Conklin MD at 12:03 PM on 09/19/2022 and it was ascertained that the content and urgency of the report was understood at the time of direct communication. Chest X-Ray 09/19/22 12:05 IMPRESSION: No acute pulmonary disease. Medications Medications Current Medications Acetaminophen (Acetaminophen 325 Mg Tablet) 650 mg PO Q6H PRN PRN Reason: Headache/Pain Mild Scale (1-3) Last Admin: 09/27/22 01:49 Dose: 650 mg Al Hydroxide/Mg Hydroxide (Magnesium Hydrox/Alum Hydrox 30 Ml Oral.Susp) 30 ml PO Q6H PRN PRN Reason: Heartburn/Nausea Albuterol Sulfate (Albuterol Sulfate 90 Mcg 8 Gm Inhaler) 1 puff INHALE QID PRN PRN Reason: Wheezing Amlodipine Besylate (Amlodipine Besylate 5 Mg Tablet) 5 mg PO DAILY [facility]; Protocol Last Admin: 09/27/22 08:33 Dose: 5 mg Aspirin (Aspirin Enteric Coated 81 Mg Tablet.Dr) 81 mg PO DAILY [facility] [place] Last Admin: 09/27/22 08:33 Dose: 81 mg Atorvastatin Calcium (Atorvastatin Calcium 80 Mg Tablet) 80 mg PO DAILY [facility] [place] Last Admin: 09/27/22 08:33 Dose: 80 mg Gabapentin (Gabapentin 400 Mg Capsule) 400 mg PO TID [facility] Last Admin: 09/27/22 08:32 Dose: 400 mg Hydroxyzine HCl (Hydroxyzine Hcl 25 Mg Tablet) 25 mg PO Q6H PRN PRN Reason: Anxiety Insulin Glargine (Insulin Glargine,Hum.Rec.Anlog 100 Unit/Ml 10 Ml Vial) 10 unit SUBCUT DAILY [facility] [place] Last Admin: 09/27/22 08:31 Dose: 10 unit Insulin Human Lispro (Insulin Lispro 100 Unit/Ml 3 Ml Vial) 0 unit SUBCUT QIDACHS [facility]; Protocol Last Admin: 09/27/22 11:28 Dose: 2 unit Lamotrigine (Lamotrigine 100 Mg Tablet) 200 mg PO DAILY [facility] Last Admin: 09/27/22 08:33 Dose: 200 mg Levothyroxine Sodium (Levothyroxine Sodium 25 Mcg Tablet) 25 mcg PO DAILY@0600 [facility] Last Admin: 09/27/22 05:44 Dose: 25 mcg Lisinopril (Lisinopril 40 Mg Tablet) 40 mg PO DAILY [facility]; Protocol Last Admin: 09/27/22 08:32 Dose: 40 mg Magnesium Hydroxide (Milk Of Magnesia 30 Ml Oral.Susp) 30 ml PO DAILY PRN PRN Reason: Constipation Melatonin (Melatonin 3 Mg Tablet) 9 mg PO BEDTIME [facility] Metoprolol Succinate (Metoprolol Succinate Er 12.5 Mg Halftab.Er.24h) 12.5 mg PO DAILY [facility]; Protocol Last Admin: 09/27/22 08:33 Dose: 12.5 mg Mirtazapine (Mirtazapine 15 Mg Tablet) 15 mg PO BEDTIME [facility] [place] Omeprazole (Omeprazole 20 Mg Capsule.Dr) 20 mg PO DAILY@0630 [facility] [place] Last Admin: 09/27/22 05:44 Dose: 20 mg Pharmacy Consult (Consult Rx Perform Med Rec) 1 each MISCELLANE ONCE PRN PRN Reason: Consult order Pyridoxine HCl (Pyridoxine Hcl (Vitamin B6) 50 Mg Tablet) 50 mg PO DAILY [facility] [place] Last Admin: 09/27/22 08:32 Dose: 50 mg Trazodone HCl (Trazodone Hcl 50 Mg Tablet) 50 mg PO BEDTIME MRX1 PRN PRN Reason: Insomnia Last Admin: 09/27/22 01:50 Dose: 50 mg Trazodone HCl (Trazodone Hcl 100 Mg Tablet) 100 mg PO BEDTIME [facility] Venlafaxine HCl (Venlafaxine Hcl Er 150 Mg Cap.Er.24h) 150 mg PO DAILY [facility] [place] Last Admin: 09/27/22 08:33 Dose: 150 mg Allergies Allergies Allergy/AdvReac Type Severity Reaction Status Date / Time adhesive tape [ADHESIVE TAPE] Allergy Intermediate BLISTERS Verified 08/25/22 11:27 meloxicam AdvReac Unknown hallucinati Verified 08/25/22 11:27 ons talwin Allergy Unknown ineffective Uncoded 08/25/22 11:27 Assessment & Plan Assessment & Plan (1) Mood disorder: Status: Acute Code(s): F39 - Unspecified mood [affective] disorder (2) Intentional overdose: Status: Acute Code(s): T50.902A - Poisoning by unspecified drugs, medicaments and biological substances, intentional self-harm, initial encounter Plan Patient is a 62-year-old woman with history of suicide attempt by overdose with presents following overdose on Lamictal. Patient was recently at [place] ED this past July 2022 for similar presentation. At that time she denied intentional overdose; she was not admitted and plan at that time was for her to get outpt services however patient ultimately refused all services. Currently, Patient's daughter talked with care team who believes overdose was intentional. Patient again denies this being the case. She says she does not want to come to the inpatient unit; when brought up concerns for her safety she says im fine... Patient is difficult with which to engage further; her speech is a little garbled and disorganized. Impression/Plan: Patient has to overdoses in about 2 months; she denies both her intentional however at this time she is unconvincing. Patient currently does not have any outpatient services set up of which underwriter is aware. Patient needs inpatient admission for stabilization, safety unlikely medication management Time Spent With Patient Time: Total time managing care of this patient today ____ minutes.
[2022-09-27] MEDS: hydrOXYzine HCL 25 MG TABLET PO (15:53)
[2022-09-27 16:27] LABS: Glucose, Whole Blood 126 mg/dL (60-115)
[2022-09-27 18:00] VITALS: BP 114/55; PULSE 60; RESP 18; TEMP 36.6; O2SAT 95
[2022-09-27 20:24] LABS: Glucose, Whole Blood 291 mg/dL (60-115)
[2022-09-27] MEDS: Melatonin 3 MG TABLET 9 MG PO (21:09)
[2022-09-27] MEDS: Mirtazapine 15 MG TABLET PO (21:10)
[2022-09-27] MEDS: traZODone HCL 100 MG TABLET PO (21:11)
--- NOTE | 2022-09-28 06:22 | PC.NURSE ---
0530-pt had been observed resting with her eyes closed through the night. surprisingly, pt presented in the common area screaming that she had not slept a wink last night. she accused me of talking the entire night outside her room keeping her awake. after listening carefully to her complaint of noise I informed her that during the night i was in the common area or nurses station. the patient became infuriated and proceeded to scream that i am a liar. at this time, i disengaged with any further communication with patient d/t her emotional instability.
[2022-09-28 07:53] LABS: Glucose, Whole Blood 248 mg/dL (60-115)
[2022-09-28] MEDS: Omeprazole 20 MG CAPSULE.DR PO (08:21)
[2022-09-28] MEDS: lisinopriL 40 MG TABLET PO (08:21)
[2022-09-28] MEDS: amLODIPine Besylate 5 MG TABLET PO (08:22)
[2022-09-28] MEDS: Metoprolol Succinate ER 12.5 MG HALFTAB.ER.24H PO (08:22)
[2022-09-28] MEDS: Aspirin Enteric Coated 81 MG TABLET.DR PO (08:22)
[2022-09-28] MEDS: Venlafaxine HCl ER 150 MG CAP.ER.24H PO (08:22)
[2022-09-28] MEDS: Atorvastatin Calcium 80 MG TABLET PO (08:22)
[2022-09-28] MEDS: Levothyroxine Sodium 25 MCG TABLET PO (08:23)
[2022-09-28] MEDS: Pyridoxine HCl (Vitamin B6) 50 MG TABLET PO (08:23)
[2022-09-28] MEDS: lamoTRIgine 100 MG TABLET 200 MG PO (08:23)
[2022-09-28] MEDS: Gabapentin 400 MG CAPSULE PO ×3 (08:23→20:04)
[2022-09-28 08:27] VITALS: BP 137/62; PULSE 60; RESP 18; TEMP 36.1; O2SAT 94
[2022-09-28 10:44] LABS: Glucose, Whole Blood 263 mg/dL (60-115)
--- NOTE | 2022-09-28 11:13 | P.PNPSI_ITS ---
Subjective Subjective Date of Service: 09/28/22 Reason For Visit: suicidal attempt Subjective Notes: Conditional Voluntary Interim History: The nursing staff reported the patient has been pleasant and cooperative, fully compliant with treatment. She slept well last night. She refused today in the morning her Synthroid and her fasting blood sugars was 248. On interview the patient stated that she was supposed to be discharged today she misunderstood and explained her that she is supposed to be discharged tomorrow. The team is arraigning for aftercare services in the community. Mental Status Exam Mental Status Exam Patient Appearance: Appropriate Patient Orientation: Person and Situation Level of Consciousness: Awake and Appropriate Patient Behavior: Guarded and Passive Mood Description: Calm Affect Description: Constricted Patient Cognition Impaired: Yes Ability to Follow Directions: Good Speech Pattern: Clear Hallucinations: None Delusions: Not Present Thought Process: Distracted Thought Content: positive for Mays and positive for Circumstantial Judgement: Fair Diagnostics Vital Signs (24Hr): Vital Signs - 24 hr 09/27/22 18:00 09/28/22 08:27 Temperature 97.8 F 97.0 F Pulse Rate 60 60 Respiratory Rate 18 18 Blood Pressure 114/55 L 137/62 Pulse Oximetry 95 94 Oxygen Delivery Method Room Air Room Air BMI result Body Mass Index 29.5 Labs 09/24/22 08:13 09/25/22 06:52 Labs: Laboratory Results - last 48 hr 09/26/22 09/26/22 09/26/22 11:31 16:32 19:54 POC Glucose 80 113 257 H 09/27/22 09/27/22 09/27/22 07:43 11:13 16:22 POC Glucose 146 H 168 H 126 H 09/27/22 09/28/22 09/28/22 19:56 07:45 10:40 POC Glucose 291 H 248 H 263 H Imaging Radiology Impressions: ITS Impressions Head CT 09/19/22 11:36 IMPRESSION: No acute intracranial abnormality. Head/Neck CTA 09/19/22 11:53 IMPRESSION: There are a few tiny age indeterminant infarcts within the right cerebellar hemisphere. Otherwise no evidence of acute territorial infarct or hemorrhage. No abnormal intracranial mass or enhancement. Heavily calcified atheromatous plaque involves the aortic arch apex and there is 50% stenosis at the origin of the left subclavian artery. The left vertebral artery is occluded at its origin and there is reconstitution of contrast filling the left vertebral artery at its V3 segment. Atheromatous plaque causes possible focal narrowing at the origin of the dominant right vertebral artery which otherwise opacifies normally. No intracranial large vessel occlusion. This critical result was discussed with Nick Conklin MD at 12:03 PM on 09/19/2022 and it was ascertained that the content and urgency of the report was understood at the time of direct communication. Chest X-Ray 09/19/22 12:05 IMPRESSION: No acute pulmonary disease. Medications Medications Current Medications Acetaminophen (Acetaminophen 325 Mg Tablet) 650 mg PO Q6H PRN PRN Reason: Headache/Pain Mild Scale (1-3) Last Admin: 09/27/22 15:53 Dose: 650 mg Al Hydroxide/Mg Hydroxide (Magnesium Hydrox/Alum Hydrox 30 Ml Oral.Susp) 30 ml PO Q6H PRN PRN Reason: Heartburn/Nausea Albuterol Sulfate (Albuterol Sulfate 90 Mcg 8 Gm Inhaler) 1 puff INHALE QID PRN PRN Reason: Wheezing Amlodipine Besylate (Amlodipine Besylate 5 Mg Tablet) 5 mg PO DAILY [facility]; [facility] Last Admin: 09/28/22 08:22 Dose: 5 mg Aspirin (Aspirin Enteric Coated 81 Mg Tablet.Dr) 81 mg PO DAILY [facility] Last Admin: 09/28/22 08:22 Dose: 81 mg Atorvastatin Calcium (Atorvastatin Calcium 80 Mg Tablet) 80 mg PO DAILY [facility] Last Admin: 09/28/22 08:22 Dose: 80 mg Gabapentin (Gabapentin 400 Mg Capsule) 400 mg PO TID [facility] Last Admin: 09/28/22 08:23 Dose: 400 mg Hydroxyzine HCl (Hydroxyzine Hcl 25 Mg Tablet) 25 mg PO Q6H PRN PRN Reason: Anxiety Last Admin: 09/27/22 15:53 Dose: 25 mg Insulin Glargine (Insulin Glargine,Hum.Rec.Anlog 100 Unit/Ml 10 Ml Vial) 10 unit SUBCUT DAILY [facility] Last Admin: 09/28/22 08:24 Dose: Not Given Insulin Human Lispro (Insulin Lispro 100 Unit/Ml 3 Ml Vial) 0 unit SUBCUT QIDA [facility]; Protocol Last Admin: 09/28/22 08:23 Dose: Not Given Lamotrigine (Lamotrigine 100 Mg Tablet) 200 mg PO DAILY [facility] Last Admin: 09/28/22 08:23 Dose: 200 mg Levothyroxine Sodium (Levothyroxine Sodium 25 Mcg Tablet) 25 mcg PO DAILY@0600 [facility] Last Admin: 09/28/22 08:23 Dose: 25 mcg Lisinopril (Lisinopril 40 Mg Tablet) 40 mg PO DAILY [facility]; Protocol Last Admin: 09/28/22 08:21 Dose: 40 mg Magnesium Hydroxide (Milk Of Magnesia 30 Ml Oral.Susp) 30 ml PO DAILY PRN PRN Reason: Constipation Melatonin (Melatonin 3 Mg Tablet) 9 mg PO BEDTIME [facility] Last Admin: 09/27/22 21:09 Dose: 9 mg Metoprolol Succinate (Metoprolol Succinate Er 12.5 Mg Halftab.Er.24h) 12.5 mg PO DAILY [facility]; Protocol Last Admin: 09/28/22 08:22 Dose: 12.5 mg Mirtazapine (Mirtazapine 15 Mg Tablet) 15 mg PO BEDTIME [facility] Last Admin: 09/27/22 21:10 Dose: 15 mg Omeprazole (Omeprazole 20 Mg Capsule.Dr) 20 mg PO DAILY@0630 [facility] Last Admin: 09/28/22 08:21 Dose: 20 mg Pharmacy Consult (Consult Rx Perform Med Rec) 1 each MISCELLANE ONCE PRN PRN Reason: Consult order Pyridoxine HCl (Pyridoxine Hcl (Vitamin B6) 50 Mg Tablet) 50 mg PO DAILY [facility] Last Admin: 09/28/22 08:23 Dose: 50 mg Trazodone HCl (Trazodone Hcl 50 Mg Tablet) 50 mg PO BEDTIME MRX1 PRN PRN Reason: Insomnia Last Admin: 09/27/22 01:50 Dose: 50 mg Trazodone HCl (Trazodone Hcl 100 Mg Tablet) 100 mg PO BEDTIME [facility] Last Admin: 09/27/22 21:11 Dose: 100 mg Venlafaxine HCl (Venlafaxine Hcl Er 150 Mg Cap.Er.24h) 150 mg PO DAILY [facility] Last Admin: 09/28/22 08:22 Dose: 150 mg Allergies Allergies Allergy/AdvReac Type Severity Reaction Status Date / Time adhesive tape [ADHESIVE TAPE] Allergy Intermediate BLISTERS Verified 08/25/22 11:27 meloxicam AdvReac Unknown hallucinati Verified 08/25/22 11:27 ons talwin Allergy Unknown ineffective Uncoded 08/25/22 11:27 Assessment & Plan Assessment & Plan (1) Mood disorder: Status: Acute Code(s): F39 - Unspecified mood [affective] disorder (2) Intentional overdose: Status: Acute Code(s): T50.902A - Poisoning by unspecified drugs, medicaments and biological substances, intentional self-harm, initial encounter Plan Patient is a 62-year-old woman with history of suicide attempt by overdose with presents following overdose on Lamictal. Patient was recently at [place] ED this past July 2022 for similar presentation. At that time she denied intentional overdose; she was not admitted and plan at that time was for her to get outpt services however patient ultimately refused all services. Currently, Patient's daughter talked with care team who believes overdose was intentional. Patient again denies this being the case. She says she does not want to come to the inpatient unit; when brought up concerns for her safety she says im fine... Patient is difficult with which to engage further; her speech is a little garbled and disorganized. Impression/Plan: Patient has to overdoses in about 2 months; she denies both her intentional however at this time she is unconvincing. Patient currently does not have any outpatient services set up of which science writer is aware. Patient needs inpatient admission for stabilization, safety unlikely medication management Reason for contiued inpatient stay Substantial Risk for: inability to function, rapid decompensation and med/psych decompensation Time Spent With Patient Time: Total time managing care of this patient today _20___ minutes.
[2022-09-28 11:43] LABS: Glucose, Whole Blood 272 mg/dL (60-115)
[2022-09-28] MEDS: Insulin Lispro 100 UNIT/ML 3 ML VIAL SUBCUT ×2 (11:50→20:04)
[2022-09-28] MEDS: Insulin Glargine,Hum.rec.anlog 100 UNIT/ML 10 ML VIAL 10 UNIT SUBCUT (11:51)
[2022-09-28] MEDS: Acetaminophen 325 MG TABLET 650 MG PO (14:26)
[2022-09-28 16:45] LABS: Glucose, Whole Blood 149 mg/dL (60-115)
[2022-09-28 18:00] VITALS: BP 153/60; PULSE 68; RESP 18; TEMP 36.3; O2SAT 96
[2022-09-28] MEDS: traZODone HCL 100 MG TABLET PO (20:04)
[2022-09-28] MEDS: Melatonin 3 MG TABLET 9 MG PO (20:04)
[2022-09-28] MEDS: Mirtazapine 15 MG TABLET PO (20:05)
[2022-09-28 20:47] LABS: Glucose, Whole Blood 317 mg/dL (60-115)
[2022-09-29 06:00] VITALS: BP 156/78; PULSE 69; RESP 16; TEMP 36; O2SAT 99
[2022-09-29] MEDS: Omeprazole 20 MG CAPSULE.DR PO (06:49)
[2022-09-29] MEDS: Levothyroxine Sodium 25 MCG TABLET PO (06:49)
[2022-09-29 08:02] LABS: Glucose, Whole Blood 172 mg/dL (60-115)
--- NOTE | 2022-09-29 08:29 | P.DS_ITS ---
DS: Providers Provider Date of Service: 09/29/22 Date of admission: 09/24/22 18:10 Date of discharge: 09/29/22 Primary care physician: Vicente Tang PA-C Attending physician on discharge: Junior Maier DS: Diagnosis Discharge Diagnosis (1) Mood disorder: Status: Acute (2) Intentional overdose: Status: Acute DS: Medications Discharge Medications Home Medications: Home Medications Medication Instructions Recorded Confirmed aspirin 81 mg tablet,delayed 1 tab PO DAILY 07/20/22 09/20/22 release insulin glargine 100 unit/mL (3 10 unit subcut DAILY 07/20/22 09/20/22 mL) subcutaneous pen (Lantus Solostar U-100 Insulin) lamotrigine 200 mg tablet 1 tab PO DAILY 07/20/22 09/20/22 levothyroxine 25 mcg tablet 1 tab PO DAILY 07/20/22 09/20/22 lorazepam 1 mg tablet 1 tab PO QID 07/20/22 09/20/22 melatonin 5 mg tablet 1 tab PO QPM 07/20/22 09/20/22 metformin 1,000 mg tablet 1 tab PO BID 07/20/22 09/20/22 metoprolol succinate 25 mg 0.5 tab PO DAILY 07/20/22 09/20/22 tablet,extended release 24 hr mirtazapine 7.5 mg tablet 1 tab PO BEDTIME 07/20/22 09/20/22 omeprazole 20 mg capsule,delayed 1 cap PO DAILY 07/20/22 09/20/22 release venlafaxine 150 mg 1 cap PO BID 07/20/22 09/20/22 capsule,extended release 24 hr albuterol sulfate 90 mcg/actuation 1 puff inhalation QID PRN Wheezing 09/20/22 09/20/22 aerosol inhaler insulin aspart U-100 100 unit/mL See Rx Instructions .Route .COMPLEX 09/20/22 09/20/22 (3 mL) subcutaneous pen (Novolog FlexPen U-100 Insulin aspart) Previous Rx's Medication Instructions Recorded pyridoxine (vitamin B6) 50 mg 50 mg PO DAILY #90 tabs 04/19/22 tablet diclofenac sodium 1 % topical gel 2 g topical QID PRN pain #100 grams 08/25/22 (Arthritis Pain (diclofenac)) lisinopril 20 mg tablet 40 mg PO DAILY #180 tabs 09/07/22 amlodipine 5 mg tablet 5 mg PO DAILY #90 tabs 09/14/22 atorvastatin 80 mg tablet 80 mg PO DAILY #90 tabs 09/15/22 gabapentin 800 mg tablet 800 mg PO TID 30 days #90 tabs 09/22/22 Mental Status Exam Mental Status Exam Patient Appearance: Well Grooomed and Appropriate Patient Orientation: Person and Situation Level of Consciousness: Awake and Appropriate Patient Behavior: Guarded and Cooperative Mood Description: Calm Affect Description: Withdrawn Patient Cognition Impaired: Yes Ability to Follow Directions: Good Speech Pattern: Clear Hallucinations: None Delusions: Not Present Thought Process: Linear Thought Content: positive for Circumstantial Judgement: Fair Data Data Completed and Pending Completed studies during hospitalization [Text1]: 09/19/22 09/22/22 09/22/22 14:35 13:23 16:39 WBC RBC Hgb Hct MCV MCH MCHC RDW Plt Count MPV Immature Gran % (Auto) Neut % (Auto) Lymph % (Auto) [place] % (Auto) Eos % (Auto) Baso % (Auto) Lymph # (Auto) [place] # (Auto) Eos # (Auto) Baso # (Auto) Abs Immat Gran (auto) Absolute Neuts (auto) Absolute Nucleated RBC Nucleated RBC % (auto) Neutrophils % (Manual) Band Neutrophils % Lymphocytes % (Manual) Monocytes % (Manual) Eosinophils % (Manual) Abs Neuts (Manual) Lymphocytes # (Manual) Monocytes # (Manual) Eosinophils # (Manual) Platelet Estimate Plt Morphology Comment RBC Morphology Sodium Potassium Chloride Carbon Dioxide Anion Gap BUN Creatinine Estim Creat Clear Calc Estimated GFR POC Glucose 101 195 H Random Glucose Fasting Glucose Calcium Total Bilirubin AST ALT Alkaline Phosphatase Total Protein Albumin Triglycerides Cholesterol LDL Cholesterol, Calc HDL Cholesterol Lamotrigine 13.6 COVID-19 (SARAH) COVID-19 Clin Com 09/22/22 09/22/22 09/22/22 16:48 16:48 18:22 WBC 8.4 RBC 3.84 L Hgb 11.4 L Hct 34.4 L MCV 89.6 MCH 29.7 MCHC 33.1 RDW 13.2 Plt Count 165 MPV 10.5 Immature Gran % (Auto) Neut % (Auto) Lymph % (Auto) [place] % (Auto) Eos % (Auto) Baso % (Auto) Lymph # (Auto) [place] # (Auto) Eos # (Auto) Baso # (Auto) Abs Immat Gran (auto) Absolute Neuts (auto) Absolute Nucleated RBC 0.000 Nucleated RBC % (auto) 0.0 Neutrophils % (Manual) 67 Band Neutrophils % 2 L Lymphocytes % (Manual) 25 Monocytes % (Manual) 5 Eosinophils % (Manual) 1 Abs Neuts (Manual) 5.8 Lymphocytes # (Manual) 2.1 Monocytes # (Manual) 0.4 Eosinophils # (Manual) 0.1 Platelet Estimate NORMAL Plt Morphology Comment NORMAL RBC Morphology NORMAL Sodium 138 Potassium 4.8 Chloride 105 Carbon Dioxide 21 L Anion Gap 17 BUN 21 H Creatinine 1.20 Estim Creat Clear Calc 45.1 Estimated GFR 45 POC Glucose 129 H Random Glucose 184 H Fasting Glucose Calcium 8.6 Total Bilirubin 0.6 AST 37 H ALT 31 Alkaline Phosphatase 84 Total Protein 5.9 L Albumin 3.4 L Triglycerides Cholesterol LDL Cholesterol, Calc HDL Cholesterol Lamotrigine COVID-19 (SARAH) COVIDHRsoft 09/22/22 09/23/22 09/23/22 22:11 07:06 12:30 WBC RBC Hgb Hct MCV MCH MCHC RDW Plt Count MPV Immature Gran % (Auto) Neut % (Auto) Lymph % (Auto) [place] % (Auto) Eos % (Auto) Baso % (Auto) Lymph # (Auto) [place] # (Auto) Eos # (Auto) Baso # (Auto) Abs Immat Gran (auto) Absolute Neuts (auto) Absolute Nucleated RBC Nucleated RBC % (auto) Neutrophils % (Manual) Band Neutrophils % Lymphocytes % (Manual) Monocytes % (Manual) Eosinophils % (Manual) Abs Neuts (Manual) Lymphocytes # (Manual) Monocytes # (Manual) Eosinophils # (Manual) Platelet Estimate Plt Morphology Comment RBC Morphology Sodium Potassium Chloride Carbon Dioxide Anion Gap BUN Creatinine Estim Creat Clear Calc Estimated GFR POC Glucose 129 H 168 H 160 H Random Glucose Fasting Glucose Calcium Total Bilirubin AST ALT Alkaline Phosphatase Total Protein Albumin Triglycerides Cholesterol LDL Cholesterol, Calc HDL Cholesterol Lamotrigine COVID-19 (SARAH) COVIDHRsoft 09/23/22 09/24/22 09/24/22 14:42 08:13 08:13 WBC 6.7 RBC 3.75 L Hgb 11.3 L Hct 33.4 L MCV 89.1 MCH 30.1 MCHC 33.8 RDW 13.4 Plt Count 159 L MPV 10.6 Immature Gran % (Auto) 0.3 Neut % (Auto) 68.0 Lymph % (Auto) 21.0 [place] % (Auto) 7.6 Eos % (Auto) 2.5 Baso % (Auto) 0.6 Lymph # (Auto) 1.4 [place] # (Auto) 0.5 Eos # (Auto) 0.2 Baso # (Auto) 0.0 Abs Immat Gran (auto) 0.02 Absolute Neuts (auto) 4.5 Absolute Nucleated RBC 0.000 Nucleated RBC % (auto) 0.0 Neutrophils % (Manual) Band Neutrophils % Lymphocytes % (Manual) Monocytes % (Manual) Eosinophils % (Manual) Abs Neuts (Manual) Lymphocytes # (Manual) Monocytes # (Manual) Eosinophils # (Manual) Platelet Estimate Plt Morphology Comment RBC Morphology Sodium 138 139 Potassium 4.9 4.4 Chloride 104 107 Carbon Dioxide 25 24 Anion Gap 14 12 BUN 25 H 31 H Creatinine 1.31 1.21 Estim Creat Clear Calc 41.2 44.7 Estimated GFR 41 45 POC Glucose Random Glucose 212 H 188 H Fasting Glucose Calcium 8.6 8.8 Total Bilirubin 0.6 AST 39 H ALT 31 Alkaline Phosphatase 88 Total Protein 6.0 L Albumin 3.5 Triglycerides Cholesterol LDL Cholesterol, Calc HDL Cholesterol Lamotrigine COVID-19 (SARAH) COVID-19 Clin Com 09/24/22 09/24/22 09/25/22 16:26 19:48 06:52 WBC RBC Hgb Hct MCV MCH MCHC RDW Plt Count MPV Immature Gran % (Auto) Neut % (Auto) Lymph % (Auto) [place] % (Auto) Eos % (Auto) Baso % (Auto) Lymph # (Auto) [place] # (Auto) Eos # (Auto) Baso # (Auto) Abs Immat Gran (auto) Absolute Neuts (auto) Absolute Nucleated RBC Nucleated RBC % (auto) Neutrophils % (Manual) Band Neutrophils % Lymphocytes % (Manual) Monocytes % (Manual) Eosinophils % (Manual) Abs Neuts (Manual) Lymphocytes # (Manual) Monocytes # (Manual) Eosinophils # (Manual) Platelet Estimate Plt Morphology Comment RBC Morphology Sodium 142 Potassium 4.8 Chloride 107 Carbon Dioxide 25 Anion Gap 15 BUN 39 H Creatinine 1.37 Estim Creat Clear Calc 38.8 Estimated GFR 39 POC Glucose 263 H Random Glucose Fasting Glucose 167 H Calcium 8.9 Total Bilirubin 0.4 AST 58 H ALT 38 H Alkaline Phosphatase 86 Total Protein 6.1 L Albumin 3.5 Triglycerides 69 Cholesterol 159 LDL Cholesterol, Calc 85 HDL Cholesterol 61 Lamotrigine COVID-19 (SARAH) Negative COVID-19 [employer] Com See Note 09/25/22 09/25/22 09/25/22 07:47 11:33 16:16 WBC RBC Hgb Hct MCV MCH MCHC RDW Plt Count MPV Immature Gran % (Auto) Neut % (Auto) Lymph % (Auto) [place] % (Auto) Eos % (Auto) Baso % (Auto) Lymph # (Auto) [place] # (Auto) Eos # (Auto) Baso # (Auto) Abs Immat Gran (auto) Absolute Neuts (auto) Absolute Nucleated RBC Nucleated RBC % (auto) Neutrophils % (Manual) Band Neutrophils % Lymphocytes % (Manual) Monocytes % (Manual) Eosinophils % (Manual) Abs Neuts (Manual) Lymphocytes # (Manual) Monocytes # (Manual) Eosinophils # (Manual) Platelet Estimate Plt Morphology Comment RBC Morphology Sodium Potassium Chloride Carbon Dioxide Anion Gap BUN Creatinine Estim Creat Clear Calc Estimated GFR POC Glucose 169 H 77 174 H Random Glucose Fasting Glucose Calcium Total Bilirubin AST ALT Alkaline Phosphatase Total Protein Albumin Triglycerides Cholesterol LDL Cholesterol, Calc HDL Cholesterol Lamotrigine COVID-19 (SARAH) COVID-[employer] Com 09/25/22 09/26/22 09/26/22 20:28 07:27 11:31 WBC RBC Hgb Hct MCV MCH MCHC RDW Plt Count MPV Immature Gran % (Auto) Neut % (Auto) Lymph % (Auto) [place] % (Auto) Eos % (Auto) Baso % (Auto) Lymph # (Auto) [place] # (Auto) Eos # (Auto) Baso # (Auto) Abs Immat Gran (auto) Absolute Neuts (auto) Absolute Nucleated RBC Nucleated RBC % (auto) Neutrophils % (Manual) Band Neutrophils % Lymphocytes % (Manual) Monocytes % (Manual) Eosinophils % (Manual) Abs Neuts (Manual) Lymphocytes # (Manual) Monocytes # (Manual) Eosinophils # (Manual) Platelet Estimate Plt Morphology Comment RBC Morphology Sodium Potassium Chloride Carbon Dioxide Anion Gap BUN Creatinine Estim Creat Clear Calc Estimated GFR POC Glucose 139 H 137 H 80 Random Glucose Fasting Glucose Calcium Total Bilirubin AST ALT Alkaline Phosphatase Total Protein Albumin Triglycerides Cholesterol LDL Cholesterol, Calc HDL Cholesterol Lamotrigine COVID-19 (SARAH) COVID-19 [employer] 09/26/22 09/26/22 09/27/22 16:32 19:54 07:43 WBC RBC Hgb Hct MCV MCH MCHC RDW Plt Count MPV Immature Gran % (Auto) Neut % (Auto) Lymph % (Auto) [place] % (Auto) Eos % (Auto) Baso % (Auto) Lymph # (Auto) [place] # (Auto) Eos # (Auto) Baso # (Auto) Abs Immat Gran (auto) Absolute Neuts (auto) Absolute Nucleated RBC Nucleated RBC % (auto) Neutrophils % (Manual) Band Neutrophils % Lymphocytes % (Manual) Monocytes % (Manual) Eosinophils % (Manual) Abs Neuts (Manual) Lymphocytes # (Manual) Monocytes # (Manual) Eosinophils # (Manual) Platelet Estimate Plt Morphology Comment RBC Morphology Sodium Potassium Chloride Carbon Dioxide Anion Gap BUN Creatinine Estim Creat Clear Calc Estimated GFR POC Glucose 113 257 H 146 H Random Glucose Fasting Glucose Calcium Total Bilirubin AST ALT Alkaline Phosphatase Total Protein Albumin Triglycerides Cholesterol LDL Cholesterol, Calc HDL Cholesterol Lamotrigine COVID-19 (SARAH) COVID-19 [employer] 09/27/22 09/27/22 09/27/22 11:13 16:22 19:56 WBC RBC Hgb Hct MCV MCH MCHC RDW Plt Count MPV Immature Gran % (Auto) Neut % (Auto) Lymph % (Auto) [place] % (Auto) Eos % (Auto) Baso % (Auto) Lymph # (Auto) [place] # (Auto) Eos # (Auto) Baso # (Auto) Abs Immat Gran (auto) Absolute Neuts (auto) Absolute Nucleated RBC Nucleated RBC % (auto) Neutrophils % (Manual) Band Neutrophils % Lymphocytes % (Manual) Monocytes % (Manual) Eosinophils % (Manual) Abs Neuts (Manual) Lymphocytes # (Manual) Monocytes # (Manual) Eosinophils # (Manual) Platelet Estimate Plt Morphology Comment RBC Morphology Sodium Potassium Chloride Carbon Dioxide Anion Gap BUN Creatinine Estim Creat Clear Calc Estimated GFR POC Glucose 168 H 126 H 291 H Random Glucose Fasting Glucose Calcium Total Bilirubin AST ALT Alkaline Phosphatase Total Protein Albumin Triglycerides Cholesterol LDL Cholesterol, Calc HDL Cholesterol Lamotrigine COVID-19 (SARAH) COVID-19 [employer] 09/28/22 09/28/22 09/28/22 07:45 10:40 11:38 WBC RBC Hgb Hct MCV MCH MCHC RDW Plt Count MPV Immature Gran % (Auto) Neut % (Auto) Lymph % (Auto) [place] % (Auto) Eos % (Auto) Baso % (Auto) Lymph # (Auto) [place] # (Auto) Eos # (Auto) Baso # (Auto) Abs Immat Gran (auto) Absolute Neuts (auto) Absolute Nucleated RBC Nucleated RBC % (auto) Neutrophils % (Manual) Band Neutrophils % Lymphocytes % (Manual) Monocytes % (Manual) Eosinophils % (Manual) Abs Neuts (Manual) Lymphocytes # (Manual) Monocytes # (Manual) Eosinophils # (Manual) Platelet Estimate Plt Morphology Comment RBC Morphology Sodium Potassium Chloride Carbon Dioxide Anion Gap BUN Creatinine Estim Creat Clear Calc Estimated GFR POC Glucose 248 H 263 H 272 H Random Glucose Fasting Glucose Calcium Total Bilirubin AST ALT Alkaline Phosphatase Total Protein Albumin Triglycerides Cholesterol LDL Cholesterol, Calc HDL Cholesterol Lamotrigine COVID-19 (SARAH) [employer] 09/28/22 09/28/22 09/29/22 16:25 19:55 07:57 WBC RBC Hgb Hct MCV MCH MCHC RDW Plt Count MPV Immature Gran % (Auto) Neut % (Auto) Lymph % (Auto) [place] % (Auto) Eos % (Auto) Baso % (Auto) Lymph # (Auto) [place] # (Auto) Eos # (Auto) Baso # (Auto) Abs Immat Gran (auto) Absolute Neuts (auto) Absolute Nucleated RBC Nucleated RBC % (auto) Neutrophils % (Manual) Band Neutrophils % Lymphocytes % (Manual) Monocytes % (Manual) Eosinophils % (Manual) Abs Neuts (Manual) Lymphocytes # (Manual) Monocytes # (Manual) Eosinophils # (Manual) Platelet Estimate Plt Morphology Comment RBC Morphology Sodium Potassium Chloride Carbon Dioxide Anion Gap BUN Creatinine Estim Creat Clear Calc Estimated GFR POC Glucose 149 H 317 H 172 H Random Glucose Fasting Glucose Calcium Total Bilirubin AST ALT Alkaline Phosphatase Total Protein Albumin Triglycerides Cholesterol LDL Cholesterol, Calc HDL Cholesterol Lamotrigine COVID-19 (SARAH) COVID-[employer] 09/19/22 12:32 Blood - Venous Blood Culture - Final No growth after 5 days. 09/19/22 12:32 Blood - Venous Blood Culture - Final No growth after 5 days. 09/19/22 11:47 Blood - Venous Blood Culture - Final 09/19/22 11:47 Blood - Venous Blood Culture - Final Imaging Diagnostic Imaging Impressions Head CT 09/19/22 11:36 IMPRESSION: No acute intracranial abnormality. Head/Neck CTA 09/19/22 11:53 IMPRESSION: There are a few tiny age indeterminant infarcts within the right cerebellar hemisphere. Otherwise no evidence of acute territorial infarct or hemorrhage. No abnormal intracranial mass or enhancement. Heavily calcified atheromatous plaque involves the aortic arch apex and there is 50% stenosis at the origin of the left subclavian artery. The left vertebral artery is occluded at its origin and there is reconstitution of contrast filling the left vertebral artery at its V3 segment. Atheromatous plaque causes possible focal narrowing at the origin of the dominant right vertebral artery which otherwise opacifies normally. No intracranial large vessel occlusion. This critical result was discussed with Nick Conklin MD at 12:03 PM on 09/19/2022 and it was ascertained that the content and urgency of the report was understood at the time of direct communication. Chest X-Ray 09/19/22 12:05 IMPRESSION: No acute pulmonary disease. DS: Summary Hospital Course Hospital Course: The patient was initially admitted from the emergency room after she overdose intentional in a suicidal attempt. It was her 2nd attempt in the last days. Please see the HPI note for further details. On admission, the patient signed a conditional voluntary and she was placed on regular observation since she was able to contract for safety in the facility. We review her list of medications that she was in a very high dose of the Effexor that he needed to be lowered. We discussed risks, benefits, side-e ffects and alternatives and she agreed to start mirtazapine titrated up to 30 mg p.o. q.h.s. to target insomnia and dysphoria. The combination of 2 antidepressants and her regular mood stabilizer worked fairly well for her. She was seen attending to groups, future oriented and able to contract for safety. We had family meetings and the outreach and education social worker arrange aftercare with resources in the community. Since there were no safety concerns discharge planning was discussed. Time spent discussing smoking cessation with patient: 3 to 10 minutes Status at Discharge Cognitive/behavioral status at discharge: At baseline Functional status at discharge: independent ambulation Overall status at discharge: patient is back to baseline Time Spent with Patient Time attestation: Total time managing care of this patient today __20__ minutes. Time spent: Less than 30 minutes Discharge Plan Discharge Anticipated Discharge Date/Time: 09/29/22 11:00 Patient Disposition: Home, Self-Care Discharge Diagnosis: Mood disorder Diabetes type 2 Referrals: [facility] [Other] - 09/30/22 (Biological Technical Officer: Mamie Givens) [facility] [Other] - 09/30/22 8:00 am (Biological Technical Officer: Sophie ) [facility] [Other] - 10/20/22 10:00 am (10/20/2022 10:00 AM - 11:00 AM) [facility] [Other] - 10/03/22 1:00 pm (Patient is scheduled to see Bakari Vegas on 10/03/2022 @ 1pm ) [facility] [Other] - 10/19/22 10:00 am Vicente Tang PA-C [Primary Care Provider] - 10/03/22 2:00 pm (Follow up appointment October [address] Tang) Discharge Medications: New gabapentin 400 mg Capsule 400 mg PO TID 30 Days Qty: 90 0RF trazodone 50 mg Tablet 50 mg PO BEDTIME MRX1 PRN (Reason: Insomnia) 30 Days Qty: 30 0RF venlafaxine 150 mg Capsule,Extended Release 24hr 150 mg PO DAILY 30 Days Qty: 30 0RF trazodone 100 mg Tablet 100 mg PO BEDTIME 30 Days Qty: 30 0RF hydroxyzine HCl 25 mg Tablet 25 mg PO Q6H PRN (Reason: Anxiety) 30 Days Qty: 90 0RF mirtazapine 15 mg Tablet 15 mg PO BEDTIME 30 Days Qty: 30 0RF melatonin 3 mg Tablet 9 mg PO BEDTIME Qty: 90 0RF Continued lisinopril 20 mg tablet 40 mg PO DAILY Qty: 180 0RF atorvastatin 80 mg tablet 80 mg PO DAILY Qty: 90 1RF lamotrigine 200 mg tablet 1 tab PO DAILY Qty: 30 0RF amlodipine 5 mg tablet 5 mg PO DAILY Qty: 90 0RF levothyroxine 25 mcg tablet 1 tab PO DAILY Qty: 30 0RF metformin 1,000 mg tablet 1 tab PO BID Qty: 60 0RF pyridoxine (vitamin B6) 50 mg tablet 50 mg PO DAILY Qty: 90 2RF omeprazole 20 mg capsule,delayed release(DR/EC) 1 cap PO DAILY 30 Days Qty: 30 0RF metoprolol succinate 25 mg tablet extended release 24 hr 0.5 tab PO DAILY Qty: 15 0RF insulin glargine [Lantus Solostar U-100 Insulin] 100 unit/mL (3 mL) insulin pen 10 unit subcut DAILY Qty: 30 0RF diclofenac sodium 1 % gel 2 g topical QID PRN (Reason: pain) Qty: 100 0RF Changed aspirin 81 mg tablet,delayed release (DR/EC) 81 mg PO DAILY Qty: 30 0RF albuterol sulfate 90 mcg/actuation HFA aerosol inhaler 1 puff inhalation QID PRN (Reason: Wheezing) Qty: 1 0RF insulin aspart U-100 [Novolog FlexPen U-100 Insulin] 100 unit/mL (3 mL) insulin pen See Rx Instructions .ROUTE .COMPLEX Qty: 30 0RF Rx Instructions: *Less than or equal to 110 --- Give (units):0 *111 to 150 --- Give (units):0 *151 to 200 --- Give (units): 2 *201 to 250 -------Give (units):4 *251 to 300 --Give (units):6 *301 to 350 --- Give (units): 8 *Greater than 350 ---Give (units):10 *Call MD if Blood Glucose > :350 Discontinued gabapentin 800 mg tablet 800 mg PO TID 30 Days Qty: 90 1RF venlafaxine 150 mg capsule,extended release 24hr 1 cap PO BID lorazepam 1 mg tablet 1 tab PO QID mirtazapine 7.5 mg tablet 1 tab PO BEDTIME melatonin 5 mg tablet 1 tab PO QPM Discharge Orders: Discharge Order (Routine); Ordered 09/29/22 Ordered By: Junior Maier Diet: Advance to usual diet Activity on Discharge: As tolerated Stand Alone Forms: Patient Portal Discharge page Care Plan Goals: Care plan goals achieved in this admission Health Concerns: Continue treatment with an outpatient provider Plan of Treatment: Continue medication management and outpatient services Assessment: Elderly female with a long history of mood disorder, prior history of trauma and remote history of substance abuse, admitted after overdosing patient in a suicidal attempt. At this moment mood is much better, better affect able to contract for safety. No safety concerns Patient Instructions: Adult Overdose (ED)
[2022-09-29] MEDS: Insulin Glargine,Hum.rec.anlog 100 UNIT/ML 10 ML VIAL 10 UNIT SUBCUT (08:32)
[2022-09-29] MEDS: Insulin Lispro 100 UNIT/ML 3 ML VIAL SUBCUT (08:32)
[2022-09-29] MEDS: amLODIPine Besylate 5 MG TABLET PO (08:33)
[2022-09-29] MEDS: Aspirin Enteric Coated 81 MG TABLET.DR PO (08:33)
[2022-09-29] MEDS: Atorvastatin Calcium 80 MG TABLET PO (08:36)
[2022-09-29] MEDS: Venlafaxine HCl ER 150 MG CAP.ER.24H PO (08:36)
[2022-09-29] MEDS: Metoprolol Succinate ER 12.5 MG HALFTAB.ER.24H PO (08:36)
[2022-09-29] MEDS: lamoTRIgine 100 MG TABLET 200 MG PO (08:36)
[2022-09-29] MEDS: Pyridoxine HCl (Vitamin B6) 50 MG TABLET PO (08:36)
[2022-09-29] MEDS: Gabapentin 400 MG CAPSULE PO (08:36)
[2022-09-29] MEDS: lisinopriL 40 MG TABLET PO (08:36)
--- NOTE | 2022-09-29 12:29 | PC.NURSE ---
Pt Alert and oriented X4. Ready to be discharged home. Hyperverbal and pleasant. VSS. Ambulating frequently/independently and steady. Med compliant and meal compliant Instructions given to pt with pt understanding. Belongings given to pt Ambulated to front of hospital for hospital shuttle
== END 2022-09-29 12:23 | disposition home or self-care (01) | DRG 885 ==
LOC: HO.ED 09-24 13:38 → HO.PGERI 09-24 18:14
PROVIDERS: Physician Assistant; Social Worker; Admitting Provider Psychiatry & Neurology Psychiatry; Emergency Provider Student in an Organized Health Care Education/Training Program; PCP Physician Assistant; Visit Provider Psychiatry & Neurology Psychiatry
DX: F39 Unspecified mood [affective] disorder (principal); E11.40 Type 2 diabetes mellitus with diabetic neuropathy, unspecified; E78.5 Hyperlipidemia, unspecified; E55.9 Vitamin D deficiency, unspecified; E04.9 Nontoxic goiter, unspecified; J30.9 Allergic rhinitis, unspecified; I25.10 Atherosclerotic heart disease of native coronary artery without angina pectoris; Z20.822 Contact with and (suspected) exposure to COVID-19; Z85.21 Personal history of malignant neoplasm of larynx; Z92.21 Personal history of antineoplastic chemotherapy; Z91.51 Personal history of suicidal behavior; Z92.3 Personal history of irradiation; Z88.6 Allergy status to analgesic agent; Z79.4 Long term (current) use of insulin; Z79.82 Long term (current) use of aspirin; Z79.84 Long term (current) use of oral hypoglycemic drugs; Z79.899 Other long term (current) drug therapy
CPT/HCPCS: 0241U; 36415; 70450; 70496; 70498; 71045; 80048; 80053; 80061; 80143; 80175; 80179; 80307; 81003; 82077; 82140; 82947; 83605; 83735; 83880; 84484; 85007; 85025; 85027; 85610; 85730; 87040; 87635; 93005; 99285; J1200; J2060; J2405; Q9967; S9485

== ENCOUNTER 2022-10-12 12:28 | Outpatient (REF) | payer OTHER, SELFPAY ==
[2022-10-12 13:38] LABS: Hematocrit 37.4 % (37.0-47.0); Hemoglobin 12.3 g/dl (12.0-16.0); Mean Corpuscular HGB Conc 32.9 g/dl (31.0-35.0); Mean Corpuscular Hemoglobin 29.7 pg (27.0-33.0); Mean Corpuscular Volume 90.3 fL (80.0-98.0); Mean Platelet Volume 10.7 fL (9.4-12.3); Platelet Count 197 X10*3/uL (160-400); Red Blood Count 4.14 X10*6/uL (4.20-5.50); Red Cell Distribution Width 13.7 % (11.0-16.0); White Blood Count 8.4 X10*3/uL (4.8-10.8)
[2022-10-12 13:44] LABS: Estimated Average Glucose 177 mg/dL; Hemoglobin A1c % 7.8 %
[2022-10-12 14:15] LABS: Alanine Aminotransferase 45 U/L (0-31); Albumin Level 3.7 g/dL (3.5-5.0); Alkaline Phosphatase 92 U/L (39-117); Anion Gap 13 (12-20); Aspartate Amino Transferase 48 U/L (5-31); Bilirubin Total 0.5 mg/dL (0.0-1.0); Blood Urea Nitrogen 25 mg/dL (9-16); Carbon Dioxide 30 mmol/L (22-29); Chloride 103 mmol/L (96-108); Cholesterol 162 mg/dL; Estimated Glomerular Filt Rate > 60; Glucose Fasting 211 mg/dL (60-99); HDL Cholesterol 61 mg/dL; LDL Cholesterol Calculated 84 mg/dl; Potassium 4.9 mmol/L (3.3-5.1); Sodium 141 mmol/L (135-145); Total Protein 6.4 g/dL (6.5-8.0); Triglycerides 86 mg/dL
[2022-10-12 14:31] LABS: TSH reflex Free T4 2.33 uIU/mL (0.32-4.0)
== END 2022-10-12 12:29 | disposition home or self-care (01) ==
LOC: HO.LAB 12:28
PROVIDERS: PCP Physician Assistant; Visit Provider Physician Assistant
DX: E11.65 Type 2 diabetes mellitus with hyperglycemia (principal); Z79.4 Long term (current) use of insulin
CPT/HCPCS: 36415; 80053; 80061; 83036; 84443; 85027

== ENCOUNTER 2023-01-17 13:04 | Outpatient (AMB) | payer OTHER, SELFPAY ==
--- NOTE | 2023-01-17 13:09 | MHC.PC.OV ---
Vital Signs 01/17/23 13:10 Height 5 ft 1 in Weight 159 lb BMI 30.0 BP 112/66 Blood Pressure Location Lt brachial Position Sitting Pulse 73 Pulse Source Pulse Oximeter Temp Source Skin Pulse Oximetry (%) 97 Oxygen Delivery Method Room Air Intake Visit Reasons: Hair loss with medical concerns Crime Analyst Required: No Allergies adhesive tape [ADHESIVE TAPE] Allergy (Intermediate, Verified 01/17/23 13:30) BLISTERS mirtazapine Adverse Reaction (Intermediate, Verified 01/17/23 13:30) Palpitations meloxicam Adverse Reaction (Unknown, Verified 01/17/23 13:30) hallucinations talwin Allergy (Unknown, Uncoded 01/17/23 13:17) ineffective respidone Adverse Reaction (Severe, Uncoded 01/17/23 13:17) foggy Medication List - Last Reconciled 01/17/23 by DARIA Mejia albuterol sulfate 90 mcg/actuation 1 puff inhalation QID PRN amlodipine 5 mg PO DAILY aspirin 81 mg PO DAILY atorvastatin 80 mg PO DAILY blood-glucose meter (ApttusStyle Lite Meter kit) USE DIRECTED diclofenac sodium 1% 2 grams topical QID PRN flash glucose sensor (FreeStyle Barry 2 Sensor kit) 4xs per day gabapentin 800 mg PO TID 30 days hydroxyzine HCl 25 mg PO Q6H PRN 30 days insulin aspart U-100 (Novolog FlexPen U-100 Insulin aspart) *Less than or equal to 110 --- Give (units):0 *111 to 150 --- Give (units):0 *151 to 200 --- Give (units): 2 *201 to 250 -------Give (units):4 *251 to 300 --Give (units):6 *301 to 350 --- Give (units): 8 *Greater than 350 ---Give (units):10 *Call MD if Blood Glucose > :350 insulin glargine (Lantus Solostar U-100 Insulin) 14 units (0.14 mL) subcut DAILY lamotrigine 1 tab PO DAILY lancets (Inject Ease Lancets) 1 gauge miscellaneous BID 50 days levothyroxine 25 mcg PO DAILY lisinopril 40 mg (2 x 20 mg) PO DAILY lorazepam 1 mg PO QID PRN melatonin 9 mg (3 x 3 mg) PO BEDTIME metformin 1 tab PO BID metoprolol succinate ER 0.5 tabs PO DAILY omeprazole 1 cap PO DAILY 30 days pen needle, diabetic (Comfort EZ Pen [place]) USE 4 TIMES A DAY pyridoxine (vitamin B6) 50 mg PO DAILY triamcinolone acetonide 0.5% 1 appl topical DAILY 30 days venlafaxine ER 150 mg PO DAILY 30 days Tobacco use date assessed: 01/17/23 Fall risk assessment: No Falls in past year Last assessed Fall Risk: 01/17/23 Dental Screening Dental Screen Date: 01/17/23 HPI HPI Comments History of Present Illness Details 62-year-old female past medical history significant for hyperlipidemia type 2 diabetes polyarthralgia, vitamin-D deficiency, bipolar disorder, CAD, hypertension, COPD, hypothyroidism. Patient of Mina Tang last seen in September patient presents today. Patient states that her hair feels thinner x 3 weeks. Patient denies fatigue or cold intolerance. Last hemoglobin A1c 7.8% in October. [facility] Medical History Cardiac akinesia Constipation COPD (chronic obstructive pulmonary disease) Depression DMII (diabetes mellitus, type 2) GERD (gastroesophageal reflux disease) Goiter History of gastrostomy tube placement History of laryngeal cancer HTN (hypertension) Hx of substance abuse Hyperlipidemia Hypothyroidism Lumbar stenosis with neurogenic claudication Sleep apnea T2DM (type 2 diabetes mellitus) Vitamin D deficiency Surgical History H/O colonoscopy History of cardiac catheterization (~03/16/21) History of cataract surgery History of ear surgery History of endoscopy History of esophagogastroduodenoscopy (EGD) History of removal of Port-a-Cath History of surgery on arm History of surgery on left wrist Family History Father Hypertension CVD (cardiovascular disease) Mother Stroke Social History Household Members: None Housing: Apartment Do you presently have visiting nurse or other home services: No Alcohol intake: never Patient Tobacco Use Status: Current everyday Tobacco user Tobacco use type: Cigarette Cigarette Packs Per Day: 1 Cigarettes Per Day: 10 Years Smoked: 48 e-Cigarette/Vaping Use: Never Used Second Hand Smoke Exposure: No Substance Use Type: Crack/Cocaine Advance Directives Date on File: 07/20/22 service: No Current occupational status: disabled Sexual orientation: Straight/Heterosexual Cognitive needs: Yes (scooter) Hearing needs: No Vision needs: Yes (reading glasses ) Questionnaire PHQ-9 Over the last 2 weeks, how often have you been bothered by any of the following problems? 1. Little interest or pleasure in doing things: several days (pt states she is taking mediction for depression and anxiety ) 2. Feeling down, depressed, or hopeless: several days 3. Trouble falling or staying asleep, or sleeping too much: not at all 4. Feeling tired or having little energy: several days 5. Poor appetite or overeating: not at all 6. Feeling bad about yourself - or that you are a failure or have let yourself or your family down: not at all 7. Trouble concentrating on things, such as reading the newspaper or watching television: not at all 8. Moving or speaking so slowly that other people could have noticed. Or the opposite - being so fidgety or restless that you have been moving around a lot more than usual: not at all 9. Thoughts that you would be better off or of hurting yourself in some way: not at all Total score: 3 Depression Screening Interpretation: Negative 46916 - PHQ-9 Billing: Yes Source: Developed by Drs. Zackary William, Elizabeth Meadows, Miguel Velazquez and colleagues, with an educational juhi from [employer]. Thrive Questionnaire Date Thrive assessed: 10/03/22 AUDIT C Alcohol Use Questionnaire (AUDIT-C) 1. How often do you have a drink containing alcohol?: Never Total Score: 0 Score Reviewed/Action Taken: No PAT-7 AMB Questionnaire PAT-7 Date PAT - 7 assessed: 01/17/23 Source: Developed by Drs. Zackary William, Elizabeth Meadows, Miguel Velazquez and colleagues, with an educational juhi from [employer]. Review of Systems Const Denies chills, Denies fatigue, Denies fever(s) and Denies poor appetite Eyes Denies no additional complaints ENT Reports Normal hearing present Card Denies chest pain, Denies syncope, Denies rapid heart rate and Denies dyspnea Resp Denies cough and Denies dyspnea GI Denies change in stool character, Denies constipation, Denies diarrhea, Denies nausea and Denies vomiting Denies urinary frequency, Denies dysuria and Denies urinary urgency Skin/Breast Reports change in hair (hair thinning ) Neuro Reports Normal hearing present, Denies confusion and Denies syncope Psych Denies confusion Endo Denies fatigue Physical exam (Primary Care) Vital Signs: Last Vital Signs Pulse 73 01/17/23 13:10 BP 112/66 01/17/23 13:10 Pulse Ox 97 01/17/23 13:10 Oxygen Delivery Method Room Air 01/17/23 13:10 BMI result Body Mass Index 30.0 Tobacco/Smoking Status: Tobacco use Status Tobacco use date assessed 01/17/23 01/17/23 13:11 Patient Tobacco Use Status Current everyday Tobacco 01/17/23 13:11 Tobacco use type Cigarette 01/17/23 13:11 e-Cigarette/Vaping Use Never Used 01/17/23 13:11 PHQ-9: PHQ-9 Score PHQ-9: Total score 3 01/17/23 13:26 Depression Screening Interpretation: Negative Thrive Assessment: Date of Thrive Assessment Date Thrive assessed 10/03/22 01/17/23 13:11 Const General: No confusion Orientation/consciousness: No confusion HENMT Head: Yes normocephalic and Yes atraumatic Eyes Conjunctivae: conjunctivae normal Chest Chest palpation & inspection: normal inspection of the chest Resp Effort & Inspection: normal respiratory effort Auscultation: clear to auscultation bilaterally, no crackles, no rhonchi and no wheezes Cardio Rate: regular rate Rhythm: regular rhythm Heart sounds: S1 normal heart sound present and S2 normal heart sound present GI Inspection: Yes normal to inspection Neuro General: No confusion Cranial nerves: Yes Normal hearing present Extrem General: No edema Assessment and Plan Assessment & Plan (1) Hypothyroidism: Code(s): E03.9 - Hypothyroidism, unspecified Plan: Given patient reports feels like her hair has been thinning of redraw TSH. Continue on levothyroxine. (2) DMII (diabetes mellitus, type 2): Comment: dx~2012 Code(s): E11.9 - Type 2 diabetes mellitus without complications Plan: Continue on NovoLog sliding scale and Lantus 14units Repeat hemoglobin A1c ordered. Patient educated to decrease the amount of carbohydrate intake such as pasta, bread, rice and potatoes are all sugar in addition to the sweet stuff. Remember that fruits are good but they also have sugar.Hemoglobin A1c goal of less than 7.0% Follow-up in 3 months. (3) Hyperlipidemia: Code(s): E78.5 - Hyperlipidemia, unspecified Plan: Continue on atorvastatin 80 mg daily. Avoid fried foods, chicken skin, eggs, butter,margarine, pastries and? red meat. Fasting lipid panel ordered. (4) HTN (hypertension): Code(s): I10 - Essential (primary) hypertension Plan: Continue on amlodipine. Follow low-salt diet. (5) COPD (chronic obstructive pulmonary disease): Code(s): J44.9 - Chronic obstructive pulmonary disease, unspecified Plan: Continue on albuterol as needed. Plan Follow-up in 3 months with pcp. Orders: Orders Comprehensive [place]. Panel Fast Today E11.9 - Type 2 diabetes mellitus without complications Hemoglobin A1c Today E11.9 - Type 2 diabetes mellitus without complications Vitamin B12 and Folate Today Z13.21 - Encounter for screening for nutritional disorder TSH reflex Free T4 Today E03.9 - Hypothyroidism, unspecified Vitamin D 25-OH Total Today Z13.21 - Encounter for screening for nutritional disorder Lipid Panel Today E78.5 - Hyperlipidemia, unspecified Medications: Discontinued diclofenac sodium 1% 2 grams topical QID PRN 100 grams 0RF pain M25.50 - Pain in unspecified joint atorvastatin 80 mg PO DAILY 90 tabs 1RF amlodipine 5 mg PO DAILY 90 tabs 0RF Coding Level of Care Code Est Pt Level 4 (24869) Diagnoses Hypothyroidism E03.9 DMII (diabetes mellitus, type 2) E11.9 Hyperlipidemia E78.5 HTN (hypertension) I10 COPD (chronic obstructive pulmonary disease) J44.9
[2023-01-17 13:10] VITALS: BP 112/66; PULSE 73; O2SAT 97
== END 2023-01-17 13:47 | disposition home or self-care (01) ==
PROVIDERS: PCP Physician Assistant; Visit Provider Nurse Practitioner Family
DX: E03.9 Hypothyroidism, unspecified (principal); E11.9 Type 2 diabetes mellitus without complications; I10 Essential (primary) hypertension; J44.9 Chronic obstructive pulmonary disease, unspecified; E78.5 Hyperlipidemia, unspecified
CPT/HCPCS: 99214

== ENCOUNTER 2023-02-22 14:30 | Emergency (ER) | payer OTHER, SELFPAY ==
--- NOTE | ~2023-02-22 | XR_ITS ---
EXAMINATION: XR RIBS, LEFT CLINICAL INFORMATION: Left rib pain. Status post fall. COMPARISON: None available. TECHNIQUE: 3 views of the left ribs were obtained. Chest PA 1 view FINDINGS: CHEST: The lungs are well-expanded and clear. The heart size and pulmonary vascularity is normal. LEFT RIBS: Multiple views of left ribs reveal no visible acute fracture or bony abnormality. The soft tissues are normal. XR/XR ribs LT min 3V w CXR1V IMPRESSION: 1. Unremarkable chest exam. 2. Unremarkable left rib exam.
[2023-02-22 14:32] VITALS: BP 121/52; PULSE 100; RESP 16; TEMP 36.7; O2SAT 95; BMI 28.3
--- NOTE | 2023-02-22 14:33 | ED.FALL ---
HPI - Fall General Chief Complaint: Fall Stated Complaint: Chest Discomfort S/P Fall 02/22/23 Time Seen by Provider: 02/22/23 17:18 Source: patient Mode of arrival: ambulatory Limitations: no limitations History of Present Illness HPI Narrative: Patient is a 62 year old assigned female at with a history of DM and CAD presenting to the emergency department today with left breast / rib pain after a fall. Patient states that she slipped off of her bed and hit her left breast / ribs on the floor. Patient denies hitting her head or any loss of consciousness. Patient denies any dizziness, lightheadedness, abdominal pain, nausea, vomiting, fever, chills, blurry vision, double vision, loss of vision, chest pain, difficulty breathing, shortness of breath, back pain, night sweats, pain with urination, increased urinary frequency, increased urinary urgency, blood in her urine or stool, syncope or a near syncopal episode, bowel incontinence, bladder incontinence, bowel retention, bladder retention, or any other complaints at this time. MD complaint: fall Onset (ago): hour(s) Fall from: out of bed Fall witnessed: no Place fall occurred: home Loss of consciousness: none Prolonged down time: no Symptoms prior to fall: none Context: tripped/slipped Severity: mild Severity scale (1-10): 3 Quality: dull and aching Associated symptoms (after fall): denies Related Data Home Medications Medication Instructions Recorded Confirmed lorazepam 1 mg tablet 1 mg PO QID PRN 10/03/22 01/17/23 Previous Rx's Medication Instructions Recorded albuterol sulfate 90 mcg/actuation 1 puff inhalation QID PRN Wheezing 09/29/22 aerosol inhaler #1 units amlodipine 5 mg tablet 5 mg PO DAILY #90 tabs 09/29/22 atorvastatin 80 mg tablet 80 mg PO DAILY #90 tabs 09/29/22 diclofenac sodium 1 % topical gel 2 g topical QID PRN pain #100 grams 09/29/22 hydroxyzine HCl 25 mg tablet 25 mg PO Q6H PRN Anxiety 30 days 09/29/22 #90 tabs lamotrigine 200 mg tablet 1 tab PO DAILY #30 tabs 09/29/22 melatonin 3 mg tablet 9 mg PO BEDTIME #90 tabs 09/29/22 metformin 1,000 mg tablet 1 tab PO BID #60 tabs 09/29/22 metoprolol succinate 25 mg 0.5 tab PO DAILY #15 tabs 09/29/22 tablet,extended release 24 hr pyridoxine (vitamin B6) 50 mg 50 mg PO DAILY #90 tabs 09/29/22 tablet venlafaxine 150 mg 150 mg PO DAILY 30 days #30 caps 09/29/22 capsule,extended release 24 hr triamcinolone acetonide 0.5 % 1 appl topical DAILY 30 days #15 10/03/22 topical ointment grams pen needle, diabetic 32 gauge x #100 ea 10/04/2232 (Comfort EZ Pen [place]) insulin glargine 100 unit/mL (3 14 unit (0.14 mL) subcut DAILY #30 10/13/22 mL) subcutaneous pen (Lantus mL Solostar U-100 Insulin) lancets 28 gauge (Inject Ease 1 gauge miscellaneous BID for 10/24/22 Lancets) diabetes mellitus 50 days #100 ea lisinopril 20 mg tablet 40 mg PO DAILY #180 tabs 01/04/23 flash glucose sensor (FreeStyle #1 ea 01/13/23 Barry 2 Sensor kit) blood-glucose meter (FreeStyle #1 kit 01/17/23 Lite Meter kit) aspirin 81 mg tablet,delayed 81 mg PO DAILY #30 tabs 01/23/23 release gabapentin 800 mg tablet 800 mg PO TID 30 days #90 tabs 01/23/23 omeprazole 20 mg capsule,delayed 20 mg PO DAILY 30 days #30 caps 01/23/23 release levothyroxine 25 mcg tablet 25 mcg PO DAILY #30 tabs 01/28/23 insulin aspart U-100 100 unit/mL See Rx Instructions .Route 02/21/23 (3 mL) subcutaneous pen (Novolog .COMPLEX #30 mL FlexPen U-100 Insulin aspart) Allergies Allergy/AdvReac Type Severity Reaction Status Date / Time adhesive tape [ADHESIVE TAPE] Allergy Intermediate BLISTERS Verified 01/17/23 13:30 mirtazapine AdvReac Intermediate Palpitation Verified 01/17/23 13:30 s meloxicam AdvReac Unknown hallucinati Verified 01/17/23 13:30 ons talwin Allergy Unknown ineffective Uncoded 01/17/23 13:17 respidone AdvReac Severe foggy Uncoded 01/17/23 13:17 Review of Systems Constitutional: Constitutional: Reports no additional constitutional complaints, Denies chills, Denies fever(s) and Denies night sweats Eyes: Eyes: Reports no additional eye complaints, Denies blurry vision, Denies change in vision, Denies diplopia, Denies eye discharge, Denies loss of vision and Denies eye pain ENT: Denies dizziness Cardiovascular: Cardiovascular: Reports no additional cardiovascular complaints, Denies chest pain, Denies lightheadedness, Denies Loss of Consciousness and Denies dyspnea Respiratory: Respiratory: Reports no additional respiratory complaints and Denies dyspnea Gastrointestinal: Gastrointestinal: Reports no additional gastrointestinal complaints, Denies abdominal pain, Denies melena, Denies hematochezia, Denies change in bowel habits and Denies change in stool character Genitourinary: Genitourinary: Denies hematuria, Denies urinary frequency, Denies dysuria, Denies urinary incontinence, Denies urinary hesitancy and Denies urinary urgency Musculoskeletal: Musculoskeletal: Reports no additional musculoskeletal complaints, Denies numbness and Denies tingling Comments: left breast and rib pain Neurologic: Denies dizziness, Denies loss of vision, Denies numbness and Denies tingling Psychiatric: Psychiatric: Reports no additional psychiatric complaints Endocrine: Endocrine: Reports no additional endocrine complaints Hematologic/Lymphatic: Hematologic/Lymphatic: Reports no additional hematologic/lymphatic complaints Allergic/Immunologic: Allergic/Immunologic: Reports no additional allergic/immunologic complaints [facility] Past Medical History Attestation statement: The following information was validated with the patient. Source: old records reviewed and nursing notes reviewed Medical History Cardiac akinesia Coccyx pain Constipation COPD (chronic obstructive pulmonary disease) Depression DMII (diabetes mellitus, type 2) GERD (gastroesophageal reflux disease) Goiter History of gastrostomy tube placement History of laryngeal cancer HTN (hypertension) Hx of substance abuse Hyperlipidemia Hypothyroidism Left arm swelling Left wrist pain Lumbar stenosis with neurogenic claudication Otitis media Physical exam (~06/07/21) Sleep apnea Stool guaiac positive T2DM (type 2 diabetes mellitus) Vitamin D deficiency Surgical History H/O colonoscopy History of cardiac catheterization (~03/16/21) History of cataract surgery History of ear surgery History of endoscopy History of esophagogastroduodenoscopy (EGD) History of removal of Port-a-Cath History of surgery on arm History of surgery on left wrist Family History Family History Father Hypertension CVD (cardiovascular disease) Mother Stroke Social History Social History Household Members: None Housing: Apartment Do you presently have visiting nurse or other home services: No Alcohol intake: never Patient Tobacco Use Status: Current everyday Tobacco user Tobacco use type: Cigarette Cigarette Packs Per Day: 1 Cigarettes Per Day: 10 Years Smoked: 48 e-Cigarette/Vaping Use: Never Used Second Hand Smoke Exposure: No Substance Use Type: Crack/Cocaine Advance Directives: Yes Advance Directives on File: Yes Advance Directives Date on File: 07/20/22 service: No Current occupational status: disabled Sexual orientation: Straight/Heterosexual Cognitive needs: Yes (scooter) Hearing needs: No Vision needs: Yes (reading glasses ) Physical Exam Vital Signs: Vital Signs: Last Vital Signs Temp 98.1 F 02/22/23 14:32 Pulse 100 02/22/23 14:32 Resp 16 02/22/23 14:32 BP 121/52 L 02/22/23 14:32 Pulse Ox 95 02/22/23 14:32 O2 Del Method Room Air 02/22/23 14:32 BMI result Body Mass Index 28.3 Const: General: cooperative, no acute distress, alert and awake Nutritional Appearance: well nourished Orientation/consciousness: patient oriented x3 Limitations: no limitations HEENT: Head: Yes normal to inspection and Yes atraumatic Ears: hearing grossly normal bilaterally and external ears normal General nose exam: Normal external nose present, no nasal discharge noted and no epistaxis Face and sinus: Yes normal facial exam, No abrasion and No laceration Mouth: Normal oral and palatal mucosa present, no drooling and no muffled voice Eyes: General: appearance normal, both eyes and all related structures Periorbital: periorbital findings normal Eyelids: Yes eyelids normal Conjunctivae: conjunctivae normal Pupils: Equal, round and reactive pupils present EOM: EOMs intact bilaterally Neck: Neck: Yes normal visual inspection, Yes full ROM and Yes no lymphadenopathy Chest: Chest palpation & inspection: normal inspection of the chest Resp: Effort & Inspection: normal respiratory effort and able to speak in complete sentences Auscultation: clear to auscultation bilaterally Cardio: Rate: regular rate Rhythm: regular rhythm GI: Inspection: Yes normal to inspection Neuro: General: patient oriented x3 and moves all extremities Cranial nerves: Yes Equal, round and reactive pupils present Cognition (Neuro): normal cognition Motor exam (neuro): 5/5 motor strength present throughout Sensory Exam: Normal double simultaneous stimulation for sensation Coordination: [id number] test normal Extrem: General: Yes normal to inspection, Yes full ROM and Yes capillary refill normal Psych: Appearance: grossly normal Mental Status: mental status grossly normal Affect: normal affect Attitude: cooperative Thought process: Normal thought process present Thought content: Normal thought content present Insight: Good insight present (Psych) Course Course Course Narrative: RME: 62yo F w/PMHx DM, anemia, PAD, HTN, Bipolar c/o L breast/L anterior chest wall pain s/p fall off bed today. Takes ASA. States was reaching for something on the ground and fell forwards, denies head trauma/LOC Rib x-ray ordered Full HPI, ROS and PE to be performed by primary ED provider. Medical Decision Making Medical Decision Making [facility] Narrative: Patient is a 62 year old assigned female at with a history of HTN and DM presenting to the emergency department today with left breast and rib pain. Patient's physical exam was unremarkable. Patient's left ribs and chest x-rays showed no acute process. I explained my physical exam findings as well as all test results to the patient. I answered all questions asked by the patient. I stressed the importance of the patient taking her medication as prescribed. I stressed the importance of the patient following up with her primary care provider. I stressed the importance of the patient returning to the emergency department immediately if her symptoms were to worsen or if she were to develop any dizziness, shortness of breath, difficulty breathing, chest pain, blurry vision, loss of vision, nausea, vomiting, abdominal pain, fever, chills, back pain, or any other complaints. Patient verbalized agreement and understanding with this treatment plan and discharge. Differential Diagnosis Differential Diagnoses: The differential diagnosis associated with the presentation includes Pulmonary contusion Pain Breast pain Fall Independent Interpretation I performed an independent interpretation of an: Plain X-Ray Interpretation: My interpretation is in agreement with the radiologist's impression of these imaging studies. EXAMINATION: XR RIBS, LEFT CLINICAL INFORMATION: Left rib pain. Status post fall. COMPARISON: None available. TECHNIQUE: 3 views of the left ribs were obtained. Chest PA 1 view FINDINGS: CHEST: The lungs are well-expanded and clear. The heart size and pulmonary vascularity is normal. LEFT RIBS: Multiple views of left ribs reveal no visible acute fracture or bony abnormality. The soft tissues are normal. XR/XR ribs LT min 3V w CXR1V IMPRESSION: 1.? Unremarkable chest exam. 2.? Unremarkable left rib exam. Dictated By: Patrick Peraza MD Signed By: Electronically signed by Patrick Peraza MD 02/22/23 1527 Radiology Impression Discussion of test interpretation with radiology: I have reviewed the radiologist's reading. Chronic Conditions Patient?s care impacted by: Diabetes and Hypertension Discharge Plan Discharge Clinical Impression: Fall Patient Disposition: Home, Self-Care Instructions: Fall Prevention (ED) Additional Instructions: Follow up with your primary care provider. Return to the emergency department immediately if your symptoms worsen or if you develop any dizziness, shortness of breath, difficulty breathing, chest pain, blurry vision, loss of vision, nausea, vomiting, abdominal pain, fever, chills, back pain, or any other complaints. Prescriptions: No Action (DME) pen needle, diabetic [Comfort EZ Pen [place]] 32 gauge x 5/32 needle See Rx Instructions .Route Qty: 100 6RF Rx Instructions: USE 4 TIMES A DAY insulin glargine [Lantus Solostar U-100 Insulin] 100 unit/mL (3 mL) insulin pen 14 unit subcut DAILY Qty: 30 0RF lancets [Inject Ease Lancets] 28 gauge misc 1 gauge miscellaneous BID 50 Days Qty: 100 6RF lisinopril 20 mg tablet 40 mg PO DAILY Qty: 180 0RF (DME) FreeStyle Barry 2 Sensor Kit See Rx Instructions .Route Qty: 1 6RF Rx Instructions: 4xs per day (DME) blood-glucose meter [FreeStyle Lite Meter] Kit See Rx Instructions .ROUTE .COMPLEX Qty: 1 0RF Dose Instruction: USE DIRECTED Rx Instructions: USE DIRECTED omeprazole 20 mg capsule,delayed release(DR/EC) 20 mg PO DAILY 30 Days Qty: 30 3RF aspirin 81 mg tablet,delayed release (DR/EC) 81 mg PO DAILY Qty: 30 3RF gabapentin 800 mg tablet 800 mg PO TID 30 Days Qty: 90 1RF levothyroxine 25 mcg tablet 25 mcg PO DAILY Qty: 30 0RF insulin aspart U-100 [Novolog FlexPen U-100 Insulin] 100 unit/mL (3 mL) insulin pen See Rx Instructions .ROUTE .COMPLEX Qty: 30 3RF Rx Instructions: *Less than or equal to 110 --- Give (units):0 *111 to 150 --- Give (units):0 *151 to 200 --- Give (units): 2 *201 to 250 -------Give (units):4 *251 to 300 --Give (units):6 *301 to 350 --- Give (units): 8 *Greater than 350 ---Give (units):10 *Call MD if Blood Glucose > :350 venlafaxine 150 mg Capsule,Extended Release 24hr 150 mg PO DAILY 30 Days Qty: 30 0RF hydroxyzine HCl 25 mg Tablet 25 mg PO Q6H PRN (Reason: Anxiety) 30 Days Qty: 90 0RF melatonin 3 mg Tablet 9 mg PO BEDTIME Qty: 90 0RF atorvastatin 80 mg tablet 80 mg PO DAILY Qty: 90 1RF lamotrigine 200 mg tablet 1 tab PO DAILY Qty: 30 0RF amlodipine 5 mg tablet 5 mg PO DAILY Qty: 90 0RF metformin 1,000 mg tablet 1 tab PO BID Qty: 60 0RF pyridoxine (vitamin B6) 50 mg tablet 50 mg PO DAILY Qty: 90 2RF metoprolol succinate 25 mg tablet extended release 24 hr 0.5 tab PO DAILY Qty: 15 0RF albuterol sulfate 90 mcg/actuation HFA aerosol inhaler 1 puff inhalation QID PRN (Reason: Wheezing) Qty: 1 0RF diclofenac sodium 1 % gel 2 g topical QID PRN (Reason: pain) Qty: 100 0RF lorazepam 1 mg tablet 1 mg PO QID PRN triamcinolone acetonide 0.5 % ointment 1 appl topical DAILY 30 Days Qty: 15 0RF Referrals: Vicente Tang PA-C [Primary Care Provider] - Interventions: ED Discharge Assessment Last Done: 02/22/23 17:34 Discharge Date/Time: 02/22/23 17:34 Print Language: Romanian
== END 2023-02-22 17:34 | disposition home or self-care (01) ==
PROVIDERS: Emergency Provider Internal Medicine; PCP Physician Assistant
DX: R07.89 Other chest pain (principal); R07.81 Pleurodynia; F17.210 Nicotine dependence, cigarettes, uncomplicated; Z71.6 Tobacco abuse counseling; Z79.899 Other long term (current) drug therapy
CPT/HCPCS: 71101; 99282; 99283

== ENCOUNTER 2023-04-13 12:04 | Outpatient (REF) | payer OTHER, SELFPAY | END 2023-04-13 12:05 | disposition home or self-care (01) | LOC: HO.LAB 12:04 | PROVIDERS: PCP Physician Assistant; Visit Provider Nurse Practitioner Family | DX: E78.5 Hyperlipidemia, unspecified (principal); E11.9 Type 2 diabetes mellitus without complications; E03.9 Hypothyroidism, unspecified; Z13.21 Encounter for screening for nutritional disorder; E55.9 Vitamin D deficiency, unspecified | CPT/HCPCS: 36415; 80053; 80061; 82306; 82607; 82746; 83036; 84439; 84443 ==

== ENCOUNTER 2023-06-08 09:48 | Outpatient (AMB) | payer OTHER, SELFPAY ==
--- NOTE | 2023-06-08 10:47 | A.OFFPC_ITS ---
Vital Signs 06/08/23 10:48 Height 5 ft 1 in Weight 149 lb 6 oz BMI 28.2 BP 138/70 Blood Pressure Location Lt brachial Position Sitting Pulse 82 Pulse Source Pulse Oximeter Pulse Oximetry (%) 95 Oxygen Delivery Method Room Air Intake Visit Reasons: discharge follow up Intake Note: Patient is here for hospital discharge follow up. Patient was discharged from [facility] on 05/12/23. Dispatcher Chief Coal Slurry Required: No Accompanied by: [facility] Allergies adhesive tape [ADHESIVE TAPE] Allergy (Intermediate, Verified 06/08/23 11:14) BLISTERS mirtazapine Adverse Reaction (Intermediate, Verified 06/08/23 11:14) Palpitations meloxicam Adverse Reaction (Unknown, Verified 06/08/23 11:14) hallucinations talwin Allergy (Unknown, Uncoded 06/08/23 10:54) ineffective respidone Adverse Reaction (Severe, Uncoded 06/08/23 10:54) foggy Medication List - Last Reconciled 06/08/23 by Vicente Tang PA-C albuterol sulfate 90 mcg/actuation 1 puff inhalation QID PRN amlodipine 5 mg PO DAILY aspirin 81 mg PO DAILY atorvastatin 80 mg PO DAILY blood sugar diagnostic (FreeStyle Lite Strips) 1 strip miscellaneous BID 30 days blood-glucose meter (FreeStyle Lite Meter kit) USE DIRECTED flash glucose sensor (FreeStyle Barry 2 Sensor kit) 4xs per day gabapentin mg PO hydroxyzine HCl 25 mg PO Q6H PRN 30 days insulin aspart U-100 (Novolog FlexPen U-100 Insulin aspart) *Less than or equal to 110 --- Give (units):0 *111 to 150 --- Give (units):0 *151 to 200 --- Give (units): 2 *201 to 250 -------Give (units):4 *251 to 300 --Give (units):6 *301 to 350 --- Give (units): 8 *Greater than 350 ---Give (units):10 *Call MD if Blood Glucose > :350 insulin glargine (Lantus Solostar U-100 Insulin) 14 units (0.14 mL) subcut DAILY lamotrigine 25 mg PO DAILY lancets (Inject Ease Lancets) 1 gauge miscellaneous BID 50 days lancets (Pure Comfort Safety Lancets) As directed levothyroxine 25 mcg PO DAILY lisinopril 40 mg (2 x 20 mg) PO DAILY lorazepam 1 mg PO QID PRN lorazepam mg PO metoprolol succinate ER 12.5 mg (1/2 x 25 mg) PO DAILY 90 days omeprazole 20 mg PO DAILY 30 days pen needle, diabetic (Comfort EZ Pen [place]) USE 4 TIMES A DAY pyridoxine (vitamin B6) 50 mg PO DAILY venlafaxine ER 150 mg PO DAILY 30 days Tobacco use date assessed: 01/17/23 Fall risk assessment: No Falls in past year Last assessed Fall Risk: 06/08/23 Dental Screening Dental Screen Date: 06/08/23 Did you have a dental visit in the last 12 months?: No Did you have a dental problem in the last 6 months where you did not have access to dental care?: No Was dental information given to patient?: No (dentures) HPI discharge follow up HPI Details Patient is a 63-year-old female here today for hospital discharge follow-up. Patient has a past medical history significant for type 2 diabetes, hyperlipidemia, coronary artery disease, hypertension, COPD, tobacco dependency, depression and anxiety. Aspiration-->--> presents today with a nurse mental health construction operations manager from [facility]. recently seen at [facility] for acute aspiration in the setting of ? Serotonin syndrome. This was in the setting of starting a new SSRI through her psychiatrist. She reports she felt off which resulted in her aspiration and hospitalization. Unclear if this was a suicide attempt. Med changes have been made. During her hospitalization she had received G-tube due to her aspiration secondary to her esophageal cancer and radiation. She has been managing her own G-tube at home. Had not had VNA services after her hospitalization. She needs PCP to help manage her G-tube and supply her with scripts for supplies. She does have a psychiatrist through [facility]. PLAN: Will order barium swallow to evaluate for recurrent aspiration in hopes that she can have her G-tube removed in started swelling again. .. CHRONIC MEDICAL CONDITIONS--> Type 2 diabetes: Now insulin dependent and injecting insulin 4 times a day. She is using a regular glucometer though is interested in the freestyle Barry which she should be a candidate for due to the amount point of care test. . Coronary artery disease: Patient did have an CO in 2021 and received a coronary artery stent. Has not had any recent follow-up with cardiology. She denies any further chest discomfort. Will recheck lipids to ensure normal. Continues on high-dose statin and aspirin and beta-fito. [facility] Medical History Cardiac akinesia Coccyx pain Constipation COPD (chronic obstructive pulmonary disease) Depression DMII (diabetes mellitus, type 2) GERD (gastroesophageal reflux disease) Goiter History of gastrostomy tube placement History of laryngeal cancer HTN (hypertension) Hx of substance abuse Hyperlipidemia Hypothyroidism Left arm swelling Left wrist pain Lumbar stenosis with neurogenic claudication Otitis media Physical exam (~06/07/21) Sleep apnea Stool guaiac positive T2DM (type 2 diabetes mellitus) Vitamin D deficiency Surgical History History of endoscopy History of cardiac catheterization (~03/16/21) History of removal of Port-a-Cath H/O colonoscopy History of esophagogastroduodenoscopy (EGD) History of ear surgery History of surgery on arm History of surgery on left wrist History of cataract surgery Family History Father Hypertension CVD (cardiovascular disease) Mother Stroke Social History Household Members: None Housing: Apartment Do you presently have visiting nurse or other home services: No Alcohol intake: never Comment: New admission: 5 minute checks Patient Tobacco Use Status: Current everyday Tobacco user Tobacco use type: Cigarette Cigarette Packs Per Day: 1 Cigarettes Per Day: 10 Years Smoked: 48 e-Cigarette/Vaping Use: Never Used Second Hand Smoke Exposure: No Substance Use Type: Crack/Cocaine Advance Directives Date on File: 07/20/22 service: No Current occupational status: disabled Sexual orientation: Straight/Heterosexual Cognitive needs: Yes (scooter) Hearing needs: No Vision needs: Yes (reading glasses ) Questionnaire Thrive Questionnaire Date Thrive assessed: 10/03/22 PAT-7 AMB Questionnaire PAT-7 Date PAT - 7 assessed: 01/17/23 Source: Developed by Drs. Zackary William, Elizabeth Meadows, Miguel Velazquez and colleagues, with an educational juhi from [employer]. Review of Systems Const Denies headache(s) Eyes Denies loss of vision ENT Denies vertigo, Denies dizziness, Denies headache(s) and Denies sore throat Card Denies chest pain, Denies leg edema and Denies lightheadedness Resp Denies cough, Denies hemoptysis and Denies wheezing GI Denies abdominal pain, Denies melena, Denies constipation, Denies diarrhea and Denies vomiting Denies urinary frequency, Denies dysuria and Denies urinary urgency Musc Denies arthralgias, Denies joint swelling, Denies numbness and Denies tingling Neuro Denies Abnormal speech present, Denies behavioral changes, Denies vertigo, Denies dizziness, Denies headache(s), Denies loss of vision, Denies memory loss, Denies numbness and Denies tingling Psych Denies anxiety, Denies behavioral changes, Denies depression, Denies memory loss and Denies panic attacks Rohan/Lymph Denies easy bleeding and Denies easy bruising Aller/Immun Denies wheezing Physical exam (Primary Care) Vital Signs: Last Vital Signs Pulse 82 06/08/23 10:48 BP 138/70 06/08/23 10:48 Pulse Ox 95 06/08/23 10:48 Oxygen Delivery Method Room Air 06/08/23 10:48 BMI result Body Mass Index 28.2 Tobacco/Smoking Status: Tobacco use Status Tobacco use date assessed 01/17/23 06/08/23 10:51 Patient Tobacco Use Status Current everyday Tobacco 06/08/23 10:51 Tobacco use type Cigarette 06/08/23 10:51 e-Cigarette/Vaping Use Never Used 06/08/23 10:51 Thrive Assessment: Date of Thrive Assessment Date Thrive assessed 10/03/22 06/08/23 10:51 Const General: healthy appearing, no acute distress, alert and awake Nutritional Appearance: well nourished Orientation/consciousness: oriented to person, oriented to place and oriented to time HENMT Ears: TM's normal bilaterally General nose exam: Normal nasal mucous membranes and turbinates present Eyes Conjunctivae: conjunctivae normal Sclerae: sclerae normal Pupils: Equal, round and reactive pupils present Neck Neck: Yes no lymphadenopathy and Yes no JVD Thyroid: Thyroid normal Carotids: no bruits Resp Effort & Inspection: normal respiratory effort and not tachypneic Auscultation: no crackles, no rales, no rhonchi and no wheezes Cardio Rate: regular rate Rhythm: regular rhythm Heart sounds: no murmurs and normal S1 and S2 GI Palpation (GI): Soft to palpation, nontender, no hepatomegaly and no splenomegaly Auscultation: normal bowel sounds Skin General skin exam: no rashes or lesions noted and dry skin Neuro General: oriented to person, oriented to place and oriented to time Cranial nerves: Yes Equal, round and reactive pupils present Speech: No Abnormal speech present Gait exam (Neuro): Normal gait present Motor exam (neuro): no tremor noted Extrem Right upper extremity: full ROM Left upper extremity: full ROM Right lower extremity: full ROM; no edema Left lower extremity: full ROM; no edema Psych Mental Status: mental status grossly normal Speech and movement: Normal speech and movement present Affect: normal affect Attitude: cooperative Thought process: Normal thought process present Assessment and Plan Assessment & Plan (1) Gastrostomy tube dependent: Code(s): Z93.1 - Gastrostomy status Plan: As per HPI and now has Gtube for the 2nd time since her a esophagus cancer treatment. She is managing her G-tube at home on her own. She needs supplies your will refer to general surgeon the for help on managing Gtube and perhaps removal. (2) Dysphagia: Code(s): R13.10 - Dysphagia, unspecified Qualifiers: Dysphagia type: pharyngeal phase Qualified Code(s): R13.13 - Dysphagia, pharyngeal phase Plan: Will send for barium swallow to evaluate for recurrent aspiration. If. Swallow normal will likely be able to advance diet orally. (3) T2DM (type 2 diabetes mellitus): Code(s): E11.9 - Type 2 diabetes mellitus without complications Qualifiers: Diabetes mellitus terminal press operator insulin use: with terminal press operator use Diabetes mellitus complication status: with hyperglycemia Qualified Code(s): E11.65 - Type 2 diabetes mellitus with hyperglycemia; Z79.4 - adjunct faculty for medical terminology (current) use of insulin Plan: Patient continues on both short-acting and long-acting insulin therapy. Has not had any recent A1c. While in hospital blood sugars fairly stable. Since starting to freestyle Barry her blood sugars have been better controlled. Will check A1c at next lab draw with goal A1c to be below 7.0. (4) Mood disorder: Code(s): F39 - Unspecified mood [affective] disorder Plan: Feels she is now stable from a mental health point of view. Has and hers mental health construction operations manager now whom is in attendance today at office visit.. Continues to see a psychiatrist at [facility] (5) CAD (coronary artery disease): Code(s): I25.10 - Atherosclerotic heart disease of [place] coronary artery without angina pectoris Qualifiers: Coronary Disease-Associated Artery/Lesion type: [place] artery [place] vs. transplanted heart: [place] heart Associated angina: without angina Qualified Code(s): I25.10 - Atherosclerotic heart disease of [place] coronary artery without angina pectoris Plan: Patient did have an CO in 2021 leading to a coronary artery stent. Has now follow-up with cardiology thus will try to establish care. We will continue her on aspirin, beta-fito and high-dose statin. Goal LDL to be optimally below 70. (6) Essential hypertension: Code(s): I10 - Essential (primary) hypertension Plan: Patient blood pressure acceptable today in office. Will continue her current dose of antihypertensive medication with goal blood pressure to be below 140/90 (7) Smoker: Code(s): F17.200 - Nicotine dependence, unspecified, uncomplicated Plan: Patient does understand she needs to quit smoking completely though adamantly declines offers to start nicotine replacement therapy or medication. We did discuss her cardiovascular risk being a diabetic and already having coronary artery disease, patient understands and is willing to take the risk. Orders: Orders TSH reflex Free T4 Today E03.9 - Hypothyroidism, unspecified Complete Blood Count no Diff Today E11.9 - Type 2 diabetes mellitus without complications Lipid Panel Today E78.5 - Hyperlipidemia, unspecified [place] barium swallow Today R13.13 - Dysphagia, pharyngeal phase Comprehensive [place]. Panel Fast Today E11.9 - Type 2 diabetes mellitus without complications Microalbumin, Random (w Creat) Today I10 - Essential (primary) hypertension Referrals Speech and Hearing Referral R13.13 - Dysphagia, pharyngeal phase General Surgery Referral Z93.1 - Gastrostomy status Medications: New miscellaneous medical supply 1 ea miscellaneous DAILY 100 ea 1RF 30 days Z93.1 - Gastrostomy status levothyroxine 50 mcg PO DAILY 30 tabs 3RF 30 days E03.9 - Hypothyroidism, unspecified adhesive tape (Paper Tape) As directed 120 ea 1RF Z93.1 - Gastrostomy status alcohol swabs (Alcohol Prep Pads) 1 pad topical DAILY 200 ea 1RF 30 days Z93.1 - Gastrostomy status Changed From metoprolol succinate ER 0.5 tabs PO DAILY 15 tabs 0RF To metoprolol succinate ER 12.5 mg (1/2 x 25 mg) PO DAILY 45 tabs 3RF 90 days Refilled hydroxyzine HCl 25 mg PO Q6H PRN 90 tabs 0RF Anxiety 30 days amlodipine 5 mg PO DAILY 90 tabs 0RF albuterol sulfate 90 mcg/actuation 1 puff inhalation QID PRN 1 units 0RF Wheezing Coding Level of Care Code Est Pt Level 4 (39944) Diagnoses Gastrostomy tube dependent Z93.1 Pharyngeal dysphagia R13.13 Dysphagia type: pharyngeal phase Type 2 diabetes mellitus with hyperglycemia, with long-term current use of insulin E11.65; Z79.4 Diabetes mellitus care home insulin use: with care home use Diabetes mellitus complication status: with hyperglycemia Mood disorder F39 Coronary artery disease involving [place] coronary artery of [place] heart without angina pectoris I25.10 Coronary Disease-Associated Artery/Lesion type: [place] artery [place] vs. transplanted heart: [place] heart Associated angina: without angina Essential hypertension I10 Smoker F17.200
[2023-06-08 10:48] VITALS: BP 138/70; PULSE 82; O2SAT 95; BMI 28.2
== END 2023-06-08 11:41 | disposition home or self-care (01) ==
PROVIDERS: PCP Physician Assistant; Visit Provider Physician Assistant
DX: E11.65 Type 2 diabetes mellitus with hyperglycemia (principal); Z93.1 Gastrostomy status; Z79.4 Long term (current) use of insulin; F39 Unspecified mood [affective] disorder; R13.13 Dysphagia, pharyngeal phase; I25.10 Atherosclerotic heart disease of native coronary artery without angina pectoris; I10 Essential (primary) hypertension; F17.210 Nicotine dependence, cigarettes, uncomplicated
CPT/HCPCS: 99214

== ENCOUNTER 2023-06-29 10:54 | Outpatient (AMB) | payer OTHER, SELFPAY ==
--- NOTE | 2023-06-29 10:55 | A.OFFVIS_ITS ---
Intake Vital Signs 06/29/23 10:56 Height 5 ft 1 in Intake Visit Reasons: G-tube Intake Note: This patient presents for a consultation for G-tube placement. Patient c/o; reports no complaints at this time. Pretzel Twister Required: No Accompanied by: Self / Same As Patient Allergies adhesive tape [ADHESIVE TAPE] Allergy (Intermediate, Verified 06/29/23 11:01) BLISTERS mirtazapine Adverse Reaction (Intermediate, Verified 06/29/23 11:01) Palpitations meloxicam Adverse Reaction (Unknown, Verified 06/29/23 11:01) hallucinations talwin Allergy (Unknown, Uncoded 06/29/23 11:01) ineffective respidone Adverse Reaction (Severe, Uncoded 06/29/23 11:01) foggy Medication List - Last Reconciled 06/29/23 by Jerrell Agosto MD adhesive tape (Paper Tape) As directed albuterol sulfate 90 mcg/actuation 1 puff inhalation QID PRN alcohol swabs (Alcohol Prep Pads) 1 pad topical DAILY 30 days amlodipine 5 mg PO DAILY amoxicillin 500 mg PO Q8H 5 days aspirin 81 mg PO DAILY atorvastatin 80 mg PO DAILY blood sugar diagnostic (FreeStyle Lite Strips) 1 strip miscellaneous BID 30 days blood-glucose meter (FreeStyle Lite Meter kit) USE DIRECTED flash glucose sensor (FreeStyle Barry 2 Sensor kit) 4xs per day gabapentin mg PO hydroxyzine HCl 25 mg PO Q6H PRN 30 days insulin aspart U-100 (Novolog FlexPen U-100 Insulin aspart) *Less than or equal to 110 --- Give (units):0 *111 to 150 --- Give (units):0 *151 to 200 --- Give (units): 2 *201 to 250 -------Give (units):4 *251 to 300 --Give (units):6 *301 to 350 --- Give (units): 8 *Greater than 350 ---Give (units):10 *Call if Blood Glucose > :350 insulin glargine (Lantus Solostar U-100 Insulin) 14 units (0.14 mL) subcut DAILY lamotrigine 25 mg PO DAILY lancets (Inject Ease Lancets) 1 gauge miscellaneous BID 50 days lancets (Pure Comfort Safety Lancets) As directed levothyroxine 50 mcg PO DAILY 30 days lisinopril 40 mg (2 x 20 mg) PO DAILY lorazepam 1 mg PO QID PRN lorazepam mg PO metoprolol succinate ER 12.5 mg (1/2 x 25 mg) PO DAILY 90 days miscellaneous medical supply 1 ea miscellaneous DAILY 30 days omeprazole 20 mg PO DAILY 30 days pen needle, diabetic (Comfort EZ Pen [place]) USE 4 TIMES A DAY pyridoxine (vitamin B6) 50 mg PO DAILY venlafaxine ER 150 mg PO DAILY 30 days HPI G-tube HPI Details 63-year-old female referred by her [facility] physician because of a ?G-tube?. The patient says she has had this gastrostomy tube for a while now. She has a history of laryngeal cancer and had this G-tube done in [facility]. She denies any problems with it. She says that she use it often as she says she is able to swallow without difficulty. She is uncertain as to why she has been referred for the G-tube. [facility] Medical History (Updated 06/29/23 @ 11:15 by Jerrell Agosto MD) Gastrostomy in place Hyperlipidemia T2DM (type 2 diabetes mellitus) Vitamin D deficiency Goiter Stool guaiac positive Physical exam (~06/07/21) Cardiac akinesia Hx of substance abuse History of laryngeal cancer GERD (gastroesophageal reflux disease) Depression COPD (chronic obstructive pulmonary disease) Sleep apnea History of gastrostomy tube placement Otitis media Coccyx pain Constipation Hypothyroidism Left wrist pain Left arm swelling DMII (diabetes mellitus, type 2) HTN (hypertension) Lumbar stenosis with neurogenic claudication Surgical History History of endoscopy History of cardiac catheterization (~03/16/21) History of removal of Port-a-Cath H/O colonoscopy History of esophagogastroduodenoscopy (EGD) History of ear surgery History of surgery on arm History of surgery on left wrist History of cataract surgery Family History Father Hypertension CVD (cardiovascular disease) Mother Stroke Social History Household Members: None Housing: Apartment Do you presently have visiting nurse or other home services: No Alcohol intake: never Comment: New admission: 5 minute checks Patient Tobacco Use Status: Current everyday Tobacco user Tobacco use type: Cigarette Cigarette Packs Per Day: 1 Cigarettes Per Day: 10 Years Smoked: 48 e-Cigarette/Vaping Use: Never Used Second Hand Smoke Exposure: No Substance Use Type: Crack/Cocaine Advance Directives Date on File: 07/20/22 service: No Current occupational status: disabled Sexual orientation: Straight/Heterosexual Cognitive needs: Yes (scooter) Hearing needs: No Vision needs: Yes (reading glasses ) Review of Systems Const Denies chills and Denies fever(s) Card Denies chest pain, Denies dyspnea and Denies dyspnea on exertion Resp Denies cough, Denies dyspnea and Denies dyspnea on exertion GI Denies hematochezia and Denies change in bowel habits Denies hematuria Musc Denies back pain and Denies limited range of motion Neuro Denies focal weakness and Denies convulsions Psych Denies depression and Denies mood swings Physical Exam Const General: comfortable and no acute distress Orientation/consciousness: patient oriented x3 Neck Neck: Yes no lymphadenopathy Resp Auscultation: clear to auscultation bilaterally Cardio Rhythm: regular rhythm GI Other: Peg tube in place on the left upper quadrant Palpation (GI): Soft to palpation, nontender and no guarding Neuro General: patient oriented x3 Assessment & Plan Assessment & Plan (1) Gastrostomy in place: Code(s): Z93.1 - Gastrostomy status Plan: She denies any problems with the G-tube. She is uncertain as to why she was referred to me. She does state that she is scheduled to have a barium swallow next month There does not appear to be any issues with her PEG tube for now. She can follow up on a p.r.n. basis Coding Level of Care Code New Pt Level 3 (77131) Diagnoses Gastrostomy in place Z93.1
== END 2023-06-29 11:13 | disposition home or self-care (01) ==
PROVIDERS: PCP Physician Assistant; Referring Provider Physician Assistant; Visit Provider Surgery
DX: Z93.1 Gastrostomy status (principal)
CPT/HCPCS: 99203

== ENCOUNTER 2023-06-29 10:54 | Outpatient (REF) | payer OTHER, SELFPAY ==
[2023-06-29 12:08] LABS: Hematocrit 35.8 % (37.0-47.0); Hemoglobin 11.7 g/dl (12.0-16.0); Mean Corpuscular HGB Conc 32.7 g/dl (31.0-35.0); Mean Corpuscular Hemoglobin 29.4 pg (27.0-33.0); Mean Corpuscular Volume 89.9 fL (80.0-98.0); Mean Platelet Volume 10.5 fL (9.4-12.3); Platelet Count 293 X10*3/uL (160-400); Red Blood Count 3.98 X10*6/uL (4.20-5.50); Red Cell Distribution Width 13.2 % (11.0-16.0); White Blood Count 10.9 X10*3/uL (4.8-10.8)
[2023-06-29 12:54] LABS: Alanine Aminotransferase 32 U/L (0-31); Albumin Level 3.7 g/dL (3.5-5.0); Alkaline Phosphatase 111 U/L (39-117); Anion Gap 13 (12-20); Aspartate Amino Transferase 43 U/L (5-31); Bilirubin Total 0.3 mg/dL (0.0-1.0); Blood Urea Nitrogen 21 mg/dL (9-16); Calcium 9.2 mg/dL (8.4-10.2); Carbon Dioxide 28 mmol/L (22-29); Chloride 105 mmol/L (96-108); Cholesterol 148 mg/dL (<200); Estimated Glomerular Filt Rate > 60; Glucose Fasting 133 mg/dL (60-99); HDL Cholesterol 59 mg/dL (>40); LDL Cholesterol Calculated 72 mg/dL (<100); Potassium 4.7 mmol/L (3.3-5.1); Sodium 141 mmol/L (135-145); Total Protein 7.1 g/dL (6.5-8.0); Triglycerides 87 mg/dL (<150)
[2023-06-29 13:12] LABS: TSH reflex Free T4 2.29 uIU/mL (0.32-4.0)
[2023-06-29 14:21] LABS: Creatinine Urine 160.31 mg/dL; Microalbum/Creatinine Ratio Ur 19.9 ug/mg cr (<30)
== END 2023-06-29 10:55 | disposition home or self-care (01) ==
LOC: HO.LAB 10:54
PROVIDERS: Absent Provider Physician Assistant; PCP Physician Assistant; Referring Provider Physician Assistant; Visit Provider Surgery
DX: E03.9 Hypothyroidism, unspecified (principal); I10 Essential (primary) hypertension; E11.9 Type 2 diabetes mellitus without complications; E78.5 Hyperlipidemia, unspecified; Z93.1 Gastrostomy status; Z79.899 Other long term (current) drug therapy
CPT/HCPCS: 36415; 80053; 80061; 82043; 82570; 84443; 85027; 99202

== ENCOUNTER 2023-07-26 11:45 | Outpatient (AMB) | payer OTHER, SELFPAY ==
--- NOTE | 2023-07-26 11:46 | A.OFFVIS_ITS ---
Intake Intake Visit Reasons: G tube removal Intake Note: This patient presents for a G tube removal. Patient c/o; reports no complaints at this time. 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 Accompanied by: Self / Same As Patient Allergies adhesive tape [ADHESIVE TAPE] Allergy (Intermediate, Verified 07/26/23 12:06) BLISTERS mirtazapine Adverse Reaction (Intermediate, Verified 07/26/23 12:06) Palpitations meloxicam Adverse Reaction (Unknown, Verified 07/26/23 12:06) hallucinations talwin Allergy (Unknown, Uncoded 07/26/23 12:06) ineffective respidone Adverse Reaction (Severe, Uncoded 07/26/23 12:06) foggy Medication List - Last Reconciled 07/26/23 by Jerrell Agosto MD adhesive tape (Paper Tape) As directed albuterol sulfate 90 mcg/actuation 1 puff inhalation QID PRN alcohol swabs (Alcohol Prep Pads) 1 pad topical DAILY 30 days amlodipine 5 mg PO DAILY amoxicillin 500 mg PO Q8H 5 days aspirin 81 mg PO DAILY atorvastatin 80 mg PO DAILY blood sugar diagnostic (FreeStyle Lite Strips) 1 strip miscellaneous BID 30 days blood-glucose meter (FreeStyle Lite Meter kit) USE DIRECTED flash glucose sensor (FreeStyle Barry 2 Sensor kit) 4xs per day gabapentin mg PO hydroxyzine HCl 25 mg PO Q6H PRN 30 days insulin aspart U-100 (Novolog FlexPen U-100 Insulin aspart) *Less than or equal to 110 --- Give (units):0 *111 to 150 --- Give (units):0 *151 to 200 --- Give (units): 2 *201 to 250 -------Give (units):4 *251 to 300 --Give (units):6 *301 to 350 --- Give (units): 8 *Greater than 350 ---Give (units):10 *Call MD if Blood Glucose > :350 insulin glargine (Lantus Solostar U-100 Insulin) 14 units (0.14 mL) subcut DAILY lamotrigine 25 mg PO DAILY lancets (Inject Ease Lancets) 1 gauge miscellaneous BID 50 days lancets (Pure Comfort Safety Lancets) As directed levothyroxine 50 mcg PO DAILY 30 days lisinopril 40 mg (2 x 20 mg) PO DAILY lorazepam 1 mg PO QID PRN lorazepam mg PO metoprolol succinate ER 12.5 mg (1/2 x 25 mg) PO DAILY 90 days miscellaneous medical supply 1 ea miscellaneous DAILY 30 days omeprazole 20 mg PO DAILY 30 days pen needle, diabetic (Comfort EZ Pen [place]) USE 4 TIMES A DAY pyridoxine (vitamin B6) 50 mg PO DAILY venlafaxine ER 150 mg PO DAILY 30 days HPI G tube removal HPI Details She had PEG tube done last April, in [facility] in view of dysphagia. She says that she has not been using this anymore for about 2 months. She has good oral intake and is able to swallow well. She was referred to us to have the removal of the PEG tube. She apparently had some altered mental status at that time when she was rushed to the emergency room. I am uncertain as to the etiology of her illness then. [facility] Medical History Gastrostomy in place Hyperlipidemia T2DM (type 2 diabetes mellitus) Vitamin D deficiency Goiter Stool guaiac positive Physical exam (~06/07/21) Cardiac akinesia Hx of substance abuse History of laryngeal cancer GERD (gastroesophageal reflux disease) Depression COPD (chronic obstructive pulmonary disease) Sleep apnea History of gastrostomy tube placement Otitis media Coccyx pain Constipation Hypothyroidism Left wrist pain Left arm swelling DMII (diabetes mellitus, type 2) HTN (hypertension) Lumbar stenosis with neurogenic claudication Surgical History History of endoscopy History of cardiac catheterization (~03/16/21) History of removal of Port-a-Cath H/O colonoscopy History of esophagogastroduodenoscopy (EGD) History of ear surgery History of surgery on arm History of surgery on left wrist History of cataract surgery Family History Father Hypertension CVD (cardiovascular disease) Mother Stroke Social History Household Members: None Housing: Apartment Do you presently have visiting nurse or other home services: No Alcohol intake: never Comment: New admission: 5 minute checks Patient Tobacco Use Status: Current everyday Tobacco user Tobacco use type: Cigarette Cigarette Packs Per Day: 1 Cigarettes Per Day: 10 Years Smoked: 48 e-Cigarette/Vaping Use: Never Used Second Hand Smoke Exposure: No Substance Use Type: Crack/Cocaine Advance Directives Date on File: 07/20/22 service: No Current occupational status: disabled Sexual orientation: Straight/Heterosexual Cognitive needs: Yes (scooter) Hearing needs: No Vision needs: Yes (reading glasses ) Review of Systems Const Denies chills and Denies fever(s) Card Denies chest pain, Denies dyspnea and Denies dyspnea on exertion Resp Denies cough, Denies dyspnea and Denies dyspnea on exertion GI Denies hematochezia and Denies change in bowel habits Denies hematuria Musc Denies back pain and Denies limited range of motion Neuro Denies focal weakness and Denies convulsions Psych Denies depression and Denies mood swings Physical Exam Const General: comfortable and no acute distress Resp Effort & Inspection: normal respiratory effort Cardio Rate: regular rate GI Other: PEG tube in place on the left upper quadrant Palpation (GI): Soft to palpation, not firm, nontender and no guarding Assessment & Plan Assessment & Plan (1) Gastrostomy in place: Code(s): Z93.1 - Gastrostomy status Plan: She had a PEG tube placed in [facility] last April,. She wanted this r emoved as she has not been using this in 2 months I attempted to pull this out but there was a lot of resistance. I did not appear that there was a balloon in the lumen either as there was no port for desufflation of the balloon I attempted again pull times with reasonable worse but it appeared that there was significant resistance. I am uncertain as to what kind of tube exactly was done for this particular patient so I told her it may be best to have her endoscopist see her to have this PEG tube removed. I was able to get the name and phone number and I provided this to the patient. Coding Level of Care Code Est Pt Level 2 (69169) Diagnoses Gastrostomy in place Z93.1
== END 2023-07-26 12:07 | disposition home or self-care (01) ==
PROVIDERS: PCP Physician Assistant; Visit Provider Surgery
DX: Z93.1 Gastrostomy status (principal)
CPT/HCPCS: 99212

== ENCOUNTER → 2023-07-26 11:45 | Outpatient (BNVA) | payer OTHER, SELFPAY | PROVIDERS: PCP Physician Assistant; Visit Provider Surgery | DX: Z93.1 Gastrostomy status (principal) | CPT/HCPCS: 99212 ==

== ENCOUNTER 2023-08-14 10:34 | Outpatient (AMB) | payer OTHER, SELFPAY ==
[2023-08-14 10:39] VITALS: BP 150/62; PULSE 70; O2SAT 95; BMI 28.2
--- NOTE | 2023-08-14 10:39 | MHC.PC.OV ---
Vital Signs 08/14/23 10:39 Height 5 ft 1 in Weight 149 lb BMI 28.2 BP 150/62 H Blood Pressure Location Lt brachial Position Sitting Pulse 70 Pulse Source Pulse Oximeter Pulse Oximetry (%) 95 Oxygen Delivery Method Room Air Intake Visit Reasons: HDF Intake Note: Patient is here for hospital discharge follow up. Patient was admitted to [facility] from 07/30/2023-07/31/2023 for a PEG Tube removal due to infection. 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 Accompanied by: Self / Same As Patient Allergies adhesive tape [ADHESIVE TAPE] Allergy (Intermediate, Verified 08/14/23 10:59) BLISTERS mirtazapine Adverse Reaction (Intermediate, Verified 08/14/23 10:59) Palpitations meloxicam Adverse Reaction (Unknown, Verified 08/14/23 10:59) hallucinations talwin Allergy (Unknown, Uncoded 08/14/23 10:48) ineffective respidone Adverse Reaction (Severe, Uncoded 08/14/23 10:48) foggy Medication List - Last Reconciled 08/14/23 by Vicente Tang PA-C adhesive tape (Paper Tape) As directed albuterol sulfate 90 mcg/actuation 1 puff inhalation QID PRN alcohol swabs (Alcohol Prep Pads) 1 pad topical DAILY 30 days amlodipine 5 mg PO DAILY amoxicillin 500 mg PO Q8H 5 days aspirin 81 mg PO DAILY atorvastatin 80 mg PO DAILY blood sugar diagnostic (FreeStyle Lite Strips) 1 strip miscellaneous BID 30 days blood-glucose meter (FreeStyle Lite Meter kit) USE DIRECTED flash glucose sensor (FreeStyle Barry 2 Sensor kit) 4xs per day gabapentin mg PO [Hand held shower head As directed] hydroxyzine HCl 25 mg PO Q6H PRN 30 days insulin aspart U-100 (Novolog FlexPen U-100 Insulin aspart) *Less than or equal to 110 --- Give (units):0 *111 to 150 --- Give (units):0 *151 to 200 --- Give (units): 2 *201 to 250 -------Give (units):4 *251 to 300 --Give (units):6 *301 to 350 --- Give (units): 8 *Greater than 350 ---Give (units):10 *Call MD if Blood Glucose > :350 insulin glargine (Lantus Solostar U-100 Insulin) 14 units (0.14 mL) subcut DAILY lamotrigine 25 mg PO DAILY lancets (Inject Ease Lancets) 1 gauge miscellaneous BID 50 days lancets (Pure Comfort Safety Lancets) As directed levothyroxine 50 mcg PO DAILY 30 days lisinopril 40 mg (2 x 20 mg) PO DAILY lorazepam 1 mg PO QID PRN lorazepam mg PO metoprolol succinate ER 12.5 mg (1/2 x 25 mg) PO DAILY 90 days miscellaneous medical supply 1 ea miscellaneous DAILY 30 days miscellaneous medical supply 1 ea miscellaneous DAILY 99 days nirmatrelvir-ritonavir 300 mg (150 mg x 2)-100 mg (Paxlovid) 1 ea PO UD DOSE PK omeprazole 20 mg PO DAILY 30 days pen needle, diabetic (Comfort EZ Pen [place]) USE 4 TIMES A DAY pyridoxine (vitamin B6) 50 mg PO DAILY venlafaxine ER 150 mg PO DAILY 30 days Tobacco use date assessed: 08/14/23 Fall risk assessment: No Falls in past year Last assessed Fall Risk: 08/14/23 Dental Screening Dental Screen Date: 08/14/23 HPI HDF HPI Details Patient is a 63-year-old female here today for hospital discharge follow-up. Patient has a past medical history significant for coronary artery disease, insulin dependent type 2 diabetic, hypertension, COPD and history of laryngeal cancer. Has a PEG tube placed in for dysphagia. Was seen by general surgeon here in [place] whom tried to remove PEG tube though was unsuccessful patient did noticeable foul smelling discharge from PEG tube area. Patient was started on Augmentin. Currently doing much better and has PEG tube out. She reports eating and defecating fine.. She is somewhat concerned about her blood sugars and is asking for metformin to be prescribed again. With further discussion she has been taking her Humalog postprandially. Discuss this and given education about taking her Humalog pre prandially. [facility] Medical History Gastrostomy in place Hyperlipidemia T2DM (type 2 diabetes mellitus) Vitamin D deficiency Goiter Stool guaiac positive Physical exam (~06/07/21) Cardiac akinesia Hx of substance abuse History of laryngeal cancer GERD (gastroesophageal reflux disease) Depression COPD (chronic obstructive pulmonary disease) Sleep apnea History of gastrostomy tube placement Otitis media Coccyx pain Constipation Hypothyroidism Left wrist pain Left arm swelling DMII (diabetes mellitus, type 2) HTN (hypertension) Lumbar stenosis with neurogenic claudication Surgical History History of endoscopy History of cardiac catheterization (~03/16/21) History of removal of Port-a-Cath H/O colonoscopy History of esophagogastroduodenoscopy (EGD) History of ear surgery History of surgery on arm History of surgery on left wrist History of cataract surgery Family History Father Hypertension CVD (cardiovascular disease) Mother Stroke Social History Household Members: None Housing: Apartment Do you presently have visiting nurse or other home services: No Alcohol intake: never Comment: New admission: 5 minute checks Patient Tobacco Use Status: Current everyday Tobacco user Tobacco use type: Cigarette Cigarette Packs Per Day: 1 Cigarettes Per Day: 10 Years Smoked: 48 e-Cigarette/Vaping Use: Never Used Second Hand Smoke Exposure: No Substance Use Type: Crack/Cocaine and Heroin Advance Directives Date on File: 07/20/22 service: No Current occupational status: disabled Sexual orientation: Straight/Heterosexual Cognitive needs: Yes (scooter) Hearing needs: No Vision needs: Yes (reading glasses ) Questionnaire PHQ-9 Over the last 2 weeks, how often have you been bothered by any of the following problems? 1. Little interest or pleasure in doing things: several days (pt states she is taking mediction for depression and anxiety ) 2. Feeling down, depressed, or hopeless: several days 3. Trouble falling or staying asleep, or sleeping too much: not at all 4. Feeling tired or having little energy: several days 5. Poor appetite or overeating: not at all 6. Feeling bad about yourself - or that you are a failure or have let yourself or your family down: not at all 7. Trouble concentrating on things, such as reading the newspaper or watching television: not at all 8. Moving or speaking so slowly that other people could have noticed. Or the opposite - being so fidgety or restless that you have been moving around a lot more than usual: not at all 9. Thoughts that you would be better off or of hurting yourself in some way: not at all Total score: 3 Depression Screening Interpretation: Negative Depression Screening Done: Yes 57678 - PHQ-9 Billing: Yes Source: Developed by Drs. Zackary William, Elizabeth Meadows, Miguel Velazquez and colleagues, with an educational juhi from [employer]. Thrive Questionnaire Date Thrive assessed: 08/14/23 I am a: Patient What is your living situation today?: I have a steady place to live Within the past 12 months, did the food you bought not last and you didn't have the money to get more?: Never true Within the past 12 months, did you worry whether your food would run out before you got money to buy more?: Never true Do you have trouble paying for medicines?: No Do you have trouble getting transportation to medical appointments?: No Do you have trouble paying your heating and electricity bill?: No Do you have trouble taking care of your child, family member or friend?: No Do you have trouble with day-to-day activities such as bathing, preparing meals, shopping, managing finances, etc.?: No Are you currently unemployed and looking for a job?: No Are you interested in more education?: No Please select the resources that you would like help with: None Currently or been in a relationship where the following occur: no concerns reported THRIVE Score: 0 AUDIT C Alcohol Use Questionnaire (AUDIT-C) 1. How often do you have a drink containing alcohol?: Never Total Score: 0 Score Reviewed/Action Taken: No PAT-7 AMB Questionnaire PAT-7 Date PAT - 7 assessed: 08/14/23 Feeling nervous, anxious, or on edge: 3 = Nearly every day Not being able to stop or control worryin = Nearly every day Worrying too much about different things: 3 = Nearly every day Trouble relaxin = Nearly every day Being so restless that it is hard to sit still: 3 = Nearly every day Becoming easily annoyed or irritable: 3 = Nearly every day Feeling afraid as if something awful might happen: 2 = More than half the days Total PAT-7 score (0-4 normal; 5-9 mild; 10-14 moderate; 15-21 severe): 20 Source: Developed by Drs. Zackary William, Elizabeth Meadows, Miguel Velazquez and colleagues, with an educational juhi from [employer]. PAT-7 Assessment Billing PAT-7 Assessment Tool: PAT-7 Assessment 42994 Review of Systems Const Denies headache(s) Eyes Denies loss of vision ENT Denies vertigo, Denies dizziness, Denies headache(s) and Denies sore throat Card Denies chest pain, Denies leg edema and Denies lightheadedness Resp Denies cough, Denies hemoptysis and Denies wheezing GI Denies abdominal pain, Denies melena, Denies constipation, Denies diarrhea and Denies vomiting Denies urinary frequency, Denies dysuria and Denies urinary urgency Musc Denies arthralgias, Denies joint swelling, Denies numbness and Denies tingling Neuro Denies Abnormal speech present, Denies behavioral changes, Denies vertigo, Denies dizziness, Denies headache(s), Denies loss of vision, Denies memory loss, Denies numbness and Denies tingling Psych Denies anxiety, Denies behavioral changes, Denies depression, Denies memory loss and Denies panic attacks Rohan/Lymph Denies easy bleeding and Denies easy bruising Aller/Immun Denies wheezing Physical exam (Primary Care) Vital Signs: Last Vital Signs Pulse 70 08/14/23 10:39 BP 150/62 H 08/14/23 10:39 Pulse Ox 95 08/14/23 10:39 Oxygen Delivery Method Room Air 08/14/23 10:39 BMI result Body Mass Index 28.2 Tobacco/Smoking Status: Tobacco use Status Tobacco use date assessed 08/14/23 08/14/23 10:50 Patient Tobacco Use Status Current everyday Tobacco 08/14/23 10:50 Tobacco use type Cigarette 08/14/23 10:50 e-Cigarette/Vaping Use Never Used 08/14/23 10:50 Are you ready to quit: No Tobacco cessation counseling provided: Yes Items discussed: Nicotine replacement Relapse Prevention: discussed the importance of a supportive environment, discussed negative mood or depression after quitting, weight gain after smoking is common and discussed dietary, exercise and/or lifestyle changes Number of minutes spent counselin CPT code: 19980 - 4-10 Minutes PHQ-9: PHQ-9 Score PHQ-9: Total score 3 08/14/23 11:10 Depression Screening Interpretation: Negative Thrive Assessment: Date of Thrive Assessment Date Thrive assessed 08/14/23 08/14/23 10:50 Currently or been in a relationship where the following occur: no concerns reported Const General: healthy appearing, no acute distress, alert and awake Nutritional Appearance: well nourished Orientation/consciousness: oriented to person, oriented to place and oriented to time HENMT Ears: TM's normal bilaterally General nose exam: Normal nasal mucous membranes and turbinates present Eyes Conjunctivae: conjunctivae normal Sclerae: sclerae normal Pupils: Equal, round and reactive pupils present Neck Neck: Yes no lymphadenopathy and Yes no JVD Thyroid: Thyroid normal Carotids: no bruits Resp Effort & Inspection: normal respiratory effort and not tachypneic Auscultation: no crackles, no rales, no rhonchi and no wheezes Cardio Rate: regular rate Rhythm: regular rhythm Heart sounds: no murmurs and normal S1 and S2 GI Palpation (GI): Soft to palpation, nontender, no hepatomegaly and no splenomegaly Auscultation: normal bowel sounds Skin General skin exam: no rashes or lesions noted and dry skin Neuro General: oriented to person, oriented to place and oriented to time Cranial nerves: Yes Equal, round and reactive pupils present Speech: No Abnormal speech present Gait exam (Neuro): Normal gait present Motor exam (neuro): no tremor noted Extrem Right upper extremity: full ROM Left upper extremity: full ROM Right lower extremity: full ROM; no edema Left lower extremity: full ROM; no edema Psych Mental Status: mental status grossly normal Speech and movement: Normal speech and movement present Affect: normal affect Attitude: cooperative Thought process: Normal thought process present Assessment and Plan Assessment & Plan (1) T2DM (type 2 diabetes mellitus): Code(s): E11.9 - Type 2 diabetes mellitus without complications Qualifiers: Diabetes mellitus complication status: with hyperglycemia 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 Has not had any recent A1c. While in hospital blood sugars fairly stable. Since starting to freestyle Barry her blood sugars have been better controlled. Will check A1c at next lab draw with goal A1c to be below 7.0. (2) Dysphagia: Code(s): R13.10 - Dysphagia, unspecified Qualifiers: Dysphagia type: pharyngeal phase Qualified Code(s): R13.13 - Dysphagia, pharyngeal phase Plan: Per patient has resolved. Has been eating solids and drinking liquids fine. Her PEG tube is now removed and using the restroom normally. (3) Mood disorder: Code(s): F39 - Unspecified mood [affective] disorder Plan: Feels she is now stable from a mental health point of view. 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 Continues to see a psychiatrist at [facility] (4) CAD (coronary artery disease): Code(s): I25.10 - Atherosclerotic heart disease of [place] coronary artery without angina pectoris Qualifiers: Associated angina: without angina Coronary Disease-Associated Artery/Lesion type: [place] artery [place] vs. transplanted heart: [place] heart Qualified Code(s): I25.10 - Atherosclerotic heart disease of [place] coronary artery without angina pectoris Plan: Patient did have an GA in 2021 leading to a coronary artery stent. Has no follow-up with cardiology thus will try to establish care. We will continue her on aspirin, beta-fito and high-dose statin. Goal LDL to be optimally below 70. (5) Essential hypertension: Code(s): I10 - Essential (primary) hypertension Plan: Patient blood pressure acceptable today in office. Will continue her current dose of antihypertensive medication with goal blood pressure to be below 140/90 (6) Smoker: Code(s): F17.200 - Nicotine dependence, unspecified, uncomplicated Plan: Patient does understand she needs to quit smoking completely though adamantly declines offers to start nicotine replacement therapy or medication. We did discuss her cardiovascular risk being a diabetic and already having coronary artery disease, patient understands and is willing to take the risk. Orders: Orders Hemoglobin A1c 08/14/23.65 - Type 2 diabetes mellitus with hyperglycemia, Z79.4 - jail (current) use of insulin Microalbumin, Random (w Creat) 08/14/23 E11.65 - Type 2 diabetes mellitus with hyperglycemia, Z79.4 - jail (current) use of insulin Comprehensive [place]. Panel Fast 02/05/24 E11.65 - Type 2 diabetes mellitus with hyperglycemia, Z79.4 - extermination inspector (current) use of insulin Lipid Panel 08/14/23 E78.5 - Hyperlipidemia, unspecified Medications: New metformin 500 mg PO BID 90 days 180 tabs 1RF E11.65 - Type 2 diabetes mellitus with hyperglycemia, Z79.4 - jail (current) use of insulin Coding Level of Care Code Est Pt Level 4 (43899) Diagnoses Type 2 diabetes mellitus with hyperglycemia, with long-term current use of insulin E11.65; Z79.4 Diabetes mellitus complication status: with hyperglycemia Diabetes mellitus correction insulin use: with correction use Pharyngeal dysphagia R13.13 Dysphagia type: pharyngeal phase Mood disorder F39 Coronary artery disease involving [place] coronary artery of [place] heart without angina pectoris I25.10 Associated angina: without angina Coronary Disease-Associated Artery/Lesion type: [place] artery [place] vs. transplanted heart: [place] heart Essential hypertension I10 Smoker F17.200 Additional Codes PAT-7 Assessment Billing - PAT-7 Assessment Tool: PAT-7 Assessment [id number] ([id number]) Vital Signs *Quality* - CPT code: 22482 - 4-10 Minutes ([id number])
== END 2023-08-14 11:12 | disposition home or self-care (01) ==
PROVIDERS: PCP Physician Assistant; Visit Provider Physician Assistant
DX: E11.65 Type 2 diabetes mellitus with hyperglycemia (principal); Z79.4 Long term (current) use of insulin; F39 Unspecified mood [affective] disorder; R13.13 Dysphagia, pharyngeal phase; I25.10 Atherosclerotic heart disease of native coronary artery without angina pectoris; F17.210 Nicotine dependence, cigarettes, uncomplicated; I10 Essential (primary) hypertension
CPT/HCPCS: 99214

== ENCOUNTER 2023-11-06 13:22 | Outpatient (REF) | payer OTHER, SELFPAY ==
[2023-11-06 14:57] LABS: Alanine Aminotransferase 36 U/L (0-31); Albumin Level 3.9 g/dL (3.5-5.0); Alkaline Phosphatase 109 U/L (39-117); Anion Gap 11 (12-20); Aspartate Amino Transferase 45 U/L (5-31); Bilirubin Total 0.4 mg/dL (0.0-1.0); Blood Urea Nitrogen 18 mg/dL (9-16); Calcium 9.5 mg/dL (8.4-10.2); Carbon Dioxide 29 mmol/L (22-29); Chloride 102 mmol/L (96-108); Cholesterol 152 mg/dL (<200); Estimated Glomerular Filt Rate > 60; Glucose Fasting 179 mg/dL (60-99); HDL Cholesterol 54 mg/dL (>40); LDL Cholesterol Calculated 78 mg/dL (<100); Potassium 4.7 mmol/L (3.3-5.1); Sodium 137 mmol/L (135-145); Total Protein 7.3 g/dL (6.5-8.0); Triglycerides 100 mg/dL (<150)
[2023-11-06 15:07] LABS: Estimated Average Glucose 148 mg/dL; Hemoglobin A1c % 6.8 % (<6.0)
[2023-11-06 18:26] LABS: Creatinine Urine 140.08 mg/dL; Microalbum/Creatinine Ratio Ur 32.8 ug/mg cr (<30)
== END 2023-11-06 13:23 | disposition home or self-care (01) ==
LOC: HO.LAB 13:22
PROVIDERS: PCP Physician Assistant; Visit Provider Physician Assistant
DX: E11.65 Type 2 diabetes mellitus with hyperglycemia (principal); E78.5 Hyperlipidemia, unspecified; Z79.4 Long term (current) use of insulin
CPT/HCPCS: 36415; 80053; 80061; 82043; 82570; 83036

== ENCOUNTER 2023-11-13 10:04 | Outpatient (AMB) | payer OTHER, SELFPAY ==
--- NOTE | 2023-11-13 10:56 | MHC.PC.OV ---
Vital Signs 11/13/23 10:58 Height 5 ft 1 in Weight 145 lb 4 oz BMI 27.4 BP 120/58 L Blood Pressure Location Lt brachial Position Sitting Pulse 68 Pulse Source Pulse Oximeter Pulse Oximetry (%) 95 Oxygen Delivery Method Room Air Intake Visit Reasons: f/u CAD/ HTN/ DMII-see comments Intake Note: Patient is here to follow up on CAD, HTN, DM. Financial Retirement Plan Specialist Required: No Clinical Rehabilitation Coordinator: Not Required per policy Accompanied by: Self / Same As Patient Allergies adhesive tape [ADHESIVE TAPE] Allergy (Intermediate, Verified 11/13/23 11:15) BLISTERS mirtazapine Adverse Reaction (Intermediate, Verified 11/13/23 11:15) Palpitations meloxicam Adverse Reaction (Unknown, Verified 11/13/23 11:15) hallucinations talwin Allergy (Unknown, Uncoded 11/13/23 11:15) ineffective respidone Adverse Reaction (Severe, Uncoded 11/13/23 11:15) foggy Medication List - Last Reconciled 11/13/23 by Vicente Tang PA-C adhesive tape (Paper Tape) As directed albuterol sulfate 90 mcg/actuation 1 puff inhalation QID PRN alcohol swabs (Alcohol Prep Pads) 1 pad topical DAILY 30 days amlodipine 5 mg PO DAILY aspirin 81 mg PO DAILY atorvastatin 80 mg PO DAILY blood sugar diagnostic (FreeStyle Lite Strips) 1 strip miscellaneous BID 30 days blood-glucose meter (FreeStyle Lite Meter kit) USE DIRECTED flash glucose sensor (FreeStyle Barry 2 Sensor kit) 4xs per day gabapentin 800 mg PO TID 30 days [Hand held shower head As directed] hydroxyzine HCl 25 mg PO Q6H PRN 30 days insulin aspart U-100 (Novolog FlexPen U-100 Insulin aspart) *Less than or equal to 110 --- Give (units):0 *111 to 150 --- Give (units):0 *151 to 200 --- Give (units): 2 *201 to 250 -------Give (units):4 *251 to 300 --Give (units):6 *301 to 350 --- Give (units): 8 *Greater than 350 ---Give (units):10 *Call MD if Blood Glucose > :350 insulin glargine (Lantus Solostar U-100 Insulin) 14 units (0.14 mL) subcut DAILY lamotrigine 25 mg PO DAILY lancets (Inject Ease Lancets) 1 gauge miscellaneous BID 50 days lancets (Pure Comfort Safety Lancets) As directed levothyroxine 50 mcg PO DAILY 30 days lisinopril 40 mg (2 x 20 mg) PO DAILY lorazepam 1 mg PO QID PRN metformin 500 mg PO BID 90 days metoprolol succinate ER 12.5 mg (1/2 x 25 mg) PO DAILY 90 days miscellaneous medical supply 1 ea miscellaneous DAILY 30 days miscellaneous medical supply 1 ea miscellaneous DAILY 99 days omeprazole 20 mg PO DAILY 30 days pen needle, diabetic (Comfort EZ Pen [place]) USE 4 TIMES A DAY pyridoxine (vitamin B6) 50 mg PO DAILY venlafaxine ER 150 mg PO DAILY 30 days Tobacco use date assessed: 11/13/23 Fall risk assessment: No Falls in past year Last assessed Fall Risk: 11/13/23 Dental Screening Dental Screen Date: 08/14/23 HPI f/u CAD/ HTN/ DMII-see comments HPI Details Patient is a 63-year-old female here today for a follow-up visit. Patient has a past medical history significant for type 2 diabetes, hyperlipidemia, coronary artery disease, hypertension, COPD, tobacco dependency, depression and anxiety. Type 2 diabetes: Now insulin dependent and injecting insulin 4 times a day. Most recent A1c is 6.8. She reports sugars at home have been fairly well controlled. She does report at night her neuropathy in her feet bother her more. She is asking for higher dose of gabapentin. She is also willing to see pain management for topical diabetic neuropathy treatment. Also needs a refer to eye doctor for diabetic eye exam. . Coronary artery disease: Patient did have an AL in 2021 and received a coronary artery stent. She has been doing really well without any significant chest pain, shortness for breath or dizziness. Has yet to reestablish care with her residential mortgage underwriter. She denies any further chest discomfort. Will recheck lipids to ensure normal. Continues on high-dose statin and aspirin and beta-fito. Most recent lipid panel showing excellent control over total cholesterol and LDL. .. Tobacco dependency: She does understand she needs to quit smoking and has cut down if small bit. She is interested in nicotine patches. She has not willing to completely quit smoking at this time. Laboratory Tests 06/29/23 11/06/23 11:41 13:39 Hgb 11.7 L Fasting Glucose 179 H Hemoglobin A1c % 6.8 H ALT 36 H LDL Cholesterol, C alc 78 PFSH Medical History (Updated 11/13/23 @ 13:12 by Vicente Tang PA-C) Gastrostomy tube dependent Gastrostomy in place Hyperlipidemia T2DM (type 2 diabetes mellitus) Vitamin D deficiency Goiter Stool guaiac positive Physical exam (~06/07/21) Cardiac akinesia Hx of substance abuse History of laryngeal cancer GERD (gastroesophageal reflux disease) Depression COPD (chronic obstructive pulmonary disease) Sleep apnea History of gastrostomy tube placement Otitis media Coccyx pain Constipation Hypothyroidism Left wrist pain Left arm swelling HTN (hypertension) Lumbar stenosis with neurogenic claudication Surgical History History of endoscopy History of cardiac catheterization (~03/16/21) History of removal of Port-a-Cath H/O colonoscopy History of esophagogastroduodenoscopy (EGD) History of ear surgery History of surgery on arm History of surgery on left wrist History of cataract surgery Family History Father Hypertension CVD (cardiovascular disease) Mother Stroke Social History Household Members: None Housing: Apartment Do you presently have visiting nurse or other home services: No Alcohol intake: never Comment: New admission: 5 minute checks Patient Tobacco Use Status: Current everyday Tobacco user Tobacco use type: Cigarette Cigarette Packs Per Day: 1 Cigarettes Per Day: 20 Years Smoked: 48 e-Cigarette/Vaping Use: Never Used Second Hand Smoke Exposure: Yes Substance Use Type: Crack/Cocaine and Heroin Advance Directives Date on File: 07/20/22 service: No Current occupational status: disabled Sexual orientation: Straight/Heterosexual Cognitive needs: Yes (scooter) Hearing needs: No Vision needs: Yes (reading glasses ) Questionnaire Thrive Questionnaire Date Thrive assessed: 08/14/23 PAT-7 AMB Questionnaire PAT-7 Date PAT - 7 assessed: 08/14/23 Source: Developed by Drs. Zackary William, Elizabeth Meadows, Miguel Velazquez and colleagues, with an educational juhi from [employer]. Review of Systems Const Denies headache(s) Eyes Denies loss of vision ENT Denies vertigo, Denies dizziness, Denies headache(s) and Denies sore throat Card Denies chest pain, Denies leg edema and Denies lightheadedness Resp Denies cough, Denies hemoptysis and Denies wheezing GI Denies abdominal pain, Denies melena, Denies constipation, Denies diarrhea and Denies vomiting Denies urinary frequency, Denies dysuria and Denies urinary urgency Musc Denies arthralgias, Denies joint swelling, Denies numbness and Denies tingling Neuro Denies Abnormal speech present, Denies behavioral changes, Denies vertigo, Denies dizziness, Denies headache(s), Denies loss of vision, Denies memory loss, Denies numbness and Denies tingling Psych Denies anxiety, Denies behavioral changes, Denies depression, Denies memory loss and Denies panic attacks Rohan/Lymph Denies easy bleeding and Denies easy bruising Aller/Immun Denies wheezing Physical exam (Primary Care) Vital Signs: Last Vital Signs Pulse 68 11/13/23 10:58 BP 120/58 L 11/13/23 10:58 Pulse Ox 95 11/13/23 10:58 Oxygen Delivery Method Room Air 11/13/23 10:58 BMI result Body Mass Index 27.4 Tobacco/Smoking Status: Tobacco use Status Tobacco use date assessed 11/13/23 11/13/23 11:06 Patient Tobacco Use Status Current everyday Tobacco 11/13/23 11:06 Tobacco use type Cigarette 11/13/23 11:06 e-Cigarette/Vaping Use Never Used 11/13/23 11:06 Are you ready to quit: No Tobacco cessation counseling provided: Yes Items discussed: Nicotine replacement and QuitWorks Relapse Prevention: discussed the importance of a supportive environment, discussed negative mood or depression after quitting, weight gain after smoking is common and discussed dietary, exercise and/or lifestyle changes Number of minutes spent counselin CPT code: 79067 - 4-10 Minutes Thrive Assessment: Date of Thrive Assessment Date Thrive assessed 08/14/23 11/13/23 11:06 Const General: healthy appearing, no acute distress, alert and awake Nutritional Appearance: well nourished Orientation/consciousness: oriented to person, oriented to place and oriented to time [facility] Ears: TM's normal bilaterally General nose exam: Normal nasal mucous membranes and turbinates present Eyes Conjunctivae: conjunctivae normal Sclerae: sclerae normal Pupils: Equal, round and reactive pupils present Neck Neck: Yes no lymphadenopathy and Yes no JVD Thyroid: Thyroid normal Carotids: no bruits Resp Effort & Inspection: normal respiratory effort and not tachypneic Auscultation: no crackles, no rales, no rhonchi and no wheezes Cardio Rate: regular rate Rhythm: regular rhythm Heart sounds: no murmurs and normal S1 and S2 GI Palpation (GI): Soft to palpation, nontender, no hepatomegaly and no splenomegaly Auscultation: normal bowel sounds Skin General skin exam: no rashes or lesions noted and dry skin Neuro General: oriented to person, oriented to place and oriented to time Cranial nerves: Yes Equal, round and reactive pupils present Speech: No Abnormal speech present Gait exam (Neuro): Normal gait present Motor exam (neuro): no tremor noted Extrem Right upper extremity: full ROM Left upper extremity: full ROM Right lower extremity: full ROM; no edema Left lower extremity: full ROM; no edema Psych Mental Status: mental status grossly normal Speech and movement: Normal speech and movement present Affect: normal affect Attitude: cooperative Thought process: Normal thought process present Assessment and Plan Assessment & Plan (1) T2DM (type 2 diabetes mellitus): Code(s): E11.9 - Type 2 diabetes mellitus without complications Qualifiers: Diabetes mellitus complication detail: with diabetic microalbuminuria Diabetes mellitus complication status: with kidney complications Diabetes mellitus buttermaker continuous churn insulin use: with snf use Qualified Code(s): E11.29 - Type 2 diabetes mellitus with other diabetic kidney complication; R80.9 - Proteinuria, unspecified; Z79.4 - FDC (current) use of insulin Plan: Patient continues on both short-acting and long-acting insulin therapy she reports that home blood sugars have been stable. Most recent A1c is 6.8. goal A1c to be below 7.0. (2) Mood disorder: Code(s): F39 - Unspecified mood [affective] disorder Plan: Feels she is now stable from a mental health point of view. Has and hers mental health manager testing now whom is in attendance today at office visit.. Continues to see a psychiatrist at [facility] (3) CAD (coronary artery disease): Code(s): I25.10 - Atherosclerotic heart disease of sun'aq coronary artery without angina pectoris Qualifiers: Associated angina: without angina Coronary Disease-Associated Artery/Lesion type: sun'aq artery [place] vs. transplanted heart: sun'aq heart Qualified Code(s): I25.10 - Atherosclerotic heart disease of sun'aq coronary artery without angina pectoris Plan: Patient did have an AL in 2021 leading to a coronary artery stent. Unfortunately continues to smoke cigarettes. Has no follow-up with cardiology thus will try to establish care. We will continue her on aspirin, beta-fito and high-dose statin. Goal LDL to be optimally below 70. (4) Essential hypertension: Code(s): I10 - Essential (primary) hypertension Plan: Patient blood pressure acceptable today in office. Will continue her current dose of antihypertensive medication with goal blood pressure to be below 140/90 (5) Smoker: Code(s): F17.200 - Nicotine dependence, unspecified, uncomplicated Plan: Patient does understand she needs to quit smoking completely though adamantly declines offers to start nicotine replacement therapy or medication. We did discuss her cardiovascular risk being a diabetic and already having coronary artery disease, patient understands and is willing to take the risk. (6) Polyneuropathy: Code(s): G62.9 - Polyneuropathy, unspecified Plan: Patient seems to have polyneuropathy in the lower extremities. Continues to use gabapentin 100 t.i.d. and is asking for a bit of a higher dose of gabapentin to help her neuropathy pain. She is willing to see pain management for topical diabetic neuropathy treatment. (7) COPD (chronic obstructive pulmonary disease): Code(s): J44.9 - Chronic obstructive pulmonary disease, unspecified Qualifiers: COPD type: chronic bronchitis Chronic bronchitis type: simple Qualified Code(s): J41.0 - Simple chronic bronchitis Plan: Has been fairly stable. Has not had any episodes of bronchitis. Unfortunately continues to smoke. She is not in need of any maintenance inhalers at this time per. Will supply patient with nicotine patches to help with smoking cessation. (8) Bipolar disorder: Code(s): F31.9 - Bipolar disorder, unspecified Qualifiers: Active/Remission status: in full remission Most recent bipolar episode type: depressed Qualified Code(s): F31.76 - Bipolar disorder, in full remission, most recent episode depressed Plan: Patient's mood has been fairly stable. She does speak with a mental health therapist and psychiatrist that manages her mental health medications. Orders: Orders Complete Blood Count no Diff Today D64.9 - Anemia, unspecified Hemoglobin A1c Today E11.29 - Type 2 diabetes mellitus with other diabetic kidney complication, R80.9 - Proteinuria, unspecified, Z79.4 - FDC (current) use of insulin Comprehensive [place]. Panel Fast Today E11.29 - Type 2 diabetes mellitus with other diabetic kidney complication, R80.9 - Proteinuria, unspecified, Z79.4 - FDC (current) use of insulin Vitamin D 25-OH Total Today E55.9 - Vitamin D deficiency, unspecified Lipid Panel Today I25.10 - Atherosclerotic heart disease of sun'aq coronary artery without angina pectoris TSH reflex Free T4 Today E03.9 - Hypothyroidism, unspecified Referrals Pain Management Referral E11.40 - Type 2 diabetes mellitus with diabetic neuropathy, unspecified Ophthalmology Referral E11.29 - Type 2 diabetes mellitus with other diabetic kidney complication, R80.9 - Proteinuria, unspecified, Z79.4 - buttermaker continuous churn (current) use of insulin Medications: New nicotine 1 patch transdermal DAILY 14 ea 0RF 14 days F17.200 - Nicotine dependence, unspecified, uncomplicated nicotine 1 patch transdermal DAILY 14 ea 1RF 14 days F17.200 - Nicotine dependence, unspecified, uncomplicated Changed From gabapentin 800 mg PO TID 30 days 90 tabs 3RF M43.17 - Spondylolisthesis, lumbosacral region To gabapentin 800 mg PO QID 120 tabs 3RF 30 days M43.17 - Spondylolisthesis, lumbosacral region Refilled albuterol sulfate 90 mcg/actuation 1 puff inhalation QID PRN 1 units 0RF Wheezing Coding Level of Care Code Est Pt Level 4 (80880) Diagnoses Type 2 diabetes mellitus with diabetic microalbuminuria, with long-term current use of insulin E11.29; R80.9; Z79.4 Diabetes mellitus complication detail: with diabetic microalbuminuria Diabetes mellitus complication status: with kidney complications Diabetes mellitus buttermaker continuous churn insulin use: with buttermaker continuous churn use Mood disorder F39 Coronary artery disease involving sun'aq coronary artery of sun'aq heart without angina pectoris I25.10 Associated angina: without angina Coronary Disease-Associated Artery/Lesion type: sun'aq artery [place] vs. transplanted heart: sun'aq heart Essential hypertension I10 Smoker F17.200 Polyneuropathy G62.9 Simple chronic bronchitis J41.0 COPD type: chronic bronchitis Chronic bronchitis type: simple Bipolar disorder, in full remission, most recent episode depressed F31.76 Active/Remission status: in full remission Most recent bipolar episode type: depressed Additional Codes Vital Signs *Quality* - CPT code: 09546 - 4-10 Minutes ([id number])
[2023-11-13 10:58] VITALS: BP 120/58; PULSE 68; O2SAT 95; BMI 27.4
== END 2023-11-13 11:44 | disposition home or self-care (01) ==
PROVIDERS: PCP Physician Assistant; Visit Provider Physician Assistant
DX: E11.29 Type 2 diabetes mellitus with other diabetic kidney complication (principal); Z79.4 Long term (current) use of insulin; F39 Unspecified mood [affective] disorder; F31.76 Bipolar disorder, in full remission, most recent episode depressed; J41.0 Simple chronic bronchitis; R80.9 Proteinuria, unspecified; I25.10 Atherosclerotic heart disease of native coronary artery without angina pectoris; I10 Essential (primary) hypertension; G62.9 Polyneuropathy, unspecified; F17.200 Nicotine dependence, unspecified, uncomplicated
CPT/HCPCS: 99214

== ENCOUNTER 2024-08-28 09:17 | Outpatient (REF) | payer OTHER, SELFPAY ==
--- NOTE | ~2024-08-28 | XR_ITS ---
EXAMINATION: XR THORACIC SPINE CLINICAL INFORMATION: M54.6 - Pain in thoracic spine COMPARISON: None available. TECHNIQUE: 3 views of the thoracic spine were obtained. FINDINGS: There is a mild right convex scoliosis, apex at T7. There is a normal kyphosis. No fracture, compression deformity, or suspicious bone lesion. Normal alignment. Early degenerative disc changes throughout. The imaged soft tissues appear normal. Aortic mural calcifications noted. XR/XR thoracic spine 3V IMPRESSION: 1. No acute findings thoracic spine. 2. Mild diffuse disc degeneration. Electronically signed by: Gigi Arceo MD 08/28/2024 01:13 PM [facility]
--- OUTSIDE RECORDS SUMMARY | 2024-08-28 09:30 | XMS_ITS | Continuity of Care Document ---
Author Organization [facility] Address [address] [address] Phone Care Team Providers Care Collection Card Clerk Name Role Phone Lori LEONE, Kamilah Unavailable Unavailable Advance Directives Directive Yes / No Effective Date File Name No Information Encounters Encounter Description Practice Location Reason(s) For Visit Diagnoses Date Provider Providers Copied on Encounter [facility], [address], [id number], [place] tel:[phone] [facility] No Information Lori Triana. [address] [place], [place], [id number], [place]. tel:[phone] Family History Family Member Type Diagnosis Age At Onset No Information Payers Payer name Insurance type Covered republican ID Authoriza tion(s) No Information Social History Type Description Quantity Date Captured Comments Sex Female Smoking Status No Information Chief Complaint And Reason For Visit No Information Reason For Referral Reason For Referral No Information History Of Present Illness Encounter Date Complaint History Of Prese nt Illness No Information Functional Status Date Functional Assessmen t No Information Instructions Date Instruction Additional Infor mation No Information Assessments Type Assessment Date No Information Patient Care Teams Name Effective Dates (start - stop) Status Members No Information
--- OUTSIDE RECORDS SUMMARY | 2024-08-28 09:30 | XMS_ITS | Patient Health Record ---
Author Organization [facility] Address [address] [place] [address] Care Team Providers Care Shell Press Operator Name Role Phone Vicente Tang Primary Care Provider Unavailab Quintin Read Jr Unavailable [phone] Lucy Angeles Unavailable Unavailable ALLERGIES Allergen (clinical drug ingredient) Drug/Non Drug Allergy documented on EMR Reaction Allergy Type Onset Date Status Talwin (uncoded) Unknown Allergy Act arun REASON FOR REFERRAL No Information MEDICATIONS Medication SIG (Take, Route, Frequency, Duration) Notes Start Date End Date Status Levothyroxine Sodium Active Ativan 4 MG/ML as directed Orally f our times a day Active MiraLax (colon prep) 8.3 ounce ((238) grams mixed with Gatorade or Crystal Light orally begin at 5:00 p.m. the day before the procedure for 1 day 02/11/2021 Active Venlafaxine HCl ER A ctive MiraLax (colon prep) 17 GM/SCOOP mixed with Gatorade or Crystal Light Orally as diirected for 1 day 11/05/2021 Active Lisinopril 5 MG 1 tablet Orally Once a day Active Dulcolax (colon prep) 5 MG take at 3:00 p.m and 7:00p.m. Orally two tablets twice a day for one day for 1 day 11/05/2021 Active Omeprazole 20 MG 1 capsule Orally Onc e a day Active Metformin & Diet Manage Prod 500 MG 1 tablet Orally twice a day Active Propranolol HCl 10 MG 1 tablet Orally Tw ice a day Active Gabapentin 900 1 capsule Orally 900 mg at hs and 100 mg in am Active Metoprolol Succinate 25 MG 1 capsule Ora lly Once a day for 30 day(s) 11/23/2021 Active Omeprazole 20 MG 1 capsule 30 minutes before morning meal Orally Once a day for 30 day(s) 11/23/2021 Active Ticagrelor 90 MG 1 tablet Orally Twic e a day for 30 day(s) 11/23/2021 Active Venlafaxine HCl 75 MG 1 tablet with food Orally Twice a day for 30 day(s) 11/23/2021 Active amLODIPine Besylate 5 MG 1 tablet Orally Once a day for 30 day(s) 11/23/2021 Active Aspirin 81 81 MG 1 tablet Orally Once a day for 30 day(s) 11/23/2021 Active Atorvastatin Calcium 80 MG 1 tablet Oral ly Once a day for 30 day(s) 11/23/2021 Active lamoTRIgine ER 25 MG 1 tablet Orally for 30 day(s) 11/23/2021 Active Lisinopril 40 MG 1 tablet Orally Once a day for 30 day(s) 11/23/2021 Active LORazepam 1 MG 1 tablet at bedtime as needed Orally Once a day 11/23/2021 Active metFORMIN HCl 1000 MG 1/2 tablet Orally twice a day for 30 day(s) 11/23/2021 Active Fluoxetine 20 MG 1 capsule in the mor godwin Orally Once a day Active IMMUNIZATIONS Vaccine Route Administration Date Status Comme nts Influenza Unknown 02/11/2021 Refused SOCIAL HISTORY Tobacco Use: Social History Observation Description Date Details (start date - stop date) Current Smoker NA - NA Sex Assigned At : Social History Observation Description Sex Assigned At Unknown Tobacco Use/Smoking Question Answer Notes Patient is a current smoker How often do you smoke cigarettes? every day How many cigarettes a day do you smoke? 6-10 How soon after you wake up do you smoke your fir st cigarette? 6-30 minutes PROBLEMS Problem Type ICD Code Onset Dates Problem Status W/U Status Risk SNOMED Code Notes Problem Colon cancer screening (Z12.11) Active confirmed 393217594 Problem Change in bowel habit (R19.4) Active confirmed 603230061 Problem Gastroesophageal reflux disease without esophagitis (K21.9) Active confirmed 846573446 PLAN OF TREATMENT Pending Test Test Name Order Date XR BARIUM SWALLOW-ESOPHAGUS 10/15/2012 Future Test Test Name Order Date UPPER GI ENDOSCOPY 09/05/2013 COLONOSCOPY 12/07/2016 COLONOSCOPY 02/11/2021 Insurance Providers Payer Name Payer Address Payer Phone Subscriber Number Group Number Insured Name Patient Relationship to Insured Coverage Start Date Coverage End Date [facility] [address] [place] [phone] [id number] AVELINA MCKINLEY Self - patient is the insured MEDICAL (GENERAL) HISTORY Medical History History ICD Code Hypertension History of substance abuse with IV drug use History of exposure to hepatitis B Depression Nonobstructive Schatzki ring 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
== END 2024-08-28 09:18 | disposition home or self-care (01) ==
LOC: HO.XRAY 09:17
PROVIDERS: PCP Physician Assistant; Visit Provider Physician Assistant
DX: M54.6 Pain in thoracic spine (principal); E11.29 Type 2 diabetes mellitus with other diabetic kidney complication; R80.9 Proteinuria, unspecified; Z79.4 Long term (current) use of insulin; J41.0 Simple chronic bronchitis; F31.76 Bipolar disorder, in full remission, most recent episode depressed; I25.10 Atherosclerotic heart disease of native coronary artery without angina pectoris; I10 Essential (primary) hypertension; E03.9 Hypothyroidism, unspecified; D17.1 Benign lipomatous neoplasm of skin and subcutaneous tissue of trunk; J43.2 Centrilobular emphysema; M79.10 Myalgia, unspecified site; F17.200 Nicotine dependence, unspecified, uncomplicated; Z28.21 Immunization not carried out because of patient refusal
CPT/HCPCS: 72072; 83036; 90471; 96127; 99212

== ENCOUNTER → 2024-08-28 09:23 | Outpatient (BNV) | payer OTHER, SELFPAY | PROVIDERS: PCP Physician Assistant; Visit Provider Radiology Diagnostic Radiology | DX: M54.6 Pain in thoracic spine (principal) | CPT/HCPCS: 72072 ==

== ENCOUNTER 2024-08-28 10:52 | Outpatient (AMB) | payer OTHER, SELFPAY ==
[2024-08-28 11:07] VITALS: BP 110/64; PULSE 65; TEMP 36.2; O2SAT 94; BMI 30.6
--- NOTE | 2024-08-28 11:07 | A.OFFPC_ITS ---
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 Required: No Accompanied by: Self / Same As Patient Allergies adhesive tape [ADHESIVE TAPE] Allergy (Intermediate, Verified 08/28/24 11:27) BLISTERS mirtazapine Adverse Reaction (Intermediate, Verified 08/28/24 11:27) Palpitations meloxicam Adverse Reaction (Unknown, Verified 08/28/24 11:27) hallucinations talwin Allergy (Unknown, Uncoded 08/28/24 11:27) ineffective respidone Adverse Reaction (Severe, Uncoded 08/28/24 11:27) foggy Medication List - Last Reconciled 08/28/24 by Vicente Tang PA-C acetaminophen-codeine 300-30 mg 1 tab PO Q8H PRN 4 days adhesive tape (Paper Tape) As directed albuterol sulfate 90 mcg/actuation 1 puff inhalation QID PRN alcohol swabs (Alcohol Prep Pads) 1 pad topical DAILY 30 days amlodipine 5 mg PO DAILY amoxicillin 500 mg PO Q8H 7 days aspirin 81 mg PO DAILY atorvastatin 80 mg PO DAILY blood sugar diagnostic (FreeStyle Lite Strips) 1 strip miscellaneous BID 30 days blood-glucose meter (FreeStyle Lite Meter kit) USE DIRECTED cyclobenzaprine 10 mg PO BID 10 days flash glucose sensor (FreeStyle Barry 2 Sensor kit) 4xs per day gabapentin 800 mg PO QID 30 days [Hand held shower head As directed] hydroxyzine HCl 25 mg PO Q6H PRN 30 days ibuprofen 600 mg PO BID 30 days insulin aspart U-100 (Novolog FlexPen U-100 Insulin aspart) *Less than or equal to 110 --- Give (units):0 *111 to 150 --- Give (units):0 *151 to 200 --- Give (units): 2 *201 to 250 -------Give (units):4 *251 to 300 --Give (units):6 *301 to 350 --- Give (units): 8 *Greater than 350 ---Give (units):10 *Call MD if Blood Glucose > :350 insulin glargine (Lantus Solostar U-100 Insulin) 14 units (0.14 mL) subcut DAILY lamotrigine 25 mg PO DAILY lancets (Inject Ease Lancets) 1 gauge miscellaneous BID 50 days lancets (Pure Comfort Safety Lancets) As directed levothyroxine 50 mcg PO DAILY 30 days lisinopril 40 mg (2 x 20 mg) PO DAILY lorazepam 1 mg PO QID PRN metformin 500 mg PO BID 90 days metoprolol succinate ER 12.5 mg (1/2 x 25 mg) PO DAILY 90 days miscellaneous medical supply 1 ea miscellaneous DAILY 30 days miscellaneous medical supply 1 ea miscellaneous DAILY 99 days nicotine 1 patch transdermal DAILY 14 days nicotine 1 patch transdermal DAILY 14 days omeprazole 20 mg PO DAILY 30 days pen needle, diabetic (Comfort EZ Pen Skandia) USE 4 TIMES A DAY pyridoxine (vitamin B6) 50 mg PO DAILY venlafaxine ER 150 mg PO DAILY 30 days Tobacco use date assessed: 08/28/24 Fall risk assessment: No Falls in past year Last assessed Fall Risk: 08/28/24 Dental Screening Dental Screen Date: 08/28/24 Did you have a dental visit in the last 12 months?: No Did you have a dental problem in the last 6 months where you did not have access to dental care?: No Was dental information given to patient?: No HPI Pain Management 2 HPI0 Details Patient is a 64-year-old female here today for a follow-up visit. Patient has a past medical history significant for type 2 diabetes, hyperlipidemia, coronary artery disease, hypertension, COPD, tobacco dependency, depression and anxiety. Concern--> has noted to lumps over her thoracic spine she feels his exquisitely tender to palpation. She does use Tylenol No. 3 on a p.r.n. basis for pain. She has somewhat dependent on a electric scooter to help with transportation. Deviated nasal septum: Has a history of intranasal cocaine use She has ongoing issues with nasal breathing, linked to a deviated septum, contributing to her preference for a referral to an ENT specialist. Type 2 diabetes: A1c of 7.7%, elevated from 6.8% the previous year. Additionally, she reports persistent symptoms of neuropathy, with feet spasms, particularly worsening by the end of the day, raising concerns about the potential side effects of atorvastatin. . Continues on a fairly high dose of gabapentin for her neuropathy. . Coronary artery disease: Patient did have an LA in 2021 and received a coronary artery stent. She has been doing really well without any significant chest pain, shortness for breath or dizziness. 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 She denies any further chest discomfort. Will recheck lipids to ensure normal. Continues on high-dose statin and aspirin and beta-fito. Most recent lipid panel showing excellent control over total cholesterol and LDL. PLAN: Due to cramping in her legs will try to reduce her atorvastatin dose to 40 mg and continue to monitor lipid panel. .. Tobacco dependency: She does understand she needs to quit smoking and has cut down if small bit. She is interested in nicotine patches. She has not willing to completely quit smoking at this time. [facility] Medical History (Updated 08/28/24 @ 11:59 by Vicente Tang PA-C) Gastrostomy tube dependent Gastrostomy in place Hyperlipidemia T2DM (type 2 diabetes mellitus) Vitamin D deficiency Goiter Stool guaiac positive Physical exam (~06/07/21) Cardiac akinesia Hx of substance abuse History of laryngeal cancer GERD (gastroesophageal reflux disease) Depression COPD (chronic obstructive pulmonary disease) Sleep apnea History of gastrostomy tube placement Otitis media Coccyx pain Constipation Hypothyroidism Left wrist pain Left arm swelling HTN (hypertension) Lumbar stenosis with neurogenic claudication Surgical History History of endoscopy History of cardiac catheterization (~03/16/21) History of removal of Port-a-Cath H/O colonoscopy History of esophagogastroduodenoscopy (EGD) History of ear surgery History of surgery on arm History of surgery on left wrist History of cataract surgery Family History Father Hypertension CVD (cardiovascular disease) Mother Stroke Social History Household Members: None Housing: Apartment Do you presently have visiting nurse or other home services: No Alcohol intake: never Comment: New admission: 5 minute checks Patient Tobacco Use Status: Current everyday Tobacco user Tobacco use type: Cigarette Cigarette Packs Per Day: 1 Cigarettes Per Day: 20 Years Smoked: 48 e-Cigarette/Vaping Use: Never Used Second Hand Smoke Exposure: Yes Substance Use Type: Crack/Cocaine and Heroin Advance Directives Date on File: 07/20/22 service: No Current occupational status: disabled Sexual orientation: Straight/Heterosexual Cognitive needs: Yes (scooter) Hearing needs: No Vision needs: Yes (reading glasses ) Questionnaire PHQ-9 Over the last 2 weeks, how often have you been bothered by any of the following problems? 1. Little interest or pleasure in doing things: several days (pt states she is taking mediction for depression and anxiety ) 2. Feeling down, depressed, or hopeless: several days 3. Trouble falling or staying asleep, or sleeping too much: not at all 4. Feeling tired or having little energy: several days 5. Poor appetite or overeating: not at all 6. Feeling bad about yourself - or that you are a failure or have let yourself or your family down: not at all 7. Trouble concentrating on things, such as reading the newspaper or watching television: not at all 8. Moving or speaking so slowly that other people could have noticed. Or the opposite - being so fidgety or restless that you have been moving around a lot more than usual: not at all 9. Thoughts that you would be better off or of hurting yourself in some way: not at all Total score: 3 Depression Screening Interpretation: Positive Depression Screening Follow-up: Existing condition Depression Screening Done: Yes 65452 - PHQ-9 Billing: Yes Source: Developed by Drs. Zackary William, Elizabeth Meadows, Miguel Velazquez and colleagues, with an educational juhi from [employer]. Thrive Questionnaire Date Thrive assessed: 08/28/24 I am a: Patient What is your living situation today?: I have a steady place to live Within the past 12 months, did the food you bought not last and you didn't have the money to get more?: Never true Within the past 12 months, did you worry whether your food would run out before you got money to buy more?: Never true Do you have trouble paying for medicines?: No Do you have trouble getting transportation to medical appointments?: No Do you have trouble paying your heating and electricity bill?: No Do you have trouble taking care of your child, family member or friend?: No Do you have trouble with day-to-day activities such as bathing, preparing meals, shopping, managing finances, etc.?: No Are you currently unemployed and looking for a job?: No Are you interested in more education?: No Please select the resources that you would like help with: None Currently or been in a relationship where the following occur: No concerns reported THRIVE Score: 0 AUDIT C Alcohol Use Questionnaire (AUDIT-C) 1. How often do you have a drink containing alcohol?: Never 3. How often do you have six or more drinks on one occasion?: Never Total Score: 0 Score Reviewed/Action Taken: No PAT-7 AMB Questionnaire PAT-7 Date PAT - 7 assessed: 08/28/24 Feeling nervous, anxious, or on edge: 0 = Not at all Not being able to stop or control worryin = Not at all Worrying too much about different things: 0 = Not at all Trouble relaxin = Not at all Being so restless that it is hard to sit still: 0 = Not at all Becoming easily annoyed or irritable: 0 = Not at all Feeling afraid as if something awful might happen: 0 = Not at all Total PAT-7 score (0-4 normal; 5-9 mild; 10-14 moderate; 15-21 severe): 0 Source: Developed by Drs. Zackary William, Elizabeth Meadows, Miguel Velazquez and colleagues, with an educational juhi from [employer]. PAT-7 Assessment Billing PAT-7 Assessment Tool: PAT-7 Assessment 81349 Review of Systems Const Denies headache(s) Eyes Denies loss of vision ENT Denies vertigo, Denies dizziness, Denies headache(s) and Denies sore throat Card Denies chest pain, Denies leg edema and Denies lightheadedness Resp Denies cough, Denies hemoptysis and Denies wheezing GI Denies abdominal pain, Denies melena, Denies constipation, Denies diarrhea and Denies vomiting Denies urinary frequency, Denies dysuria and Denies urinary urgency Musc Denies arthralgias, Denies joint swelling, Denies numbness and Denies tingling Neuro Denies Abnormal speech present, Denies behavioral changes, Denies vertigo, Denies dizziness, Denies headache(s), Denies loss of vision, Denies memory loss, Denies numbness and Denies tingling Psych Denies anxiety, Denies behavioral changes, Denies depression, Denies memory loss and Denies panic attacks Rohan/Lymph Denies easy bleeding and Denies easy bruising Aller/Immun Denies wheezing Physical exam (Primary Care) Vital Signs: Last Vital Signs Temp 97.1 F 08/28/24 11:07 Pulse 65 08/28/24 11:07 BP 110/64 08/28/24 11:07 Pulse Ox 94 08/28/24 11:07 BMI result Body Mass Index 30.6 Tobacco/Smoking Status: Tobacco use Status Tobacco use date assessed 08/28/24 08/28/24 11:14 Patient Tobacco Use Status Current everyday Tobacco 08/28/24 11:14 Tobacco use type Cigarette 08/28/24 11:14 e-Cigarette/Vaping Use Never Used 08/28/24 11:14 PHQ-9: PHQ-9 Score PHQ-9: Total score 3 08/28/24 11:29 Depression Screening Interpretation: Positive Depression Screening Follow-up: Existing condition Thrive Assessment: Date of Thrive Assessment Date Thrive assessed 08/28/24 08/28/24 11:14 Currently or been in a relationship where the following occur: No concerns reported Const General: healthy appearing, no acute distress, alert and awake Nutritional Appearance: well nourished Orientation/consciousness: oriented to person, oriented to place and oriented to time HENMT Ears: TM's normal bilaterally General nose exam: Normal nasal mucous membranes and turbinates present Eyes Conjunctivae: conjunctivae normal Sclerae: sclerae normal Pupils: Equal, round and reactive pupils present Neck Neck: Yes no lymphadenopathy and Yes no JVD Thyroid: Thyroid normal Carotids: no bruits Resp Effort & Inspection: normal respiratory effort and not tachypneic Auscultation: no crackles, no rales, no rhonchi and no wheezes Cardio Rate: regular rate Rhythm: regular rhythm Heart sounds: no murmurs and normal S1 and S2 GI Palpation (GI): Soft to palpation, nontender, no hepatomegaly and no splenomegaly Auscultation: normal bowel sounds Back/Spine/Pelvis Back/spine/pelvis image: 2 1. SMALL PEA-SIZED PALPABLE LUMP OVER THE AREA OUTLINED Skin General skin exam: no rashes or lesions noted and dry skin Neuro General: oriented to person, oriented to place and oriented to time Cranial nerves: Yes Equal, round and reactive pupils present Speech: No Abnormal speech present Gait exam (Neuro): Normal gait present Motor exam (neuro): no tremor noted Extrem Right upper extremity: full ROM Left upper extremity: full ROM Right lower extremity: full ROM; no edema Left lower extremity: full ROM; no edema Psych Mental Status: mental status grossly normal Speech and movement: Normal speech and movement present Affect: normal affect Attitude: cooperative Thought process: Normal thought process present Office Procedures Flu Questionnaire Does the patient have a severe egg allergy?: No Results AMB Hemoglobin A1c 2 AMB Hemoglobin A1c 7.7 % Last Edit by PAT Saxena on 08/28/24 11:24 Immunizations Fluarix Triv [id number] (PF) 45 mcg (15 mcg x 3)/0.5 mL IM syringe Performing Provider: Vicente Tang PA-C [place] [facility] Documented (not given) by: PAT Saxena on 08/28/24 11:15 Reason Not Given: Patient Refused Results Reviewed Results Reviewed: Laboratory Last Values Hgb A1c (Clinic) 7.7 % (4.0-6.0) H 08/28/24 11:00 Coding Level of Care Code Est Pt Level 4 (09480) Diagnoses Type 2 diabetes mellitus with diabetic microalbuminuria, with long-term current use of insulin E11.29; R80.9; Z79.4 Diabetes mellitus complication detail: with diabetic microalbuminuria Diabetes mellitus complication status: with kidney complications Diabetes mellitus retirement insulin use: with remote computer terminal operator use Simple chronic bronchitis J41.0 COPD type: chronic bronchitis Chronic bronchitis type: simple Bipolar disorder, in full remission, most recent episode depressed F31.76 Active/Remission status: in full remission Most recent bipolar episode type: depressed Coronary artery disease involving [place] coronary artery of [place] heart without angina pectoris I25.10 Associated angina: without angina Coronary Disease-Associated Artery/Lesion type: [place] artery [place] vs. transplanted heart: [place] heart Primary hypertension I10 Hypertension type: primary hypertension Hypothyroidism, unspecified type E03.9 Hypothyroidism type: unspecified Lipoma of back D17.1 Smoker F17.200 Deviated nasal septum J34.2 Myalgia M79.10 Additional Codes PAT-7 Assessment Billing - PAT-7 Assessment Tool: PAT-7 Assessment 21303 ([id number]) PHQ-9 - 88473 - PHQ-9 Billing: Yes ([id number]) Assessment & Plan Assessment & Plan (1) T2DM (type 2 diabetes mellitus): Code(s): E11.9 - Type 2 diabetes mellitus without complications Category: Medical Qualifiers: Diabetes mellitus complication detail: with diabetic microalbuminuria D iabetes mellitus complication status: with kidney complications Diabetes mellitus retirement insulin use: with retirement use Qualified Code(s): E11.29 - Type 2 diabetes mellitus with other diabetic kidney complication; R80.9 - Proteinuria, unspecified; Z79.4 - manager long term care (current) use of insulin Plan: Patient's type 2 diabetes suboptimally controlled with A1c today at 7.7 from 6.8. Will add on Ozempic to help her with some glycemic control. She also does have established coronary artery disease. Goal A1c is to be below 7.0 (2) COPD (chronic obstructive pulmonary disease): Code(s): J44.9 - Chronic obstructive pulmonary disease, unspecified Category: Medical Qualifiers: COPD type: chronic bronchitis Chronic bronchitis type: simple Q ualified Code(s): J41.0 - Simple chronic bronchitis Plan: Patient unfortunately continues to smoke. She does have bronchial symptoms from time to time during illnesses. She does have access to her albuterol inhaler (3) Bipolar disorder: Code(s): F31.9 - Bipolar disorder, unspecified Category: Medical Qualifiers: Active/Remission status: in full remission Most recent bipolar episode type: depressed Qualified Code(s): F31.76 - Bipolar disorder, in full remission, most recent episode depressed Plan: Continues on venlafaxine. She is off of a lot of her previous mental health medications (4) CAD (coronary artery disease): Code(s): I25.10 - Atherosclerotic heart disease of [place] coronary artery without angina pectoris Category: Medical Qualifiers: Associated angina: without angina Coronary Disease-Associated Artery/Lesion type: [place] artery [place] vs. transplanted heart: [place] heart Qualified Code(s): I25.10 - Atherosclerotic heart disease of [place] coronary artery without angina pectoris Plan: Has not had any follow-up with Cardiology in quite some time. She does have a coronary artery stent placed in 2021. She denies any chest discomfort, dizziness or syncopal episodes. Advised on reestablishing care with Cardiology though she declines. Will continue to follow her lipid panel with goal LDL to be optimally below 70 (5) HTN (hypertension): Code(s): I10 - Essential (primary) hypertension Category: Medical Qualifiers: Hypertension type: primary hypertension Qualified Code(s): I10 - Essential (primary) hypertension Plan: Patient's blood pressure acceptable today in office. She is on several different antihypertensive with good effect. Goal blood pressures to remain below 140/90 (6) Hypothyroidism: Code(s): E03.9 - Hypothyroidism, unspecified Category: Medical Qualifiers: Hypothyroidism type: unspecified Qualified Code(s): E03.9 - Hypothyroidism, unspecified Plan: Patient continues on levothyroxine 50 mcg, will recheck TSH to ensure normal. (7) Lipoma of back: Code(s): D17.1 - Benign lipomatous neoplasm of skin and subcutaneous tissue of trunk Category: Medical Plan: Has to tender lumps around her thoracic spine, will send for ultrasound the area to evaluate for lipoma versus concerning mass (8) Smoker: Code(s): F17.200 - Nicotine dependence, unspecified, uncomplicated Category: Social Hx Plan: Patient does understand she needs to quit smoking though declines my offer to continue nicotine replacement. (9) Deviated nasal septum: Code(s): J34.2 - Deviated nasal septum Category: Medical Plan: Patient has a history of intranasal cocaine abuse. She continues to have issues with breathing through her nose. She has seen an ENT in the past and reports she has a nasal septum deviation. She would like a 2nd opinion from new ENT specialist about fixing her nasal septum (10) Myalgia: Code(s): M79.10 - Myalgia, unspecified site Category: Medical Plan: Has been experiencing myalgias in her lower extremities over last few months. Unclear if this is related to statin side effect versus worsening type 2 diabetes. Will reduce her atorvastatin dose to 40 mg, will also add on magnesium to help with her lower extremity cramping. Orders: Orders 2 Influenza [id number] Immunization Today Z23 - Encounter for immunization AMB Hemoglobin A1c Today E11.29 - Type 2 diabetes mellitus with other diabetic kidney complication, R80.9 - Proteinuria, unspecified, Z79.4 - manager long term care (current) use of insulin US soft tiss head and/or neck Today D17.1 - Benign lipomatous neoplasm of skin and subcutaneous tissue of trunk TSH reflex Free T4 Today E03.9 - Hypothyroidism, unspecified Microalbumin, Random (w Creat) Today E11.29 - Type 2 diabetes mellitus with other diabetic kidney complication, R80.9 - Proteinuria, unspecified, Z79.4 - detention (current) use of insulin Comprehensive [place]. Panel Fast Today E11.29 - Type 2 diabetes mellitus with other diabetic kidney complication, R80.9 - Proteinuria, unspecified, Z79.4 - detention (current) use of insulin Complete Blood Count no Diff Today E11.29 - Type 2 diabetes mellitus with other diabetic kidney complication, R80.9 - Proteinuria, unspecified, Z79.4 - detention (current) use of insulin Vitamin D 25-OH Total Today E55.9 - Vitamin D deficiency, unspecified Lipid Panel Today I25.10 - Atherosclerotic heart disease of [place] coronary artery without angina pectoris Referrals 2 Ear/Nose/Throat Referral J34.2 - Deviated nasal septum Medications: New 2 semaglutide (Ozempic) for 4 weeks 0.25 mg (0.368 mL) subcut QWEEK 3 mL 1RF 4 weeks E11.29 - Type 2 diabetes mellitus with other diabetic kidney complication, R80.9 - Proteinuria, unspecified, Z79.4 - manager long term care (current) use of insulin atorvastatin 40 mg PO DAILY 90 tabs 1RF 90 days E78.5 - Hyperlipidemia, unspecified magnesium oxide 250 mg PO BID 180 tabs 2RF 90 days M79.10 - Myalgia, unspecified site Changed 2 From metoprolol succinate ER 12.5 mg (1/2 x 25 mg) PO DAILY 90 days 45 tabs 3RF J34.2 - Deviated nasal septum To metoprolol succinate ER 25 mg PO DAILY 90 tabs 3RF 90 days J34.2 - Deviated nasal septum Discontinued 2 atorvastatin Discontinued Reason: Doctor's Order 80 mg PO DAILY 90 tabs 1RF
--- OUTSIDE RECORDS SUMMARY | 2024-08-28 11:37 | XMS_ITS | Continuity of Care Document ---
Author Organization [facility] Address [address] [address] Phone Care Team Providers Care Grid Inspector Name Role Phone Lori LEONE, Kamilah Unavailable Unavailable Advance Directives Directive Yes / No Effective Date File Name No Information Encounters Encounter Description Practice Location Reason(s) For Visit Diagnoses Date Provider Providers Copied on Encounter [facility], [address], [id number], [place] tel:[phone] [facility] No Information Lori Triana. [address] [place], [place], [id number], [place]. tel:[phone] Family History Family Member Type Diagnosis Age At Onset No Information Payers Payer name Insurance type Covered constitution party ID Authoriza tion(s) No Information Social [...]
== END 2024-08-28 11:57 | disposition home or self-care (01) ==
PROVIDERS: PCP Physician Assistant; Visit Provider Physician Assistant
DX: E11.29 Type 2 diabetes mellitus with other diabetic kidney complication (principal); R80.9 Proteinuria, unspecified; Z79.4 Long term (current) use of insulin; J41.0 Simple chronic bronchitis; F31.76 Bipolar disorder, in full remission, most recent episode depressed; I25.10 Atherosclerotic heart disease of native coronary artery without angina pectoris; I10 Essential (primary) hypertension; E03.9 Hypothyroidism, unspecified; D17.1 Benign lipomatous neoplasm of skin and subcutaneous tissue of trunk; F17.200 Nicotine dependence, unspecified, uncomplicated; J34.2 Deviated nasal septum; M79.10 Myalgia, unspecified site; Z23 Encounter for immunization

== ENCOUNTER 2024-09-17 13:24 | Outpatient (REF) | payer OTHER, SELFPAY ==
--- NOTE | ~2024-09-17 | US_ITS ---
EXAMINATION: US SMALL BODY PART LIMITED. CLINICAL INFORMATION: Palpated lump, right-sided of the thoracic region.. COMPARISON: None available. TECHNIQUE: Real-time imaging of the region of concern posterior right thoracic/chest using grayscale and color Doppler technique.. FINDINGS: There is a 1.4 cm hyperechoic ovoid shaped and well-defined soft tissue lesion at the posterior right mid chest without flow on color Doppler interrogation. US/US abdomen limited IMPRESSION: Probable 1.4 cm lipoma, posterior right mid chest. Electronically signed by: Bartolo Roblero MD 09/18/2024 07:30 AM EDT
--- OUTSIDE RECORDS SUMMARY | 2024-09-17 16:17 | XMS_ITS | Data Portability ---
Author Organization [employer] Address [address] [place] [id number] Care Team Providers Care Precision Farming Coordinator Name Role Phone [facility] Referring Provider [phone] Assessment No assessment recorded. Plan of Treatment Reminders Order Date Submit Date Provider Last Modified By Organization Details Last Modified Time Details Appointments None record ed. Lab None record ed. Referral None record ed. Procedures None record ed. Surgeries None record ed. Imaging None record ed. Medication Orders None record ed. Patient TargetsNo targets recorded. Patient InstructionsNo instructions recorded. Reason for Referral None Reported. Medical Equipment None Reported. Medications Name Sig Start Date Stop Date Status Note LastModified by Organization Details LastModified Time quetiapine 25 mg tablet Take 1 tablet by mouth at bedtime as needed for sleep active Not Available Not Available No t Available atorvastatin 80 mg tablet TAKE 1 TABLET BY MOUTH ONCE DAILY active Not Available Not Available No t Available venlafaxine ER 75 mg capsule,exte nded release 24 hr TAKE 1 CAPSULE BY MOUTH two (2) times a day active Not Available Not Available No t Available lamotrigine 200 mg tablet Take 1 tablet by mouth at bedtime active Not Available Not Available No t Available trazodone 50 mg tablet TAKE 1 TABLET BY MOUTH AT BEDTIME NEEDED active Not Available Not Available No t Available lisinopril 20 mg tablet TAKE 2 TABLETS BY MOUTH ONCE DAILY active Not Available Not Available No t Available gabapentin 400 mg capsule TAKE 1 CAPSULE BY MOUTH 3 (THREE) TIMES A DAY active Not Available Not Available Not Available venlafaxine ER 150 mg capsule,exte nded release 24 hr TAKE 1 CAPSULE BY MOUTH two (2) times a day active Not Available Not Available No t Available gabapentin 250 mg/5 mL oral solution active Not Available Not Available Not Available triamcinolon e acetonide 0.5 % topical ointment APPLY TO THE AFFECTED AREA TOPICALLY ONCE DAILY active Not Available Not Available N ot Available risperidone 0.25 mg tablet TAKE 1 TABLET BY MOUTH two (2) times a day active Not Available Not Available No t Available melatonin 3 mg tablet TAKE 3 TABLETS BY MOUTH ONCE DAILY AT BEDTIME active Not Available Not Available No t Available acetaminophe n 300 mg-codeine 30 mg tablet active Not Available Not Available Not Available amlodipine 5 mg tablet TAKE 1 TABLET BY MOUTH ONCE DAILY active Not Available Not Available No t Available aspirin 81 mg tablet,delay ed release TAKE 1 TABLET BY MOUTH ONCE DAILY active Not Available Not Available No t Available levothyroxin e 25 mcg tablet TAKE 1 TABLET BY MOUTH ONCE DAILY active Not Available Not Available No t Available lamotrigine 25 mg tablet TAKE 2 TABLETS BY MOUTH ONCE DAILY active Not Available Not Available No t Available amoxicillin 875 mg tablet active Not Available Not Available Not Available lorazepam 0.5 mg tablet active Not Available Not Available Not Available gabapentin 800 mg tablet TAKE 1 TABLET BY MOUTH 3 (THREE) TIMES A DAY active Not Available Not Available Not Available trazodone 100 mg tablet TAKE 1 TABLET BY MOUTH AT BEDTIME active Not Available Not Available No t Available metformin 1,000 mg tablet TAKE 1 TABLET BY MOUTH two (2) times a day active Not Available Not Available No t Available fluoxetine 10 mg capsule TAKE 1 CAPSULE BY MOUTH ONCE DAILY active Not Available Not Available No t Available pyridoxine (vitamin B6) 50 mg tablet TAKE 1 TABLET BY MOUTH ONCE DAILY active Not Available Not Available No t Available omeprazole 20 mg capsule,bk yed release TAKE 1 CAPSULE BY MOUTH ONCE DAILY active Not Available Not Available No t Available hydroxyzine HCl 25 mg tablet TAKE 1 TABLET BY MOUTH EVERY 6 HOURS NEEDED FOR ANXIETY active Not Available Not Available No t Available mirtazapine 15 mg tablet TAKE 1 TABLET BY MOUTH ONCE DAILY AT BEDTIME active Not Available Not Available No t Available metoprolol succinate ER 25 mg tablet,exten ded release 24 hr TAKE 1/2 TABLET BY MOUTH ONCE DAILY active Not Available Not Available No t Available lorazepam 1 mg tablet TAKE 1 TABLET BY MOUTH 4 (FOUR) TIMES DAILY active Not Available Not Available Not Available albuterol sulfate HFA 90 mcg/actuatio n aerosol inhaler INHALE 1 PUFF BY MOUTH INTO THE lungs 4 (FOUR) TIMES DAILY NEEDED FOR WHEEZING active Not Available Not Available No t Available fluoxetine 20 mg capsule active Not Available Not Available Not Available Novolog FlexPen U-100 Insulin aspart 100 unit/mL (3 mL) subcutaneous BG less than or 110 - 0 units. 111 to 150 - units)0 151 to 200 --- Give (units) 2 201 to 250 -------Give (units)4 251 to 300 --Give (units)6 301 to 350 --- Give (units) 8 Greater than 350 ---Give (units)10 Call MD if Blood Glucose > 350 active Not Available Not Available No t Available mirtazapine 7.5 mg tablet Take 1 tablet by mouth at bedtime active Not Available Not Available No t Available FreeStyle Lite Meter kit USE DIRECTED active Not Available Not Available No t Available FreeStyle Lite Strips USE TO TEST FINGER STICK BLOOD SUGAR two (2) times a day DIRECTED active Not Available Not Available No t Available Lantus Solostar U-100 Insulin 100 unit/mL (3 mL) subcutaneous pen INJECT 14 UNITS SUBCUTANEOU SLY ONCE DAILY active Not Available Not Available No t Available diclofenac 1 % topical gel APPLY 2 grams TOPICALLY 4 (FOUR) TIMES DAILY NEEDED FOR PAIN active Not Available Not Available No t Available melatonin 5 mg tablet TAKE 1 TABLET BY MOUTH ONCE DAILY IN THE EVENING NEEDED active Not Available Not Available No t Available Comfort EZ Pen [place] 32 gauge x 5/32 USE 4 TIMES A DAY active Not Available Not Available No t Available Inject Ease Lancets 28 gauge USE TO TEST FINGER STICK BLOOD SUGAR two (2) times a day DIRECTED FOR diabetes mellitus active Not Available Not Available No t Available Pure Comfort Safety Lancets 30 gauge USE TO TEST FINGER STICK BLOOD SUGAR two (2) times a day active Not Available Not Available No t Available FreeStyle Barry 2 Sensor kit USE TO check blood sugar 4 (FOUR) TIMES DAILY active Not Available Not Available Not Available FreeStyle Barry 2 [place] USE 4 (FOUR) TIMES DAILY active Not Available Not Available Not Available Vitals Date Recorded Body height Oxygen saturation Oxygen saturation in Arterial blood by Pulse oximetry Body temperature Body weight Respiratory rate Heart rate Systolic blood pressure Diastolic blood pressure Provider Name and Address Organization Details Last Updated DateTime 3 154.94 cm 99 % 99 % 98.3 [degF] 31635.6 16 g 16 /min 79 /min 116 mm[Hg] 59 mm[Hg] Not Available [facility] - production 3 11:07:01 Social History None recorded. Functional Status None recorded. Mental Status None recorded. Family History Nothing Reported. Medical History No medical history recorded. Gynecological HistoryNo gynecological history recorded. Obstetrics History GPAL:G 0 P 0 0 0 0 Past Encounters Encounter ID Performer Location Encounter Start Date Encounter Closed Date Diagnosis/Indication Diagnosis SNOMED-CT Code Diagnosis ICD10 Code Diagnosis Note [id number] DALLAS GARZON MD [facility] - [facility] [address] [place] [address] 05/14/2023 11:06:54 05/16/2023 11:11:13 Dysphagia 86106309 R13.10 Evaluation in the field was performed by my insurance actuary colleague, as noted above, I provided real-time direction and supervisio n for this visit. The evaluation revealed 63 yo female with hx of MDD, anxiety and PTS, lives in elderly housing. Member had a psych admit at [facility] for a suicidal attempt- overdose with Lorazepam per her daughter. She reported having called the police after being unable to reach her member. Member was discharged home with no SN services, has no APPLE SORTER services. Member has a new G-tube, her daughter has not been trained and stated that member is very anxious about the tube. We were called by the daughter for G-tube /medicatio n teaching.Sherman mack lives by herself in a very clattered house. She was d/c home on Gabapentin but unsure how many ml via gtube. Per insurance actuary the RX states 6 ml three times a day.Pt also has a new Gtube that was placed during current hospitaliz ation. She was d/c home with 30 ml syringe for the Osmolyte , 3 bottle of Osmolytes ( 2 L each ). There is a market areal on the bottle at 330 ml yancy Pt reports that was to use Osmolyte every 4 hrs.This is a very unsafe discharge .Pt reports that she has had gtube in the past due to cancer. Impression :New Gtube in place secondary to severe dysphagia s/p suicide attempt Plan:-Samara pentin : 6 ml three times a day- use the 10 ml syringe and flush with 10 ml water afterwards .-Osmolyte 330 ml x4 a day . Flush with 30 ml water afterwards to avoid gtube clogging.P t aware to sit up while giving herself Osmolyte to avoid aspiration Spoke with Dorie Gregorio, special education teachers for primary team. [facility]NA is schedule to see pt tomorrow Primary care, consider:P t will need home visit not from the primary team. Will need VNA and home health. Needs help with tube feeds- has supply of Osmolyte for few more days , will need water and syringes for flushing. Will need help with declusteri ng her apartment. She will benefit from APPLE SORTER . Dispositio n: We discussed the diagnostic uncertaint y of home visits and the risk associated with this. In this case, the patient and I felt this to be an acceptable and reasonable amount of risk given the benefit of avoiding an ED visit. We discussed the need to seek care urgently/e mergently in the setting of any new or worsening serious symptoms, particular ly if issues with Gtube . Health Concerns Section Related Observation LastModified by Organization Detai ls LastModified Time None Recorded Concern Status LastModified by Organization Details LastModified Time None Recorded Advance Directives Directive None Recorded Payers Encounter Date Sequence Insurance Name Policy Number Policy Nuñez Covered Member ID Nuñez Member ID Guarantor Name 05/14/2023 1 [facility] - DOS ON OR AFTER 2022 - DUAL ELIGIBLE - SENIOR LIVING OPTIONS AND ONE CARE (MEDICARE REPLACEMENT/ADV ANTAGE - HMO) Gloria Garland [id number] Gloria Garland Notes Date Note Type Note Provider Name and Address Organization Details Recorded Time 05/14/2023 text/html HPI: Member with a hx of MDD, anxiety and PTS, lives in elderly housing. Member had a psych admit at [facility] for a suicidal attempt- overdose with Lorazepam per her daughter. She reported having called the police after being unable to reach her member. Member was discharged home with no SN services, has no APPLE SORTER services. Member has a new G-tube, her daughter has not been trained and stated that member is very anxious about the tube. She requires a locked box with SN d/t medication safety. She reported seeing a therapist from [facility], declined a referral. She is agreeable to a home visit for G-tube /medication teaching. Will refer to [facility] d/t safety risk with single nurse visit. Will need a follow up visit as a high priority for safety concerns .................. .................. .................. .................. .................. .................. .................. ............... CRC Nursing Assessment: Comments: Spoke to requestor to clarify request. Requestor made aware we do not offer gtube or gtube med education. Member does not have a locked box. Per requestor there is no safety concern, and member is safe, stable and does not require a 2 person visit. Wellness visit was offered, requestor in agreement. Daughter with member and will be present tomorrow. .................. .................. .................. .................. .................. .................. .................. ............... Photo Stylist Note From Jagdeep Wood: [facility] visit for female patient having issues with her G tube. Arrived to patient's apartment. Apartment was extremely uncluttered and borderline unlivable. Pt presents conscious and alert. Pt's daughter called concerned about vague instructions for g tube feeding and medication administration. Pt states she is unclear on how much g tube feeding to administer as well as dosage for gabapentin given via that route. Gabapentin bottle had instructions reviewed with patient. G tube feeding solution did not have instructions printed and none were able to be located in cluttered apartment. Consulted with [facility]. Garzon who advised pt taken 330 ml of solution 4 times per day. Visiting nurse services coming out tomorrow. Patient education provided. Pt reminded to flush g tube line and was aware of caring for it with previous g tube in past. .................. .................. .................. .................. .................. .................. .................. ............... Disposition: Fulfilled DALLAS GARZON MD [address] [facility],[address], [place], [address], [employer] [facility] [employer] 05/14/2023 13:17:47 OBGyn Episode No OBEpisode recorded.
--- OUTSIDE RECORDS SUMMARY | 2024-09-17 16:17 | XMS_ITS | Patient Health Record ---
Author Organization [facility] Address [address] [place] [address] Care Team Providers Care Building Analyst/Supervisor Name Role Phone Vicente Tang Primary Care Provider Unavailab Quintin Read Jr Unavailable [phone] Lucy Angeles Unavailable Unavailable Allergies Allergen (clinical drug ingredient) Drug/Non Drug Allergy documented on EMR Reaction Allergy Type Onset Date Status Talwin (uncoded) Unknown Allergy Act arun Reason For Referral No Information Medications Medication SIG (Take, Route, Frequency, Duration) Notes [...] mor godwin Orally Once a day Active Immunizations Vaccine Route Administration Date Status Comme nts Influenza Unknown 02/11/2021 Refused Social History Tobacco Use: Social History Observation Description Date Details (start date - stop date) Current Smoker NA - NA Tobacco Use/Smoking Question Answer Notes Patient is a current smoker How often do you smoke cigarettes? every day How many cigarettes a day do you smoke? 6-10 How soon after you wake up do you smoke your fir st cigarette? 6-30 minutes Problems Problem Type SNOMED Code ICD Code Onset Dates Problem Status W/U Status Risk Notes Problem 693896109 Colon cancer screening (Z12.11) Active confirmed Problem 505486728 Change in bowel habit (R19.4) Active confirmed Problem 483800337 Gastroesophageal reflux disease without esophagitis (K21.9) Active confirmed Plan Of Treatment Pending Test Test Name Order Date XR BARIUM SWALLOW-ESOPHAGUS 10/15/2012 Future Test Test Name Order Date UPPER GI ENDOSCOPY 09/05/2013 COLONOSCOPY 12/07/2016 COLONOSCOPY 02/11/2021 Insurance Providers Payer Name Payer Address Payer Phone Subscriber Number Group Number Insured Name Patient Relationship to Insured Coverage Start Date Coverage End Date [facility] [address] [place] [address] [id number] AVELINA MCKINLEY Self - patient is the insured Medical (General) History Medical History History ICD Code Hypertension History of substance abuse with IV drug use History of exposure to hepatitis B Depression Nonobstructive Schatzki ring 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
--- OUTSIDE RECORDS SUMMARY | 2024-09-17 16:17 | XMS_ITS | Continuity of Care Document ---
Author Organization [facility] Address [address] [facility] [address] [place] [address] Phone Care Team Providers Care Public Safety Officer Name Role Phone Lori LEONE, Kamilah Unavailable Unavailable Advance Directives Directive Yes / No Effective Date File Name No Information Encounters Encounter Description Practice Location Reason(s) For Visit Diagnoses Date Provider [facility], [address], [id number], [place] tel:[phone] [facility] No Information 2022 Lori Triana. [address] [place], [place], [id number], [place]. tel:[phone] Family History Family Member Type Diagnosis Age [...]
== END 2024-09-17 13:25 | disposition home or self-care (01) ==
LOC: HO.US 13:24
PROVIDERS: PCP Physician Assistant; Visit Provider Physician Assistant
DX: D17.1 Benign lipomatous neoplasm of skin and subcutaneous tissue of trunk (principal)
CPT/HCPCS: 76705

== ENCOUNTER → 2024-09-17 13:28 | Outpatient (BNV) | payer OTHER, SELFPAY | PROVIDERS: PCP Physician Assistant; Visit Provider Radiology Diagnostic Radiology | DX: D17.1 Benign lipomatous neoplasm of skin and subcutaneous tissue of trunk (principal) | CPT/HCPCS: 76705 ==

== ENCOUNTER 2024-10-07 10:53 | Outpatient (AMB) | payer OTHER, SELFPAY ==
--- NOTE | 2024-10-07 10:55 | A.OFFVIS_ITS ---
Intake Visit Reasons: Lipomatous Neoplasm of trunk Intake Note: Patient referred by Vicente HENDRICKS for lipoma on back. Present for yrs. Patient c/o: pain when pressed. Cut Off Saw Tender Metal Required: No Accompanied by: Self / Same As Patient Allergies adhesive tape [ADHESIVE TAPE] Allergy (Intermediate, Verified 10/07/24 11:01) BLISTERS mirtazapine Adverse Reaction (Intermediate, Verified 10/07/24 11:01) Palpitations meloxicam Adverse Reaction (Unknown, Verified 10/07/24 11:01) hallucinations talwin Allergy (Unknown, Uncoded 10/07/24 11:01) ineffective respidone Adverse Reaction (Severe, Uncoded 10/07/24 11:01) foggy HPI Comments Details: Patient has a collection of medical problems and comorbidities. She has 2 soft tissue masses involving her right back and she thinks these are causing her shoulder and back issues. Chart was reviewed and patient evaluated [facility] Medical History (Updated 08/28/24 @ 11:59 by Vicente Tang PA-C) Gastrostomy tube dependent Gastrostomy in place Hyperlipidemia T2DM (type 2 diabetes mellitus) Vitamin D deficiency Goiter Stool guaiac positive Physical exam (~06/07/21) Cardiac akinesia Hx of substance abuse History of laryngeal cancer GERD (gastroesophageal reflux disease) Depression COPD (chronic obstructive pulmonary disease) Sleep apnea History of gastrostomy tube placement Otitis media Coccyx pain Constipation Hypothyroidism Left wrist pain Left arm swelling HTN (hypertension) Lumbar stenosis with neurogenic claudication Surgical History History of endoscopy History of cardiac catheterization (~03/16/21) History of removal of Port-a-Cath H/O colonoscopy History of esophagogastroduodenoscopy (EGD) History of ear surgery History of surgery on arm History of surgery on left wrist History of cataract surgery Family History Father Hypertension CVD (cardiovascular disease) Mother Stroke Social History Household Members: None Housing: Apartment Do you presently have visiting nurse or other home services: No Alcohol intake: never Comment: New admission: 5 minute checks Patient Tobacco Use Status: Current everyday Tobacco user Tobacco use type: Cigarette Cigarette Packs Per Day: 1 Cigarettes Per Day: 20 Years Smoked: 48 e-Cigarette/Vaping Use: Never Used Second Hand Smoke Exposure: Yes Substance Use Type: Crack/Cocaine and Heroin Advance Directives Date on File: 07/20/22 service: No Current occupational status: disabled Sexual orientation: Straight/Heterosexual Cognitive needs: Yes (scooter) Hearing needs: No Vision needs: Yes (reading glasses ) Physical Exam Back/Spine/Pelvis Other: Patient was a right mid and right lower back lipoma each measuring roughly 1 x 1 cm each. Assessment & Plan Assessment & Plan (1) Multiple lipomas: Code(s): D17.9 - Benign lipomatous neoplasm, unspecified Category: Surgical Plan Explained to the patient that these lipomas were highly unlikely to be causing her back and shoulder issues. Should she wished to have these excised/removed we can do that so in the office. She at present wishes to be treated conservatively. Regarding her back and shoulder issues, she should see her medical doctor or orthopedic doctor but at present nothing from a surgical perspective to address these issues. All questions answered. She will otherwise follow-up p.r.n.. Coding Level of Care Code New Pt Level 4 (67027) Diagnoses Multiple lipomas D17.9
--- OUTSIDE RECORDS SUMMARY | 2024-10-07 12:21 | XMS_ITS | Data Portability ---
Author Organization [facility] Address [address] [place] [id number] Care Team Providers Care Paint Grinder Stone Mill Name Role Phone [facility] Referring Provider Assessment No assessment recorded. Plan of Treatment [...] Available No t Available Comfort EZ Pen Enders 32 gauge x 5/32 USE 4 TIMES [...] Not Available Not Available FreeStyle Barry 2 Landis USE 4 (FOUR) TIMES DAILY active Not Available Not Available Not Available Vitals Date Recorded Body height Oxygen saturation Oxygen saturation in Arterial blood by Pulse oximetry Body temperature Body weight Respiratory rate Heart rate Systolic blood pressure Diastolic blood pressure Provider Name and Address Organization Details Last Updated DateTime 3 154.94 cm 99 % 99 % 98.3 [degF] 85276.6 16 g 16 /min 79 /min 116 mm[Hg] 59 mm[Hg] Not Available [email or web address] - production 3 11:07:01 Social History None recorded. Functional Status None recorded. Mental Status None recorded. Family History Nothing Reported. Medical History No medical history recorded. Gynecological HistoryNo gynecological history recorded. Obstetrics History GPAL:G 0 P 0 0 0 0 Past Encounters Encounter ID Performer Location Encounter Start Date Encounter Closed Date Diagnosis/Indication Diagnosis SNOMED-CT Code Diagnosis ICD10 Code Diagnosis Note [id number] DALLAS GARZON MD [facility] - [facility] [address] [place] [address] 05/14/2023 11:06:54 05/16/2023 11:11:13 Dysphagia 27808431 R13.10 Evaluation in the field was performed by my sales contracts analyst colleague, as noted above, I provided real-time direction and supervisio n for this visit. The evaluation revealed 63 yo female with hx of MDD, anxiety and PTS, lives in elderly housing. Member had a psych admit at [facility] for a suicidal attempt- overdose with Lorazepam per her daughter. She reported having called the police after being unable to reach her member. Member was discharged home with no SN services, has no TRAFFIC ASSISTANT services. Member has a new G-tube, her daughter has not been trained and stated that member is very anxious about the tube. We were called by the daughter for G-tube /medicatio n teaching.Sherman mack lives by herself in a very clattered house. She was d/c home on Gabapentin but unsure how many ml via gtube. Per sales contracts analyst the RX states 6 ml three times [...] to avoid aspiration Spoke with Dorie Gregorio, environmental health sanitarian for primary team. [facility] is schedule to see pt tomorrow Primary care, consider:P t will need home visit not from the primary team. Will need [facility] and home health. Needs help with tube feeds- has supply of Osmolyte for few more days , will need water and syringes for flushing. Will need help with declusteri ng her apartment. She will benefit from TRAFFIC ASSISTANT . Dispositio n: We discussed the diagnostic [...] Nuñez Member ID Guarantor Name 05/14/2023 1 [facility] - DOS ON OR AFTER 2022 - DUAL ELIGIBLE - RETIREMENT OPTIONS AND ONE CARE (MEDICARE REPLACEMENT/ADV ANTAGE - HMO) Gloria Garland [id number] Gloria Garland Notes Date Note Type Note Provider Name and Address Organization Details Recorded Time 05/14/2023 text/html HPI: Member with a hx of MDD, anxiety and PTS, lives in elderly housing. Member had a psych admit at [facility] for a suicidal attempt- overdose with Lorazepam per her daughter. She reported having called the police after being unable to reach her member. Member was discharged home with no SN services, has no TRAFFIC ASSISTANT services. Member has a new G-tube, her daughter has not been trained and stated that member is very anxious about the tube. She requires a locked box with SN d/t medication safety. She reported seeing a therapist from [facility], declined a referral. She is agreeable to [...] .................. .................. .................. .................. .................. .................. ............... [employer] Bi Administrator Note From Jagdeep Wood: [facility] visit for [...] be located in cluttered apartment. Consulted with [facility] Dr. Garzon who advised pt taken 330 ml of solution 4 times per day. Visiting nurse services coming out tomorrow. Patient education provided. Pt reminded to flush g tube line and was aware of caring for it with previous g tube in past. .................. .................. .................. .................. .................. .................. .................. ............... Disposition: Fulfilled DALLAS GARZON MD [address] [facility],[address], [place], [address], [employer] 05/14/2023 13:17:47 OBGyn Episode No OBEpisode recorded.
--- OUTSIDE RECORDS SUMMARY | 2024-10-07 12:21 | XMS_ITS | Continuity of Care Document ---
Author Organization [facility] Address [address] [facility] [address] [place] [address] Phone Care Team Providers Care Mathematical Statistician Name Role Phone Lori LEONE, Kamilah Unavailable Unavailable Advance Directives Directive Yes / No Effective Date File Name No Information Encounters Encounter Description Practice Location Reason(s) For Visit Diagnoses Date Provider [facility], [address], [id number], [place] tel:[phone] [facility] No Information 2022 Lori Triana. [address] [place], [place], [id number], [place]. tel:[phone] Family History Family Member Type Diagnosis Age [...]
--- OUTSIDE RECORDS SUMMARY | 2024-10-07 12:21 | XMS_ITS | Patient Health Record ---
Author Organization [facility] Address [address] [place] [address] Care Team Providers Care Optometric Tech Name Role Phone Vicente Tang Primary Care Provider Unavailab Quintin Read Jr Unavailable Lucy Angeles Unavailable Unavailable Allergies Allergen (clinical [...] Problem Status W/U Status Risk Notes Problem 232315416 Colon cancer screening (Z12.11) Active confirmed Problem 355448593 Change in bowel habit (R19.4) Active confirmed Problem 649814975 Gastroesophageal reflux disease without esophagitis (K21.9) Active confirmed Plan Of Treatment Pending Test Test Name Order Date XR BARIUM SWALLOW-ESOPHAGUS 10/15/2012 Future Test Test Name Order Date UPPER GI ENDOSCOPY 09/05/2013 COLONOSCOPY 12/07/2016 COLONOSCOPY 02/11/2021 Insurance Providers Payer Name Payer Address Payer Phone Subscriber Number Group Number Insured Name Patient Relationship to Insured Coverage Start Date Coverage End Date [facility] [address] [place] [address] [id number] AVELINA MCKINLEY Self - patient is the [...]
== END 2024-10-07 11:14 | disposition home or self-care (01) ==
LOC: HO.HGS 10:54
PROVIDERS: PCP Physician Assistant; Referring Provider Physician Assistant; Visit Provider Surgery
DX: D17.9 Benign lipomatous neoplasm, unspecified (principal)
CPT/HCPCS: 99204

== ENCOUNTER → 2024-10-07 10:53 | Outpatient (BNVA) | payer OTHER, SELFPAY | PROVIDERS: PCP Physician Assistant; Referring Provider Physician Assistant; Visit Provider Surgery | DX: D17.9 Benign lipomatous neoplasm, unspecified (principal) | CPT/HCPCS: 99202 ==

== ENCOUNTER 2024-12-05 11:11 | Outpatient (AMB) | payer OTHER, SELFPAY ==
--- OUTSIDE RECORDS SUMMARY | 2024-12-05 11:38 | XMS_ITS | Patient Health Record ---
Author Organization [facility] Address [address] [place] [address] Care Team Providers Care Chili Maker Name Role Phone Vicente Tang Primary Care [...] Problem Status W/U Status Risk Notes Problem 349250958 Colon cancer screening (Z12.11) Active confirmed Problem 297536214 Change in bowel habit (R19.4) Active confirmed Problem 635695352 Gastroesophageal reflux disease without esophagitis (K21.9) Active confirmed Plan Of Treatment Pending Test Test Name Order Date XR BARIUM SWALLOW-ESOPHAGUS 10/15/2012 Future Test Test Name Order Date UPPER GI ENDOSCOPY 09/05/2013 COLONOSCOPY 12/07/2016 COLONOSCOPY 02/11/2021 Insurance Providers Payer Name Payer Address Payer Phone Subscriber Number Group Number Insured Name Patient Relationship to Insured Coverage Start Date Coverage End Date [facility] [address] [place] [phone] [id number] AVELINA MCKINLEY Self - patient is the [...]
[2024-12-05 11:49] VITALS: BP 164/70; PULSE 70; TEMP 36.3; O2SAT 95; BMI 29.3
--- NOTE | 2024-12-05 11:49 | A.OFFPC_ITS ---
Vital Signs 12/05/24 11:49 Height 5 ft 1 in Weight 155 lb 4 oz BMI 29.3 BP 164/70 H Blood Pressure Location Lt brachial Position Sitting Pulse 70 Pulse Source Pulse Oximeter Temp 97.3 F Temp Source Temporal Artery Scan Pulse Oximetry (%) 95 Oxygen Delivery Method Room Air Intake Visit Reasons: Annual exam Blurb Writer Required: No Accompanied by: Self / Same As Patient Allergies adhesive tape [ADHESIVE TAPE] Allergy (Intermediate, Verified 12/05/24 11:57) BLISTERS mirtazapine Adverse Reaction (Intermediate, Verified 12/05/24 11:57) Palpitations meloxicam Adverse Reaction (Unknown, Verified 12/05/24 11:57) hallucinations talwin Allergy (Unknown, Uncoded 12/05/24 11:57) ineffective respidone Adverse Reaction (Severe, Uncoded 12/05/24 11:57) foggy Medication List - Last Reconciled 12/05/24 by Vicente Tang PA-C acetaminophen-codeine 300-30 mg 1 tab PO Q8H PRN 4 days adhesive tape (Paper Tape) As directed albuterol sulfate 90 mcg/actuation 1 puff inhalation QID PRN alcohol swabs (Alcohol Prep Pads) 1 pad topical DAILY 30 days amlodipine 5 mg PO DAILY aspirin 81 mg PO DAILY atorvastatin 40 mg PO DAILY 90 days blood sugar diagnostic (FreeStyle Lite Strips) 1 strip miscellaneous BID 30 days blood-glucose meter (FreeStyle Lite Meter kit) USE DIRECTED cyclobenzaprine 10 mg PO BID 10 days flash glucose sensor (FreeStyle Barry 2 Sensor kit) 4xs per day gabapentin 800 mg PO QID 30 days [Hand held shower head As directed] hydroxyzine HCl 25 mg PO Q6H PRN 30 days ibuprofen 600 mg PO BID 30 days insulin aspart U-100 (Novolog FlexPen U-100 Insulin aspart) *Less than or equal to 110 --- Give (units):0 *111 to 150 --- Give (units):0 *151 to 200 --- Give (units): 2 *201 to 250 -------Give (units):4 *251 to 300 --Give (units):6 *301 to 350 --- Give (units): 8 *Greater than 350 ---Give (units):10 *Call MD if Blood Glucose > :350 insulin glargine (Lantus Solostar U-100 Insulin) 14 units (0.14 mL) subcut DAILY lamotrigine 25 mg PO DAILY lancets (Inject Ease Lancets) 1 gauge miscellaneous BID 50 days lancets (Pure Comfort Safety Lancets) As directed levothyroxine 50 mcg PO DAILY 30 days lisinopril 40 mg (2 x 20 mg) PO DAILY lorazepam 1 mg PO QID PRN magnesium oxide 250 mg PO BID 90 days melatonin 10 mg PO BEDTIME PRN 90 days metformin 500 mg PO BID 90 days metoprolol succinate ER 25 mg PO DAILY 90 days miscellaneous medical supply 1 ea miscellaneous DAILY 30 days miscellaneous medical supply 1 ea miscellaneous DAILY 99 days nicotine 1 patch transdermal DAILY 14 days nicotine 1 patch transdermal DAILY 14 days omeprazole 20 mg PO DAILY 30 days pen needle, diabetic (Comfort EZ Pen [place]) USE 4 TIMES A DAY pyridoxine (vitamin B6) 50 mg PO DAILY semaglutide (Ozempic) 0.25 mg (0.368 mL) subcut QWEEK 4 weeks venlafaxine ER 150 mg PO DAILY 30 days Tobacco use date assessed: 08/28/24 Fall risk assessment: No Falls in past year Last assessed Fall Risk: 12/05/24 Dental Screening Dental Screen Date: 08/28/24 [facility] Annual exam HPI Details Patient is a 64-year-old female here today for a annual physical Patient has a past medical history significant for type 2 diabetes, hyperlipidemia, coronary artery disease, hypertension, COPD, tobacco dependency, depression and anxiety. Concern--> Deviated nasal septum: Has a history of intranasal cocaine use She has ongoing issues with nasal breathing, linked to a deviated septum, contributing to her preference for a referral to an ENT specialist. Type 2 diabetes: A1c of 7.7%, elevated from 6.8% the previous year. Additionally, she reports persistent symptoms of neuropathy, with feet spasms, particularly worsening by the end of the day, raising concerns about the potential side effects of atorvastatin. . Continues on a fairly high dose of gabapentin for her neuropathy. She reports originally being on Ozempic 0.5 mg weekly getting good glycemic control though has stopped the medication for some short period of time and restarted GLP 1 Ozempic though was not getting the glycemic control she once had and has gained weight. PLAN: Will increase her Ozempic to 1 mg weekly for better glycemic control and added benefit of weight loss. . Coronary artery disease: Patient did have an MD in 2021 and received a coronary artery stent. She has been doing really well without any significant chest pain, shortness for breath or dizziness. Has yet to reestablish care with her stock feeder. She denies any further chest discomfort. Will recheck lipids to ensure normal. Continues on high-dose statin and aspirin and beta-fito. Most recent lipid panel showing excellent control over total cholesterol and LDL. .. Tobacco dependency: She does understand she needs to quit smoking and has cut down if small bit. She is interested in nicotine patches. She has not willing to completely quit smoking at this time. Colorectal cancer screening: done colonoscopy in [address] hernandez - Mammogram: Declines mammograms Vaccines: Up-to-date with [employer] [facility] Medical History (Updated 12/07/24 @ 16:19 by Vicente Tang PA-C) Gastrostomy tube dependent Hyperlipidemia T2DM (type 2 diabetes mellitus) Vitamin D deficiency Goiter Stool guaiac positive Physical exam (~06/07/21) Cardiac akinesia Hx of substance abuse History of laryngeal cancer GERD (gastroesophageal reflux disease) Depression COPD (chronic obstructive pulmonary disease) Sleep apnea History of gastrostomy tube placement Otitis media Coccyx pain Constipation Hypothyroidism Left wrist pain Left arm swelling HTN (hypertension) Lumbar stenosis with neurogenic claudication Surgical History History of endoscopy History of cardiac catheterization (~03/16/21) History of removal of Port-a-Cath H/O colonoscopy History of esophagogastroduodenoscopy (EGD) History of ear surgery History of surgery on arm History of surgery on left wrist History of cataract surgery Family History Father Hypertension CVD (cardiovascular disease) Mother Stroke Social History Household Members: None Housing: Apartment Do you presently have visiting nurse or other home services: No Alcohol intake: never Comment: New admission: 5 minute checks Patient Tobacco Use Status: Current everyday Tobacco user Tobacco use type: Cigarette Cigarette Packs Per Day: 1 Cigarettes Per Day: 20 Years Smoked: 48 e-Cigarette/Vaping Use: Never Used Second Hand Smoke Exposure: Yes Substance Use Type: Crack/Cocaine and Heroin Advance Directives Date on File: 07/20/22 service: No Current occupational status: disabled Sexual orientation: Straight/Heterosexual Cognitive needs: Yes (scooter) Hearing needs: No Vision needs: Yes (reading glasses ) Questionnaire Thrive Questionnaire Date Thrive assessed: 08/28/24 PAT-7 AMB Questionnaire PAT-7 Date PAT - 7 assessed: 08/28/24 Source: Developed by Drs. Zackary William, Elizabeth Meadows, Miguel Velazquez and colleagues, with an educational juhi from [employer]. Review of Systems Const Denies body aches, Denies chills, Denies excessive sweating, Denies fatigue, Denies fever(s) and Denies headache(s) Eyes Denies blurry vision ENT Denies dysphagia, Denies vertigo, Denies dizziness, Denies headache(s), Denies hearing loss and Denies tinnitus Card Denies chest pain, Denies chest pain with activity, Denies syncope, Denies irregular heart rhythm and Denies dyspnea Resp Denies chest congestion, Denies cough, Denies hemoptysis, Denies dyspnea and Denies wheezing GI Denies abdominal pain, Denies melena, Denies hematochezia, Denies coffee ground emesis, Denies dysphagia, Denies diarrhea, Denies nausea and Denies vomiting Denies urinary frequency, Denies dysuria, Denies urinary hesitancy and Denies urinary urgency Musc Denies arthralgias, Denies limited range of motion, Denies muscle cramps and Denies muscle weakness Skin/Breast Denies rash and Denies skin ulcer Neuro Denies Abnormal speech present, Denies confusion, Denies vertigo, Denies dizziness, Denies syncope, Denies headache(s), Denies memory loss and Denies seizure-like activity Psych Denies anxiety, Denies confusion, Denies depression, Denies memory loss, Denies panic attacks and Denies paranoia Endo Denies excessive sweating, Denies fatigue, Denies flushing, Denies polydipsia and Denies polyuria Aller/Immun Denies wheezing Physical exam (Primary Care) Vital Signs: Last Vital Signs Temp 97.3 F 12/05/24 11:49 Pulse 70 12/05/24 11:49 BP 164/70 H 12/05/24 11:49 Pulse Ox 95 12/05/24 11:49 Oxygen Delivery Method Room Air 12/05/24 11:49 BMI result Body Mass Index 29.3 Tobacco/Smoking Status: Tobacco use Status Tobacco use date assessed 08/28/24 12/05/24 11:52 Patient Tobacco Use Status Current everyday Tobacco 12/05/24 11:52 Tobacco use type Cigarette 12/05/24 11:52 e-Cigarette/Vaping Use Never Used 12/05/24 11:52 Are you ready to quit: No Tobacco cessation counseling provided: Yes Items discussed: Nicotine replacement Relapse Prevention: discussed the importance of a supportive environment, discussed negative mood or depression after quitting, weight gain after smoking is common and discussed dietary, exercise and/or lifestyle changes Number of minutes spent counselin CPT code: 88998 - 4-10 Minutes Thrive Assessment: Date of Thrive Assessment Date Thrive assessed 08/28/24 12/05/24 11:52 Const General: cooperative, comfortable, no acute distress, alert and awake; No confusion Orientation/consciousness: oriented to person, oriented to place, patient oriented x3 and No confusion HENMT Head: Yes normocephalic Ears: external ears normal and TM's normal bilaterally Face and sinus: No sinus tenderness Mouth: Normal oral and palatal mucosa present and tongue normal Teeth and gingiva: dentition normal and gingiva normal Throat: Yes posterior oropharynx normal, Yes tonsils normal and Yes uvula midline Eyes Conjunctivae: conjunctivae normal Sclerae: sclerae normal Pupils: Equal, round and reactive pupils present EOM: EOMs intact bilaterally Direct Ophthalmoscopy: No no photophobia Neck Neck: Yes no lymphadenopathy, No tender and Yes no JVD Thyroid: Thyroid normal Carotids: no bruits Chest Chest palpation & inspection: no tenderness Resp Effort & Inspection: normal respiratory effort, no audible wheezes, not labored and no stridor Auscultation: no crackles, no rales, no rhonchi and no wheezes Cardio Jugular venous distension: no JVD Rate: regular rate, not bradycardic and not tachycardic Rhythm: regular rhythm Bruits: no carotid bruits Peripheral pulses: Peripheral pulses 2+ throughout GI Inspection: Yes normal to inspection, No abdominal wall ecchymosis and No visible herniation Palpation (GI): Soft to palpation, nontender, no guarding, not rigid and No hepatosplenomegaly present Auscultation: normoactive bowel sounds General: Yes no CVA tenderness Back/Spine/Pelvis Back: no CVA tenderness and No back tenderness Cervical Spine: cervical ROM normal Thoracic/Lumbar Spine: thoracic and lumbar spine normal to inspection, straight leg raise negative bilaterally, No thoraco-lumbar ROM limited and No lumbar spinal tenderness Skin Lesions: no lesions Rashes: no rashes Wounds: no wounds Neuro General: oriented to person, oriented to place, patient oriented x3, CN's II-XI intact bilaterally and No confusion Cranial nerves: Yes Equal, round and reactive pupils present and Yes Normal accommodation reflex present Cognition (Neuro): normal cognition Speech: No Abnormal speech present Gait exam (Neuro): Normal gait present Motor exam (neuro): 5/5 motor strength present throughout Extrem Right upper extremity: full ROM; no cyanosis Left upper extremity: full ROM; no cyanosis Right lower extremity: no edema Left lower extremity: no edema Psych Appearance: grossly normal Mental Status: mental status grossly normal Affect: normal affect Attitude: cooperative Thought process: Normal thought process present Results AMB Hemoglobin A1c AMB Hemoglobin A1c 7.3 % Last Edit by PAT Saxena on 12/05/24 12:04 Results Reviewed Results Reviewed: Laboratory Last Values Hgb A1c (Clinic) 7.3 % (4.0-6.0) H 12/05/24 11:17 Coding Level of Care Code Est Pt Prev Care >65y(21643) Diagnoses Annual physical exam Z00.00 Type 2 diabetes mellitus with diabetic microalbuminuria, with long-term current use of insulin E11.29; R80.9; Z79.4 Diabetes mellitus complication detail: with diabetic microalbuminuria Diabetes mellitus complication status: with kidney complications Diabetes mellitus snf insulin use: with terminal operations manager use Simple chronic bronchitis J41.0 COPD type: chronic bronchitis Chronic bronchitis type: simple Bipolar disorder, in full remission, most recent episode depressed F31.76 Active/Remission status: in full remission Most recent bipolar episode type: depressed Coronary artery disease involving [place] coronary artery of [place] heart without angina pectoris I25.10 Associated angina: without angina Coronary Disease-Associated Artery/Lesion type: [place] artery [place] vs. transplanted heart: [place] heart Primary hypertension I10 Hypertension type: primary hypertension Hypothyroidism, unspecified type E03.9 Hypothyroidism type: unspecified Smoker F17.200 Sensorineural hearing loss (SNHL) of right ear, unspecified hearing status on contralateral side H90.5 Laterality: right Contralateral hearing status: unspecified Diabetic polyneuropathy associated with type 2 diabetes mellitus E11.42 Diabetes mellitus type: type 2 Diabetes mellitus complication detail: diabetic polyneuropathy Additional Codes Vital Signs *Quality* - CPT code: 93526 - 4-10 Minutes ([id number]) Assessment & Plan Assessment & Plan (1) Annual physical exam: Code(s): Z00.00 - Encounter for general adult medical examination without abnormal findings Category: Medical Plan: As per HPI (2) T2DM (type 2 diabetes mellitus): Code(s): E11.9 - Type 2 diabetes mellitus without complications Category: Medical Qualifiers: Diabetes mellitus complication detail: with diabetic microalbuminuria Diabetes mellitus complication status: with kidney complications Diabetes mellitus terminal operations manager insulin use: with terminal operations manager use Qualified Code(s): E11.29 - Type 2 diabetes mellitus with other diabetic kidney complication; R80.9 - Proteinuria, unspecified; Z79.4 - [facility] (current) use of insulin Plan: Patient's type 2 diabetes suboptimally controlled with A1c today at 7.7 from 6.8. Will increase her Ozempic to 1 mg for better glycemic control and added benefit of weight loss. Goal A1c is to be below 7.0 (3) COPD (chronic obstructive pulmonary disease): Code(s): J44.9 - Chronic obstructive pulmonary disease, unspecified Category: Medical Qualifiers: COPD type: chronic bronchitis Chronic bronchitis type: simple Qualified Code(s): J41.0 - Simple chronic bronchitis Plan: Patient unfortunately continues to smoke. She does have bronchial symptoms from time to time during illnesses. She does have access to her albuterol inhaler. Expressed the need to completely stopped smoking and patient understands though is not ready to quit smoking at this time. (4) Bipolar disorder: Code(s): F31.9 - Bipolar disorder, unspecified Category: Medical Qualifiers: Active/Remission status: in full remission Most recent bipolar episode type: depressed Qualified Code(s): F31.76 - Bipolar disorder, in full remission, most recent episode depressed Plan: Continues on venlafaxine. She feels her mood is fairly stable especially since moving to a new apartment in [place] where she feels more comfortable and safe. (5) CAD (coronary artery disease): Code(s): I25.10 - Atherosclerotic heart disease of [place] coronary artery without angina pectoris Category: Medical Qualifiers: Associated angina: without angina Coronary Disease-Associated Artery/Lesion type: [place] artery [place] vs. transplanted heart: [place] heart Qualified Code(s): I25.10 - Atherosclerotic heart disease of [place] coronary artery without angina pectoris Plan: Has not had any follow-up with Cardiology in quite some time. She does have a coronary artery stent placed in 2021. She denies any chest discomfort, dizziness or syncopal episodes. Advised on reestablishing care with Cardiology though she declines. Will continue to follow her lipid panel with goal LDL to be optimally below 70 (6) HTN (hypertension): Code(s): I10 - Essential (primary) hypertension Category: Medical Qualifiers: Hypertension type: primary hypertension Qualified Code(s): I10 - Essential (primary) hypertension Plan: Patient's blood pressure acceptable today in office. She is on several different antihypertensive with good effect. Goal blood pressures to remain below 140/90 (7) Hypothyroidism: Code(s): E03.9 - Hypothyroidism, unspecified Category: Medical Qualifiers: Hypothyroidism type: unspecified Qualified Code(s): E03.9 - Hypothyroidism, unspecified Plan: Patient continues on levothyroxine 50 mcg, will recheck TSH to ensure normal. (8) Smoker: Code(s): F17.200 - Nicotine dependence, unspecified, uncomplicated Category: Social Hx Plan: Patient does understand she needs to quit smoking though declines my offer to continue nicotine replacement. (9) SNHL (sensorineural hearing loss): Code(s): H90.5 - Unspecified sensorineural hearing loss Category: Medical Qualifiers: Laterality: right Contralateral hearing status: unspecified Qualified Code(s): H90.5 - Unspecified sensorineural hearing loss Plan: Patient reports having decreased hearing out of both ears ventricular out of her right. Will send for hearing exam to evaluate for sensorineural hearing loss. (10) Diabetic neuropathy: Code(s): E11.40 - Type 2 diabetes mellitus with diabetic neuropathy, unspecified Category: Medical Qualifiers: Diabetes mellitus type: type 2 Diabetes mellitus complication detail: diabetic polyneuropathy Qualified Code(s): E11.42 - Type 2 diabetes mellitus with diabetic polyneuropathy Plan: Patient continues on gabapentin with decent relief of her diabetic neuropathy. Orders: Orders AMB Hemoglobin A1c 12/05/24 E11.29 - Type 2 diabetes mellitus with other diabetic kidney complication, R80.9 - Proteinuria, unspecified, Z79.4 - [facility] (current) use of insulin Referrals Speech and Hearing Referral H90.5 - Unspecified sensorineural hearing loss Medications: New semaglutide (Ozempic) increase dose to 1mg weekly 1 mg (0.75 mL) subcut QWEEK 4 weeks 3 mL 3RF E11.29 - Type 2 diabetes mellitus with other diabetic kidney complication, R80.9 - Proteinuria, unspecified, Z79.4 - [facility] (current) use of insulin Refilled albuterol sulfate 90 mcg/actuation 1 puff inhalation QID PRN 8.5 grams 1RF for wheezing J41.0 - Simple chronic bronchitis Discontinued 2 semaglutide (Ozempic) for 4 weeks Discontinued Reason: Doctor's Order 0.25 mg (0.368 mL) subcut QWEEK 4 weeks 3 mL 3RF E11.29 - Type 2 diabetes mellitus with other diabetic kidney complication, R80.9 - Proteinuria, unspecified, Z79.4 - termite treater (current) use of insulin Patient Instructions: Goal: A1c to be below 7.0, LDL to be optimally below 70, blood pressure to be below 140/90 Barriers: Adherence to physical activity and healthy eating habits
== END 2024-12-05 12:17 | disposition home or self-care (01) ==
LOC: HO.HMCH 11:11
PROVIDERS: PCP Physician Assistant; Visit Provider Physician Assistant
DX: E11.29 Type 2 diabetes mellitus with other diabetic kidney complication (principal); R80.9 Proteinuria, unspecified; Z79.4 Long term (current) use of insulin

== ENCOUNTER → 2024-12-05 11:11 | Outpatient (BNVA) | payer OTHER, SELFPAY | PROVIDERS: PCP Physician Assistant; Visit Provider Physician Assistant | DX: Z00.00 Encounter for general adult medical examination without abnormal findings (principal); E11.29 Type 2 diabetes mellitus with other diabetic kidney complication; R80.9 Proteinuria, unspecified; J41.0 Simple chronic bronchitis; F31.76 Bipolar disorder, in full remission, most recent episode depressed; I25.10 Atherosclerotic heart disease of native coronary artery without angina pectoris; I10 Essential (primary) hypertension; E03.9 Hypothyroidism, unspecified; H90.5 Unspecified sensorineural hearing loss; E11.42 Type 2 diabetes mellitus with diabetic polyneuropathy; F17.210 Nicotine dependence, cigarettes, uncomplicated; Z79.4 Long term (current) use of insulin; Z79.899 Other long term (current) drug therapy | CPT/HCPCS: 83036; 99397 ==

== ENCOUNTER 2025-04-08 09:59 | Outpatient (REF) | payer OTHER, SELFPAY ==
--- OUTSIDE RECORDS SUMMARY | 2025-04-08 11:03 | XMS_ITS | Patient Health Record ---
Author Organization [facility] Address [address] [place] [address] Care Team Providers Care Platform Worker Name Role Phone Vicente Tang Primary Care [...] Problem Status W/U Status Risk Notes Problem [id number] Colon cancer screening (Z12.11) Active confirmed Problem [id number] Change in bowel habit (R19.4) Active confirmed Problem [id number] Gastroesophageal reflux disease without esophagitis (K21.9) Active confirmed Plan Of Treatment Pending Test Test Name Order Date XR BARIUM SWALLOW-ESOPHAGUS 10/15/2012 Future Test Test Name Order Date UPPER GI ENDOSCOPY 09/05/2013 COLONOSCOPY 12/07/2016 COLONOSCOPY 02/11/2021 Insurance Providers Payer Name Payer Address Payer Phone Subscriber Number Group Number Insured Name Patient Relationship to Insured Coverage Start Date Coverage End Date [facility] [address] [place] [phone] [id number] AVELINA MCKINLEY Self - patient is the [...]
[2025-04-08 11:14] LABS: Hematocrit 27.6 % (37.0-47.0); Hemoglobin 8.7 g/dl (12.0-16.0); Mean Corpuscular HGB Conc 31.5 g/dl (31.0-35.0); Mean Corpuscular Hemoglobin 24.8 pg (27.0-33.0); Mean Corpuscular Volume 78.6 fL (80.0-98.0); NRBC Abs Auto 0.000 X10*3/uL (0.0-0.012); NRBC Pct Auto 0.0 /100WBC (0.0-0.2); Platelet Count 234 X10*3/uL (160-400); Red Blood Count 3.51 X10*6/uL (4.20-5.50); White Blood Count 6.4 X10*3/uL (4.8-10.8)
[2025-04-08 11:58] LABS: Alanine Aminotransferase 33 U/L (0-31); Albumin Level 3.8 g/dL (3.5-5.0); Alkaline Phosphatase 145 U/L (39-117); Anion Gap 12 (12-20); Aspartate Amino Transferase 99 U/L (5-31); Blood Urea Nitrogen 24 mg/dL (9-16); Calcium 8.8 mg/dL (8.4-10.2); Carbon Dioxide 26 mmol/L (22-29); Chloride 106 mmol/L (96-108); Cholesterol 182 mg/dL (<200); Estimated Glomerular Filt Rate > 60; HDL Cholesterol 60 mg/dL (>40); Potassium 4.8 mmol/L (3.3-5.1); Sodium 139 mmol/L (135-145); Total Protein 7.3 g/dL (6.5-8.0); Triglycerides 93 mg/dL (<150)
[2025-04-08 12:35] LABS: Microalbum/Creatinine Ratio Ur 247.1 ug/mg cr (<30)
== END 2025-04-08 10:00 | disposition home or self-care (01) ==
LOC: HO.LAB 09:59
PROVIDERS: PCP Physician Assistant; Visit Provider Physician Assistant
DX: E11.29 Type 2 diabetes mellitus with other diabetic kidney complication (principal); E11.42 Type 2 diabetes mellitus with diabetic polyneuropathy; I25.10 Atherosclerotic heart disease of native coronary artery without angina pectoris; E03.9 Hypothyroidism, unspecified; R80.9 Proteinuria, unspecified; E55.9 Vitamin D deficiency, unspecified; J41.0 Simple chronic bronchitis; F31.76 Bipolar disorder, in full remission, most recent episode depressed; I10 Essential (primary) hypertension; M48.062 Spinal stenosis, lumbar region with neurogenic claudication; D50.9 Iron deficiency anemia, unspecified; R74.8 Abnormal levels of other serum enzymes; F17.210 Nicotine dependence, cigarettes, uncomplicated; Z79.4 Long term (current) use of insulin; Z79.82 Long term (current) use of aspirin; Z79.890 Hormone replacement therapy; Z79.84 Long term (current) use of oral hypoglycemic drugs; Z79.899 Other long term (current) drug therapy
CPT/HCPCS: 36415; 80053; 80061; 82043; 82306; 82570; 83036; 84443; 85027; 99212

== ENCOUNTER 2025-04-08 10:53 | Outpatient (AMB) | payer OTHER, SELFPAY ==
--- OUTSIDE RECORDS SUMMARY | 2022-10-11 17:22 | XMS_ITS | Continuity of Care Document ---
Author Organization [facility] Address [address] [facility] [address] [place] [address] Phone Care Team Providers Care [employer] Supervisor Name Role Phone Lori LEONE, Kamilah Unavailable Unavailable Advance Directives Directive Yes / No Effective Date File Name No Information Encounters Encounter Description Practice Location Reason(s) For Visit Diagnoses Date Provider [facility], [address], [id number], [place] tel:[phone] [facility] No Information 2022 [address]. [address] [place], [place], [id number], [place]. tel:[phone] Family History Family Member Type Diagnosis Age At Onset No Information Payers Payer name Insurance type Covered alliance party ID Authoriza tion(s) No Information Social History Type Description Quantity Date Captured Comments Sex Female Smoking Status No Information Chief Complaint And Reason For Visit No Information History Of Present Illness Encounter Date Complaint History Of Prese nt Illness No Information Instructions Date Instruction Additional Infor mation No Information Assessments Type Assessment Date No Information
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
[2025-04-08 11:19] VITALS: BP 138/66; PULSE 69; TEMP 36.4; O2SAT 97; BMI 29.5
== END 2025-04-08 13:29 | disposition home or self-care (01) ==
LOC: HO.HMCH 10:53
PROVIDERS: PCP Physician Assistant; Visit Provider Physician Assistant
DX: E11.29 Type 2 diabetes mellitus with other diabetic kidney complication (principal); Z79.4 Long term (current) use of insulin; E11.42 Type 2 diabetes mellitus with diabetic polyneuropathy; J41.0 Simple chronic bronchitis; R80.9 Proteinuria, unspecified; F31.76 Bipolar disorder, in full remission, most recent episode depressed; I25.10 Atherosclerotic heart disease of native coronary artery without angina pectoris; I10 Essential (primary) hypertension; E03.9 Hypothyroidism, unspecified; F17.200 Nicotine dependence, unspecified, uncomplicated; M48.062 Spinal stenosis, lumbar region with neurogenic claudication; D50.9 Iron deficiency anemia, unspecified

== ENCOUNTER 2025-06-12 13:49 | Outpatient (REF) | payer OTHER, SELFPAY ==
[2025-06-12 15:37] LABS: Hematocrit 36.6 % (37.0-47.0); Hemoglobin 11.9 g/dl (12.0-16.0); Mean Corpuscular HGB Conc 32.5 g/dl (31.0-35.0); Mean Corpuscular Hemoglobin 30.3 pg (27.0-33.0); Mean Corpuscular Volume 93.1 fL (80.0-98.0); NRBC Abs Auto 0.000 X10*3/uL (0.0-0.012); NRBC Pct Auto 0.0 /100WBC (0.0-0.2); Platelet Count 172 X10*3/uL (160-400); Red Blood Count 3.93 X10*6/uL (4.20-5.50); White Blood Count 5.7 X10*3/uL (4.8-10.8)
[2025-06-12 15:46] LABS: Iron 96 mcg/dL (30-160); Percent Iron Saturation 37 % (15-50); Total Iron Binding Capacity 257 mcg/dL (228-428); Unsaturated Iron Binding 161 ug/dL
[2025-06-12 16:01] LABS: Ferritin 111 ng/mL (10-250)
== END 2025-06-12 13:50 | disposition home or self-care (01) ==
LOC: HO.LAB 13:49
PROVIDERS: PCP Physician Assistant; Visit Provider Physician Assistant
DX: E11.29 Type 2 diabetes mellitus with other diabetic kidney complication (principal); R80.9 Proteinuria, unspecified; D50.9 Iron deficiency anemia, unspecified; Z79.4 Long term (current) use of insulin; J41.0 Simple chronic bronchitis; F31.76 Bipolar disorder, in full remission, most recent episode depressed; I25.10 Atherosclerotic heart disease of native coronary artery without angina pectoris; I10 Essential (primary) hypertension; E03.9 Hypothyroidism, unspecified; E11.42 Type 2 diabetes mellitus with diabetic polyneuropathy; M48.062 Spinal stenosis, lumbar region with neurogenic claudication; R74.8 Abnormal levels of other serum enzymes
CPT/HCPCS: 36415; 82728; 83540; 85027; 99212

== ENCOUNTER 2025-06-12 13:49 | Outpatient (AMB) | payer OTHER, SELFPAY ==
--- NOTE | 2025-06-12 13:33 | MHC.PC.OV ---
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 Accompanied by: Self / Same As Patient Allergies adhesive tape (ADHESIVE TAPE) Allergy (Intermediate, Verified 06/12/25 14:17) BLISTERS mirtazapine Adverse Reaction (Intermediate, Verified 06/12/25 14:17) Palpitations semaglutide (From Ozempic) Adverse Reaction (Intermediate, Verified 06/12/25 14:17) Ineffective meloxicam Adverse Reaction (Unknown, Verified 06/12/25 14:17) hallucinations talwin Allergy (Unknown, Uncoded 06/12/25 14:17) ineffective respidone Adverse Reaction (Severe, Uncoded 06/12/25 14:17) foggy Medication List - Last Reconciled 06/12/25 by Vicente Tang PA-C acetaminophen-codeine 300-30 mg 1 tab PO Q8H PRN 4 days adhesive tape (Paper Tape) As directed albuterol sulfate 90 mcg/actuation 1 puff inhalation QID PRN alcohol swabs (Alcohol Prep Pads) 1 pad topical DAILY 30 days amlodipine 5 mg PO DAILY aspirin 81 mg PO DAILY atorvastatin 40 mg PO DAILY 90 days blood sugar diagnostic (FreeStyle Lite Strips) 1 strip miscellaneous BID 30 days blood-glucose meter (FreeStyle Lite Meter kit) USE DIRECTED blood-glucose sensor (FreeStyle Barry 2 Plus Sensor device) As directed cyclobenzaprine 10 mg PO BID 30 days [Electric wheel chair As directed] ferrous sulfate 325 mg PO BID 30 days gabapentin 800 mg PO QID 30 days [Hand held shower head As directed] hydroxyzine HCl 25 mg PO Q6H PRN 30 days insulin aspart U-100 (Novolog FlexPen U-100 Insulin aspart) *Less than or equal to 110 --- Give (units):0 *111 to 150 --- Give (units):0 *151 to 200 --- Give (units): 2 *201 to 250 -------Give (units):4 *251 to 300 --Give (units):6 *301 to 350 --- Give (units): 8 *Greater than 350 ---Give (units):10 *Call MD if Blood Glucose > :350 insulin glargine (Lantus Solostar U-100 Insulin) 14 units (0.14 mL) subcut DAILY lamotrigine 25 mg PO DAILY lancets (Inject Ease Lancets) 1 gauge miscellaneous BID 50 days lancets (Pure Comfort Safety Lancets) As directed levothyroxine 50 mcg PO DAILY 30 days lisinopril 40 mg (2 x 20 mg) PO DAILY lorazepam 1 mg PO QID PRN melatonin 10 mg PO BEDTIME PRN 90 days metformin 500 mg PO BID 90 days metoprolol succinate ER 25 mg PO DAILY 90 days omeprazole 20 mg PO DAILY pen needle, diabetic (Comfort EZ Pen Mobile) USE 4 TIMES A DAY tirzepatide (Mounjaro) 7.5 mg (0.5 mL) subcut QWEEK 4 weeks venlafaxine ER 150 mg PO DAILY Tobacco use date assessed: 04/08/25 Fall risk assessment: 1 Fall in past year Last assessed Fall Risk: 06/12/25 Dental Screening Dental Screen Date: 08/28/24 HPI follow up HPI Details Patient is a 65 year-old female here today for follow-up visit Patient has a past medical history significant for type 2 diabetes, hyperlipidemia, coronary artery disease, hypertension, COPD, tobacco dependency, depression and anxiety. Type 2 diabetes: Has been able to lose a significant amount of weight Today's A1c at 5.5 from 7.5. She continues on GLP 1 which has recently switched over to Mounjaro. Noted anemia with a hemoglobin 8.7. .. Microcytic anemia: She reports symptoms consistent with iron deficiency anemia, including persistent fatigue. Her hemoglobin level is 8.7 g/dL, with microcytic red blood cells, indicating possible iron deficiency. She has a history of iron deficiency anemia requiring blood transfusions in the past . Coronary artery disease: Patient did have an [place] in 2021 and received a coronary artery stent. She has been doing really well without any significant chest pain, shortness for breath or dizziness. 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 She denies any further chest discomfort. Will recheck lipids to ensure normal. Continues on high-dose statin and aspirin and beta-fito. Most recent lipid panel showing excellent control over total cholesterol and LDL. .. Elevated liver enzymes: The patient has been informed of elevated liver enzymes, suggesting fatty liver disease, and is advised to manage this through dietary modifications. .. Tobacco dependency: She does understand she needs to quit smoking and has cut down if small bit. She is interested in nicotine patches. She has not willing to completely quit smoking at this time. .. Lumbar disc disease: -- > She reports worsening low back pain that now involves her entire lower back and radiates to her groin. The pain is rated as an 8-9 out of 10 and causes her right leg to buckle, associated with a popping sensation. Her mobility is significantly limited, as she cannot stand for more than 10 minutes without severe pain. She uses a scooter for mobility, which is 5 years old and malfunctioning. A recent home health assessment for a new scooter was unsatisfactory. Laboratory Tests 06/29/23 06/29/23 11/06/23 11:41 11:45 13:39 RBC Hgb 11.7 L Hemoglobin A1c % 6.8 H Hgb A1c (Clinic) Urine Microalbumin 32.0 11/06/23 08/28/24 12/05/24 13:40 11:00 11:17 RBC Hgb Hemoglobin A1c % Hgb A1c (Clinic) 7.7 H 7.3 H Urine Microalbumin 46.0 04/08/25 04/08/25 10:15 11:15 RBC 3.51 L Hgb 8.7 L D Hemoglobin A1c % Hgb A1c (Clinic) 5.9 Urine Microalbumin [facility] Medical History (Updated 04/15/25 @ 09:19 by Vicente Tang PA-C) Gastrostomy tube dependent Hyperlipidemia T2DM (type 2 diabetes mellitus) Vitamin D deficiency Goiter Stool guaiac positive Physical exam (~06/07/21) Cardiac akinesia Hx of substance abuse History of laryngeal cancer GERD (gastroesophageal reflux disease) Depression COPD (chronic obstructive pulmonary disease) Sleep apnea History of gastrostomy tube placement Otitis media Coccyx pain Constipation Hypothyroidism Left wrist pain Left arm swelling HTN (hypertension) Lumbar stenosis with neurogenic claudication Surgical History History of endoscopy History of cardiac catheterization (~03/16/21) History of removal of Port-a-Cath H/O colonoscopy History of esophagogastroduodenoscopy (EGD) History of ear surgery History of surgery on arm History of surgery on left wrist History of cataract surgery Family History Father Hypertension CVD (cardiovascular disease) Mother Stroke Social History Household Members: None Housing: Apartment Do you presently have visiting nurse or other home services: No Alcohol intake: never Comment: New admission: 5 minute checks Patient Tobacco Use Status: Current everyday Tobacco user Tobacco use type: Cigarette Cigarette Packs Per Day: 0.5 Cigarettes Per Day: 10 Years Smoked: 48 e-Cigarette/Vaping Use: Never Used Second Hand Smoke Exposure: Yes Substance Use Type: Crack/Cocaine and Heroin Advance Directives Date on File: 07/20/22 service: No Current occupational status: disabled Sexual orientation: Straight/Heterosexual Cognitive needs: Yes (scooter) Hearing needs: No Vision needs: Yes (reading glasses ) Questionnaire Thrive Questionnaire Date Thrive assessed: 04/04/25 AUDIT C Alcohol Use Questionnaire (AUDIT-C) 1. How often do you have a drink containing alcohol?: Never 3. How often do you have six or more drinks on one occasion?: Never Total Score: 0 PAT-7 AMB Questionnaire PAT-7 Date PAT - 7 assessed: 08/28/24 Source: Developed by Drs. Zackary William, Elizabeth Meadows, Miguel Velazquez and colleagues, with an educational juhi from [employer]. Review of Systems Const Denies headache(s) Eyes Denies loss of vision ENT Denies vertigo, Denies dizziness, Denies headache(s) and Denies sore throat Card Denies chest pain, Denies leg edema and Denies lightheadedness Resp Denies cough, Denies hemoptysis and Denies wheezing GI Denies abdominal pain, Denies melena, Denies constipation, Denies diarrhea and Denies vomiting Denies urinary frequency, Denies dysuria and Denies urinary urgency Musc Denies arthralgias, Denies joint swelling, Denies numbness and Denies tingling Neuro Denies Abnormal speech present, Denies behavioral changes, Denies vertigo, Denies dizziness, Denies headache(s), Denies loss of vision, Denies memory loss, Denies numbness and Denies tingling Psych Denies anxiety, Denies behavioral changes, Denies depression, Denies memory loss and Denies panic attacks Rohan/Lymph Denies easy bleeding and Denies easy bruising Aller/Immun Denies wheezing Physical exam (Primary Care) Vital Signs: Last Vital Signs Temp 97.1 F 06/12/25 13:52 Pulse 64 06/12/25 13:52 Resp 16 06/12/25 13:52 BP 120/64 06/12/25 13:52 Pulse Ox 94 06/12/25 13:52 Oxygen Delivery Method Room Air 06/12/25 13:52 BMI result Body Mass Index 28.2 Tobacco/Smoking Status: Tobacco use Status Tobacco use date assessed 04/08/25 06/12/25 13:35 Patient Tobacco Use Status Current everyday Tobacco 06/12/25 13:35 Tobacco use type Cigarette 06/12/25 13:35 e-Cigarette/Vaping Use Never Used 06/12/25 13:35 Thrive Assessment: Date of Thrive Assessment Date Thrive assessed 04/04/25 06/12/25 13:35 Const General: healthy appearing, no acute distress, alert and awake Nutritional Appearance: well nourished Orientation/consciousness: oriented to person, oriented to place and oriented to time HENMT Ears: TM's normal bilaterally General nose exam: Normal nasal mucous membranes and turbinates present Eyes Conjunctivae: conjunctivae normal Sclerae: sclerae normal Pupils: Equal, round and reactive pupils present Neck Neck: Yes no lymphadenopathy and Yes no JVD Thyroid: Thyroid normal Carotids: no bruits Resp Effort & Inspection: normal respiratory effort and not tachypneic Auscultation: no crackles, no rales, no rhonchi and no wheezes Cardio Rate: regular rate Rhythm: regular rhythm Heart sounds: no murmurs and normal S1 and S2 GI Palpation (GI): Soft to palpation, nontender, no hepatomegaly and no splenomegaly Auscultation: normal bowel sounds Skin General skin exam: no rashes or lesions noted and dry skin Neuro General: oriented to person, oriented to place and oriented to time Cranial nerves: Yes Equal, round and reactive pupils present Speech: No Abnormal speech present Gait exam (Neuro): Normal gait present Motor exam (neuro): no tremor noted Extrem Right upper extremity: full ROM Left upper extremity: full ROM Right lower extremity: full ROM; no edema Left lower extremity: full ROM; no edema Psych Mental Status: mental status grossly normal Speech and movement: Normal speech and movement present Affect: normal affect Attitude: cooperative Thought process: Normal thought process present Coding Level of Care Code Est Pt Level 4 (50533) Diagnoses Type 2 diabetes mellitus with diabetic microalbuminuria, with long-term current use of insulin E11.29; R80.9; Z79.4 Diabetes mellitus complication detail: with diabetic microalbuminuria Diabetes mellitus complication status: with kidney complications 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 transplanted heart: [place] heart Primary hypertension I10 Hypertension type: primary hypertension Hypothyroidism, unspecified type E03.9 Hypothyroidism type: unspecified Smoker F17.200 Diabetic polyneuropathy associated with type 2 diabetes mellitus E11.42 Diabetes mellitus complication detail: diabetic polyneuropathy Diabetes mellitus type: type 2 Lumbar stenosis with neurogenic claudication M48.062 Iron deficiency anemia, unspecified iron deficiency anemia type D50.9 Anemia type: iron deficiency Iron deficiency anemia type: unspecified iron deficiency Elevated liver enzymes R74.8 Assessment & Plan Assessment & Plan (1) T2DM (type 2 diabetes mellitus): Code(s): E11.9 - Type 2 diabetes mellitus without complications Category: Medical Qualifiers: Diabetes mellitus complication detail: with diabetic microalbuminuria Diabetes mellitus complication status: with kidney complications Diabetes mellitus custodial insulin use: with custodial use Qualified Code(s): E11.29 - Type 2 diabetes mellitus with other diabetic kidney complication; R80.9 - Proteinuria, unspecified; Z79.4 - prison (current) use of insulin Plan: Patient's type 2 diabetes is now well controlled with A1c of 5.5 though unclear if the low hemoglobin may be tenting the results of the A1c. She continues on Mounjaro 5 mg weekly and will like to increase to 7.5 weekly. Goal A1c is to be below 7.0 (2) COPD (chronic obstructive pulmonary disease): Code(s): J44.9 - Chronic obstructive pulmonary disease, unspecified Category: Medical Qualifiers: COPD type: chronic bronchitis Chronic bronchitis type: simple Qualified Code(s): J41.0 - Simple chronic bronchitis Plan: Patient unfortunately continues to smoke. She does have bronchial symptoms from time to time during illnesses. She does have access to her albuterol inhaler. Expressed the need to completely stopped smoking and patient understands though is not ready to quit smoking at this time. (3) Bipolar disorder: Code(s): F31.9 - Bipolar disorder, unspecified Category: Medical Qualifiers: Active/Remission status: in full remission Most recent bipolar episode type: depressed Qualified Code(s): F31.76 - Bipolar disorder, in full remission, most recent episode depressed Plan: Continues on venlafaxine. She feels her mood is fairly stable especially since moving to a new apartment in [place] where she feels more comfortable and safe. (4) CAD (coronary artery disease): Code(s): I25.10 - Atherosclerotic heart disease of [place] coronary artery without angina pectoris Category: Medical Qualifiers: Associated angina: without angina Coronary Disease-Associated Artery/Lesion type: [place] artery [place] vs. transplanted heart: [place] heart Qualified Code(s): I25.10 - Atherosclerotic heart disease of [place] coronary artery without angina pectoris Plan: Has not had any follow-up with Cardiology in quite some time. She does have a coronary artery stent placed in 2021. She denies any chest discomfort, dizziness or syncopal episodes. UNFORTUNATELY SHE CONTINUES TO SMOKE Most recent lipid panel showing slight elevation in her LDL at 100. We considered increasing her atorvastatin to 80 though we do know elevated liver enzyme. Will continue to follow her lipid panel with goal LDL to be optimally below 70 (5) HTN (hypertension): Code(s): I10 - Essential (primary) hypertension Category: Medical Qualifiers: Hypertension type: primary hypertension Qualified Code(s): I10 - Essential (primary) hypertension Plan: Patient's blood pressure acceptable today in office. She is on several different antihypertensive with good effect. Goal blood pressures to remain below 140/90 (6) Hypothyroidism: Code(s): E03.9 - Hypothyroidism, unspecified Category: Medical Qualifiers: Hypothyroidism type: unspecified Qualified Code(s): E03.9 - Hypothyroidism, unspecified Plan: Patient continues on levothyroxine 50 mcg, will recheck TSH to ensure normal. (7) Smoker: Code(s): F17.200 - Nicotine dependence, unspecified, uncomplicated Category: Social Hx Plan: Patient does understand she needs to quit smoking though declines my offer to continue nicotine replacement. (8) Diabetic neuropathy: Code(s): E11.40 - Type 2 diabetes mellitus with diabetic neuropathy, unspecified Category: Medical Qualifiers: Diabetes mellitus complication detail: diabetic polyneuropathy Diabetes mellitus type: type 2 Qualified Code(s): E11.42 - Type 2 diabetes mellitus with diabetic polyneuropathy Plan: Patient continues on gabapentin with decent relief of her diabetic neuropathy. (9) Lumbar stenosis with neurogenic claudication: Code(s): M48.062 - Spinal stenosis, lumbar region with neurogenic claudication Category: Medical Plan: Patient does have L5-S1 disc issue. Has been using electric scooter though feels the see is broken, she is asking for electric wheelchair to help her with her will ability and activities of daily living in make her more mobile. We also discussed the possibility of a physical therapy evaluation for an electric wheelchair to assist with her mobility issues. (10) Anemia: Code(s): D64.9 - Anemia, unspecified Category: Medical Qualifiers: Anemia type: iron deficiency Iron deficiency anemia type: unspecified iron deficiency Qualified Code(s): D50.9 - Iron deficiency anemia, unspecified Plan: We talked about starting iron supplementation to address her anemia and the potential side effects, such as constipation (11) Elevated liver enzymes: Code(s): R74.8 - Abnormal levels of other serum enzymes Category: Medical Plan: Noted chronically elevated liver enzymes. Patient willing to get ultrasound of abdomen evaluate for fatty liver. Orders: Orders XR lumbar spine 4V min 06/12/25 M48.062 - Spinal stenosis, lumbar region with neurogenic claudication MR lumbar spine wo con 06/12/25 M48.062 - Spinal stenosis, lumbar region with neurogenic claudication Ferritin 06/12/25 D50.9 - Iron deficiency anemia, unspecified Referrals Pain Management Referral M48.062 - Spinal stenosis, lumbar region with neurogenic claudication Gastroenterology Referral D50.9 - Iron deficiency anemia, unspecified Medications: Changed From acetaminophen-codeine 300-30 mg 1 tab PO Q8H 4 days PRN 12 tabs 0RF pain G62.9 - Polyneuropathy, unspecified To acetaminophen-codeine 300-30 mg 1 tab PO Q8H 15 tabs 0RF pain 5 days G62.9 - Polyneuropathy, unspecified
[2025-06-12 13:52] VITALS: BP 120/64; PULSE 64; RESP 16; TEMP 36.2; O2SAT 94; BMI 28.2
== END 2025-06-12 14:36 | disposition home or self-care (01) ==
LOC: HO.HMCH 13:49
PROVIDERS: PCP Physician Assistant; Visit Provider Physician Assistant
DX: E11.29 Type 2 diabetes mellitus with other diabetic kidney complication (principal); Z79.4 Long term (current) use of insulin; E11.42 Type 2 diabetes mellitus with diabetic polyneuropathy; J41.0 Simple chronic bronchitis; R80.9 Proteinuria, unspecified; F31.76 Bipolar disorder, in full remission, most recent episode depressed; I25.10 Atherosclerotic heart disease of native coronary artery without angina pectoris; I10 Essential (primary) hypertension; E03.9 Hypothyroidism, unspecified; F17.200 Nicotine dependence, unspecified, uncomplicated; M48.062 Spinal stenosis, lumbar region with neurogenic claudication; D50.9 Iron deficiency anemia, unspecified; R74.8 Abnormal levels of other serum enzymes